=== PATIENT | male | born 1960 | race Caucasian/White ===

== ENCOUNTER 2016-12-19 14:51 | Emergency (ER) | payer MEDICARE, BC ==
[~2016-12-19] VITALS: Wt 55.0 kg
[~2016-12-19 14:51] MED LIST: CALC667C PO; FERR-55 PO; HYDR-906 PO; INSU100C5 SQ; INSU100V23 SC; MIDO10TA PO; NEPH PO; SITA50TA2 PO
--- NOTE | 2016-12-19 16:58 | ERD ---
ER Documentation Chief Complaint Date/Time DATE: 12/19/16 TIME: 16:56 Chief Complaint R. HIP PAIN RAD DOWN RLE HPI This a 56-year-old male who presents to the emergency department today complaining of right-sided hip pain for the past 2 weeks. Patient states he walks with a walker and has pain going all way down his legs. Patient states it is worse with walking. Patient is currently on dialysis and takes tramadol for pain. Daughter states that her father had an accident 10 years ago and fractured his hip. Denies any fevers or chills. ROS All systems reviewed and are negative except as per history of present illness. Medications Home Meds Active Scripts Hydrocodone/Acetaminophen ([place] 5-325 Tablet) 1 Each Tablet, 1 TAB PO Q6H Y for PAIN, #10 TAB Prov:FRANNY BLANCHARD PA-C 12/19/16 Hydrocodone Bit-Acetaminophen ([place]) 5-325 Mg Tablet, 1 TAB PO Q8 Y for SEVERE PAIN LEVEL 7-10, #30 TAB Prov:BAKARI GARCIA MD 12/04/15 Reported Medications Midodrine* (Midodrine*) 10 Mg Tablet, 10 MG PO TID, TAB 05/10/16 Insulin Regular, Human* (Novolin R*) 100 U/Ml Vial, 2 UNIT SC AC MEALS, VIAL 11/25/15 Sitagliptin* (Januvia*) 50 Mg Tablet, 50 MG PO DAILY, #30 TAB 11/25/15 Ferrous Sulfate* (Ferrous Sulfate*) 325 Mg Tablet, 325 MG PO BID, TAB 12/17/14 Calcium Acetate* (Calcium Acetate*) 667 Mg Capsule, 1334 MG PO TID, CAP 12/17/14 Insulin Glargine,Hum.rec.anlog (Lantus) 100 U/Ml Cartridge, 20 U SQ HS 03/07/14 Multivit/Ca Carb/B Cmplx/Fa* (Melissa-Mita*) 1 Tab Tab, 1 TAB PO DAILY 02/21/14 Allergies Allergies: Coded Allergies: No Known Allergy (Verified , 05/10/16) PMhx/Soc History of Surgery: Yes (right hip surgery, cholecystectomy, fistula and perma cath placement) Anesthesia Reaction: No Hx Neurological Disorder: No Hx Respiratory Disorders: Yes (tb) Hx Cardiac Disorders: No Hx Psychiatric Problems: No Hx Miscellaneous Medical Probl: No Hx Alcohol Use: No Hx Substance Use: No Hx Tobacco Use: No Smoking Status: Never smoker Physical Exam Vitals Vital Signs Date Time Temp Pulse Resp B/P Pulse Ox O2 Delivery O2 Flow Rate FiO2 12/19/16 14:54 98.3 99 20 122/73 98 Physical Exam Const: Sitting in wheelchair, no acute distress Head: Atraumatic Eyes: Normal Conjunctiva ENT: Normal External Ears, Nose and Mouth. Neck: Full range of motion..~ No meningismus. Resp: Clear to auscultation bilaterally Cardio: Regular rate and rhythm, no murmurs Abd: Soft, non tender, non distended. Normal bowel sounds Skin: No petechiae or rashes Back: No midline or flank tenderness Ext: No cyanosis, or edema MSK right hip with no obvious deformity. No effusion. No ecchymosis. Mild tenderness to palpation. Unable to assess range of motion secondary to pain. Pulses 2+. Distal neurovascularly intact. Neur: Awake and alert Psych: Normal Mood and Affect Results 24 hrs Patient: JOHANN PRAKASH : 1960 Age: 56 Sex: M MR #: [id number] DOS: 12/19/16 0000 Ordering MD: FRANNY BLANCHARD PA-C Location: [facility] Room/Bed: PROCEDURE: XR right hip. CLINICAL INDICATION: Hip pain TECHNIQUE: Two views are available for review. COMPARISON: None available FINDINGS: There is a right total hip replacement. There is no evidence of loosening of the prosthesis. There is diffuse osteopenia. No fractures are identified. No osseous lesions are present. The soft tissues are unremarkable. There is extensive arterial vascular calcification. IMPRESSION: Diffuse osteopenia Right total hip replacement Otherwise an unremarkable examination RPTAT: HGDB .Nasir Crandall MD, Date Time Electronically viewed and signed by .Nasir Crandall MD, MD on 12/19/2016 17:28 .B/ CC: FRANNY BLANCHARD PA-C DIAGNOSTIC IMAGING REPORT Patient: JOHANN PRAKASH : 1960 Age: 56 Sex: M MR #: [id number] DOS: 12/19/16 0000 Ordering MD: FRANNY BLANCHARD PA-C Location: [facility] Room/Bed: PROCEDURE: XR Lumbar Spine. CLINICAL INDICATION: Low back pain. TECHNIQUE: Two views of the lumbar spine available for review COMPARISON: 12/28/2014 FINDINGS: There is diffuse osteopenia. There are indeterminate age compression fractures of the L2, L3 and L5 vertebral bodies. No subluxation is identified. The disk spaces are unremarkable. The facet joints are unremarkable. The soft tissues are unremarkable. IMPRESSION: Diffuse osteopenia. Indeterminate age compression fractures of the L2, L3 and L5 vertebral bodies RPTAT: HGDB .Nasir Crandall MD, MD Date Time Electronically viewed and signed by .Nasir Crandall MD, MD on 12/19/2016 17:26 .B/ CC: FRANNY BLANCHARD PA-C Procedures/MDM This is a 56-year-old male who presents the emergency department today complaining of right-sided hip pain for the past 2 weeks. Patient is on dialysis and normally walks with a walker. I did obtain images of the patient' s lumbar spine as well as right hip given his complaints of pain that goes all the way down into his leg. Per the radiology report images of the lumbar spine show diffuse osteopenia. There is an indeterminate age compression fracture of L2, L3 and L5 vertebral bodies. Disc spaces are unremarkable Images of the right hip show a right total hip replacement and diffuse osteopenia. Patient's poor bone quality and compression fractures are likely the cause of his radicular symptoms and hip pain. Patient denies any recent trauma and of low suspicion for acute fracture dislocation. Patient takes tramadol at home and I do not feel that the patient required any pain medication here in the emergency department as he is already on dialysis. We will give the patient a prescription for [place] for home. He was instructed to follow-up with his primary care physician for referral to orthopedics. Patient understood. At this time the patient is stable for discharge and outpatient management. Patient should follow up with their PCP in the next 1-2 days. They may return to the emergency department sooner for any persistent or worsening of symptoms. Patient understood and agreed with the plan. Discussed the patient with Dr. Hanson and he is in agreement with the plan. Departure Diagnosis: Primary Impression: Hip pain Laterality: right Qualified Code: M25.551 - Pain of right hip joint Additional Impression: Lumbar compression fracture Encounter type: initial encounter Fracture type: closed Qualified Code: S32.000A - Lumbar compression fracture, closed, initial encounter Condition: Fair FRANNY BLANCHARD PA-C Dec 19, 2016 16:58
--- NOTE | 2016-12-19 17:27 | RADRPT ---
PROCEDURE: XR Lumbar Spine. CLINICAL INDICATION: Low back pain. TECHNIQUE: Two views of the lumbar spine available for review COMPARISON: 12/28/2014 FINDINGS: There is diffuse osteopenia. There are indeterminate age compression fractures of the L2, L3 and L5 vertebral bodies. No subluxation is identified. The disk spaces are unremarkable. The facet join ts are unremarkable. The soft tissues are unremarkable. IMPRESSION: Diffuse osteopenia. Indeterminate age compression fractures of the L2, L3 and L5 vertebral bodies RPTAT: HGDB .Nasir Crandall MD, MD Date Time Electronically viewed and signed by .Nasir Crandall MD, on 12/19/2016 17:26 .B/
--- NOTE | 2016-12-19 17:28 | RADRPT ---
PROCEDURE: XR right hip. CLINICAL INDICATION: Hip pain TECHNIQUE: Two views are available for review. COMPARISON: None available FINDINGS: There is a right total hip replacement. There is no evidence of loosening of the prosthesis. There i s diffuse osteopenia. No fractures are identified. No osseous lesions are present. The soft tissu es are unremarkable. There is extensive arterial vascular calcification. IMPRESSION: Diffuse osteopenia Right total hip replacement Otherwise an unremarkable examination RPTAT: HGDB .Nasir Crandall MD, MD Date Time Electronically viewed and signed by .Nasir Crandall MD, on 12/19/2016 17:28 .B/
[2016-12-19] MEDS ORDERED: HYDR-906 PO (18:01)
== END 2016-12-19 18:26 | disposition home or self-care (01) ==
LOC: FTE 14:51
DX: M25.551 Pain in right hip (principal); E11.9 Type 2 diabetes mellitus without complications; N18.6 End stage renal disease; M80.08XA Age-related osteoporosis with current pathological fracture, vertebra(e), initial encounter for fracture; Z99.2 Dependence on renal dialysis; Z79.4 Long term (current) use of insulin
CPT/HCPCS: 72100; 73510

== ENCOUNTER 2017-04-22 14:46 | Inpatient (IN) | payer MEDICARE, BC ==
[~2017-04-22] VITALS: Ht 152.4 cm; Wt 34.6 kg
[2017-04-22 14:51] VITALS: Ht 152.4 cm; Wt 34.6 kg
[2017-04-22 15:48] LABS: ADD SCAN DIFF NO
[2017-04-22 15:53] LABS: BASOPHILS % 0.4 % (0.0-2.0); EOSINOPHILS # 0.2 10^3/ul (0.0-0.5); EOSINOPHILS % 2.5 % (0.0-7.0); HEMATOCRIT 31.7 % (42.0-52.0); HEMOGLOBIN 9.7 g/dl (14.0-18.0); LYMPHOCYTES # 1.6 10^3/ul (0.8-2.9); LYMPHOCYTES % 18.9 % (15.0-51.0); MEAN CORPUSCULAR HEMOGLOBIN 30.4 pg (29.0-33.0); MEAN CORPUSCULAR HGB CONC 30.6 g/dl (32.0-37.0); MEAN CORPUSCULAR VOLUME 99.4 fl (82.0-101.0); MONOCYTE # 0.5 10^3/ul (0.3-0.9); MONOCYTES % 6.3 % (0.0-11.0); NEUTROPHIL # 6.1 10^3/ul (1.6-7.5); NEUTROPHILS % 71.7 % (39.0-77.0); PLATELET COUNT 256 10^3/UL (140-415); RED BLOOD COUNT 3.19 10^6/ul (4.70-6.10); RED CELL DISTRIBUTION WIDTH 13.2 % (11.5-14.5); WHITE BLOOD COUNT 8.5 10^3/ul (4.8-10.8)
--- NOTE | 2017-04-22 16:01 | RADRPT ---
PROCEDURE: Chest Radiograph. CLINICAL INDICATION: Sepsis TECHNIQUE: Single frontal chest radiograph. COMPARISON: Chest radiograph 05/10/2016 FINDINGS: Heart size is within normal limits. Atherosclerotic calcifications are present. There is mild left basilar atelectasis. No infiltrate or effusion is seen. The bones are intact. IMPRESSION: 1. No evidence of acute cardiopulmonary disease. 2. Atherosclerotic vascular disease. RPTAT: KK .Kashif Zimmerman MD, MD Date Time Electronically viewed and signed by .Kashif Zimmerman MD, on 04/22/2017 16:01 .B/
[2017-04-22 16:26] LABS: ALANINE AMINOTRANSFERASE 41 IU/L (13-69); ALBUMIN 4.5 g/dl (3.3-4.9); ALBUMIN/GLOBULIN RATIO 1.25; ALKALINE PHOSPHATASE 152 IU/L (42-121); ANION GAP 18 (8-16); ASPARTATE AMINO TRANSFERASE 23 IU/L (15-46); BILIRUBIN,INDIRECT 0.1 mg/dl (0-1.1); BILIRUBIN,TOTAL 0.1 mg/dl (0.2-1.3); BLOOD UREA NITROGEN 26 mg/dl (7-20); CALCIUM 9.3 mg/dl (8.4-10.2); CARBON DIOXIDE 21 mmol/L (21-31); CHLORIDE 102 mmol/L (97-110); CREATININE 4.46 mg/dl (0.61-1.24); GLUCOSE 144 mg/dl (70-220); POTASSIUM 5.7 mmol/L (3.5-5.1); SODIUM 135 mmol/L (135-144); TOTAL PROTEIN 8.1 g/dl (6.1-8.1)
[2017-04-22 16:28] LABS: INR 0.97; PROTIME 12.9 Sec (12.2-14.2)
[2017-04-22 16:44] LABS: TROPONIN-I < 0.012 ng/ml (0.00-0.12)
[2017-04-22] MEDS ORDERED: MIDO5TAB19 PO (16:45)
[2017-04-22] MEDS ORDERED: LIPA1CAP4 PO (16:46)
[2017-04-22] MEDS ORDERED: DIPH1TAB PO (16:46)
[2017-04-22] MEDS ORDERED: CHOL400T3 PO (16:48)
[2017-04-22] MEDS ORDERED: TRAM-40 PO (16:49)
[2017-04-22] MEDS ORDERED: MECL-77 PO (16:50)
[2017-04-22] MEDS ORDERED: ACID1TAB14 PO (16:51)
[2017-04-22] MEDS ORDERED: VIT1TABL28 PO (16:51)
[2017-04-22] MEDS ORDERED: INSULIN REGULAR, HUMAN 100 UNIT/1 ML 3ML VIAL IV ONE (17:00)
[2017-04-22] MEDS ORDERED: DEXTROSE 50% 50 ML SYRINGE IV ONE ×2 (17:00)
[2017-04-22] MEDS ORDERED: metroNIDAZOLE 500 MG/NS (PMX) 100 ML IVPB ONE (17:00)
[2017-04-22] MEDS ORDERED: CIPROFLOXACIN 200 MG/D5W IVPB 100 ML IVPB ONE (17:00)
[2017-04-22] MEDS ORDERED: ALBUTEROL 0.083% (NEB) 2.5 MG/3 ML AMP HHN STA (17:12)
[2017-04-22] MEDS: ALBUMIN HUMAN 25% 100 ML IV SCH ×2 (17:30→19:28)
[2017-04-22] MEDS ORDERED: ALBUTEROL/IPRATROPIUM (NEB) 3 ML AMP HHN PRN (19:00)
[2017-04-22] MEDS ORDERED: GLUCOSE GEL 15 GRAM TUBE BUCCAL PRN (19:00)
[2017-04-22] MEDS ORDERED: morphine 2 MG INJ IV PRN (19:00)
[2017-04-22] MEDS ORDERED: GLUCOSE GEL 15 GRAM TUBE PO PRN (19:00)
[2017-04-22] MEDS ORDERED: DEXTROSE 50% 50 ML SYRINGE IV PRN ×2 (19:00)
[2017-04-22] MEDS ORDERED: ACETAMINOPHEN 325 MG TAB PO PRN (19:00)
[2017-04-22] MEDS ORDERED: GLUCAGON 1 MG INJ IM PRN (19:00)
[2017-04-22] MEDS ORDERED: traMADol 50 MG TAB PO PRN (19:00)
[2017-04-22] MEDS ORDERED: NACL 0.9% 3 ML SYG IV SCH (19:00)
[2017-04-22] MEDS ORDERED: SOD CHLORIDE 0.9% 500 ML IV ONE (19:00)
[2017-04-22] MEDS: INSULIN ASPART [NOVOLOG] 3 ML PEN SC SCH ×2 (19:30→21:51)
--- NOTE | 2017-04-22 20:44 | ERA ---
ER Documentation Chief Complaint Date/Time DATE: 04/22/17 Chief Complaint Diarrhea HPI The patient is a 57-year-old male, presenting to the ER because of persistent diarrhea for more than 2 months, denies any hematochezia, hemoptysis. He had history of C. difficile colitis. He denies fever, chills, neck pain, chest pain , dysuria, complaints of weight loss and decreased appetite. He does not smoke or drink Past medical history: Chronic kidney disease, hemodialysis on Friday and Friday, diabetes mellitus, chronic right hip Past surgical history: Right upper extremity AV fistula ROS All systems reviewed and are negative except as per history of present illness. Medications Home Meds Reported Medications Vit B Cmplx 3/Fa/Vit C/Biotin (VOL-CARE RX TABLET) 1 Each Tablet, 1 EACH PO DAILY, TAB 04/22/17 Lactobacillus Acidoph/Bulgaricus* (Floranex*) 1 Each Tablet, 1 TAB.CHEW PO DAILY , TAB.CHEW 04/22/17 Meclizine Hcl* (Meclizine Hcl*) 25 Mg Tablet, 25 MG PO NEEDED Y for DIZZINESS , TAB 04/22/17 Tramadol Hcl* (Ultram*) 50 Mg Tablet, 50 MG PO Q6H Y for PAIN, TAB 04/22/17 Cholecalciferol (Vitamin D3) 400 Unit Tab.chew, 800 UNIT PO DAILY, TAB.CHEW 04/22/17 Cqqape-Cyvlshrz-Yycjsxu* (Derian DR* 12,000) 12,000 L-38,000-60,000 Unit Capsule.dr, 2 CAP PO WITH MEALS, CAP 04/22/17 Diphenoxylate HCl/Atropine (Lomotil 2.5-0.025 mg Tablet) 1 Each Tablet, 1 TAB PO TID Y for DIARRHEA, TAB 04/22/17 Midodrine* (Midodrine*) 5 Mg Tablet, 10 MG PO TID, TAB 04/22/17 Insulin Regular, Human* (Novolin R*) 100 U/Ml Vial, 2 UNIT SC AC MEALS, VIAL 11/25/15 Sitagliptin* (Januvia*) 50 Mg Tablet, 50 MG PO DAILY, #30 TAB 11/25/15 Calcium Acetate* (Calcium Acetate*) 667 Mg Capsule, 1334 MG PO TID, CAP 12/17/14 Insulin Glargine,Hum.rec.anlog (Lantus) 100 U/Ml Cartridge, 20 U SQ HS 03/07/14 Discontinued Reported Medications Midodrine* (Midodrine*) 10 Mg Tablet, 10 MG PO TID, TAB 05/10/16 Ferrous Sulfate* (Ferrous Sulfate*) 325 Mg Tablet, 325 MG PO BID, TAB 12/17/14 Multivit/Ca Carb/B Cmplx/Fa* (Melissa-Mita*) 1 Tab Tab, 1 TAB PO DAILY 02/21/14 Discontinued Scripts Hydrocodone/Acetaminophen ([place] 5-325 Tablet) 1 Each Tablet, 1 TAB PO Q6H Y for PAIN, #10 TAB Prov:FRANNY BLANCHARD PA-C 12/19/16 Hydrocodone Bit-Acetaminophen ([place]) 5-325 Mg Tablet, 1 TAB PO Q8 Y for SEVERE PAIN LEVEL 7-10, #30 TAB Prov:BAKARI GARCIA MD 12/04/15 Allergies Allergies: Coded Allergies: No Known Allergy (Verified , 04/22/17) PMhx/Soc History of Surgery: Yes (right hip surgery, cholecystectomy, fistula and perma cath placement) Anesthesia Reaction: No Hx Neurological Disorder: No Hx Respiratory Disorders: Yes (tb) Hx Cardiac Disorders: No Hx Psychiatric Problems: No Hx Miscellaneous Medical Probl: Yes (DIALYSIS) Hx Alcohol Use: No Hx Substance Use: No Hx Tobacco Use: No Smoking Status: Former smoker Physical Exam Vitals Vital Signs Date Time Temp Pulse Resp B/P Pulse Ox O2 Delivery O2 Flow Rate FiO2 04/22/17 18:56 114 20 95/81 100 Room Air 04/22/17 17:36 75 20 96 21 04/22/17 17:23 76 18 106/67 100 Room Air 04/22/17 15:52 Nasal Cannula 2 04/22/17 14:51 96.9 87 18 77/48 99 Physical Exam Const: No acute distress. Head: Atraumatic. Eyes: Normal Conjunctiva. ENT: Normal External Ears, Nose and Mouth. Neck: Full range of motion. No meningismus. Resp: Clear to auscultation bilaterally. Cardio: Regular rate and rhythm. Abd: Soft, non distended, normal bowel sounds, non tender. Skin: No petechiae or rashes. Back: No midline or flank tenderness. Ext: No cyanosis, or edema. Neur: Awake and alert. No focal deficit Psych: Normal Mood and Affect. Result Diagram: 04/22/17 1540 04/22/17 1540 Results 24 hrs Laboratory Tests Test 04/22/17 15:40 04/22/17 17:25 04/22/17 20:03 White Blood Count 8.510^3/ul Red Blood Count 3.1910^6/ul Hemoglobin 9.7g/dl Hematocrit 31.7% Mean Corpuscular Volume 99.4fl Mean Corpuscular Hemoglobin 30.4pg Mean Corpuscular Hemoglobin Concent 30.6g/dl Red Cell Distribution Width 13.2% Platelet Count 68084^3/UL Mean Platelet Volume 9.0fl Neutrophils % 71.7% Lymphocytes % 18.9% Monocytes % 6.3% Eosinophils % 2.5% Basophils % 0.4% Nucleated Red Blood Cells % 0.0/100WBC Neutrophils # 6.110^3/ul Lymphocytes # 1.610^3/ul Monocytes # 0.510^3/ul Eosinophils # 0.210^3/ul Basophils # 0.010^3/ul Nucleated Red Blood Cells # 0.010^3/ul Prothrombin Time 12.9Sec Prothrombin Time Ratio 1.0 INR International Normalized Ratio 0.97 Activated Partial Thromboplast Time 31.0Sec Sodium Level 135mmol/L Potassium Level 5.7mmol/L Chloride Level 102mmol/L Carbon Dioxide Level 21mmol/L Anion Gap 18 Blood Urea Nitrogen 26mg/dl Creatinine 4.46mg/dl Glucose Level 144mg/dl Lactic Acid Level 2.7mmol/L 1.8mmol/L Calcium Level 9.3mg/dl Total Bilirubin 0.1mg/dl Direct Bilirubin 0.00mg/dl Indirect Bilirubin 0.1mg/dl Aspartate Amino Transf (AST/SGOT) 23IU/L Alanine Aminotransferase (ALT/SGPT) 41IU/L Alkaline Phosphatase 152IU/L Troponin I < 0.012ng/ml Total Protein 8.1g/dl Albumin 4.5g/dl Globulin 3.60g/dl Albumin/Globulin Ratio 1.25 Bedside Glucose 274mg/dL Current Medications Medications (Trade) Dose Ordered Sig/Zachary Route PRN Reason Start Time Stop Time Status Last Admin Dose Admin Ciprofloxacin/ Dextrose 100 ml @ 100 mls/hr ONCE ONCE IVPB 6/20/17 17:00 04/22/17 17:59 DC 04/22/17 19:25 Metronidazole (Flagyl 500 Mg (Pmx)) 100 ml @ 100 mls/hr ONCE ONCE IVPB 04/22/17 17:00 04/22/17 17:59 DC 04/22/17 17:27 Albuterol (Proventil 0.083% (Neb)) 10 mg ONCE RESP THERAPY STAT HHN 04/22/17 17:12 04/22/17 17:13 DC 04/22/17 17:35 Dextrose (D50w Syringe) 50 ml ONCE ONCE IV 04/22/17 17:00 04/22/17 17:17 DC 04/22/17 17:26 Insulin Human Regular 10 unit 10 unit ONCE ONCE IV 04/22/17 17:00 04/22/17 17:11 DC 04/22/17 17:29 Albumin Human (Albumin Human 25%) 100 ml @ 100 mls/hr Q1H IV 04/22/17 17:00 04/22/17 18:59 DC 04/22/17 19:28 Dextrose (D50w Syringe) 50 ml ONCE ONCE IV 04/22/17 17:00 04/22/17 17:18 DC 04/22/17 17:26 IV Flush (NS 3 ml) 3 ml PER PROTOCOL IV 04/22/17 19:00 Ondansetron HCl (Zofran Inj) 4 mg Q6H PRN IV NAUSEA AND/OR VOMITING 04/22/17 19:00 Acetaminophen (Tylenol Tab) 650 mg Q6H PRN PO PAIN LEVEL 1-3 OR FEVER 04/22/17 19:00 Acetaminophen/ Hydrocodone Bitart ([place] (5/325)) 1 tab Q6H PRN PO MODERATE PAIN LEVEL 4-6 04/22/17 19:00 Morphine Sulfate (morphine) 2 mg Q4H PRN IV SEVERE PAIN LEVEL 7-10 04/22/17 19:00 Albuterol/ Ipratropium (Duoneb) 3 ml Q2H RESP THERAPY PRN HHN SHORTNESS OF BREATH 04/22/17 19:00 Insulin Aspart (Novolog Insulin Pen) NOVOLOG *MILD* ALGORITHM WITH MEALS BEDTIME SC 04/22/17 21:00 Miscellaneous Information HYPOGLYCEMIA PROTOCOL w... ONCE ONCE XX 04/22/17 19:00 04/22/17 19:00 DC Metronidazole 100 ml @ 100 mls/hr Q8 IVPB 04/23/17 00:00 Sodium Chloride (NS) 500 ml @ 100 mls/hr Q5H ONCE IV 04/22/17 19:00 04/22/17 23:59 04/22/17 19:25 Calcium Acetate (Phoslo) 1,334 mg WITH MEALS PO 04/22/17 21:00 Insulin Aspart (Novolog Insulin Pen) 2 unit AC MEALS SC 04/22/17 19:30 Amylase/Lipase/ Protease (CREON (76c-15i-73k)) 2 cap WITH MEALS PO 04/23/17 08:00 Midodrine (Proamatine) 10 mg TID PO 04/22/17 21:00 Tramadol HCl (Ultram) 50 mg Q6H PRN PO PAIN 04/22/17 19:00 Linagliptin (Tradjenta) 5 mg DAILY PO 04/23/17 09:00 Insulin Glargine (Lantus) 20 unit HS SC 04/22/17 21:00 Miscellaneous Information 1 ea NOTE XX 04/22/17 19:00 Glucose (Glutose) 15 gm Q15M PRN PO DECREASED GLUCOSE 04/22/17 19:00 Glucose (Glutose) 22.5 gm Q15M PRN PO DECREASED GLUCOSE 04/22/17 19:00 Dextrose (D50w Syringe) 25 ml Q15M PRN IV DECREASED GLUCOSE 04/22/17 19:00 Dextrose (D50w Syringe) 50 ml Q15M PRN IV DECREASED GLUCOSE 04/22/17 19:00 Glucagon (Glucagen) 1 mg Q15M PRN IM DECREASED GLUCOSE 04/22/17 19:00 Glucose (Glutose) 15 gm Q15M PRN BUCCAL DECREASED GLUCOSE 04/22/17 19:00 Procedures/[place] [id number] Radiology Main Line: [phone] DIAGNOSTIC IMAGING REPORT Patient: JOHANN PRAKASH : 1960 Age: 57 Sex: M MR #: [id number] DOS: 04/22/17 1526 Ordering MD: FELISHA DAUGHERTY MD Location: E/R Room/Bed: PROCEDURE: Chest Radiograph. CLINICAL INDICATION: Sepsis TECHNIQUE: Single frontal chest radiograph. COMPARISON: Chest radiograph 05/10/2016 FINDINGS: Heart size is within normal limits. Atherosclerotic calcifications are present. There is mild left basilar atelectasis. No infiltrate or effusion is seen. The bones are intact. IMPRESSION: 1. No evidence of acute cardiopulmonary disease. 2. Atherosclerotic vascular disease. RPTAT: KK .Kashif Zimmerman MD, Date Time Electronically viewed and signed by .Kashif Zimmerman MD, on 2016 16:01 .B/ CC: FELSIHA DAUGHERTY MD EKG: Read by emergency physician Rate/Rhythm: Normal Sinus Rhythm 81 beats/min QRS, ST, T-waves: No ST elevation, no T inversion Impression: Normal EKG MEDICAL MAKING DECISION: The patient is a 57-year-old male, presenting with acute severe sepsis, acute diarrhea that is concerning for C. difficile colitis , acute hyperkalemia. He was treated with Cipro IV, Flagyl IV for acute diarrhea, 200 mL albumin 25% IV for acute hypotension, 2 ampules of D50 IV and 10 units of regular insulin IV and albuterol 10 mg nebulizer over 15 minutes for acute hyperkalemia with good response The differential diagnoses considered include but are not limited to cholelithiasis, cholecystitis, cystitis, pancreatitis, hepatitis, gastritis, peptic ulcer disease, gastric ulcer, appendicitis, diverticulitis, cholangitis, choledocholithiasis, partial small bowel obstruction. Admit MDM: Patient's infectious symptoms have not stabilized and the patient is at risk of rapid decompensation. The patient will be admitted for careful hydration, antibiotic therapy, and infectious source control. Severe Sepsis criteria: Infectious source: Unknown End organ damage indicated by: Lactate > 2.0 mmol/L Sepsis Management: Time of recognition of severe sepsis/septic shock:16:00 hr Within 3 hours of recognition: Blood cultures x 2 before broad-spectrum antibiotics: Yes 30 ml/kg NS bolus not completed b/c CKD Initial lactate 2.2 Repeat lactate pending Critical Care: Critical care time 35 minutes Emergent fluid management while maintaining close respiratory support. Provision of immediate and broad-spectrum antibiotic therapy. Simultaneous assessment for possible sources in order to direct targeted therapy. Consideration for invasive and chemical support to prevent cardiopulmonary collapse. Septic Shock Assessment: Any lactic acid > 4.0 no Persistent hypotension (SBP < 90 or 40 mmHg drop, MAP < 65) despite 30 mL/kg IV fluid bolusno Departure Diagnosis: Primary Impression: Severe sepsis Additional Impressions: Diarrhea Hyperkalemia Anemia Condition: Stable Comments I discussed the findings with the patient. I discussed the patient with the on- call hospitalist Dr. Kohli at 5:30 PM who was made aware of the lab, the treatment, the patient condition. The patient is admitted to telemetry FELISHA DAUGHERTY MD Apr 22, 2017 20:44
[2017-04-22] MEDS: CALCIUM ACETATE 667 MG CAP PO SCH (21:47)
[2017-04-22] MEDS: MIDODRINE 5 MG TAB PO SCH (21:47)
[2017-04-22] MEDS: INSULIN GLARGINE [LANtus] 3 ML PEN SC SCH (21:50)
[2017-04-22 22:36] VITALS: TEMP 97.7
[2017-04-22] MEDS: metroNIDAZOLE 500 MG/NS (PMX) 100 ML IVPB SCH (23:17)
[2017-04-23] VITALS (13 sets, daily range): BP systolic 76–179; BP diastolic 46–88; PULSE 73–88; RESP 15–20
[2017-04-23] MEDS ORDERED: ZOLPIDEM 5 MG TAB PO PRN (01:00)
--- NOTE | 2017-04-23 01:44 | HP ---
DATE OF ADMISSION: 04/22/2017 CHIEF COMPLAINT: Diarrhea. HISTORY OF PRESENT ILLNESS: The patient is a 57-year-old male with history of sepsis from dialysis line infection, recurrent C. diff, end-stage renal disease, left lower extremity diabetic foot ulcer , type 2 diabetes as well as right hip surgery. The patient was recently hospitalized here in 2016 with a diagnosis of sepsis from dialysis line infection. The patient comes in with diarrhea now for several months. The patient has no other complaints. His main complaint is related to diarrhea. The patient denies any abdominal pain at this time. He denies any fevers or chills. PAST MEDICAL HISTORY: As per HPI. HOME MEDICATIONS: 1. Vitamin B complex. 2. Meclizine. 3. Tramadol. 4. Lipase. 5. Protease. 6. Amylase. 7. Lomotil. 8. ____. 9. Regular insulin. 10. Januvia. 11. Lantus. ALLERGIES: NO KNOWN DRUG ALLERGIES. FAMILY HISTORY: Noncontributory. SOCIAL HISTORY: Denies any alcohol, tobacco or drug use. REVIEW OF SYSTEMS: A 12-point review of systems negative except for that mentioned in HPI. PHYSICAL EXAMINATION: VITAL SIGNS: Temperature is 97.7, pulse 99, respiratory rate 16, BP is 172/69, saturation 99% on ro om air. GENERAL: No acute distress. Alert, oriented. HEENT: Normocephalic, atraumatic. CHEST: Clear to auscultation. CARDIOVASCULAR: Regular rate, rhythm. ABDOMEN: Nondistended, nontender, soft. EXTREMITIES: No clubbing, cyanosis, edema. LABORATORY: White count is 8.5, hemoglobin is 9.7, platelets are 256. Chemistry: Sodium is 135, p otassium is 5.7, chloride is 102, carbon dioxide 21, BUN is 26, creatinine is 4.46. DIAGNOSTICS: Chest x-ray shows no evidence of active disease. ASSESSMENT AND PLAN: 1. Diarrhea, possibly secondary to recurrent Clostridium difficile. The patient does have history of recurrent Clostridium difficile in the past. Will check a C diff. Will start the patient prophy lactically on Flagyl IV. The patient will need an ID consultation. 2. End-stage renal disease. Will consult Nephrology. 3. Diabetes. Continue home regimen. Check A1c. 4. Normocytic anemia, likely secondary to end-stage renal disease and chronic disease. 5. Prophylaxis: Heparin. Dictated By: PRANAV ABRAMS/CORINNE Conf#: [id number] DID#: [id number]
[2017-04-23 06:19] LABS: ADD SCAN DIFF NO
[2017-04-23 06:30] LABS: BASOPHILS % 0.4 % (0.0-2.0); EOSINOPHILS # 0.2 10^3/ul (0.0-0.5); EOSINOPHILS % 1.8 % (0.0-7.0); LYMPHOCYTES # 1.5 10^3/ul (0.8-2.9); LYMPHOCYTES % 16.1 % (15.0-51.0); MEAN CORPUSCULAR HEMOGLOBIN 30.2 pg (29.0-33.0); MEAN CORPUSCULAR HGB CONC 31.3 g/dl (32.0-37.0); MEAN CORPUSCULAR VOLUME 96.7 fl (82.0-101.0); MEAN PLATELET VOLUME 8.9 fl (7.4-10.4); MONOCYTE # 0.5 10^3/ul (0.3-0.9); MONOCYTES % 5.6 % (0.0-11.0); NEUTROPHILS % 75.8 % (39.0-77.0); PLATELET COUNT 267 10^3/UL (140-415); RED BLOOD COUNT 3.31 10^6/ul (4.70-6.10); RED CELL DISTRIBUTION WIDTH 13.1 % (11.5-14.5); WHITE BLOOD COUNT 9.3 10^3/ul (4.8-10.8)
[2017-04-23] MEDS: INSULIN ASPART [NOVOLOG] 3 ML PEN SC SCH ×7 (07:00→20:56)
[2017-04-23 07:01] LABS: ALBUMIN/GLOBULIN RATIO 1.51; BILIRUBIN,INDIRECT 0.1 mg/dl (0-1.1); BILIRUBIN,TOTAL 0.1 mg/dl (0.2-1.3); CALCIUM 9.5 mg/dl (8.4-10.2); CREATININE 5.68 mg/dl (0.61-1.24); MAGNESIUM 2.3 mg/dl (1.7-2.5); PHOSPHORUS 4.2 mg/dl (2.5-4.9); POTASSIUM 4.6 mmol/L (3.5-5.1); TOTAL PROTEIN 8.3 g/dl (6.1-8.1)
[2017-04-23] MEDS ORDERED: CREON (12k-38k-60k) 1 CAP PO SCH (08:00)
[2017-04-23] MEDS: CALCIUM ACETATE 667 MG CAP PO SCH ×3 (08:55→17:27)
[2017-04-23] MEDS: MIDODRINE 5 MG TAB PO SCH ×3 (08:57→20:57)
[2017-04-23] MEDS ORDERED: LINAGLIPTIN 5 MG TABLET PO SCH (09:00)
--- NOTE | 2017-04-23 10:12 | CONS ---
Date/Time of Note Date/Time of Note DATE: 04/23/17 TIME: 10:10 Assessment/Plan Assessment/Plan Chief Complaint/Hosp Course 160475 renal consult A/P DIARRHEA ESRD HTN DM ANEMIA PLAN HD Problems: Consultation Date/Type/Reason Admit Date/Time Apr 22, 2017 at 17:33 Initial Consult Date Type of Consultation: renal 24 HR Interval Summary Constitutional: other (diarrhea) Exam/Review of Systems Vital Signs Vitals Vital Signs Date Time Temp Pulse Resp B/P Pulse Ox O2 Delivery O2 Flow Rate FiO2 04/23/17 09:00 87 16 111/75 100 Room Air 04/22/17 22:36 97.7 04/22/17 17:36 21 04/22/17 15:52 2 Intake and Output 04/22/17 04/22/17 04/23/17 15:00 23:00 07:00 Intake Total 200 ml Balance 200 ml Exam Neck: supple Respiratory: clear to auscultation Cardiovascular: regular rate and rhythm Gastrointestinal: bowel sounds, soft Musculoskeletal: nl extremities to inspection Extremities: normal pulses Results Result Diagram: 04/23/17 0602 04/23/17 0602 Results 24 hrs Laboratory Tests Test 04/22/17 15:40 04/22/17 17:25 04/22/17 20:03 04/22/17 21:22 White Blood Count 8.5 # Red Blood Count 3.19 L Hemoglobin 9.7 L Hematocrit 31.7 #L Mean Corpuscular Volume 99.4 Mean Corpuscular Hemoglobin 30.4 Mean Corpuscular Hemoglobin Concent 30.6 L Red Cell Distribution Width 13.2 Platelet Count 256 Mean Platelet Volume 9.0 # Neutrophils % 71.7 Lymphocytes % 18.9 Monocytes % 6.3 Eosinophils % 2.5 Basophils % 0.4 Nucleated Red Blood Cells % 0.0 Neutrophils # 6.1 Lymphocytes # 1.6 Monocytes # 0.5 Eosinophils # 0.2 Basophils # 0.0 Nucleated Red Blood Cells # 0.0 Prothrombin Time 12.9 Prothrombin Time Ratio 1.0 INR International Normalized Ratio 0.97 Activated Partial Thromboplast Time 31.0 Sodium Level 135 Potassium Level 5.7 H Chloride Level 102 Carbon Dioxide Level 21 Anion Gap 18 H Blood Urea Nitrogen 26 H Creatinine 4.46 H Glucose Level 144 Lactic Acid Level 2.7 H 1.8 4.1 *H Calcium Level 9.3 Total Bilirubin 0.1 L Direct Bilirubin 0.00 Indirect Bilirubin 0.1 Aspartate Amino Transf (AST/SGOT) 23 Alanine Aminotransferase (ALT/SGPT) 41 Alkaline Phosphatase 152 H Troponin I < 0.012 Total Protein 8.1 Albumin 4.5 Globulin 3.60 H Albumin/Globulin Ratio 1.25 Bedside Glucose 274 H Test 04/22/17 21:36 04/23/17 06:02 04/23/17 08:55 Bedside Glucose 203 86 White Blood Count 9.3 Red Blood Count 3.31 L Hemoglobin 10.0 L Hematocrit 32.0 L Mean Corpuscular Volume 96.7 Mean Corpuscular Hemoglobin 30.2 Mean Corpuscular Hemoglobin Concent 31.3 L Red Cell Distribution Width 13.1 Platelet Count 267 Mean Platelet Volume 8.9 Neutrophils % 75.8 Lymphocytes % 16.1 Monocytes % 5.6 Eosinophils % 1.8 Basophils % 0.4 Nucleated Red Blood Cells % 0.0 Neutrophils # 7.0 Lymphocytes # 1.5 Monocytes # 0.5 Eosinophils # 0.2 Basophils # 0.0 Nucleated Red Blood Cells # 0.0 Sodium Level 139 Potassium Level 4.6 Chloride Level 105 Carbon Dioxide Level 20 L Anion Gap 19 H Blood Urea Nitrogen 30 H Creatinine 5.68 H Glucose Level 190 Calcium Level 9.5 Phosphorus Level 4.2 Magnesium Level 2.3 Total Bilirubin 0.1 L Direct Bilirubin 0.00 Indirect Bilirubin 0.1 Aspartate Amino Transf (AST/SGOT) 35 # Alanine Aminotransferase (ALT/SGPT) 34 Alkaline Phosphatase 148 H Total Protein 8.3 H Albumin 5.0 H Globulin 3.30 H Albumin/Globulin Ratio 1.51 Medications Medications Current Medications Ondansetron HCl (Zofran Inj) 4 mg Q6H PRN IV NAUSEA AND/OR VOMITING; Start at 19:00 Acetaminophen (Tylenol Tab) 650 mg Q6H PRN PO PAIN LEVEL 1-3 OR FEVER; Start at 19:00 Acetaminophen/ Hydrocodone Bitart ([place] (5/325)) 1 tab Q6H PRN PO MODERATE PAIN LEVEL 4-6; Start 04/22/17 at 19:00 Morphine Sulfate 2 mg 2 mg Q4H PRN IV SEVERE PAIN LEVEL 7-10; Start 04/22/17 at 19:00 Metronidazole (Flagyl 500 Mg (Pmx)) 100 ml @ 100 mls/hr Q8 IVPB Last administered on 04/22/17 23:17; Admin Dose 100 MLS/HR; Start 04/23/17 at 00:00 Midodrine (Proamatine) 10 mg TID PO Last administered on 04/23/17 08:57; Admin Dose 10 MG; Start 04/22/17 at 21:00 Tramadol HCl (Ultram) 50 mg Q6H PRN PO PAIN; Start 04/22/17 at 19:00 Insulin Glargine (Lantus) 20 unit HS SC Last administered on 04/22/17 21:50; Admin Dose 20 UNIT; Start 04/22/17 at 21:00 Miscellaneous Information 1 ea NOTE XX ; Start 04/22/17 at 19:00 Glucose (Glutose) 15 gm Q15M PRN PO DECREASED GLUCOSE; Start 04/22/17 at 19:00 Glucose (Glutose) 22.5 gm Q15M PRN PO DECREASED GLUCOSE; Start 04/22/17 at 19: 00 Dextrose (D50w Syringe) 25 ml Q15M PRN IV DECREASED GLUCOSE; Start 04/22/17 at 19:00 Dextrose (D50w Syringe) 50 ml Q15M PRN IV DECREASED GLUCOSE; Start 04/22/17 at 19:00 Glucagon (Glucagen) 1 mg Q15M PRN IM DECREASED GLUCOSE; Start 04/22/17 at 19:00 Glucose (Glutose) 15 gm Q15M PRN BUCCAL DECREASED GLUCOSE; Start 04/22/17 at 19 :00 Zolpidem Tartrate (Ambien) 5 mg QHS PRN PO SLEEP; Start 04/23/17 at 01:00 Linagliptin (Tradjenta) 5 mg DAILY PO ; Start 04/23/17 at 14:00 YASMIN QUIROS MD Apr 23, 2017 10:12
[2017-04-23] MEDS: metroNIDAZOLE 500 MG/NS (PMX) 100 ML IVPB SCH ×3 (10:22→22:31)
--- NOTE | 2017-04-23 10:52 | CONS ---
DATE OF ADMISSION: 04/22/2017 DATE OF CONSULTATION: TYPE OF CONSULTATION: Nephrology HISTORY OF PRESENT ILLNESS: Tate Reyes is a patient of mine and goes to [facility] for hemodialysis. He has been having poor appetite and also losing weight, being seen by a nurse pr actitioner there and was recommended to have possible G-tube due to weight loss. Presented to the E R because of persistent diarrhea for more than 2 weeks. He denies any hematochezia or hemoptysis. History of C. difficile colitis positive. The patient also has a history of pancreatitis positive i n the past. The patient was instructed to come to the hospital a few weeks ago, but he was busy. T he patient goes to the dialysis center Friday, Friday, Friday and is going to be monitored for fu rther management. In view of patient's dialysis needs, the patient was seen in the emergency room a nd discussed with Dr. Keon Johnson and patient's family. PAST MEDICAL HISTORY: Please review the old chart. Positive for sepsis, C. difficile colitis, ESRD , history of diabetes mellitus, history of chronic right hip pain. The patient's other history incl udes history of malnutrition. The patient has history of bacteremia, history of dialysis catheter p lacement, hypertension, dyslipidemia, osteoarthritis, DJD, history of hip surgery per patient, histo ry of septic shock in the past, history of autonomic insufficiency, history of orthostatic hypotensi on. ALLERGY HISTORY: NEGATIVE. FAMILY HISTORY: Noncontributory. SOCIAL HISTORY: Negative. MEDICATION HISTORY: The patient at home is on: 1. Creon. 2. Calcium acetate. 3. Vitamin D3. 4. Lomotil. 5. Insulin. 6. Lactobacillus. 7. Meclizine. 8. Midodrine 9. Januvia. 10. Tramadol. 11. Vitamin B complex. REVIEW OF SYSTEMS: HEENT: Unremarkable. RESPIRATORY: Unremarkable. CARDIOVASCULAR: Unremarkable. ABDOMEN: As mentioned above. EXTREMITIES: Unremarkable. GENITOURINARY: Unremarkable. MUSCULOSKELETAL: Unremarkable. PHYSICAL EXAMINATION: GENERAL: Thin-looking male, awake, alert. VITAL SIGNS: Pulse 80, blood pressure 122/69. HEAD: Atraumatic, normocephalic. Pupils equal, reactive. NECK: Supple, no JVD. LUNGS: Clear. CARDIOVASCULAR: S1, S2 are normal. ABDOMEN: Soft, nontender. Bowel sounds positive. EXTREMITIES: No cyanosis, clubbing, or edema. CENTRAL NERVOUS SYSTEM: The patient is awake, alert, no focal deficit. LABORATORY DATA: Shows hematocrit 32. Sodium 139, potassium 4.6, CO2 of 19, glucose 270, lactic ac id 4.1. IMPRESSION: 1. Malnutrition. 2. End-stage renal disease. 3. Hypertension. 4. History of diabetes mellitus. 5. Orthostatic hypotension. 6. History of autonomic insufficiency. 7. History of Clostridium difficile colitis. 8. History of sepsis. 9. History of catheter placement. 10. History of chronic diarrhea. 11. History of septic shock. PLAN: To continue hemodialysis, p.o. feedings and the patient will benefit from GI consultation. Thank you, Dr. Kohli, Dr. Shrestha and Dr. Keon Johnson, for kindly asking me to see this patient in n ephrology consultation. Dictated By: YASMIN QUIROS MD BS/CORINNE Conf#: [id number] DID#: [id number]
[2017-04-23] MEDS: CREON (12k-38k-60k) 1 CAP PO SCH ×2 (11:50→17:27)
--- NOTE | 2017-04-23 12:25 | CONS ---
DATE OF ADMISSION: 04/22/2017 DATE OF CONSULTATION: 04/23/2017 TYPE OF CONSULTATION: Infectious disease. REASON FOR CONSULTATION: Antibiotic management. HISTORY OF PRESENT ILLNESS: Tate Reyes is a 57-year-old male who presents with diarrhe a and is being seen for antibiotic management. Past problems include: 1. End-stage renal disease on hemodialysis. 2. History of sepsis from dialysis line infection. 3. Recurrent Clostridium difficile. 4. Left lower extremity diabetic foot ulcer. 5. Adult-onset diabetes mellitus. 6. Status post right hip surgery. The patient was hospitalized in 2016 with diagnosis of sepsis from the dialysis infection. He now c omes in with diarrhea of several months' duration. LABORATORIES: On admission, his white count is 8.5, hemoglobin 9.7, platelet count 256. BUN and cr eatinine 26/4.46. IMAGING: Chest x-ray shows no evidence of active disease. PAST MEDICAL HISTORY: Operations as outlined. FAMILY HISTORY: Noncontributory. SOCIAL HISTORY: Does not smoke, drink or abuse drugs. ALLERGIES: NONE TO PENICILLIN, SULFA OR FOODS. MEDICATIONS: Per chart. REVIEW OF SYSTEMS: As per HPI. PHYSICAL EXAMINATION: GENERAL: The patient is a well-developed, well-nourished male who is alert, responsive, in no acute distress. VITAL SIGNS: Stable. He is afebrile. SKIN: Without generalized rash. HEENT: Within normal limits. NECK: Supple. LYMPH NODES: None palpable. CHEST: Decreased breath sounds at the bases. HEART: Without murmur or gallop. ABDOMEN: Soft, nontender, without organosplenomegaly or masses. EXTREMITIES: Right upper arm AV fistula. RECTAL AND GENITAL: Exam is deferred. NEUROLOGIC: No focal neurological abnormalities. With regards to surgeries, he is status post right hip surgery, status post cholecystectomy. He has had a fistula and Perm-A-Cath placement. IMPRESSION AND PLAN: The patient currently presents with diarrhea. He may have C. difficile. He w as started on Flagyl, metronidazole and will wait for further results. His white count today is 9.3 . I will dictate my findings to the hospitalist. Dictated By: EROS GRIGGS MD, JD/CORINNE Conf#: [id number] DID#: [id number]
[2017-04-23] MEDS: LINAGLIPTIN 5 MG TABLET PO SCH (13:15)
[2017-04-23] MEDS ORDERED: PENDING SANTYL ORDER FOR WOUND CARE XX PRN (16:30)
--- NOTE | 2017-04-23 17:03 | PN ---
Date/Time of Note Date/Time of Note DATE: 04/23/17 TIME: 17:01 Assessment/Plan VTE Prophylaxis VTE Prophylaxis Intervention: SCD's Lines/Catheters IV [facility]ter [facility] (from [facility] Saline Lock Urinary Cath still in place: No Assessment/Plan Chief Complaint/Hosp Course Assessment and plan 1. 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 Follow-up on level. ID following. Continue antibiotics per ID recommendations 2. End-stage renal disease. On dialysis per grass farmer recommendations. Monitor renal panel and for electrolyte disturbances 3. History of diabetes. Continue insulin regimen. Will adjust as needed 5. Decubitus ulcers. Will get wound care consult to follow. 6. Deconditioning. Will get physical therapy to follow. Disposition plan: Physical therapy follow-up. Continue antibiotics. Follow-up on C. difficile culture. Continue on antibiotics. Discussed plan of care with Dr. Kohli Problems: Subjective 24 Hr Interval Summary Free Text/Dictation Reports having moderate diarrhea Exam/Review of Systems Vital Signs Vitals Vital Signs Date Time Temp Pulse Resp B/P Pulse Ox O2 Delivery O2 Flow Rate FiO2 04/23/17 16:25 73 04/23/17 16:00 97.7 20 179/88 100 04/23/17 09:00 Room Air 04/22/17 17:36 21 04/22/17 15:52 2 Intake and Output 04/22/17 04/22/17 04/23/17 15:00 23:00 07:00 Intake Total 200 ml Balance 200 ml Exam Constitutional: alert, frail, oriented, other Psych: nl mood/affect Head: normocephalic Neck: supple, No jvd Respiratory: clear to auscultation, normal air movement Cardiovascular: regular rate and rhythm Gastrointestinal: soft Musculoskeletal: No nl gait and stance Neurological: QUALITY PROCESS LEAD II-XII intact, nl mental status Skin: other (Sacral ulcer) Results Result Diagram: 04/23/17 0602 04/23/17 0602 Results 24 hrs Laboratory Tests Test 04/22/17 17:25 04/22/17 20:03 04/22/17 21:22 04/22/17 21:36 Lactic Acid Level 1.8 4.1 *H Bedside Glucose 274 H 203 Test 04/23/17 06:02 04/23/17 08:55 04/23/17 11:37 White Blood Count 9.3 Red Blood Count 3.31 L Hemoglobin 10.0 L Hematocrit 32.0 L Mean Corpuscular Volume 96.7 Mean Corpuscular Hemoglobin 30.2 Mean Corpuscular Hemoglobin Concent 31.3 L Red Cell Distribution Width 13.1 Platelet Count 267 Mean Platelet Volume 8.9 Neutrophils % 75.8 Lymphocytes % 16.1 Monocytes % 5.6 Eosinophils % 1.8 Basophils % 0.4 Nucleated Red Blood Cells % 0.0 Neutrophils # 7.0 Lymphocytes # 1.5 Monocytes # 0.5 Eosinophils # 0.2 Basophils # 0.0 Nucleated Red Blood Cells # 0.0 Sodium Level 139 Potassium Level 4.6 Chloride Level 105 Carbon Dioxide Level 20 L Anion Gap 19 H Blood Urea Nitrogen 30 H Creatinine 5.68 H Glucose Level 190 Calcium Level 9.5 Phosphorus Level 4.2 Magnesium Level 2.3 Total Bilirubin 0.1 L Direct Bilirubin 0.00 Indirect Bilirubin 0.1 Aspartate Amino Transf (AST/SGOT) 35 # Alanine Aminotransferase (ALT/SGPT) 34 Alkaline Phosphatase 148 H Total Protein 8.3 H Albumin 5.0 H Globulin 3.30 H Albumin/Globulin Ratio 1.51 Bedside Glucose 86 137 Medications Medications Current Medications Ondansetron HCl (Zofran Inj) 4 mg Q6H PRN IV NAUSEA AND/OR VOMITING; Start at 19:00 Acetaminophen (Tylenol Tab) 650 mg Q6H PRN PO PAIN LEVEL 1-3 OR FEVER; Start at 19:00 Acetaminophen/ Hydrocodone Bitart ([place] (5/325)) 1 tab Q6H PRN PO MODERATE PAIN LEVEL 4-6; Start 04/22/17 at 19:00 Morphine Sulfate 2 mg 2 mg Q4H PRN IV SEVERE PAIN LEVEL 7-10; Start 04/22/17 at 19:00 Metronidazole (Flagyl 500 Mg (Pmx)) 100 ml @ 100 mls/hr Q8 IVPB Last administered on 04/23/17 13:15; Admin Dose 100 MLS/HR; Start 04/23/17 at 00:00 Midodrine (Proamatine) 10 mg TID PO Last administered on 04/23/17 13:15; Admin Dose 10 MG; Start 04/22/17 at 21:00 Tramadol HCl (Ultram) 50 mg Q6H PRN PO PAIN; Start 04/22/17 at 19:00 Insulin Glargine (Lantus) 20 unit HS SC Last administered on 04/22/17t 21:50; Admin Dose 20 UNIT; Start 04/22/17 at 21:00 Miscellaneous Information 1 ea NOTE XX ; Start 04/22/17 at 19:00 Glucose (Glutose) 15 gm Q15M PRN PO DECREASED GLUCOSE; Start 04/22/17 at 19:00 Glucose (Glutose) 22.5 gm Q15M PRN PO DECREASED GLUCOSE; Start 04/22/17 at 19: 00 Dextrose (D50w Syringe) 25 ml Q15M PRN IV DECREASED GLUCOSE; Start 04/22/17 at 19:00 Dextrose (D50w Syringe) 50 ml Q15M PRN IV DECREASED GLUCOSE; Start 04/22/17 at 19:00 Glucagon (Glucagen) 1 mg Q15M PRN IM DECREASED GLUCOSE; Start 04/22/17 at 19:00 Glucose (Glutose) 15 gm Q15M PRN BUCCAL DECREASED GLUCOSE; Start 04/22/17 at 19 :00 Zolpidem Tartrate (Ambien) 5 mg QHS PRN PO SLEEP; Start 04/23/17 at 01:00 Linagliptin (Tradjenta) 5 mg DAILY PO Last administered on 04/23/17t 13:15; Admin Dose 5 MG; Start 04/23/17 at 14:00 [facility] This patient [place]... PRN PRN XX WOUND CARE; Start 04/23/17 at 16:30 MARGARET SLATER Apr 23, 2017 17:02
[2017-04-23] MEDS: ONDANSETRON 4 MG INJ IV PRN (17:34)
[2017-04-23] MEDS: INSULIN GLARGINE [LANtus] 3 ML PEN SC SCH (21:01)
[2017-04-24] VITALS (12 sets, daily range): BP systolic 84–140; BP diastolic 47–83; PULSE 74–83; RESP 18
[2017-04-24] MEDS: metroNIDAZOLE 500 MG/NS (PMX) 100 ML IVPB SCH ×3 (05:43→21:54)
[2017-04-24 07:54] LABS: ADD SCAN DIFF NO
[2017-04-24] MEDS: INSULIN ASPART [NOVOLOG] 3 ML PEN SC SCH ×7 (07:55→21:00)
[2017-04-24] MEDS: LINAGLIPTIN 5 MG TABLET PO SCH (08:10)
[2017-04-24] MEDS: CREON (12k-38k-60k) 1 CAP PO SCH ×3 (08:11→17:34)
[2017-04-24] MEDS: CALCIUM ACETATE 667 MG CAP PO SCH ×3 (08:11→17:34)
[2017-04-24] MEDS: MIDODRINE 5 MG TAB PO SCH ×3 (08:11→21:44)
[2017-04-24 08:23] LABS: BASOPHIL # 0.1 10^3/ul (0.0-0.1); BASOPHILS % 0.6 % (0.0-2.0); EOSINOPHILS # 0.3 10^3/ul (0.0-0.5); EOSINOPHILS % 3.9 % (0.0-7.0); HEMATOCRIT 31.3 % (42.0-52.0); HEMOGLOBIN 10.2 g/dl (14.0-18.0); LYMPHOCYTES # 1.3 10^3/ul (0.8-2.9); LYMPHOCYTES % 17.1 % (15.0-51.0); MEAN CORPUSCULAR HEMOGLOBIN 31.1 pg (29.0-33.0); MEAN CORPUSCULAR HGB CONC 32.6 g/dl (32.0-37.0); MEAN CORPUSCULAR VOLUME 95.4 fl (82.0-101.0); MEAN PLATELET VOLUME 9.2 fl (7.4-10.4); MONOCYTE # 0.6 10^3/ul (0.3-0.9); MONOCYTES % 8.2 % (0.0-11.0); NEUTROPHIL # 5.4 10^3/ul (1.6-7.5); NEUTROPHILS % 69.8 % (39.0-77.0); PLATELET COUNT 242 10^3/UL (140-415); RED BLOOD COUNT 3.28 10^6/ul (4.70-6.10); RED CELL DISTRIBUTION WIDTH 13.1 % (11.5-14.5); WHITE BLOOD COUNT 7.8 10^3/ul (4.8-10.8)
[2017-04-24 08:27] LABS: CALCIUM 8.7 mg/dl (8.4-10.2); CREATININE 4.18 mg/dl (0.61-1.24); POTASSIUM 4.6 mmol/L (3.5-5.1)
[2017-04-24] MEDS: COLLAGENASE 30 GM TUBE TOP SCH (15:05)
[2017-04-24] MEDS ORDERED: COLLAGENASE 30 GM TUBE TOP PRN (15:30)
--- NOTE | 2017-04-24 15:31 | PN ---
DATE: 04/24/2017 SUBJECTIVE: No acute changes. The patient is alert, looks comfortable. He has profuse diarrhea. No fevers. He is on IV Flagyl. INDWELLINGS: Left upper extremity AV fistula, WBC today 7.8. No shift, no bands. MICROBIOLOGY: Blood culture grew staph species. Stool for C. diff came back negative. PHYSICAL EXAMINATION: GENERAL: This is a cachectic well-developed, middle-aged man who is awake, in no distress. HEENT: Head atraumatic, normocephalic. Sclerae anicteric. Buccal mucosa dry. NECK: Supple. CHEST: Rise symmetrical. Breath sounds clear. HEART: S1, S2. ABDOMEN: Soft, bowel tones present. EXTREMITIES: Without cyanosis. The patient has a left lower extremity decubiti. ASSESSMENT: 1. Recurrent Clostridium difficile colitis. 2. Coagulase-negative Staphylococcus bacteremia, possibly contaminant. 3. Diabetes. 4. Diabetic foot ulceration. 5. Severe deconditioning. PLAN: We are going to start patient on IV vancomycin. Continue Flagyl and repeat blood cultures. We will also start him on probiotics. Dictated By: ENMANUEL NOVAK PANTOGRAPH MACHINE OPERATOR for GAYLA HUGHES/CORINNE Conf#: [id number] DID#: [id number]
--- NOTE | 2017-04-24 15:55 | PN ---
Date/Time of Note Date/Time of Note DATE: 04/24/17 TIME: 15:50 Assessment/Plan VTE Prophylaxis VTE Prophylaxis Intervention: SCD's Lines/Catheters IV Catheter Type (from [facility]): Saline Lock Urinary Cath still in place: No Assessment/Plan Chief Complaint/Hosp Course Assessment and plan 1. 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 Follow-up on level. ID following. Continue antibiotics per ID recommendations. Of note recent C. difficile culture negative 2. End-stage renal disease. On dialysis per regional sales coordinator recommendations. Monitor renal panel and for electrolyte disturbances 3. History of diabetes. Continue insulin regimen. Will adjust as needed 5. Decubitus ulcers. Wound care consult following. 6. Deconditioning. cont physical therapy. Will get x-ray of the right hip due to pain Disposition plan: Antibiotics per ID. Check x-ray of the right hip. Discussed plan of care with Dr. Kohli Problems: Subjective 24 Hr Interval Summary Free Text/Dictation no s/s of distress at this time. comfortable Exam/Review of Systems Vital Signs Vitals Vital Signs Date Time Temp Pulse Resp B/P Pulse Ox O2 Delivery O2 Flow Rate FiO2 04/24/17 12:42 83 04/24/17 11:51 98.0 18 140/83 99 04/23/17 09:00 Room Air 04/22/17 17:36 21 04/22/17 15:52 2 Intake and Output 04/23/17 04/23/17 04/24/17 15:00 23:00 07:00 Intake Total 500 ml 500 ml 400 ml Output Total 1000 ml Balance -500 ml 500 ml 400 ml Exam Constitutional: alert, frail, oriented, other Psych: nl mood/affect Head: normocephalic Neck: supple, No jvd Respiratory: clear to auscultation, normal air movement Cardiovascular: regular rate and rhythm Gastrointestinal: soft Musculoskeletal: No nl gait and stance Neurological: GARAGE WORKER II-XII intact, nl mental status Skin: other (Sacral ulcer) Results Result Diagram: 04/24/17 0630 04/24/17 0630 Results 24 hrs Laboratory Tests Test 04/23/17 16:30 04/23/17 17:26 04/23/17 20:53 04/24/17 06:30 Lactic Acid Level 1.2 Bedside Glucose 89 101 White Blood Count 7.8 Red Blood Count 3.28 L Hemoglobin 10.2 L Hematocrit 31.3 L Mean Corpuscular Volume 95.4 Mean Corpuscular Hemoglobin 31.1 Mean Corpuscular Hemoglobin Concent 32.6 Red Cell Distribution Width 13.1 Platelet Count 242 Mean Platelet Volume 9.2 Neutrophils % 69.8 Lymphocytes % 17.1 Monocytes % 8.2 Eosinophils % 3.9 Basophils % 0.6 Nucleated Red Blood Cells % 0.0 Neutrophils # 5.4 Lymphocytes # 1.3 Monocytes # 0.6 Eosinophils # 0.3 Basophils # 0.1 Nucleated Red Blood Cells # 0.0 Sodium Level 135 Potassium Level 4.6 Chloride Level 99 Carbon Dioxide Level 26 Anion Gap 15 Blood Urea Nitrogen 23 H Creatinine 4.18 #H Glucose Level 81 # Calcium Level 8.7 Test 04/24/17 07:56 04/24/17 11:34 Bedside Glucose 86 122 Medications Medications Current Medications Ondansetron HCl (Zofran Inj) 4 mg Q6H PRN IV NAUSEA AND/OR VOMITING Last administered on 04/23/17 17:34; Admin Dose 4 MG; Start 04/22/17 at 19:00 Acetaminophen (Tylenol Tab) 650 mg Q6H PRN PO PAIN LEVEL 1-3 OR FEVER; Start at 19:00 Acetaminophen/ Hydrocodone Bitart ([place] (5/325)) 1 tab Q6H PRN PO MODERATE PAIN LEVEL 4-6; Start 04/22/17 at 19:00 Morphine Sulfate 2 mg 2 mg Q4H PRN IV SEVERE PAIN LEVEL 7-10; Start 04/22/17 at 19:00 Metronidazole (Flagyl 500 Mg (Pmx)) 100 ml @ 100 mls/hr Q8 IVPB Last administered on 04/24/17 13:15; Admin Dose 100 MLS/HR; Start 04/23/17 at 00:00 Midodrine (Proamatine) 10 mg TID PO Last administered on 04/24/17 08:11; Admin Dose 10 MG; Start 04/22/17 at 21:00 Tramadol HCl (Ultram) 50 mg Q6H PRN PO PAIN; Start 04/22/17 at 19:00 Insulin Glargine (Lantus) 20 unit HS SC Last administered on 04/23/17 21:01; Admin Dose 20 UNIT; Start 6/20/17 at 21:00 Miscellaneous Information 1 ea NOTE XX ; Start 04/22/17 at 19:00 Glucose (Glutose) 15 gm Q15M PRN PO DECREASED GLUCOSE; Start 04/22/17 at 19:00 Glucose (Glutose) 22.5 gm Q15M PRN PO DECREASED GLUCOSE; Start 04/22/17 at 19: 00 Dextrose (D50w Syringe) 25 ml Q15M PRN IV DECREASED GLUCOSE; Start 04/22/17 at 19:00 Dextrose (D50w Syringe) 50 ml Q15M PRN IV DECREASED GLUCOSE; Start 04/22/17 at 19:00 Glucagon (Glucagen) 1 mg Q15M PRN IM DECREASED GLUCOSE; Start 04/22/17 at 19:00 Glucose (Glutose) 15 gm Q15M PRN BUCCAL DECREASED GLUCOSE; Start 04/22/17 at 19 :00 Zolpidem Tartrate (Ambien) 5 mg QHS PRN PO SLEEP; Start 04/23/17 at 01:00 Linagliptin (Tradjenta) 5 mg DAILY PO Last administered on 04/24/17t 08:10; Admin Dose 5 MG; Start 04/23/17 at 14:00 Collagenase (Santyl) 1 applic DAILY TOP ; Start 04/24/17 at 15:05 Collagenase (Santyl) 1 applic PRN PRN TOP WOUND CARE; Start 04/24/17 at 15:30 MARGARET SLATER Apr 24, 2017 15:55
--- NOTE | 2017-04-24 17:45 | RADRPT ---
PROCEDURE: XR Right Hip. CLINICAL INDICATION: Right hip pain. TECHNIQUE: Two views. Frontal and lateral. COMPARISON: 12/19/2016. FINDINGS: There is a right hip arthroplasty which appears satisfactory with no fracture, dislocation, or loose mark. There is diffuse osteopenia. Vascular calcifications are present consistent with atherosclerosis. There is no lytic lesion. IMPRESSION: 1. Satisfactory postoperative appearance of the right hip. 2. Diffuse osteopenia. 3. Atherosclerosis. RPTAT: QQ .Arnav Cid MD, Date Time Electronically viewed and signed by .Arnav Cid MD, on 04/24/2017 17:44 .R/
--- NOTE | 2017-04-24 20:01 | CONS ---
Date/Time of Note Date/Time of Note DATE: 04/24/17 TIME: 20:00 Assessment/Plan Assessment/Plan Chief Complaint/Hosp Course IMPRESSION: 1. Malnutrition. 2. End-stage renal disease. 3. Hypertension. 4. History of diabetes mellitus. 5. Orthostatic hypotension. 6. History of autonomic insufficiency. 7. History of Clostridium difficile colitis. 8. History of sepsis. 9. History of catheter placement. 10. History of chronic diarrhea. 11. History of septic shock. plan consider gi consult hd am Problems: Consultation Date/Type/Reason Admit Date/Time Apr 22, 2017 at 17:33 Type of Consultation: renal 24 HR Interval Summary Constitutional: other (has diarrhea will need gi consult) Exam/Review of Systems Vital Signs Vitals Vital Signs Date Time Temp Pulse Resp B/P Pulse Ox O2 Delivery O2 Flow Rate FiO2 04/24/17 16:50 74 04/24/17 16:22 98.0 18 124/77 98 04/23/17 09:00 Room Air 04/22/17 17:36 21 04/22/17 15:52 2 Intake and Output 04/23/17 04/23/17 04/24/17 15:00 23:00 07:00 Intake Total 500 ml 500 ml 400 ml Output Total 1000 ml Balance -500 ml 500 ml 400 ml Exam Respiratory: clear to auscultation Cardiovascular: regular rate and rhythm Musculoskeletal: nl extremities to inspection Results Result Diagram: 04/24/17 0630 04/24/17 0630 Results 24 hrs Laboratory Tests Test 04/23/17 20:53 04/24/17 06:30 04/24/17 07:56 04/24/17 11:34 Bedside Glucose 101 86 122 White Blood Count 7.8 Red Blood Count 3.28 L Hemoglobin 10.2 L Hematocrit 31.3 L Mean Corpuscular Volume 95.4 Mean Corpuscular Hemoglobin 31.1 Mean Corpuscular Hemoglobin Concent 32.6 Red Cell Distribution Width 13.1 Platelet Count 242 Mean Platelet Volume 9.2 Neutrophils % 69.8 Lymphocytes % 17.1 Monocytes % 8.2 Eosinophils % 3.9 Basophils % 0.6 Nucleated Red Blood Cells % 0.0 Neutrophils # 5.4 Lymphocytes # 1.3 Monocytes # 0.6 Eosinophils # 0.3 Basophils # 0.1 Nucleated Red Blood Cells # 0.0 Sodium Level 135 Potassium Level 4.6 Chloride Level 99 Carbon Dioxide Level 26 Anion Gap 15 Blood Urea Nitrogen 23 H Creatinine 4.18 #H Glucose Level 81 # Calcium Level 8.7 Test 04/24/17 17:33 Bedside Glucose 120 Medications Medications Current Medications Ondansetron HCl (Zofran Inj) 4 mg Q6H PRN IV NAUSEA AND/OR VOMITING Last administered on 04/23/17 17:34; Admin Dose 4 MG; Start 04/22/17 at 19:00 Acetaminophen (Tylenol Tab) 650 mg Q6H PRN PO PAIN LEVEL 1-3 OR FEVER; Start at 19:00 Acetaminophen/ Hydrocodone Bitart ([place] (5/325)) 1 tab Q6H PRN PO MODERATE PAIN LEVEL 4-6; Start 04/22/17 at 19:00 Morphine Sulfate 2 mg 2 mg Q4H PRN IV SEVERE PAIN LEVEL 7-10; Start 04/22/17 at 19:00 Metronidazole (Flagyl 500 Mg (Pmx)) 100 ml @ 100 mls/hr Q8 IVPB Last administered on 04/24/17 13:15; Admin Dose 100 MLS/HR; Start 04/23/17 at 00:00 Midodrine (Proamatine) 10 mg TID PO Last administered on 04/24/17 08:11; Admin Dose 10 MG; Start 04/22/17 at 21:00 Tramadol HCl (Ultram) 50 mg Q6H PRN PO PAIN; Start 04/22/17 at 19:00 Insulin Glargine (Lantus) 20 unit HS SC Last administered on 04/23/17 21:01; Admin Dose 20 UNIT; Start 04/22/17 at 21:00 Miscellaneous Information 1 ea NOTE XX ; Start 04/22/17 at 19:00 Glucose (Glutose) 15 gm Q15M PRN PO DECREASED GLUCOSE; Start 04/22/17 at 19:00 Glucose (Glutose) 22.5 gm Q15M PRN PO DECREASED GLUCOSE; Start 04/22/17 at 19: 00 Dextrose (D50w Syringe) 25 ml Q15M PRN IV DECREASED GLUCOSE; Start 04/22/17 at 19:00 Dextrose (D50w Syringe) 50 ml Q15M PRN IV DECREASED GLUCOSE; Start 04/22/17 at 19:00 Glucagon (Glucagen) 1 mg Q15M PRN IM DECREASED GLUCOSE; Start 04/22/17 at 19:00 Glucose (Glutose) 15 gm Q15M PRN BUCCAL DECREASED GLUCOSE; Start 04/22/17 at 19 :00 Zolpidem Tartrate (Ambien) 5 mg QHS PRN PO SLEEP; Start 04/23/17 at 01:00 Linagliptin (Tradjenta) 5 mg DAILY PO Last administered on 04/24/17t 08:10; Admin Dose 5 MG; Start 04/23/17 at 14:00 Collagenase (Santyl) 1 applic DAILY TOP ; Start 04/24/17 at 15:05 Collagenase (Santyl) 1 applic PRN PRN TOP WOUND CARE; Start 04/24/17 at 15:30 YASMIN QUIROS MD Apr 24, 2017 20:01
[2017-04-24] MEDS: INSULIN GLARGINE [LANtus] 3 ML PEN SC SCH (21:52)
[2017-04-25] VITALS (21 sets, daily range): BP systolic 81–123; BP diastolic 50–82; PULSE 72–93; RESP 18–20
[2017-04-25] MEDS: metroNIDAZOLE 500 MG/NS (PMX) 100 ML IVPB SCH ×2 (05:57→14:26)
[2017-04-25] MEDS: INSULIN ASPART [NOVOLOG] 3 ML PEN SC SCH ×8 (07:25→20:34)
[2017-04-25] MEDS: CREON (12k-38k-60k) 1 CAP PO SCH ×3 (08:44→17:54)
[2017-04-25] MEDS: COLLAGENASE 30 GM TUBE TOP SCH (08:45)
[2017-04-25] MEDS: MIDODRINE 5 MG TAB PO SCH ×3 (08:45→20:38)
[2017-04-25] MEDS: CALCIUM ACETATE 667 MG CAP PO SCH ×3 (08:45→17:53)
[2017-04-25] MEDS: LINAGLIPTIN 5 MG TABLET PO SCH (08:45)
--- NOTE | 2017-04-25 11:49 | CONS ---
Date/Time of Note Date/Time of Note DATE: 04/25/17 TIME: 11:47 Assessment/Plan Assessment/Plan Chief Complaint/Hosp Course 1. Malnutrition. 2. End-stage renal disease. 3. Hypertension. 4. History of diabetes mellitus. 5. Orthostatic hypotension. 6. History of autonomic insufficiency. 7. History of Clostridium difficile colitis. 8. History of sepsis. 9. History of catheter placement. 10. History of chronic diarrhea. 11. History of septic shock. 12. Osteopenia 12. S/p right hip surgery Problems: Additional Assessment/Plan 1. Continue HD 2. Fosamax to start tomorrow Consultation Date/Type/Reason Admit Date/Time Apr 22, 2017 at 17:33 Initial Consult Date Type of Consultation: renal Reason for Consultation Dr Crowley 24 HR Interval Summary Constitutional: improved, no complaints Exam/Review of Systems Vital Signs Vitals Vital Signs Date Time Temp Pulse Resp B/P Pulse Ox O2 Delivery O2 Flow Rate FiO2 04/25/17 11:37 97.5 87 18 108/67 100 04/23/17 09:00 Room Air 04/22/17 17:36 21 04/22/17 15:52 2 Intake and Output 04/24/17 04/24/17 04/25/17 15:00 23:00 07:00 Intake Total 1000 ml 300 ml Balance 1000 ml 300 ml Exam Constitutional: alert Respiratory: clear to auscultation Cardiovascular: regular rate and rhythm Results Result Diagram: 04/24/17 0630 04/24/17 0630 Results 24 hrs Laboratory Tests Test 04/24/17 17:33 04/24/17 21:43 04/25/17 08:34 Bedside Glucose 120 124 104 Medications Medications Current Medications Ondansetron HCl (Zofran Inj) 4 mg Q6H PRN IV NAUSEA AND/OR VOMITING Last administered on 04/23/17t 17:34; Admin Dose 4 MG; Start 04/22/17 at 19:00 Acetaminophen (Tylenol Tab) 650 mg Q6H PRN PO PAIN LEVEL 1-3 OR FEVER; Start at 19:00 Acetaminophen/ Hydrocodone Bitart ([place] (5/325)) 1 tab Q6H PRN PO MODERATE PAIN LEVEL 4-6; Start 04/22/17 at 19:00 Morphine Sulfate 2 mg 2 mg Q4H PRN IV SEVERE PAIN LEVEL 7-10; Start 04/22/17 at 19:00 Metronidazole (Flagyl 500 Mg (Pmx)) 100 ml @ 100 mls/hr Q8 IVPB Last administered on 04/25/17 05:57; Admin Dose 100 MLS/HR; Start 04/23/17 at 00:00 Midodrine (Proamatine) 10 mg TID PO Last administered on 04/25/17 08:45; Admin Dose 10 MG; Start 04/22/17 at 21:00 Tramadol HCl (Ultram) 50 mg Q6H PRN PO PAIN; Start 04/22/17 at 19:00 Insulin Glargine (Lantus) 20 unit HS SC Last administered on 04/24/17 21:52; Admin Dose 20 UNIT; Start 04/22/17 at 21:00 Miscellaneous Information 1 ea NOTE XX ; Start 04/22/17 at 19:00 Glucose (Glutose) 15 gm Q15M PRN PO DECREASED GLUCOSE; Start 04/22/17 at 19:00 Glucose (Glutose) 22.5 gm Q15M PRN PO DECREASED GLUCOSE; Start 04/22/17 at 19: 00 Dextrose (D50w Syringe) 25 ml Q15M PRN IV DECREASED GLUCOSE; Start 04/22/17 at 19:00 Dextrose (D50w Syringe) 50 ml Q15M PRN IV DECREASED GLUCOSE; Start 04/22/17 at 19:00 Glucagon (Glucagen) 1 mg Q15M PRN IM DECREASED GLUCOSE; Start 04/22/17 at 19:00 Glucose (Glutose) 15 gm Q15M PRN BUCCAL DECREASED GLUCOSE; Start 04/22/17 at 19 :00 Zolpidem Tartrate (Ambien) 5 mg QHS PRN PO SLEEP; Start 04/23/17 at 01:00 Linagliptin (Tradjenta) 5 mg DAILY PO Last administered on 04/25/17 08:45; Admin Dose 5 MG; Start 04/23/17 at 14:00 Collagenase (Santyl) 1 applic DAILY TOP Last administered on 04/25/17 08:45; Admin Dose 1 APPLIC; Start 04/24/17 at 15:05 Collagenase (Santyl) 1 applic PRN PRN TOP WOUND CARE; Start 04/24/17 at 15:30 XAVIER RAMOS 23, 2017 11:48
--- NOTE | 2017-04-25 15:26 | PN ---
Date/Time of Note Date/Time of Note DATE: 04/25/17 TIME: 15:24 Assessment/Plan VTE Prophylaxis VTE Prophylaxis Intervention: SCD's Lines/Catheters IV C[facility] Type ([facility] [place] [facility] Urinary Cath still in place: No Assessment/Plan Chief Complaint/Hosp Course Assessment and plan 1. 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 ID following. Continue antibiotics per ID recommendations. Of note recent C. difficile culture negative 2. End-stage renal disease. On dialysis per django developer recommendations. Monitor renal panel and for electrolyte disturbances 3. History of diabetes. Continue insulin regimen. Will adjust as needed 5. Decubitus ulcers. Wound care consult following. 6. Deconditioning. cont physical therapy. X-ray of the right hip showed no acute fracture. Await PT eval Disposition plan: Antibiotics per ID. Await for clinical improvement. Awaiting PT eval. Discussed plan of care with Dr. Kohli Problems: Subjective 24 Hr Interval Summary Free Text/Dictation Still reports having some difficulty with ambulation Exam/Review of Systems Vital Signs Vitals Vital Signs Date Time Temp Pulse Resp B/P Pulse Ox O2 Delivery O2 Flow Rate FiO2 04/25/17 12:22 75 04/25/17 12:00 18 04/25/17 11:37 97.5 108/67 100 04/23/17 09:00 Room Air 04/22/17 17:36 21 04/22/17 15:52 2 Intake and Output 04/24/17 04/24/17 04/25/17 14:59 22:59 06:59 Intake Total 1000 ml 300 ml Balance 1000 ml 300 ml Exam Constitutional: alert, frail, oriented, Psych: nl mood/affect Head: normocephalic Neck: supple, No jvd Respiratory: clear to auscultation, normal air movement. Anterior Cardiovascular: regular rate and rhythm Gastrointestinal: soft Musculoskeletal: No nl gait and stance Neurological: DIRECT SELLING COUNSELOR II-XII intact, nl mental status Skin: other (Sacral ulcer) Results Result Diagram: 04/24/17 0630 04/24/17 0630 Results 24 hrs Laboratory Tests Test 04/24/17 17:33 04/24/17 21:43 04/25/17 08:34 04/25/17 12:05 Bedside Glucose 120 124 104 147 Medications Medications Current Medications Ondansetron HCl (Zofran Inj) 4 mg Q6H PRN IV NAUSEA AND/OR VOMITING Last administered on 04/23/17 17:34; Admin Dose 4 MG; Start 04/22/17 at 19:00 Acetaminophen (Tylenol Tab) 650 mg Q6H PRN PO PAIN LEVEL 1-3 OR FEVER; Start at 19:00 Acetaminophen/ Hydrocodone Bitart ([place] (5/325)) 1 tab Q6H PRN PO MODERATE PAIN LEVEL 4-6; Start 04/22/17 at 19:00 Morphine Sulfate 2 mg 2 mg Q4H PRN IV SEVERE PAIN LEVEL 7-10; Start 04/22/17 at 19:00 Metronidazole (Flagyl 500 Mg (Pmx)) 100 ml @ 100 mls/hr Q8 IVPB Last administered on 04/25/17 14:26; Admin Dose 100 MLS/HR; Start 04/23/17 at 00:00 Midodrine (Proamatine) 10 mg TID PO Last administered on 04/25/17 13:15; Admin Dose 10 MG; Start 04/22/17 at 21:00 Tramadol HCl (Ultram) 50 mg Q6H PRN PO PAIN; Start 04/22/17 at 19:00 Insulin Glargine (Lantus) 20 unit HS SC Last administered on 04/24/17 21:52; Admin Dose 20 UNIT; Start 04/22/17 at 21:00 Miscellaneous Information 1 ea NOTE XX ; Start 04/22/17 at 19:00 Glucose (Glutose) 15 gm Q15M PRN PO DECREASED GLUCOSE; Start 04/22/17 at 19:00 Glucose (Glutose) 22.5 gm Q15M PRN PO DECREASED GLUCOSE; Start 04/22/17 at 19: 00 Dextrose (D50w Syringe) 25 ml Q15M PRN IV DECREASED GLUCOSE; Start 04/22/17 at 19:00 Dextrose (D50w Syringe) 50 ml Q15M PRN IV DECREASED GLUCOSE; Start 04/22/17 at 19:00 Glucagon (Glucagen) 1 mg Q15M PRN IM DECREASED GLUCOSE; Start 04/22/17 at 19:00 Glucose (Glutose) 15 gm Q15M PRN BUCCAL DECREASED GLUCOSE; Start 04/22/17 at 19 :00 Zolpidem Tartrate (Ambien) 5 mg QHS PRN PO SLEEP; Start 04/23/17 at 01:00 Linagliptin (Tradjenta) 5 mg DAILY PO Last administered on 04/25/17 08:45; Admin Dose 5 MG; Start 04/23/17 at 14:00 Collagenase (Santyl) 1 applic DAILY TOP Last administered on 04/25/17 08:45; Admin Dose 1 APPLIC; Start 04/24/17 at 15:05 Collagenase (Santyl) 1 applic PRN PRN TOP WOUND CARE; Start 04/24/17 at 15:30 Alendronate Sodium (Fosamax) 70 mg Sa@0630 PO ; Start 04/26/17 at 06:30; Status Future Hold MARGARET SLATER Apr 25, 2017 15:25
[2017-04-25] MEDS: INSULIN GLARGINE [LANtus] 3 ML PEN SC SCH (20:41)
--- NOTE | 2017-04-25 21:28 | CONS ---
Date/Time of Note Date/Time of Note DATE: 04/25/17 TIME: 21:25 Assessment/Plan Assessment/Plan Chief Complaint/Hosp Course SUBJECTIVE: No acute changes. The patient is alert, looks comfortable. He has profuse diarrhea. No fevers. INDWELLINGS: Left upper extremity AV fistula MICROBIOLOGY: Blood culture grew staph species. Stool for C. diff came back negative. Abx: Vanco IV, Flagyl PHYSICAL EXAMINATION: GENERAL: This is a cachectic well-developed, middle-aged man who is awake, in no distress. HEENT: Head atraumatic, normocephalic. Sclerae anicteric. Buccal mucosa dry. NECK: Supple. CHEST: Rise symmetrical. Breath sounds clear. HEART: S1, S2. ABDOMEN: Soft, bowel tones present. EXTREMITIES: Without cyanosis. The patient has a left lower extremity decubiti. ASSESSMENT: 1. Recurrent Clostridium difficile colitis. 2. Coagulase-negative Staphylococcus bacteremia, possibly contaminant. 3. Diabetes. 4. Diabetic foot ulceration. 5. Severe deconditioning. PLAN: Clinically stable, will change Flagyl to PO Vanco, add Rifaximin, continue IV Vanco, f/u repeat bld cx DW staff Problems: Consultation Date/Type/Reason Admit Date/Time Apr 22, 2017 at 17:33 Initial Consult Date Type of Consultation: ID Exam/Review of Systems Vital Signs Vitals Vital Signs Date Time Temp Pulse Resp B/P Pulse Ox O2 Delivery O2 Flow Rate FiO2 04/25/17 20:20 88 04/25/17 20:00 97.4 20 121/71 98 04/23/17 09:00 Room Air 04/22/17 17:36 21 04/22/17 15:52 2 Intake and Output 04/24/17 04/24/17 04/25/17 15:00 23:00 07:00 Intake Total 1000 ml 300 ml Balance 1000 ml 300 ml Results Result Diagram: 04/24/17 0630 04/24/17 0630 Results 24 hrs Laboratory Tests Test 04/24/17 21:43 04/25/17 08:34 04/25/17 12:05 04/25/17 17:09 Bedside Glucose 124 104 147 102 Test 04/25/17 20:34 Bedside Glucose 106 Medications Medications Current Medications Ondansetron HCl (Zofran Inj) 4 mg Q6H PRN IV NAUSEA AND/OR VOMITING Last administered on 04/23/17 17:34; Admin Dose 4 MG; Start 04/22/17 at 19:00 Acetaminophen (Tylenol Tab) 650 mg Q6H PRN PO PAIN LEVEL 1-3 OR FEVER; Start at 19:00 Acetaminophen/ Hydrocodone Bitart ([place] (5/325)) 1 tab Q6H PRN PO MODERATE PAIN LEVEL 4-6; Start 04/22/17 at 19:00 Morphine Sulfate 2 mg 2 mg Q4H PRN IV SEVERE PAIN LEVEL 7-10; Start 04/22/17 at 19:00 Metronidazole (Flagyl 500 Mg (Pmx)) 100 ml @ 100 mls/hr Q8 IVPB Last administered on 04/25/17 14:26; Admin Dose 100 MLS/HR; Start 04/23/17 at 00:00 Midodrine (Proamatine) 10 mg TID PO Last administered on 04/25/17 20:38; Admin Dose 10 MG; Start 04/22/17 at 21:00 Tramadol HCl (Ultram) 50 mg Q6H PRN PO PAIN; Start 04/22/17 at 19:00 Insulin Glargine (Lantus) 20 unit HS SC Last administered on 04/25/17 20:41; Admin Dose 20 UNIT; Start 04/22/17 at 21:00 Miscellaneous Information 1 ea NOTE XX ; Start 04/22/17 at 19:00 Glucose (Glutose) 15 gm Q15M PRN PO DECREASED GLUCOSE; Start 04/22/17 at 19:00 Glucose (Glutose) 22.5 gm Q15M PRN PO DECREASED GLUCOSE; Start 04/22/17 at 19: 00 Dextrose (D50w Syringe) 25 ml Q15M PRN IV DECREASED GLUCOSE; Start 04/22/17 at 19:00 Dextrose (D50w Syringe) 50 ml Q15M PRN IV DECREASED GLUCOSE; Start 04/22/17 at 19:00 Glucagon (Glucagen) 1 mg Q15M PRN IM DECREASED GLUCOSE; Start 04/22/17 at 19:00 Glucose (Glutose) 15 gm Q15M PRN BUCCAL DECREASED GLUCOSE; Start 04/22/17 at 19 :00 Zolpidem Tartrate (Ambien) 5 mg QHS PRN PO SLEEP; Start 04/23/17 at 01:00 Linagliptin (Tradjenta) 5 mg DAILY PO Last administered on 04/25/17 08:45; Admin Dose 5 MG; Start 04/23/17 at 14:00 Collagenase (Santyl) 1 applic DAILY TOP Last administered on 04/25/17 08:45; Admin Dose 1 APPLIC; Start 04/24/17 at 15:05 Collagenase (Santyl) 1 applic PRN PRN TOP WOUND CARE; Start 04/24/17 at 15:30 ENMANUEL NOVAK NP Apr 25, 2017 21:28
[2017-04-25] MEDS ORDERED: VANCOMYCIN IV PER PHARMACY XX SCH (21:30)
[2017-04-26] VITALS (12 sets, daily range): BP systolic 84–144; BP diastolic 48–84; PULSE 72–88; RESP 17–19
[2017-04-26] MEDS ORDERED: VANCOMYCIN 750 MG in SOD CHLORIDE 0.9% 150 ML IVPB SCH ×2
[2017-04-26] MEDS: VANCOMYCIN HCL 250 MG/5ML POSYG PO SCH ×4 (01:15→17:35)
[2017-04-26] MEDS: HYDROCODONE/APAP (5/325) TAB PO PRN ×2 (01:21→09:02)
[2017-04-26] MEDS ORDERED: ALENDRONATE 70 MG TAB PO SCH ×2 (06:30→07:00)
[2017-04-26 07:14] LABS: ADD SCAN DIFF NO
[2017-04-26 07:24] LABS: BASOPHIL # 0.1 10^3/ul (0.0-0.1); BASOPHILS % 0.6 % (0.0-2.0); EOSINOPHILS # 0.4 10^3/ul (0.0-0.5); EOSINOPHILS % 4.2 % (0.0-7.0); HEMATOCRIT 34.8 % (42.0-52.0); HEMOGLOBIN 10.5 g/dl (14.0-18.0); LYMPHOCYTES # 2.1 10^3/ul (0.8-2.9); LYMPHOCYTES % 22.7 % (15.0-51.0); MEAN CORPUSCULAR HEMOGLOBIN 29.7 pg (29.0-33.0); MEAN CORPUSCULAR HGB CONC 30.2 g/dl (32.0-37.0); MEAN CORPUSCULAR VOLUME 98.3 fl (82.0-101.0); MEAN PLATELET VOLUME 9.2 fl (7.4-10.4); MONOCYTE # 0.7 10^3/ul (0.3-0.9); MONOCYTES % 7.4 % (0.0-11.0); NEUTROPHILS % 64.8 % (39.0-77.0); PLATELET COUNT 211 10^3/UL (140-415); RED BLOOD COUNT 3.54 10^6/ul (4.70-6.10); RED CELL DISTRIBUTION WIDTH 13.2 % (11.5-14.5); WHITE BLOOD COUNT 9.3 10^3/ul (4.8-10.8)
[2017-04-26 07:50] LABS: CALCIUM 8.9 mg/dl (8.4-10.2); CREATININE 4.49 mg/dl (0.61-1.24); POTASSIUM 5.9 mmol/L (3.5-5.1)
[2017-04-26] MEDS: INSULIN ASPART [NOVOLOG] 3 ML PEN SC SCH ×7 (07:55→20:56)
[2017-04-26] MEDS: CALCIUM ACETATE 667 MG CAP PO SCH ×3 (08:10→17:35)
[2017-04-26] MEDS: MIDODRINE 5 MG TAB PO SCH ×3 (08:11→20:53)
[2017-04-26] MEDS: LINAGLIPTIN 5 MG TABLET PO SCH (08:11)
[2017-04-26] MEDS: COLLAGENASE 30 GM TUBE TOP SCH (08:11)
[2017-04-26] MEDS: CREON (12k-38k-60k) 1 CAP PO SCH ×3 (08:13→17:35)
[2017-04-26] MEDS: RIFAXIMIN 200 MG TAB PO SCH ×3 (09:02→20:53)
[2017-04-26] MEDS ORDERED: SOD CHLORIDE 0.9% 500 ML IV ONE (09:30)
[2017-04-26] MEDS ORDERED: NA POLYST SULFON 15 GM/60 ML BTL PR ONE (10:00)
--- NOTE | 2017-04-26 11:11 | CONS ---
Date/Time of Note Date/Time of Note DATE: 04/26/17 TIME: 10:50 Assessment/Plan Assessment/Plan Additional Assessment/Plan Assessment * Diarrhea chronic t/c IBD vs infectious vs others * Intractable vomiting * ESRD on hemodialysis,MWF * Diabetes mellitus * History of C difficile Plan * continue present management * Colonoscopy/EGD on Friday risks and benefit explained to patient and agreed with the planned procedure Consultation Date/Type/Reason Admit Date/Time Apr 22, 2017 at 17:33 Date of Consultation: Apr 26, 2017 Type of Consultation: gastroenterology Reason for Consultation chronic diarrhea Referring Provider: MARGARET SLATER Hx of Present Illness 57 year old male with past medical history of ESRD,on dialysis MWF,diabetes mellitus,recurrent C difficile,left foot diabetic ulcer presented in the emergency room complaining persistent diarrhea .He claimed that ,diarrhea has been occurring for the last 7 years during the start of dialysis which gradually become worse 3 months prior to consult He claims diarrhea occurs 3 to 4 times daily,loose moderate in amount approximately 2 glassful per bout,no blood nor mucus in stool.but complains of tenesmus ,nausea , vomiting,and abdominal pain.He had colonoscopy 2 years ago with results unknown. Hospital course revealed persistent diarrhea,WBC 9.3,Hemoglobin 10.5 .K5.9,Na 139,BUN 17.1 Creatinine 4.49 and c difficile negative. We have discussed with the patient to do colonoscopy and EGD to establish the possible causes of persistent diarrhea and intractable vomiting ,He agreed with the planned procedure Constitutional: improved, no complaints Eyes: no complaints ENT: no complaints Respiratory: no complaints Cardiovascular: no complaints Gastrointestinal: decreased appetite, diarrhea, nausea, pain, vomiting Genitourinary: no complaints Musculoskeletal: no complaints Skin: no complaints Neurologic: no complaints Endocrine: no complaints Lymphatic: no complaints Psychological: nl mood/affect Immunologic: no complaints Past Medical History Medical History: diabetes, renal disease, other (recurrent c difficile) Past Surgical History Past Surgical Hx: endoscopy, other (av fistula creation) Family History Significant Family History: no pertinent family hx Social History Alcohol Use: none Smoking Status: Never smoker Exam/Review of Systems Vital Signs Vitals Vital Signs Date Time Temp Pulse Resp B/P Pulse Ox O2 Delivery O2 Flow Rate FiO2 04/26/17 08:28 80 04/26/17 08:18 98.5 17 97/63 100 04/23/17 09:00 Room Air 04/22/17 17:36 21 04/22/17 15:52 2 Intake and Output 04/25/17 04/25/17 04/26/17 14:59 22:59 06:59 Intake Total 500 ml 1000 ml 390 ml Output Total 500 ml Balance 0 ml 1000 ml 390 ml Results Result Diagram: 04/26/17 0640 04/26/17 0640 Results 24 hrs Laboratory Tests Test 04/25/17 12:05 04/25/17 17:09 04/25/17 20:34 04/26/17 06:40 Bedside Glucose 147 102 106 White Blood Count 9.3 Red Blood Count 3.54 L Hemoglobin 10.5 L Hematocrit 34.8 L Mean Corpuscular Volume 98.3 Mean Corpuscular Hemoglobin 29.7 Mean Corpuscular Hemoglobin Concent 30.2 L Red Cell Distribution Width 13.2 Platelet Count 211 Mean Platelet Volume 9.2 Neutrophils % 64.8 Lymphocytes % 22.7 Monocytes % 7.4 Eosinophils % 4.2 Basophils % 0.6 Nucleated Red Blood Cells % 0.0 Neutrophils # 6.0 Lymphocytes # 2.1 Monocytes # 0.7 Eosinophils # 0.4 Basophils # 0.1 Nucleated Red Blood Cells # 0.0 Sodium Level 139 Potassium Level 5.9 H Chloride Level 104 Carbon Dioxide Level 24 Anion Gap 17 H Blood Urea Nitrogen 38 H Creatinine 4.49 H Glucose Level 100 Calcium Level 8.9 Test 04/26/17 08:08 Bedside Glucose 120 Medications Medications Current Medications Ondansetron HCl (Zofran Inj) 4 mg Q6H PRN IV NAUSEA AND/OR VOMITING Last administered on 04/23/17 17:34; Admin Dose 4 MG; Start 04/22/17 at 19:00 Acetaminophen (Tylenol Tab) 650 mg Q6H PRN PO PAIN LEVEL 1-3 OR FEVER; Start at 19:00 Acetaminophen/ Hydrocodone Bitart ([place] (5/325)) 1 tab Q6H PRN PO MODERATE PAIN LEVEL 4-6 Last administered on 04/26/17 09:02; Admin Dose 1 TAB; Start at 19:00 Morphine Sulfate (morphine) 2 mg Q4H PRN IV SEVERE PAIN LEVEL 7-10; Start 04/22 at 19:00 Midodrine (Proamatine) 10 mg TID PO Last administered on 04/26/17 08:11; Admin Dose 10 MG; Start 04/22/17 at 21:00 Tramadol HCl (Ultram) 50 mg Q6H PRN PO PAIN; Start 04/22/17 at 19:00 Insulin Glargine (Lantus) 20 unit HS SC Last administered on 04/25/17 20:41; Admin Dose 20 UNIT; Start 04/22/17 at 21:00 Miscellaneous Information 1 ea NOTE XX ; Start 04/22/17 at 19:00 Glucose (Glutose) 15 gm Q15M PRN PO DECREASED GLUCOSE; Start 04/22/17 at 19:00 Glucose (Glutose) 22.5 gm Q15M PRN PO DECREASED GLUCOSE; Start 04/22/17 at 19: 00 Dextrose (D50w Syringe) 25 ml Q15M PRN IV DECREASED GLUCOSE; Start 04/22/17 at 19:00 Dextrose (D50w Syringe) 50 ml Q15M PRN IV DECREASED GLUCOSE; Start 04/22/17 at 19:00 Glucagon (Glucagen) 1 mg Q15M PRN IM DECREASED GLUCOSE; Start 04/22/17 at 19:00 Glucose (Glutose) 15 gm Q15M PRN BUCCAL DECREASED GLUCOSE; Start 04/22/17 at 19 :00 Zolpidem Tartrate (Ambien) 5 mg QHS PRN PO SLEEP; Start 04/23/17 at 01:00 Linagliptin (Tradjenta) 5 mg DAILY PO Last administered on 04/26/17 08:11; Admin Dose 5 MG; Start 04/23/17 at 14:00 Collagenase (Santyl) 1 applic DAILY TOP Last administered on 04/26/17 08:11; Admin Dose 1 APPLIC; Start 04/24/17 at 15:05 Collagenase (Santyl) 1 applic PRN PRN TOP WOUND CARE; Start 04/24/17 at 15:30 Vancomycin HCl (Vancomycin Oral Syringe) 250 mg Q6 PO Last administered on 04/26 06:01; Admin Dose 250 MG; Start 04/26/17 at 00:00 Rifaximin (Xifaxan) 200 mg TID PO Last administered on 04/26/17 09:02; Admin Dose 200 MG; Start 04/26/17 at 09:00 KELLEN SELBY MD Apr 26, 2017 11:00
--- NOTE | 2017-04-26 14:57 | CONS ---
Date/Time of Note Date/Time of Note DATE: 04/26/17 TIME: 14:55 Assessment/Plan Assessment/Plan Chief Complaint/Hosp Course 1. Malnutrition. 2. End-stage renal disease. 3. Hypertension. 4. History of diabetes mellitus. 5. Orthostatic hypotension. 6. History of autonomic insufficiency. 7. History of Clostridium difficile colitis. 8. History of sepsis. 9. History of catheter placement. 10. History of chronic diarrhea. 11. History of septic shock. 12. Osteopenia 12. S/p right hip surgery Problems: Additional Assessment/Plan 1. Add protonix due to reported acidity in mouth Consultation Date/Type/Reason Admit Date/Time Apr 22, 2017 at 17:33 Initial Consult Date Type of Consultation: nephrology Reason for Consultation Dr Crowley Referring Provider: MARGARET SLATER Exam/Review of Systems Vital Signs Vitals Vital Signs Date Time Temp Pulse Resp B/P Pulse Ox O2 Delivery O2 Flow Rate FiO2 04/26/17 12:07 85 04/26/17 11:39 98.1 18 107/68 100 04/23/17 09:00 Room Air 04/22/17 17:36 21 04/22/17 15:52 2 Intake and Output 04/25/17 04/25/17 04/26/17 15:00 23:00 07:00 Intake Total 500 ml 1000 ml 390 ml Output Total 500 ml Balance 0 ml 1000 ml 390 ml Exam Constitutional: oriented Neck: supple Respiratory: clear to auscultation Genitourinary - Male: nl penis Musculoskeletal: muscle weakness, range of motion (decreased hips) Results Result Diagram: 04/26/17 0640 04/26/17 0640 Results 24 hrs Laboratory Tests Test 04/25/17 17:09 04/25/17 20:34 04/26/17 06:40 04/26/17 08:08 Bedside Glucose 102 106 120 White Blood Count 9.3 Red Blood Count 3.54 L Hemoglobin 10.5 L Hematocrit 34.8 L Mean Corpuscular Volume 98.3 Mean Corpuscular Hemoglobin 29.7 Mean Corpuscular Hemoglobin Concent 30.2 L Red Cell Distribution Width 13.2 Platelet Count 211 Mean Platelet Volume 9.2 Neutrophils % 64.8 Lymphocytes % 22.7 Monocytes % 7.4 Eosinophils % 4.2 Basophils % 0.6 Nucleated Red Blood Cells % 0.0 Neutrophils # 6.0 Lymphocytes # 2.1 Monocytes # 0.7 Eosinophils # 0.4 Basophils # 0.1 Nucleated Red Blood Cells # 0.0 Sodium Level 139 Potassium Level 5.9 H Chloride Level 104 Carbon Dioxide Level 24 Anion Gap 17 H Blood Urea Nitrogen 38 H Creatinine 4.49 H Glucose Level 100 Calcium Level 8.9 Test 04/26/17 12:13 Bedside Glucose 141 Medications Medications Current Medications Ondansetron HCl (Zofran Inj) 4 mg Q6H PRN IV NAUSEA AND/OR VOMITING Last administered on 04/23/17 17:34; Admin Dose 4 MG; Start 04/22/17 at 19:00 Acetaminophen (Tylenol Tab) 650 mg Q6H PRN PO PAIN LEVEL 1-3 OR FEVER; Start at 19:00 Acetaminophen/ Hydrocodone Bitart ([place] (5/325)) 1 tab Q6H PRN PO MODERATE PAIN LEVEL 4-6 Last administered on 04/26/17 09:02; Admin Dose 1 TAB; Start at 19:00 Morphine Sulfate (morphine) 2 mg Q4H PRN IV SEVERE PAIN LEVEL 7-10; Start 04/22 at 19:00 Midodrine (Proamatine) 10 mg TID PO Last administered on 04/26/17 12:16; Admin Dose 10 MG; Start 04/22/17 at 21:00 Tramadol HCl (Ultram) 50 mg Q6H PRN PO PAIN; Start 04/22/17 at 19:00 Insulin Glargine (Lantus) 20 unit HS SC Last administered on 04/25/17 20:41; Admin Dose 20 UNIT; Start 04/22/17 at 21:00 Miscellaneous Information 1 ea NOTE XX ; Start 04/22/17 at 19:00 Glucose (Glutose) 15 gm Q15M PRN PO DECREASED GLUCOSE; Start 04/22/17 at 19:00 Glucose (Glutose) 22.5 gm Q15M PRN PO DECREASED GLUCOSE; Start 04/22/17 at 19: 00 Dextrose (D50w Syringe) 25 ml Q15M PRN IV DECREASED GLUCOSE; Start 04/22/17 at 19:00 Dextrose (D50w Syringe) 50 ml Q15M PRN IV DECREASED GLUCOSE; Start 04/22/17 at 19:00 Glucagon (Glucagen) 1 mg Q15M PRN IM DECREASED GLUCOSE; Start 04/22/17 at 19:00 Glucose (Glutose) 15 gm Q15M PRN BUCCAL DECREASED GLUCOSE; Start 04/22/17 at 19 :00 Zolpidem Tartrate (Ambien) 5 mg QHS PRN PO SLEEP; Start 04/23/17 at 01:00 Linagliptin (Tradjenta) 5 mg DAILY PO Last administered on 04/26/17 08:11; Admin Dose 5 MG; Start 04/23/17 at 14:00 Collagenase (Santyl) 1 applic DAILY TOP Last administered on 04/26/17 08:11; Admin Dose 1 APPLIC; Start 04/24/17 at 15:05 Collagenase (Santyl) 1 applic PRN PRN TOP WOUND CARE; Start 04/24/17 at 15:30 Vancomycin HCl (Vancomycin Oral Syringe) 250 mg Q6 PO Last administered on 04/26 12:28; Admin Dose 250 MG; Start 04/26/17 at 00:00 Rifaximin (Xifaxan) 200 mg TID PO Last administered on 04/26/17 12:14; Admin Dose 200 MG; Start 04/26/17 at 09:00 Bisacodyl (Dulcolax) 10 mg ONCE ONCE PO ; Start 04/27/17 at 11:30; Stop at 11:31 Magnesium Citrate (Citroma) 300 ml ONCE ONCE PO ; Start 04/27/17 at 17:30; Stop 04/27/17 at 17:31 Polyethylene Glycol (Miralax) 119 gm ONCE ONCE PO ; Start 04/27/17 at 18:30; Stop 04/27/17 at 18:31 XAVIER RAMOS Apr 26, 2017 14:57
--- NOTE | 2017-04-26 15:28 | PN ---
Date/Time of Note Date/Time of Note DATE: 04/26/17 TIME: 15:27 Assessment/Plan VTE Prophylaxis VTE Prophylaxis Intervention: SCD's Lines/Catheters [facility] Saline Lock Urinary Cath still in place: No Assessment/Plan Chief Complaint/Hosp Course Assessment and plan 1. 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 ID following. Continue antibiotics per ID recommendations. Of note recent C. difficile culture negative. Will get electrical engineering director to follow 2. End-stage renal disease. On dialysis per furnace tapper recommendations. Monitor renal panel and for electrolyte disturbances 3. History of diabetes. Continue insulin regimen. Will adjust as needed 5. Decubitus ulcers. Wound care consult following. 6. Deconditioning. cont physical therapy. X-ray of the right hip showed no acute fracture. Continue with physical therapy. Will try for ARU Disposition plan: Antibiotics per ID. Biological Science Aide follow-up for persistent diarrhea. Will also try for ARU eval Discussed plan of care with Dr. Kohli Problems: Subjective 24 Hr Interval Summary Free Text/Dictation Still with reported diarrhea Exam/Review of Systems Vital Signs Vitals Vital Signs Date Time Temp Pulse Resp B/P Pulse Ox O2 Delivery O2 Flow Rate FiO2 04/26/17 12:07 85 04/26/17 11:39 98.1 18 107/68 100 04/23/17 09:00 Room Air 04/22/17 17:36 21 04/22/17 15:52 2 Intake and Output 04/25/17 04/25/17 04/26/17 14:59 22:59 06:59 Intake Total 500 ml 1000 ml 390 ml Output Total 500 ml Balance 0 ml 1000 ml 390 ml Exam Constitutional: alert, oriented Psych: anxiety Head: normocephalic Eyes: nl conjunctiva Neck: supple, No jvd Respiratory: clear to auscultation, normal air movement Cardiovascular: regular rate and rhythm Gastrointestinal: non-tender, soft Musculoskeletal: No nl gait and stance 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, nl mental status, nl speech Skin: other (Decubitus ulcer on right hip and under left heel) Results Result Diagram: 04/26/17 0640 04/26/17 0640 Results 24 hrs Laboratory Tests Test 04/25/17 17:09 04/25/17 20:34 04/26/17 06:40 04/26/17 08:08 Bedside Glucose 102 106 120 White Blood Count 9.3 Red Blood Count 3.54 L Hemoglobin 10.5 L Hematocrit 34.8 L Mean Corpuscular Volume 98.3 Mean Corpuscular Hemoglobin 29.7 Mean Corpuscular Hemoglobin Concent 30.2 L Red Cell Distribution Width 13.2 Platelet Count 211 Mean Platelet Volume 9.2 Neutrophils % 64.8 Lymphocytes % 22.7 Monocytes % 7.4 Eosinophils % 4.2 Basophils % 0.6 Nucleated Red Blood Cells % 0.0 Neutrophils # 6.0 Lymphocytes # 2.1 Monocytes # 0.7 Eosinophils # 0.4 Basophils # 0.1 Nucleated Red Blood Cells # 0.0 Sodium Level 139 Potassium Level 5.9 H Chloride Level 104 Carbon Dioxide Level 24 Anion Gap 17 H Blood Urea Nitrogen 38 H Creatinine 4.49 H Glucose Level 100 Calcium Level 8.9 Test 04/26/17 12:13 Bedside Glucose 141 Medications Medications Current Medications Ondansetron HCl (Zofran Inj) 4 mg Q6H PRN IV NAUSEA AND/OR VOMITING Last administered on 04/23/17 17:34; Admin Dose 4 MG; Start 04/22/17 at 19:00 Acetaminophen (Tylenol Tab) 650 mg Q6H PRN PO PAIN LEVEL 1-3 OR FEVER; Start at 19:00 Acetaminophen/ Hydrocodone Bitart ([place] (5/325)) 1 tab Q6H PRN PO MODERATE PAIN LEVEL 4-6 Last administered on 04/26/17 09:02; Admin Dose 1 TAB; Start at 19:00 Morphine Sulfate (morphine) 2 mg Q4H PRN IV SEVERE PAIN LEVEL 7-10; Start 04/22 at 19:00 Midodrine (Proamatine) 10 mg TID PO Last administered on 04/26/17 12:16; Admin Dose 10 MG; Start 04/22/17 at 21:00 Tramadol HCl (Ultram) 50 mg Q6H PRN PO PAIN; Start 04/22/17 at 19:00 Insulin Glargine (Lantus) 20 unit HS SC Last administered on 04/25/17 20:41; Admin Dose 20 UNIT; Start 04/22/17 at 21:00 Miscellaneous Information 1 ea NOTE XX ; Start 04/22/17 at 19:00 Glucose (Glutose) 15 gm Q15M PRN PO DECREASED GLUCOSE; Start 04/22/17 at 19:00 Glucose (Glutose) 22.5 gm Q15M PRN PO DECREASED GLUCOSE; Start 04/22/17 at 19: 00 Dextrose (D50w Syringe) 25 ml Q15M PRN IV DECREASED GLUCOSE; Start 04/22/17 at 19:00 Dextrose (D50w Syringe) 50 ml Q15M PRN IV DECREASED GLUCOSE; Start 04/22/17 at 19:00 Glucagon (Glucagen) 1 mg Q15M PRN IM DECREASED GLUCOSE; Start 04/22/17 at 19:00 Glucose (Glutose) 15 gm Q15M PRN BUCCAL DECREASED GLUCOSE; Start 04/22/17 at 19 :00 Zolpidem Tartrate (Ambien) 5 mg QHS PRN PO SLEEP; Start 04/23/17 at 01:00 Linagliptin (Tradjenta) 5 mg DAILY PO Last administered on 04/26/17 08:11; Admin Dose 5 MG; Start 04/23/17 at 14:00 Collagenase (Santyl) 1 applic DAILY TOP Last administered on 04/26/17 08:11; Admin Dose 1 APPLIC; Start 04/24/17 at 15:05 Collagenase (Santyl) 1 applic PRN PRN TOP WOUND CARE; Start 04/24/17 at 15:30 Vancomycin HCl (Vancomycin Oral Syringe) 250 mg Q6 PO Last administered on 04/26 12:28; Admin Dose 250 MG; Start 04/26/17 at 00:00 Rifaximin (Xifaxan) 200 mg TID PO Last administered on 04/26/17 12:14; Admin Dose 200 MG; Start 04/26/17 at 09:00 Bisacodyl (Dulcolax) 10 mg ONCE ONCE PO ; Start 04/27/17 at 11:30; Stop at 11:31 Magnesium Citrate (Citroma) 300 ml ONCE ONCE PO ; Start 04/27/17 at 17:30; Stop 04/27/17 at 17:31 Polyethylene Glycol (Miralax) 119 gm ONCE ONCE PO ; Start 04/27/17 at 18:30; Stop 04/27/17 at 18:31 Pantoprazole (Protonix Tab) 40 mg DAILY@06 PO ; Start 6/25/17 at 06:00 MARGARET SLATER Apr 26, 2017 15:28
--- NOTE | 2017-04-26 15:32 | CONS ---
Date/Time of Note Date/Time of Note DATE: 04/26/17 TIME: 15:32 Assessment/Plan Assessment/Plan Chief Complaint/Hosp Course ID PROGRESS NOTE SUBJECTIVE:Awake, cachectic, no fevers, no complaints, pending colonoscopy on Friday -- no questions INDWELLINGS: Left upper extremity AV fistula MICROBIOLOGY: Blood culture grew staph species. Stool for C. diff came back negative. Abx: Vanco IV, Vanco PO + Rifaximin s/p Flagyl PHYSICAL EXAMINATION: GENERAL: This is a cachectic well-developed, middle-aged man who is awake, in no distress. HEENT: Head atraumatic, normocephalic. Sclerae anicteric. Buccal mucosa dry. NECK: Supple. CHEST: Rise symmetrical. Breath sounds clear. HEART: S1, S2. ABDOMEN: Soft, bowel tones present. EXTREMITIES: Without cyanosis. The patient has a left lower extremity decubiti. ID ASSESSMENT: 1. Profuse diarrhea = GI on case. Etiology ?IBS * Hx of Clostridium difficile colitis, cx (-) this admission 2. Coagulase-negative Staphylococcus bacteremia, possibly contaminant. 3. Diabetes. 4. Diabetic foot ulceration. 5. Severe deconditioning. ID PLAN: Continue ABX: PO Vanco + Rifaximin, continue IV Vanco, f/u repeat bld cx Problems: Consultation Date/Type/Reason Admit Date/Time Apr 22, 2017 at 17:33 Initial Consult Date 04/26/17 Type of Consultation: ID Referring Provider: MARGARET SLATER Exam/Review of Systems Vital Signs Vitals Vital Signs Date Time Temp Pulse Resp B/P Pulse Ox O2 Delivery O2 Flow Rate FiO2 04/26/17 12:07 85 04/26/17 11:39 98.1 18 107/68 100 04/23/17 09:00 Room Air 04/22/17 17:36 21 04/22/17 15:52 2 Intake and Output 04/25/17 04/25/17 04/26/17 15:00 23:00 07:00 Intake Total 500 ml 1000 ml 390 ml Output Total 500 ml Balance 0 ml 1000 ml 390 ml Results Result Diagram: 04/26/17 0640 04/26/17 0640 Results 24 hrs Laboratory Tests Test 04/25/17 17:09 04/25/17 20:34 04/26/17 06:40 04/26/17 08:08 Bedside Glucose 102 106 120 White Blood Count 9.3 Red Blood Count 3.54 L Hemoglobin 10.5 L Hematocrit 34.8 L Mean Corpuscular Volume 98.3 Mean Corpuscular Hemoglobin 29.7 Mean Corpuscular Hemoglobin Concent 30.2 L Red Cell Distribution Width 13.2 Platelet Count 211 Mean Platelet Volume 9.2 Neutrophils % 64.8 Lymphocytes % 22.7 Monocytes % 7.4 Eosinophils % 4.2 Basophils % 0.6 Nucleated Red Blood Cells % 0.0 Neutrophils # 6.0 Lymphocytes # 2.1 Monocytes # 0.7 Eosinophils # 0.4 Basophils # 0.1 Nucleated Red Blood Cells # 0.0 Sodium Level 139 Potassium Level 5.9 H Chloride Level 104 Carbon Dioxide Level 24 Anion Gap 17 H Blood Urea Nitrogen 38 H Creatinine 4.49 H Glucose Level 100 Calcium Level 8.9 Test 04/26/17 12:13 Bedside Glucose 141 Medications Medications Current Medications Ondansetron HCl (Zofran Inj) 4 mg Q6H PRN IV NAUSEA AND/OR VOMITING Last administered on 04/23/17 17:34; Admin Dose 4 MG; Start 04/22/17 at 19:00 Acetaminophen (Tylenol Tab) 650 mg Q6H PRN PO PAIN LEVEL 1-3 OR FEVER; Start at 19:00 Acetaminophen/ Hydrocodone Bitart ([place] (5/325)) 1 tab Q6H PRN PO MODERATE PAIN LEVEL 4-6 Last administered on 04/26/17 09:02; Admin Dose 1 TAB; Start at 19:00 Morphine Sulfate (morphine) 2 mg Q4H PRN IV SEVERE PAIN LEVEL 7-10; Start 04/22 at 19:00 Midodrine (Proamatine) 10 mg TID PO Last administered on 04/26/17 12:16; Admin Dose 10 MG; Start 04/22/17 at 21:00 Tramadol HCl (Ultram) 50 mg Q6H PRN PO PAIN; Start 04/22/17 at 19:00 Insulin Glargine (Lantus) 20 unit HS SC Last administered on 04/25/17 20:41; Admin Dose 20 UNIT; Start 04/22/17 at 21:00 Miscellaneous Information 1 ea NOTE XX ; Start 04/22/17 at 19:00 Glucose (Glutose) 15 gm Q15M PRN PO DECREASED GLUCOSE; Start 04/22/17 at 19:00 Glucose (Glutose) 22.5 gm Q15M PRN PO DECREASED GLUCOSE; Start 04/22/17 at 19: 00 Dextrose (D50w Syringe) 25 ml Q15M PRN IV DECREASED GLUCOSE; Start 04/22/17 at 19:00 Dextrose (D50w Syringe) 50 ml Q15M PRN IV DECREASED GLUCOSE; Start 04/22/17 at 19:00 Glucagon (Glucagen) 1 mg Q15M PRN IM DECREASED GLUCOSE; Start 04/22/17 at 19:00 Glucose (Glutose) 15 gm Q15M PRN BUCCAL DECREASED GLUCOSE; Start 04/22/17 at 19 :00 Zolpidem Tartrate (Ambien) 5 mg QHS PRN PO SLEEP; Start 04/23/17 at 01:00 Linagliptin (Tradjenta) 5 mg DAILY PO Last administered on 04/26/17 08:11; Admin Dose 5 MG; Start 04/23/17 at 14:00 Collagenase (Santyl) 1 applic DAILY TOP Last administered on 04/26/17 08:11; Admin Dose 1 APPLIC; Start 04/24/17 at 15:05 Collagenase (Santyl) 1 applic PRN PRN TOP WOUND CARE; Start 04/24/17 at 15:30 Vancomycin HCl (Vancomycin Oral Syringe) 250 mg Q6 PO Last administered on 04/26 12:28; Admin Dose 250 MG; Start 04/26/17 at 00:00 Rifaximin (Xifaxan) 200 mg TID PO Last administered on 04/26/17 12:14; Admin Dose 200 MG; Start 04/26/17 at 09:00 Bisacodyl (Dulcolax) 10 mg ONCE ONCE PO ; Start 04/27/17 at 11:30; Stop at 11:31 Magnesium Citrate (Citroma) 300 ml ONCE ONCE PO ; Start 04/27/17 at 17:30; Stop 04/27/17 at 17:31 Polyethylene Glycol (Miralax) 119 gm ONCE ONCE PO ; Start 04/27/17 at 18:30; Stop 04/27/17 at 18:31 Pantoprazole (Protonix Tab) 40 mg DAILY@06 PO ; Start 04/27/17 at 06:00 CHAVA HENDRICKS NP Apr 26, 2017 15:32
[2017-04-26] MEDS: INSULIN GLARGINE [LANtus] 3 ML PEN SC SCH (21:03)
[2017-04-27] VITALS (22 sets, daily range): BP systolic 71–157; BP diastolic 36–86; PULSE 70–96; RESP 18–20
[2017-04-27] MEDS: VANCOMYCIN HCL 250 MG/5ML POSYG PO SCH ×4 (00:19→18:55)
[2017-04-27] MEDS: GLUCOSE GEL 15 GRAM TUBE PO PRN ×3 (00:34→08:48)
[2017-04-27 06:32] LABS: ADD SCAN DIFF NO
[2017-04-27] MEDS: PANTOPRAZOLE (EC) 40 MG TAB PO SCH (06:37)
[2017-04-27 06:44] LABS: BASOPHILS % 0.4 % (0.0-2.0); EOSINOPHILS # 0.3 10^3/ul (0.0-0.5); EOSINOPHILS % 3.8 % (0.0-7.0); HEMOGLOBIN 10.1 g/dl (14.0-18.0); LYMPHOCYTES # 1.5 10^3/ul (0.8-2.9); LYMPHOCYTES % 19.3 % (15.0-51.0); MEAN CORPUSCULAR HEMOGLOBIN 30.3 pg (29.0-33.0); MEAN CORPUSCULAR HGB CONC 31.6 g/dl (32.0-37.0); MEAN CORPUSCULAR VOLUME 96.1 fl (82.0-101.0); MEAN PLATELET VOLUME 9.2 fl (7.4-10.4); MONOCYTE # 0.5 10^3/ul (0.3-0.9); NEUTROPHIL # 5.4 10^3/ul (1.6-7.5); NEUTROPHILS % 70.2 % (39.0-77.0); PLATELET COUNT 199 10^3/UL (140-415); RED BLOOD COUNT 3.33 10^6/ul (4.70-6.10); RED CELL DISTRIBUTION WIDTH 13.1 % (11.5-14.5); WHITE BLOOD COUNT 7.7 10^3/ul (4.8-10.8)
[2017-04-27 07:17] LABS: CALCIUM 8.6 mg/dl (8.4-10.2); CREATININE 5.54 mg/dl (0.61-1.24); POTASSIUM 5.4 mmol/L (3.5-5.1)
[2017-04-27] MEDS: INSULIN ASPART [NOVOLOG] 3 ML PEN SC SCH ×9 (07:25→21:00)
[2017-04-27] MEDS: CALCIUM ACETATE 667 MG CAP PO SCH ×3 (08:16→17:29)
[2017-04-27] MEDS: COLLAGENASE 30 GM TUBE TOP SCH (08:16)
[2017-04-27] MEDS: CREON (12k-38k-60k) 1 CAP PO SCH ×3 (08:16→17:29)
[2017-04-27] MEDS: RIFAXIMIN 200 MG TAB PO SCH ×3 (08:16→21:26)
[2017-04-27] MEDS: MIDODRINE 5 MG TAB PO SCH ×3 (08:17→17:29)
[2017-04-27] MEDS: LINAGLIPTIN 5 MG TABLET PO SCH ×2 (08:22→09:52)
--- NOTE | 2017-04-27 09:57 | PN ---
Date/Time of Note Date/Time of Note DATE: 04/27/17 TIME: 09:55 Assessment/Plan VTE Prophylaxis VTE Prophylaxis Intervention: ambulation Lines/Catheters [facility] Saline Lock Urinary Cath still in place: No Assessment/Plan Assessment/Plan ssessment * Diarrhea chronic t/c IBD vs infectious vs others * Intractable vomiting * ESRD on hemodialysis,MWF * Diabetes mellitus * History of C difficile Plan * continue present management * Colonoscopy/EGD on Friday risks and benefit explained to patient and agreed with the planned procedure Subjective 24 Hr Interval Summary Free Text/Dictation * course reviewed with RN * Patient sees and examined * No complaints Exam/Review of Systems Vital Signs Vitals Vital Signs Date Time Temp Pulse Resp B/P Pulse Ox O2 Delivery O2 Flow Rate FiO2 04/27/17 08:10 70 04/27/17 07:22 98.4 20 100/64 99 04/23/17 09:00 Room Air Intake and Output 04/26/17 04/26/17 04/27/17 15:00 23:00 07:00 Intake Total 1450 ml 400 ml Balance 1450 ml 400 ml Exam Constitutional: alert Head: atraumatic, normocephalic Neck: non-tender, supple Respiratory: clear to auscultation, normal air movement Cardiovascular: nl pulses, regular rate and rhythm Gastrointestinal: nl liver, spleen, non-tender, soft Musculoskeletal: nl extremities to inspection, nl gait and stance Extremities: normal pulses Neurological: nl mental status, nl speech, nl strength Skin: nl turgor, rash or lesions Lymph: nl lymph nodes Results Result Diagram: 04/27/17 0545 04/27/17 0545 Results 24 hrs Laboratory Tests Test 04/26/17 12:13 04/26/17 17:31 04/26/17 20:56 04/27/17 00:29 Bedside Glucose 141 254 H 130 43 *L Test 04/27/17 00:48 04/27/17 01:07 04/27/17 01:24 04/27/17 05:45 Bedside Glucose 57 L 131 150 White Blood Count 7.7 Red Blood Count 3.33 L Hemoglobin 10.1 L Hematocrit 32.0 L Mean Corpuscular Volume 96.1 Mean Corpuscular Hemoglobin 30.3 Mean Corpuscular Hemoglobin Concent 31.6 L Red Cell Distribution Width 13.1 Platelet Count 199 Mean Platelet Volume 9.2 Neutrophils % 70.2 Lymphocytes % 19.3 Monocytes % 6.0 Eosinophils % 3.8 Basophils % 0.4 Nucleated Red Blood Cells % 0.0 Neutrophils # 5.4 Lymphocytes # 1.5 Monocytes # 0.5 Eosinophils # 0.3 Basophils # 0.0 Nucleated Red Blood Cells # 0.0 Sodium Level 136 Potassium Level 5.4 H Chloride Level 100 Carbon Dioxide Level 23 Anion Gap 18 H Blood Urea Nitrogen 51 H Creatinine 5.54 H Glucose Level 113 Calcium Level 8.6 Test 04/27/17 07:55 04/27/17 08:28 04/27/17 08:44 04/27/17 09:09 Bedside Glucose 46 *L 37 *L 47 *L 134 Test 04/27/17 09:28 04/27/17 09:31 Bedside Glucose 581 *H 334 H Medications Medications Current Medications Ondansetron HCl (Zofran Inj) 4 mg Q6H PRN IV NAUSEA AND/OR VOMITING Last administered on 04/23/17 17:34; Admin Dose 4 MG; Start 04/22/17 at 19:00 Acetaminophen (Tylenol Tab) 650 mg Q6H PRN PO PAIN LEVEL 1-3 OR FEVER; Start at 19:00 Acetaminophen/ Hydrocodone Bitart ([place] (5/325)) 1 tab Q6H PRN PO MODERATE PAIN LEVEL 4-6 Last administered on 04/26/17 09:02; Admin Dose 1 TAB; Start at 19:00 Morphine Sulfate (morphine) 2 mg Q4H PRN IV SEVERE PAIN LEVEL 7-10; Start 04/22 at 19:00 Midodrine (Proamatine) 10 mg TID PO Last administered on 04/27/17 08:17; Admin Dose 10 MG; Start 04/22/17 at 21:00 Tramadol HCl (Ultram) 50 mg Q6H PRN PO PAIN; Start 04/22/17 at 19:00 Miscellaneous Information 1 ea NOTE XX ; Start 04/22/17 at 19:00 Glucose (Glutose) 15 gm Q15M PRN PO DECREASED GLUCOSE; Start 04/22/17 at 19:00 Glucose (Glutose) 22.5 gm Q15M PRN PO DECREASED GLUCOSE Last administered on 08:48; Admin Dose 22.5 GM; Start 04/22/17 at 19:00 Dextrose (D50w Syringe) 25 ml Q15M PRN IV DECREASED GLUCOSE; Start 04/22/17 at 19:00 Dextrose (D50w Syringe) 50 ml Q15M PRN IV DECREASED GLUCOSE; Start 04/22/17 at 19:00 Glucagon (Glucagen) 1 mg Q15M PRN IM DECREASED GLUCOSE; Start 04/22/17 at 19:00 Glucose (Glutose) 15 gm Q15M PRN BUCCAL DECREASED GLUCOSE Last administered on 04/27/17 00:53; Admin Dose 15 GM; Start 04/22/17 at 19:00 Zolpidem Tartrate (Ambien) 5 mg QHS PRN PO SLEEP; Start 04/23/17 at 01:00 Linagliptin (Tradjenta) 5 mg DAILY PO Last administered on 04/27/17 09:52; Admin Dose 5 MG; Start 04/23/17 at 14:00 Collagenase (Santyl) 1 applic DAILY TOP Last administered on 04/27/17 08:16; Admin Dose 1 APPLIC; Start 04/24/17 at 15:05 Collagenase (Santyl) 1 applic PRN PRN TOP WOUND CARE; Start 04/24/17 at 15:30 Vancomycin HCl (Vancomycin Oral Syringe) 250 mg Q6 PO Last administered on 04/27 06:37; Admin Dose 250 MG; Start 04/26/17 at 00:00 Rifaximin (Xifaxan) 200 mg TID PO Last administered on 04/27/17 08:16; Admin Dose 200 MG; Start 04/26/17 at 09:00 Bisacodyl (Dulcolax) 10 mg ONCE ONCE PO ; Start 04/27/17 at 11:30; Stop at 11:31 Magnesium Citrate (Citroma) 300 ml ONCE ONCE PO ; Start 04/27/17 at 17:30; Stop 04/27/17 at 17:31 Polyethylene Glycol (Miralax) 119 gm ONCE ONCE PO ; Start 04/27/17 at 18:30; Stop 04/27/17 at 18:31 Pantoprazole (Protonix Tab) 40 mg DAILY@06 PO Last administered on 04/27/17 06 :37; Admin Dose 40 MG; Start 04/27/17 at 06:00 Insulin Glargine (Lantus) 10 unit HS SC ; Start 04/27/17 at 21:00 ANNE GUTIERREZ NP Apr 27, 2017 09:57
[2017-04-27] MEDS ORDERED: BISACODYL (EC) 5 MG TAB PO ONE (11:30)
--- NOTE | 2017-04-27 14:36 | PN ---
DATE: 04/27/2017 SUBJECTIVE DATA: The patient still complains of diarrhea. Remains afebrile. OBJECTIVE DATA: VITAL SIGNS: Temperature 97.4, pulse rate 77, respiratory rate 20, blood pressure 133/77, oxygen saturation 100% on room air. GENERAL: This is a thin, frail-looking male lying in bed in no apparent distress. HEENT: Head normocephalic and atraumatic. Eyes: Anicteric sclerae. Conjunctivae clear. ENT: Nasal septum is midline. Oral mucosa is dry. NECK: Supple. No JVD noticed. RESPIRATORY: Bilaterally clear to auscultation. No adventitious breath sounds heard. No use of accessory muscles of respiration. CARDIAC: Regular rate and rhythm. S1 and S2 heard. ABDOMEN: Soft, nontender, and nondistended. Bowel sounds positive in all 4 quadrants. GENITOURINARY: Deferred. EXTREMITIES: No cyanosis, no clubbing, no edema. Peripheral pulses are palpable. NEUROLOGIC: The patient is awake, alert, and oriented. Cranial nerves are grossly intact. LABORATORY AND DIAGNOSTIC DATA: WBC 7.7, hemoglobin 10.1, hematocrit 32.0, platelet count 199. Sodium 136, potassium 5.4, chloride 100, carbon dioxide 23 , anion gap 18, BUN 15, creatinine 5.54, glucose 113, calcium 8.6. ASSESSMENT AND PLAN 1. Intractable diarrhea. Stool for C. diff negative. The patient is scheduled for esophagogastroduodenoscopy and colonoscopy on 04/28/2017. Being followed by infectious diseases and gastroenterology. 2. Gram-positive bacteremia. On antibiotics as per Infectious Disease. Possibly contaminant as per Infectious Disease. Repeat blood cultures x2 were negative. 3. End-stage renal disease on hemodialysis. Continue hemodialysis as per Nephrology. 4. Decubitus ulcers. Continue local wound care. 5. Deconditioning. Status post physical therapy evaluation. Continue physical therapy. 6. Diabetes mellitus, unknown type. Blood sugars fluctuating. Continue sliding scale insulin along with Lantus insulin and premeal insulin. We will obtain a hemoglobin A1c to evaluate the blood glucose control over the past few weeks. 7. Normocytic normochromic anemia, most probably anemia of chronic kidney disease. We will monitor the H and H closely. 8. Fluid, electrolytes, and nutrition. Carbohydrate controlled diet. 9. DVT prophylaxis. Bilateral sequential compression devices. 10. Gastrointestinal prophylaxis. Proton pump inhibitors. PLAN: Continue inpatient monitoring. Continue antibiotics as per Infectious Disease. Await esophagogastroduodenoscopy and colonoscopy. Case discussed with Dr. Wharton. ABBEY WHARTON MD, AM/CORINNE Conf#: [id number] DID#: [id number] MTDD
[2017-04-27] MEDS ORDERED: ALBUMIN HUMAN 25% 100 ML IV ONE (17:30)
[2017-04-27] MEDS ORDERED: MAGNESIUM CITRATE 300 ML BTL PO ONE (17:30)
[2017-04-27] MEDS ORDERED: POLYETHYLENE GLYCOL 3350 119 GM POWDER PO ONE (18:30)
--- NOTE | 2017-04-27 18:37 | PN ---
DATE: 04/27/2017 SUBJECTIVE: No events overnight. No fevers. The patient is alert, looks comfortable. LABORATORY DATA: WBC 7.7, no shift, no bands. ANTIMICROBIALS: He is on: 1. IV vancomycin. 2. Oral rifaximin. 3. Oral vancomycin. INDWELLINGS: Left upper extremity AV fistula. PHYSICAL EXAMINATION: GENERAL: Chronically ill-appearing, middle-aged man who is in no distress. HEENT: Head atraumatic, normocephalic. Sclerae anicteric. Buccal mucosa dry. NECK: Supple. CHEST: Rise symmetrical. Breath sounds clear. HEART: S1, S2. ABDOMEN: Soft. Bowel tones present. ASSESSMENT: 1. Persistent diarrhea with history of Clostridium difficile colitis, remains on oral vancomycin. 2. Coagulase-negative staph bacteremia with repeat blood cultures being negative. 3. End-stage renal disease, hemodialysis dependent. 4. Left upper extremity arteriovenous fistula. 5. Diabetes with left diabetic foot ulceration. PLAN: The patient remains stable. Continue present care. Continue on current antibiotics. Felix jones colonoscopy and EGD tomorrow. Dictated By: ENMANUEL NOVAK DEMOLITION SPECIALIST for EROS GRIGGS MD NI/NTS Conf#: [id number] DID#: [id number] CC: SUNSHINE BEST MD;*EndCC*
--- NOTE | 2017-04-27 18:37 | CONS ---
Date/Time of Note Date/Time of Note DATE: 04/27/17 TIME: 18:36 Assessment/Plan Assessment/Plan Chief Complaint/Hosp Course IMPRESSION: 1. Malnutrition. 2. End-stage renal disease. 3. Hypertension. 4. History of diabetes mellitus. 5. Orthostatic hypotension. 6. History of autonomic insufficiency. 7. History of Clostridium difficile colitis. 8. History of sepsis. 9. History of catheter placement. 10. History of chronic diarrhea. 11. History of septic shock. 12 HYPERKALEMIA plan consider gi consult hd Problems: Consultation Date/Type/Reason Admit Date/Time Apr 22, 2017 at 17:33 Type of Consultation: RENAL Referring Provider: MARGARET SLATER 24 HR Interval Summary Constitutional: poor po Exam/Review of Systems Vital Signs Vitals Vital Signs Date Time Temp Pulse Resp B/P Pulse Ox O2 Delivery O2 Flow Rate FiO2 04/27/17 17:45 93 04/27/17 16:00 18 04/27/17 16:00 90/52 04/27/17 15:20 97.6 99 04/23/17 09:00 Room Air Intake and Output 04/26/17 04/26/17 04/27/17 15:00 23:00 07:00 Intake Total 1450 ml 400 ml Balance 1450 ml 400 ml Exam Neck: supple Respiratory: clear to auscultation Cardiovascular: regular rate and rhythm Gastrointestinal: soft Results Result Diagram: 04/27/17 0545 04/27/17 0545 Results 24 hrs Laboratory Tests Test 04/26/17 20:56 04/27/17 00:29 04/27/17 00:48 04/27/17 01:07 Bedside Glucose 130 43 *L 57 L 131 Test 04/27/17 01:24 04/27/17 05:45 04/27/17 07:55 04/27/17 08:28 Bedside Glucose 150 46 *L 37 *L White Blood Count 7.7 Red Blood Count 3.33 L Hemoglobin 10.1 L Hematocrit 32.0 L Mean Corpuscular Volume 96.1 Mean Corpuscular Hemoglobin 30.3 Mean Corpuscular Hemoglobin Concent 31.6 L Red Cell Distribution Width 13.1 Platelet Count 199 Mean Platelet Volume 9.2 Neutrophils % 70.2 Lymphocytes % 19.3 Monocytes % 6.0 Eosinophils % 3.8 Basophils % 0.4 Nucleated Red Blood Cells % 0.0 Neutrophils # 5.4 Lymphocytes # 1.5 Monocytes # 0.5 Eosinophils # 0.3 Basophils # 0.0 Nucleated Red Blood Cells # 0.0 Sodium Level 136 Potassium Level 5.4 H Chloride Level 100 Carbon Dioxide Level 23 Anion Gap 18 H Blood Urea Nitrogen 51 H Creatinine 5.54 H Glucose Level 113 Calcium Level 8.6 Test 04/27/17 08:44 04/27/17 09:09 04/27/17 09:28 04/27/17 09:31 Bedside Glucose 47 *L 134 581 *H 334 H Test 04/27/17 12:55 Bedside Glucose 124 Medications Medications Current Medications Ondansetron HCl (Zofran Inj) 4 mg Q6H PRN IV NAUSEA AND/OR VOMITING Last administered on 04/23/17 17:34; Admin Dose 4 MG; Start 04/22/17 at 19:00 Acetaminophen (Tylenol Tab) 650 mg Q6H PRN PO PAIN LEVEL 1-3 OR FEVER; Start at 19:00 Acetaminophen/ Hydrocodone Bitart ([place] (5/325)) 1 tab Q6H PRN PO MODERATE PAIN LEVEL 4-6 Last administered on 04/26/17 09:02; Admin Dose 1 TAB; Start at 19:00 Morphine Sulfate (morphine) 2 mg Q4H PRN IV SEVERE PAIN LEVEL 7-10; Start 04/22 at 19:00 Midodrine (Proamatine) 10 mg TID PO Last administered on 04/27/17 17:29; Admin Dose 10 MG; Start 04/22/17 at 21:00 Tramadol HCl (Ultram) 50 mg Q6H PRN PO PAIN; Start 04/22/17 at 19:00 Miscellaneous Information 1 ea NOTE XX ; Start 04/22/17 at 19:00 Glucose (Glutose) 15 gm Q15M PRN PO DECREASED GLUCOSE; Start 04/22/17 at 19:00 Glucose (Glutose) 22.5 gm Q15M PRN PO DECREASED GLUCOSE Last administered on 08:48; Admin Dose 22.5 GM; Start 04/22/17 at 19:00 Dextrose (D50w Syringe) 25 ml Q15M PRN IV DECREASED GLUCOSE; Start 04/22/17 at 19:00 Dextrose (D50w Syringe) 50 ml Q15M PRN IV DECREASED GLUCOSE; Start 04/22/17 at 19:00 Glucagon (Glucagen) 1 mg Q15M PRN IM DECREASED GLUCOSE; Start 04/22/17 at 19:00 Glucose (Glutose) 15 gm Q15M PRN BUCCAL DECREASED GLUCOSE Last administered on 04/27/17 00:53; Admin Dose 15 GM; Start 04/22/17 at 19:00 Zolpidem Tartrate (Ambien) 5 mg QHS PRN PO SLEEP; Start 04/23/17 at 01:00 Linagliptin (Tradjenta) 5 mg DAILY PO Last administered on 04/27/17 09:52; Admin Dose 5 MG; Start 04/23/17 at 14:00 Collagenase (Santyl) 1 applic DAILY TOP Last administered on 04/27/17 08:16; Admin Dose 1 APPLIC; Start 04/24/17 at 15:05 Collagenase (Santyl) 1 applic PRN PRN TOP WOUND CARE; Start 04/24/17 at 15:30 Vancomycin HCl (Vancomycin Oral Syringe) 250 mg Q6 PO Last administered on 04/27 12:56; Admin Dose 250 MG; Start 04/26/17 at 00:00 Rifaximin (Xifaxan) 200 mg TID PO Last administered on 04/27/17 12:57; Admin Dose 200 MG; Start 04/26/17 at 09:00 Pantoprazole (Protonix Tab) 40 mg DAILY@06 PO Last administered on 04/27/17 06 :37; Admin Dose 40 MG; Start 04/27/17 at 06:00 Insulin Glargine (Lantus) 10 unit HS SC ; Start 04/27/17 at 21:00 Miscellaneous Information (*Rx Drug Level Order Reminder*) RANDOM VANCOMYCIN LEVEL 6... ONCE ONCE XX ; Start 04/28/17 at 05:00; Stop 04/28/17 at 05:01 YASMIN QUIROS MD Apr 27, 2017 18:37
[2017-04-27] MEDS: INSULIN GLARGINE [LANtus] 3 ML PEN SC SCH (21:00)
[2017-04-28] VITALS (23 sets, daily range): BP systolic 82–141; BP diastolic 54–81; PULSE 77–110; RESP 13–20
[2017-04-28] MEDS: VANCOMYCIN HCL 250 MG/5ML POSYG PO SCH ×4 (00:22→18:00)
[2017-04-28] MEDS: MIDODRINE 5 MG TAB PO SCH ×3 (04:20→22:00)
[2017-04-28] MEDS: PANTOPRAZOLE (EC) 40 MG TAB PO SCH (05:44)
[2017-04-28] MEDS ORDERED: POLYETHYLENE GLYCOL 3350 119 GM POWDER PO ONE (06:00)
[2017-04-28] MEDS: INSULIN ASPART [NOVOLOG] 3 ML PEN SC SCH ×7 (07:25→22:11)
[2017-04-28 07:27] LABS: ADD SCAN DIFF NO
[2017-04-28 07:30] LABS: BASOPHIL # 0.1 10^3/ul (0.0-0.1); BASOPHILS % 0.6 % (0.0-2.0); EOSINOPHILS # 0.3 10^3/ul (0.0-0.5); EOSINOPHILS % 3.6 % (0.0-7.0); HEMATOCRIT 31.8 % (42.0-52.0); HEMOGLOBIN 10.2 g/dl (14.0-18.0); LYMPHOCYTES # 1.7 10^3/ul (0.8-2.9); LYMPHOCYTES % 20.6 % (15.0-51.0); MEAN CORPUSCULAR HEMOGLOBIN 30.7 pg (29.0-33.0); MEAN CORPUSCULAR HGB CONC 32.1 g/dl (32.0-37.0); MEAN CORPUSCULAR VOLUME 95.8 fl (82.0-101.0); MEAN PLATELET VOLUME 9.4 fl (7.4-10.4); MONOCYTE # 0.5 10^3/ul (0.3-0.9); NEUTROPHIL # 5.8 10^3/ul (1.6-7.5); PLATELET COUNT 213 10^3/UL (140-415); RED BLOOD COUNT 3.32 10^6/ul (4.70-6.10); RED CELL DISTRIBUTION WIDTH 13.3 % (11.5-14.5); WHITE BLOOD COUNT 8.5 10^3/ul (4.8-10.8)
[2017-04-28 07:55] LABS: MAGNESIUM 2.5 mg/dl (1.7-2.5); PHOSPHORUS 3.7 mg/dl (2.5-4.9)
[2017-04-28 08:00] LABS: CHOL/HDL RATIO 1.3 RATIO
[2017-04-28] MEDS ORDERED: BISACODYL (EC) 5 MG TAB PO ONE (08:00)
[2017-04-28] MEDS ORDERED: SOD CHLORIDE 0.9% 250 ML IV ONE (08:00)
[2017-04-28 08:07] LABS: CALCIUM 9.1 mg/dl (8.4-10.2); CREATININE 3.5 mg/dl (0.61-1.24); POTASSIUM 5.2 mmol/L (3.5-5.1)
[2017-04-28] MEDS: RIFAXIMIN 200 MG TAB PO SCH ×3 (08:15→22:00)
[2017-04-28 08:31] LABS: THYROID STIMULATING HORMONE 0.805 MIU/L (0.465-4.680)
--- NOTE | 2017-04-28 09:18 | PN ---
Date/Time of Note Date/Time of Note DATE: 04/28/17 TIME: 09:17 Assessment/Plan VTE Prophylaxis VTE Prophylaxis Intervention: SCD's Lines/Catheters IV C[facility]from [facility] [place] Urinary Cath still in place: No Assessment/Plan Chief Complaint/Hosp Course 1. Intractable diarrhea. Stool for C. diff negative. The patient is scheduled for esophagogastroduodenoscopy and colonoscopy on 04/28/2017. Being followed by infectious diseases and gastroenterology. 2. Gram-positive bacteremia. On antibiotics as per Infectious Disease. Possibly contaminant as per Infectious Disease. Repeat blood cultures x2 were negative. 3. End-stage renal disease on hemodialysis. Continue hemodialysis as per Nephrology. 4. Decubitus ulcers. Continue local wound care. 5. Deconditioning. Status post physical therapy evaluation. Continue physical therapy. 7. Diabetes mellitus, unknown type. Blood sugar fluctuating. Continue sliding scale insulin along with Lantus insulin and premeal insulin. Hemoglobin A1c 7.0. 8. Normocytic normochromic anemia, most probably anemia of chronic kidney disease. We will monitor the H and H closely. 9. Fluid, electrolytes, and nutrition. Carbohydrate controlled diet. 10. DVT prophylaxis. Bilateral sequential compression devices. 11. Gastrointestinal prophylaxis. Proton pump inhibitors. PLAN: Continue inpatient monitoring. Continue antibiotics as per Infectious Disease. Await esophagogastroduodenoscopy and colonoscopy. Case discussed with . Problems: Subjective 24 Hr Interval Summary Free Text/Dictation Denies any complaints. Exam/Review of Systems Vital Signs Vitals Vital Signs Date Time Temp Pulse Resp B/P Pulse Ox O2 Delivery O2 Flow Rate FiO2 04/28/17 08:19 97 04/28/17 07:50 98.6 18 84/55 100 Intake and Output 04/27/17 04/27/17 04/28/17 15:00 23:00 07:00 Intake Total 1420 ml 900 ml Output Total 700 ml Balance 720 ml 900 ml Exam GENERAL: This is a thin, frail-looking male lying in bed in no apparent distress. HEENT: Head normocephalic and atraumatic. Eyes: Anicteric sclerae. Conjunctivae clear. ENT: Nasal septum is midline. Oral mucosa is dry. NECK: Supple. No JVD noticed. RESPIRATORY: Bilaterally clear to auscultation. No adventitious breath sounds heard. No use of accessory muscles of respiration. CARDIAC: Regular rate and rhythm. S1 and S2 heard. ABDOMEN: Soft, nontender, and nondistended. Bowel sounds positive in all 4 quadrants. GENITOURINARY: Deferred. EXTREMITIES: No cyanosis, no clubbing, no edema. Peripheral pulses are palpable. Severe muscle wasting of B/L lower extremities. Left heel pressure ulcer. NEUROLOGIC: The patient is awake, alert, and oriented. Cranial nerves are grossly intact. Results Result Diagram: 04/28/1760404/28/17604 Results 24 hrs Laboratory Tests Test 04/27/17 09:28 04/27/17 09:31 04/27/17 12:55 04/27/17 18:54 Bedside Glucose 581 *H 334 H 124 127 Test 04/27/17 21:30 04/28/17 01:36 04/28/17 06:05 04/28/17 08:20 Bedside Glucose 70 119 131 White Blood Count 8.5 Red Blood Count 3.32 L Hemoglobin 10.2 L Hematocrit 31.8 L Mean Corpuscular Volume 95.8 Mean Corpuscular Hemoglobin 30.7 Mean Corpuscular Hemoglobin Concent 32.1 Red Cell Distribution Width 13.3 Platelet Count 213 Mean Platelet Volume 9.4 Neutrophils % 69.0 Lymphocytes % 20.6 Monocytes % 6.0 Eosinophils % 3.6 Basophils % 0.6 Nucleated Red Blood Cells % 0.0 Neutrophils # 5.8 Lymphocytes # 1.7 Monocytes # 0.5 Eosinophils # 0.3 Basophils # 0.1 Nucleated Red Blood Cells # 0.0 Sodium Level 134 L Potassium Level 5.2 H Chloride Level 96 L Carbon Dioxide Level 26 Anion Gap 17 H Blood Urea Nitrogen 22 #H Creatinine 3.50 #H Glucose Level 101 Hemoglobin A1c 7.0 H Calcium Level 9.1 Phosphorus Level 3.7 Magnesium Level 2.5 Triglycerides Level 84 Cholesterol Level 79 L LDL Cholesterol, Calculated 4 HDL Cholesterol 58 Cholesterol/HDL Ratio 1.3 Vitamin D 1,25-Dihydroxy 25.5 L Thyroid Stimulating Hormone (TSH) 0.805 Free Thyroxine 1.32 Random Vancomycin Level 11.1 HIV (1&2) Antibody NEGATIVE Medications Medications Current Medications Ondansetron HCl (Zofran Inj) 4 mg Q6H PRN IV NAUSEA AND/OR VOMITING Last administered on 04/23/17t 17:34; Admin Dose 4 MG; Start 04/22/17 at 19:00 Acetaminophen (Tylenol Tab) 650 mg Q6H PRN PO PAIN LEVEL 1-3 OR FEVER; Start at 19:00 Acetaminophen/ Hydrocodone Bitart ([place] (5/325)) 1 tab Q6H PRN PO MODERATE PAIN LEVEL 4-6 Last administered on 04/26/17 09:02; Admin Dose 1 TAB; Start at 19:00 Morphine Sulfate (morphine) 2 mg Q4H PRN IV SEVERE PAIN LEVEL 7-10; Start 04/22 at 19:00 Midodrine (Proamatine) 10 mg TID PO Last administered on 04/28/17 04:20; Admin Dose 10 MG; Start 04/22/17 at 21:00 Tramadol HCl (Ultram) 50 mg Q6H PRN PO PAIN; Start 04/22/17 at 19:00 Miscellaneous Information 1 ea NOTE XX ; Start 04/22/17 at 19:00 Glucose (Glutose) 15 gm Q15M PRN PO DECREASED GLUCOSE; Start 04/22/17 at 19:00 Glucose (Glutose) 22.5 gm Q15M PRN PO DECREASED GLUCOSE Last administered on 08:48; Admin Dose 22.5 GM; Start 04/22/17 at 19:00 Dextrose (D50w Syringe) 25 ml Q15M PRN IV DECREASED GLUCOSE; Start 04/22/17 at 19:00 Dextrose (D50w Syringe) 50 ml Q15M PRN IV DECREASED GLUCOSE; Start 04/22/17 at 19:00 Glucagon (Glucagen) 1 mg Q15M PRN IM DECREASED GLUCOSE; Start 04/22/17 at 19:00 Glucose (Glutose) 15 gm Q15M PRN BUCCAL DECREASED GLUCOSE Last administered on 04/27/17 00:53; Admin Dose 15 GM; Start 04/22/17 at 19:00 Zolpidem Tartrate (Ambien) 5 mg QHS PRN PO SLEEP; Start 04/23/17 at 01:00 Linagliptin (Tradjenta) 5 mg DAILY PO Last administered on 04/27/17 09:52; Admin Dose 5 MG; Start 04/23/17 at 14:00 Collagenase (Santyl) 1 applic DAILY TOP Last administered on 04/27/17 08:16; Admin Dose 1 APPLIC; Start 04/24/17 at 15:05 Collagenase (Santyl) 1 applic PRN PRN TOP WOUND CARE; Start 04/24/17 at 15:30 Vancomycin HCl (Vancomycin Oral Syringe) 250 mg Q6 PO Last administered on 04/28 05:44; Admin Dose 250 MG; Start 04/26/17 at 00:00 Rifaximin (Xifaxan) 200 mg TID PO Last administered on 04/28/17 08:15; Admin Dose 200 MG; Start 04/26/17 at 09:00 Pantoprazole (Protonix Tab) 40 mg DAILY@06 PO Last administered on 04/28/17 05 :44; Admin Dose 40 MG; Start 04/27/17 at 06:00 Insulin Glargine (Lantus) 10 unit HS SC ; Start 04/27/17 at 21:00 ABBEY ROBLES NP Apr 28, 2017 09:18
[2017-04-28] MEDS: CALCIUM ACETATE 667 MG CAP PO SCH ×3 (09:20→17:55)
[2017-04-28] MEDS: LINAGLIPTIN 5 MG TABLET PO SCH (09:20)
[2017-04-28] MEDS: CREON (12k-38k-60k) 1 CAP PO SCH ×3 (09:21→17:55)
[2017-04-28] MEDS: COLLAGENASE 30 GM TUBE TOP SCH (09:22)
--- NOTE | 2017-04-28 13:32 | CONS ---
Date/Time of Note Date/Time of Note DATE: 04/28/17 TIME: 13:31 Assessment/Plan Assessment/Plan Chief Complaint/Hosp Course SUBJECTIVE: No events overnight. No fevers. The patient is alert, looks comfortable. ANTIMICROBIALS: He is on: 1. IV vancomycin. 2. Oral rifaximin. 3. Oral vancomycin. INDWELLINGS: Left upper extremity AV fistula. PHYSICAL EXAMINATION: GENERAL: Chronically ill-appearing, middle-aged man who is in no distress. HEENT: Head atraumatic, normocephalic. Sclerae anicteric. Buccal mucosa dry. NECK: Supple. CHEST: Rise symmetrical. Breath sounds clear. HEART: S1, S2. ABDOMEN: Soft. Bowel tones present. ASSESSMENT: 1. Persistent diarrhea with history of Clostridium difficile colitis, remains on oral vancomycin. 2. Coagulase-negative staph bacteremia with repeat blood cultures being negative. 3. End-stage renal disease, hemodialysis dependent. 4. Left upper extremity arteriovenous fistula. 5. Diabetes with left diabetic foot ulceration. PLAN: The patient remains stable. Continue present care. Continue on current antibiotics. Pending colonoscopy and EGD. DW staff Problems: Consultation Date/Type/Reason Admit Date/Time Apr 22, 2017 at 17:33 Type of Consultation: ID Referring Provider: MARGARET SLATER Exam/Review of Systems Vital Signs Vitals Vital Signs Date Time Temp Pulse Resp B/P Pulse Ox O2 Delivery O2 Flow Rate FiO2 04/28/17 12:30 78 04/28/17 11:46 98.0 18 123/65 100 Intake and Output 04/27/17 04/27/17 04/28/17 15:00 23:00 07:00 Intake Total 1420 ml 900 ml Output Total 700 ml Balance 720 ml 900 ml Results Result Diagram: 04/28/17 0605 04/28/17 0605 Results 24 hrs Laboratory Tests Test 04/27/17 18:54 04/27/17 21:30 04/28/17 01:36 04/28/17 06:05 Bedside Glucose 127 70 119 White Blood Count 8.5 Red Blood Count 3.32 L Hemoglobin 10.2 L Hematocrit 31.8 L Mean Corpuscular Volume 95.8 Mean Corpuscular Hemoglobin 30.7 Mean Corpuscular Hemoglobin Concent 32.1 Red Cell Distribution Width 13.3 Platelet Count 213 Mean Platelet Volume 9.4 Neutrophils % 69.0 Lymphocytes % 20.6 Monocytes % 6.0 Eosinophils % 3.6 Basophils % 0.6 Nucleated Red Blood Cells % 0.0 Neutrophils # 5.8 Lymphocytes # 1.7 Monocytes # 0.5 Eosinophils # 0.3 Basophils # 0.1 Nucleated Red Blood Cells # 0.0 Sodium Level 134 L Potassium Level 5.2 H Chloride Level 96 L Carbon Dioxide Level 26 Anion Gap 17 H Blood Urea Nitrogen 22 #H Creatinine 3.50 #H Glucose Level 101 Hemoglobin A1c 7.0 H Calcium Level 9.1 Phosphorus Level 3.7 Magnesium Level 2.5 Triglycerides Level 84 Cholesterol Level 79 L LDL Cholesterol, Calculated 4 HDL Cholesterol 58 Cholesterol/HDL Ratio 1.3 Vitamin D 1,25-Dihydroxy 25.5 L Thyroid Stimulating Hormone (TSH) 0.805 Free Thyroxine 1.32 Random Vancomycin Level 11.1 HIV (1&2) Antibody NEGATIVE Test 04/28/17 08:20 Bedside Glucose 131 Medications Medications Current Medications Ondansetron HCl (Zofran Inj) 4 mg Q6H PRN IV NAUSEA AND/OR VOMITING Last administered on 04/23/17 17:34; Admin Dose 4 MG; Start 04/22/17 at 19:00 Acetaminophen (Tylenol Tab) 650 mg Q6H PRN PO PAIN LEVEL 1-3 OR FEVER; Start at 19:00 Acetaminophen/ Hydrocodone Bitart ([place] (5/325)) 1 tab Q6H PRN PO MODERATE PAIN LEVEL 4-6 Last administered on 04/26/17 09:02; Admin Dose 1 TAB; Start at 19:00 Morphine Sulfate (morphine) 2 mg Q4H PRN IV SEVERE PAIN LEVEL 7-10; Start 04/22 at 19:00 Midodrine (Proamatine) 10 mg TID PO Last administered on 04/28/17 04:20; Admin Dose 10 MG; Start 04/22/17 at 21:00 Tramadol HCl (Ultram) 50 mg Q6H PRN PO PAIN; Start 04/22/17 at 19:00 Miscellaneous Information 1 ea NOTE XX ; Start 04/22/17 at 19:00 Glucose (Glutose) 15 gm Q15M PRN PO DECREASED GLUCOSE; Start 04/22/17 at 19:00 Glucose (Glutose) 22.5 gm Q15M PRN PO DECREASED GLUCOSE Last administered on 08:48; Admin Dose 22.5 GM; Start 04/22/17 at 19:00 Dextrose (D50w Syringe) 25 ml Q15M PRN IV DECREASED GLUCOSE; Start 04/22/17 at 19:00 Dextrose (D50w Syringe) 50 ml Q15M PRN IV DECREASED GLUCOSE; Start 04/22/17 at 19:00 Glucagon (Glucagen) 1 mg Q15M PRN IM DECREASED GLUCOSE; Start 04/22/17 at 19:00 Glucose (Glutose) 15 gm Q15M PRN BUCCAL DECREASED GLUCOSE Last administered on 04/27/17 00:53; Admin Dose 15 GM; Start 04/22/17 at 19:00 Zolpidem Tartrate (Ambien) 5 mg QHS PRN PO SLEEP; Start 04/23/17 at 01:00 Linagliptin (Tradjenta) 5 mg DAILY PO Last administered on 04/28/17 09:20; Admin Dose 5 MG; Start 04/23/17 at 14:00 Collagenase (Santyl) 1 applic DAILY TOP Last administered on 04/28/17 09:22; Admin Dose 1 APPLIC; Start 04/24/17 at 15:05 Collagenase (Santyl) 1 applic PRN PRN TOP WOUND CARE; Start 04/24/17 at 15:30 Vancomycin HCl (Vancomycin Oral Syringe) 250 mg Q6 PO Last administered on 04/28 05:44; Admin Dose 250 MG; Start 04/26/17 at 00:00 Rifaximin (Xifaxan) 200 mg TID PO Last administered on 04/28/17 08:15; Admin Dose 200 MG; Start 04/26/17 at 09:00 Pantoprazole (Protonix Tab) 40 mg DAILY@06 PO Last administered on 04/28/17 05 :44; Admin Dose 40 MG; Start 04/27/17 at 06:00 Insulin Glargine 10 unit 10 unit HS SC ; Start 04/27/17 at 21:00 Vancomycin HCl/ Sodium Chloride (Vancocin/NS) 150 ml @ 75 mls/hr ONCE IVPB ; Start 04/28/17 at 14:30; Stop 04/28/17 at 18:00 ENMANUEL NOVAK NP Apr 28, 2017 13:31
[2017-04-28] MEDS ORDERED: VANCOMYCIN 750 MG in SOD CHLORIDE 0.9% 150 ML IVPB SCH (14:30)
[2017-04-28] MEDS ORDERED: PROPOFOL 40 ML ONE (18:08)
[2017-04-28] MEDS ORDERED: LIDOCAINE 2% (SDV) 5 ML INJ ONE (18:08)
[2017-04-28] MEDS ORDERED: METOCLOPRAMIDE 10 MG INJ ONE (18:20)
[2017-04-28] MEDS ORDERED: ONDANSETRON 4 MG INJ IV PRN (18:30)
[2017-04-28] MEDS ORDERED: HYDROmorphONE (0.2 MG/ML) 10ML SYG IV PRN (18:30)
--- NOTE | 2017-04-28 18:32 | CONS ---
Date/Time of Note Date/Time of Note DATE: 04/28/17 TIME: 18:31 Assessment/Plan Assessment/Plan Chief Complaint/Hosp Course IMPRESSION: 1. Malnutrition. 2. End-stage renal disease. 3. Hypertension. 4. History of diabetes mellitus. 5. Orthostatic hypotension. 6. History of autonomic insufficiency. 7. History of Clostridium difficile colitis. 8. History of sepsis. 9. History of catheter placement. 10. History of chronic diarrhea. 11. History of septic shock. 12 HYPERKALEMIA HX plan consider gi consult hd Problems: Consultation Date/Type/Reason Admit Date/Time Apr 22, 2017 at 17:33 Type of Consultation: RENAL Referring Provider: MARGARET SLATER Exam/Review of Systems Vital Signs Vitals Vital Signs Date Time Temp Pulse Resp B/P Pulse Ox O2 Delivery O2 Flow Rate FiO2 04/28/17 17:42 98.0 85 18 110/70 99 Room Air Intake and Output 04/27/17 04/27/17 04/28/17 14:59 22:59 06:59 Intake Total 1420 ml 900 ml Output Total 700 ml Balance 720 ml 900 ml Exam ENMT: nl external ears & nose Neck: supple Respiratory: clear to auscultation Cardiovascular: regular rate and rhythm Gastrointestinal: soft Results Result Diagram: 04/28/17 0605 04/28/17 0605 Results 24 hrs Laboratory Tests Test 04/27/17 18:54 04/27/17 21:30 04/28/17 01:36 04/28/17 06:05 Bedside Glucose 127 70 119 White Blood Count 8.5 Red Blood Count 3.32 L Hemoglobin 10.2 L Hematocrit 31.8 L Mean Corpuscular Volume 95.8 Mean Corpuscular Hemoglobin 30.7 Mean Corpuscular Hemoglobin Concent 32.1 Red Cell Distribution Width 13.3 Platelet Count 213 Mean Platelet Volume 9.4 Neutrophils % 69.0 Lymphocytes % 20.6 Monocytes % 6.0 Eosinophils % 3.6 Basophils % 0.6 Nucleated Red Blood Cells % 0.0 Neutrophils # 5.8 Lymphocytes # 1.7 Monocytes # 0.5 Eosinophils # 0.3 Basophils # 0.1 Nucleated Red Blood Cells # 0.0 Sodium Level 134 L Potassium Level 5.2 H Chloride Level 96 L Carbon Dioxide Level 26 Anion Gap 17 H Blood Urea Nitrogen 22 #H Creatinine 3.50 #H Glucose Level 101 Hemoglobin A1c 7.0 H Calcium Level 9.1 Phosphorus Level 3.7 Magnesium Level 2.5 Triglycerides Level 84 Cholesterol Level 79 L LDL Cholesterol, Calculated 4 HDL Cholesterol 58 Cholesterol/HDL Ratio 1.3 Vitamin D 1,25-Dihydroxy 25.5 L Thyroid Stimulating Hormone (TSH) 0.805 Free Thyroxine 1.32 Random Vancomycin Level 11.1 HIV (1&2) Antibody NEGATIVE Test 04/28/17 08:20 04/28/17 14:48 Bedside Glucose 131 118 Medications Medications Current Medications Ondansetron HCl (Zofran Inj) 4 mg Q6H PRN IV NAUSEA AND/OR VOMITING Last administered on 04/23/17 17:34; Admin Dose 4 MG; Start 04/22/17 at 19:00 Acetaminophen (Tylenol Tab) 650 mg Q6H PRN PO PAIN LEVEL 1-3 OR FEVER; Start at 19:00 Acetaminophen/ Hydrocodone Bitart ([place] (5/325)) 1 tab Q6H PRN PO MODERATE PAIN LEVEL 4-6 Last administered on 04/26/17 09:02; Admin Dose 1 TAB; Start at 19:00 Morphine Sulfate (morphine) 2 mg Q4H PRN IV SEVERE PAIN LEVEL 7-10; Start 04/22 at 19:00 Midodrine (Proamatine) 10 mg TID PO Last administered on 04/28/17 14:32; Admin Dose 10 MG; Start 04/22/17 at 21:00 Tramadol HCl (Ultram) 50 mg Q6H PRN PO PAIN; Start 04/22/17 at 19:00 Miscellaneous Information 1 ea NOTE XX ; Start 04/22/17 at 19:00 Glucose (Glutose) 15 gm Q15M PRN PO DECREASED GLUCOSE; Start 04/22/17 at 19:00 Glucose (Glutose) 22.5 gm Q15M PRN PO DECREASED GLUCOSE Last administered on 08:48; Admin Dose 22.5 GM; Start 04/22/17 at 19:00 Dextrose (D50w Syringe) 25 ml Q15M PRN IV DECREASED GLUCOSE; Start 04/22/17 at 19:00 Dextrose (D50w Syringe) 50 ml Q15M PRN IV DECREASED GLUCOSE; Start 04/22/17 at 19:00 Glucagon (Glucagen) 1 mg Q15M PRN IM DECREASED GLUCOSE; Start 04/22/17 at 19:00 Glucose (Glutose) 15 gm Q15M PRN BUCCAL DECREASED GLUCOSE Last administered on 04/27/17 00:53; Admin Dose 15 GM; Start 04/22/17 at 19:00 Zolpidem Tartrate (Ambien) 5 mg QHS PRN PO SLEEP; Start 04/23/17 at 01:00 Linagliptin (Tradjenta) 5 mg DAILY PO Last administered on 04/28/17 09:20; Admin Dose 5 MG; Start 04/23/17 at 14:00 Collagenase (Santyl) 1 applic DAILY TOP Last administered on 04/28/17 09:22; Admin Dose 1 APPLIC; Start 04/24/17 at 15:05 Collagenase (Santyl) 1 applic PRN PRN TOP WOUND CARE; Start 04/24/17 at 15:30 Vancomycin HCl (Vancomycin Oral Syringe) 250 mg Q6 PO Last administered on 04/28 14:33; Admin Dose 250 MG; Start 04/26/17 at 00:00 Rifaximin (Xifaxan) 200 mg TID PO Last administered on 04/28/17 14:30; Admin Dose 200 MG; Start 04/26/17 at 09:00 Pantoprazole (Protonix Tab) 40 mg DAILY@06 PO Last administered on 04/28/17 05 :44; Admin Dose 40 MG; Start 04/27/17 at 06:00 Insulin Glargine (Lantus) 10 unit HS SC ; Start 04/27/17 at 21:00 YASMIN QUIROS MD Apr 28, 2017 18:31
[2017-04-28] MEDS ORDERED: EPHEDrine SULFATE 50 MG/5 ML SYG ONE (18:33)
[2017-04-28] MEDS ORDERED: PHENYLephrine (100 MCG/ML) 5ML SYG ONE (18:48)
[2017-04-28] MEDS: INSULIN GLARGINE [LANtus] 3 ML PEN SC SCH (22:11)
[2017-04-29] VITALS (19 sets, daily range): BP systolic 80–127; BP diastolic 36–75; PULSE 95–110; RESP 16–19
[2017-04-29] MEDS: VANCOMYCIN HCL 250 MG/5ML POSYG PO SCH ×4 (01:52→17:55)
[2017-04-29] MEDS: HYDROCODONE/APAP (5/325) TAB PO PRN ×3 (01:54→20:53)
[2017-04-29] MEDS: PANTOPRAZOLE (EC) 40 MG TAB PO SCH (05:42)
[2017-04-29 06:51] LABS: ADD SCAN DIFF NO
[2017-04-29 06:56] LABS: BASOPHILS % 0.4 % (0.0-2.0); EOSINOPHILS # 0.3 10^3/ul (0.0-0.5); HEMATOCRIT 29.4 % (42.0-52.0); HEMOGLOBIN 9.7 g/dl (14.0-18.0); LYMPHOCYTES % 10.3 % (15.0-51.0); MEAN CORPUSCULAR HEMOGLOBIN 31.2 pg (29.0-33.0); MEAN CORPUSCULAR VOLUME 94.5 fl (82.0-101.0); MONOCYTE # 0.5 10^3/ul (0.3-0.9); MONOCYTES % 4.8 % (0.0-11.0); NEUTROPHIL # 7.8 10^3/ul (1.6-7.5); NEUTROPHILS % 81.2 % (39.0-77.0); PLATELET COUNT 213 10^3/UL (140-415); RED BLOOD COUNT 3.11 10^6/ul (4.70-6.10); RED CELL DISTRIBUTION WIDTH 12.9 % (11.5-14.5); WHITE BLOOD COUNT 9.6 10^3/ul (4.8-10.8)
[2017-04-29 07:25] LABS: CALCIUM 9.2 mg/dl (8.4-10.2); CREATININE 4.77 mg/dl (0.61-1.24)
[2017-04-29 07:32] LABS: MAGNESIUM 2.4 mg/dl (1.7-2.5); PHOSPHORUS 4.2 mg/dl (2.5-4.9)
[2017-04-29] MEDS: INSULIN ASPART [NOVOLOG] 3 ML PEN SC SCH ×7 (07:55→21:00)
[2017-04-29] MEDS: COLLAGENASE 30 GM TUBE TOP SCH (09:00)
[2017-04-29] MEDS: CREON (12k-38k-60k) 1 CAP PO SCH ×3 (10:19→17:55)
[2017-04-29] MEDS: LINAGLIPTIN 5 MG TABLET PO SCH (10:19)
[2017-04-29] MEDS: RIFAXIMIN 200 MG TAB PO SCH ×3 (10:20→20:54)
[2017-04-29] MEDS: CALCIUM ACETATE 667 MG CAP PO SCH ×3 (10:20→17:55)
[2017-04-29] MEDS: MIDODRINE 5 MG TAB PO SCH ×3 (10:21→20:55)
--- NOTE | 2017-04-29 11:38 | PN ---
Date/Time of Note Date/Time of Note DATE: 04/29/17 TIME: 11:38 Assessment/Plan VTE Prophylaxis VTE Prophylaxis Intervention: SCD's Lines/Catheters [facility] (from [facility] Urinary Cath still in place: No Assessment/Plan Chief Complaint/Hosp Course 1. Intractable diarrhea. Stool for C. diff negative. Status post esophagogastroduodenoscopy and colonoscopy on 04/28/2017. Results are pending [ note not dictated] being followed by infectious diseases and gastroenterology. 2. Gram-positive bacteremia. On antibiotics as per Infectious Disease. Possibly contaminant as per Infectious Disease. Repeat blood cultures x2 were negative. 3. End-stage renal disease on hemodialysis. Continue hemodialysis as per Nephrology. 4. Decubitus ulcers. Continue local wound care. 5. Deconditioning. Status post physical therapy evaluation. Continue physical therapy. 7. Diabetes mellitus, unknown type. Blood sugar fluctuating. Continue sliding scale insulin along with Lantus insulin and premeal insulin. Hemoglobin A1c 7.0. 8. Normocytic normochromic anemia, most probably anemia of chronic kidney disease. We will monitor the H and H closely. 9. Fluid, electrolytes, and nutrition. Carbohydrate controlled diet. 10. DVT prophylaxis. Bilateral sequential compression devices. 11. Gastrointestinal prophylaxis. Proton pump inhibitors. PLAN: Continue inpatient monitoring. Continue antibiotics as per Infectious Disease. Await clearance from consultants before discharge to home with home health. Case discussed with . Problems: Subjective 24 Hr Interval Summary Free Text/Dictation Status post EGD scope and colonoscopy on 04/28/2017. Exam/Review of Systems Vital Signs Vitals Vital Signs Date Time Temp Pulse Resp B/P Pulse Ox O2 Delivery O2 Flow Rate FiO2 04/29/17 11:23 97.4 109 19 103/59 98 04/28/17 19:17 Room Air Intake and Output 04/28/17 04/28/17 04/29/17 15:00 23:00 07:00 Intake Total 360 ml Balance 360 ml Exam GENERAL: This is a thin, frail-looking male lying in bed in no apparent distress. HEENT: Head normocephalic and atraumatic. Eyes: Anicteric sclerae. Conjunctivae clear. ENT: Nasal septum is midline. Oral mucosa is dry. NECK: Supple. No JVD noticed. RESPIRATORY: Bilaterally clear to auscultation. No adventitious breath sounds heard. No use of accessory muscles of respiration. CARDIAC: Regular rate and rhythm. S1 and S2 heard. ABDOMEN: Soft, nontender, and nondistended. Bowel sounds positive in all 4 quadrants. GENITOURINARY: Deferred. EXTREMITIES: No cyanosis, no clubbing, no edema. Peripheral pulses are palpable. Severe muscle wasting of B/L lower extremities. Left heel pressure ulcer. NEUROLOGIC: The patient is awake, alert, and oriented. Cranial nerves are grossly intact. Results Result Diagram: 04/29/17 0620 04/29/17 0620 Results 24 hrs Laboratory Tests Test 04/28/17 14:48 04/28/17 18:57 04/28/17 21:54 04/29/17 05:45 Bedside Glucose 118 115 270 H 176 Test 04/29/17 06:20 04/29/17 08:33 04/29/17 10:16 White Blood Count 9.6 Red Blood Count 3.11 L Hemoglobin 9.7 L Hematocrit 29.4 L Mean Corpuscular Volume 94.5 Mean Corpuscular Hemoglobin 31.2 Mean Corpuscular Hemoglobin Concent 33.0 Red Cell Distribution Width 12.9 Platelet Count 213 Mean Platelet Volume 9.0 Neutrophils % 81.2 H Lymphocytes % 10.3 L Monocytes % 4.8 Eosinophils % 3.0 Basophils % 0.4 Nucleated Red Blood Cells % 0.0 Neutrophils # 7.8 H Lymphocytes # 1.0 Monocytes # 0.5 Eosinophils # 0.3 Basophils # 0.0 Nucleated Red Blood Cells # 0.0 Sodium Level 128 L Potassium Level 5.0 Chloride Level 93 L Carbon Dioxide Level 23 Anion Gap 17 H Blood Urea Nitrogen 34 #H Creatinine 4.77 #H Glucose Level 165 Calcium Level 9.2 Phosphorus Level 4.2 Magnesium Level 2.4 Bedside Glucose 90 265 H Medications Medications Current Medications Ondansetron HCl (Zofran Inj) 4 mg Q6H PRN IV NAUSEA AND/OR VOMITING Last administered on 04/23/17t 17:34; Admin Dose 4 MG; Start 04/22/17 at 19:00 Acetaminophen (Tylenol Tab) 650 mg Q6H PRN PO PAIN LEVEL 1-3 OR FEVER; Start at 19:00 Acetaminophen/ Hydrocodone Bitart ([place] (5/325)) 1 tab Q6H PRN PO MODERATE PAIN LEVEL 4-6 Last administered on 04/29/17 10:34; Admin Dose 1 TAB; Start at 19:00 Morphine Sulfate (morphine) 2 mg Q4H PRN IV SEVERE PAIN LEVEL 7-10; Start 04/22 at 19:00 Midodrine (Proamatine) 10 mg TID PO Last administered on 04/29/17 10:21; Admin Dose 10 MG; Start 04/22/17 at 21:00 Tramadol HCl (Ultram) 50 mg Q6H PRN PO PAIN; Start 04/22/17 at 19:00 Miscellaneous Information 1 ea NOTE XX ; Start 04/22/17 at 19:00 Glucose (Glutose) 15 gm Q15M PRN PO DECREASED GLUCOSE; Start 04/22/17 at 19:00 Glucose (Glutose) 22.5 gm Q15M PRN PO DECREASED GLUCOSE Last administered on 08:48; Admin Dose 22.5 GM; Start 04/22/17 at 19:00 Dextrose (D50w Syringe) 25 ml Q15M PRN IV DECREASED GLUCOSE; Start 04/22/17 at 19:00 Dextrose (D50w Syringe) 50 ml Q15M PRN IV DECREASED GLUCOSE; Start 04/22/17 at 19:00 Glucagon (Glucagen) 1 mg Q15M PRN IM DECREASED GLUCOSE; Start 04/22/17 at 19:00 Glucose (Glutose) 15 gm Q15M PRN BUCCAL DECREASED GLUCOSE Last administered on 04/27/17 00:53; Admin Dose 15 GM; Start 04/22/17 at 19:00 Zolpidem Tartrate (Ambien) 5 mg QHS PRN PO SLEEP; Start 04/23/17 at 01:00 Linagliptin (Tradjenta) 5 mg DAILY PO Last administered on 04/29/17 10:19; Admin Dose 5 MG; Start 04/23/17 at 14:00 Collagenase (Santyl) 1 applic DAILY TOP Last administered on 04/29/17 09:00; Admin Dose 1 APPLIC; Start 04/24/17 at 15:05 Collagenase (Santyl) 1 applic PRN PRN TOP WOUND CARE; Start 04/24/17 at 15:30 Vancomycin HCl (Vancomycin Oral Syringe) 250 mg Q6 PO Last administered on 04/29 05:42; Admin Dose 250 MG; Start 04/26/17 at 00:00 Rifaximin (Xifaxan) 200 mg TID PO Last administered on 04/29/17 10:20; Admin Dose 200 MG; Start 04/26/17 at 09:00 Pantoprazole (Protonix Tab) 40 mg DAILY@06 PO Last administered on 04/29/17 05 :42; Admin Dose 40 MG; Start 04/27/17 at 06:00 Insulin Glargine (Lantus) 10 unit HS SC Last administered on 04/28/17 22:11; Admin Dose 10 UNIT; Start 04/27/17 at 21:00 ABBEY ROBLES NP Apr 29, 2017 11:38
--- NOTE | 2017-04-29 13:34 | CONS ---
Date/Time of Note Date/Time of Note DATE: 04/29/17 TIME: 13:33 Assessment/Plan Assessment/Plan Chief Complaint/Hosp Course SUBJECTIVE: No events overnight. No fevers. The patient is alert, feels better, looks comfortable. ANTIMICROBIALS: He is on: 1. IV vancomycin. 2. Oral rifaximin. 3. Oral vancomycin. INDWELLINGS: Left upper extremity AV fistula. PHYSICAL EXAMINATION: GENERAL: Chronically ill-appearing, middle-aged man who is in no distress. HEENT: Head atraumatic, normocephalic. Sclerae anicteric. Buccal mucosa dry. NECK: Supple. CHEST: Rise symmetrical. Breath sounds clear. HEART: S1, S2. ABDOMEN: Soft. Bowel tones present. ASSESSMENT: 1. Persistent diarrhea with history of Clostridium difficile colitis, remains on oral vancomycin==> s/p EGD/colonoscopy. 2. Coagulase-negative staph bacteremia with repeat blood cultures being negative. 3. End-stage renal disease, hemodialysis dependent. 4. Left upper extremity arteriovenous fistula. 5. Diabetes with left diabetic foot ulceration. PLAN: The patient remains stable. Continue present care. Continue on current antibiotics. F/u colonoscopy and EGD results and GI rec-s. DW staff Problems: Consultation Date/Type/Reason Admit Date/Time Apr 22, 2017 at 17:33 Type of Consultation: ID Referring Provider: MARGARET SLATER Exam/Review of Systems Vital Signs Vitals Vital Signs Date Time Temp Pulse Resp B/P Pulse Ox O2 Delivery O2 Flow Rate FiO2 04/29/17 12:24 109 04/29/17 11:23 97.4 19 103/59 98 04/28/17 19:17 Room Air Intake and Output 04/28/17 04/28/17 04/29/17 15:00 23:00 07:00 Intake Total 360 ml Balance 360 ml Results Result Diagram: 04/29/17 0620 04/29/17 0620 Results 24 hrs Laboratory Tests Test 04/28/17 14:48 04/28/17 18:57 04/28/17 21:54 04/29/17 05:45 Bedside Glucose 118 115 270 H 176 Test 04/29/17 06:20 04/29/17 08:33 04/29/17 10:16 04/29/17 12:19 White Blood Count 9.6 Red Blood Count 3.11 L Hemoglobin 9.7 L Hematocrit 29.4 L Mean Corpuscular Volume 94.5 Mean Corpuscular Hemoglobin 31.2 Mean Corpuscular Hemoglobin Concent 33.0 Red Cell Distribution Width 12.9 Platelet Count 213 Mean Platelet Volume 9.0 Neutrophils % 81.2 H Lymphocytes % 10.3 L Monocytes % 4.8 Eosinophils % 3.0 Basophils % 0.4 Nucleated Red Blood Cells % 0.0 Neutrophils # 7.8 H Lymphocytes # 1.0 Monocytes # 0.5 Eosinophils # 0.3 Basophils # 0.0 Nucleated Red Blood Cells # 0.0 Sodium Level 128 L Potassium Level 5.0 Chloride Level 93 L Carbon Dioxide Level 23 Anion Gap 17 H Blood Urea Nitrogen 34 #H Creatinine 4.77 #H Glucose Level 165 Calcium Level 9.2 Phosphorus Level 4.2 Magnesium Level 2.4 Bedside Glucose 90 265 H 121 Medications Medications Current Medications Ondansetron HCl (Zofran Inj) 4 mg Q6H PRN IV NAUSEA AND/OR VOMITING Last administered on 04/23/17 17:34; Admin Dose 4 MG; Start 04/22/17 at 19:00 Acetaminophen (Tylenol Tab) 650 mg Q6H PRN PO PAIN LEVEL 1-3 OR FEVER; Start at 19:00 Acetaminophen/ Hydrocodone Bitart ([place] (5/325)) 1 tab Q6H PRN PO MODERATE PAIN LEVEL 4-6 Last administered on 04/29/17 10:34; Admin Dose 1 TAB; Start at 19:00 Morphine Sulfate (morphine) 2 mg Q4H PRN IV SEVERE PAIN LEVEL 7-10; Start 04/22 at 19:00 Midodrine (Proamatine) 10 mg TID PO Last administered on 04/29/17 13:11; Admin Dose 10 MG; Start 04/22/17 at 21:00 Tramadol HCl (Ultram) 50 mg Q6H PRN PO PAIN; Start 04/22/17 at 19:00 Miscellaneous Information 1 ea NOTE XX ; Start 04/22/17 at 19:00 Glucose (Glutose) 15 gm Q15M PRN PO DECREASED GLUCOSE; Start 04/22/17 at 19:00 Glucose (Glutose) 22.5 gm Q15M PRN PO DECREASED GLUCOSE Last administered on 08:48; Admin Dose 22.5 GM; Start 04/22/17 at 19:00 Dextrose (D50w Syringe) 25 ml Q15M PRN IV DECREASED GLUCOSE; Start 04/22/17 at 19:00 Dextrose (D50w Syringe) 50 ml Q15M PRN IV DECREASED GLUCOSE; Start 04/22/17 at 19:00 Glucagon (Glucagen) 1 mg Q15M PRN IM DECREASED GLUCOSE; Start 04/22/17 at 19:00 Glucose (Glutose) 15 gm Q15M PRN BUCCAL DECREASED GLUCOSE Last administered on 04/27/17 00:53; Admin Dose 15 GM; Start 04/22/17 at 19:00 Zolpidem Tartrate (Ambien) 5 mg QHS PRN PO SLEEP; Start 04/23/17 at 01:00 Linagliptin (Tradjenta) 5 mg DAILY PO Last administered on 04/29/17 10:19; Admin Dose 5 MG; Start 04/23/17 at 14:00 Collagenase (Santyl) 1 applic DAILY TOP Last administered on 04/29/17 09:00; Admin Dose 1 APPLIC; Start 04/24/17 at 15:05 Collagenase (Santyl) 1 applic PRN PRN TOP WOUND CARE; Start 04/24/17 at 15:30 Vancomycin HCl (Vancomycin Oral Syringe) 250 mg Q6 PO Last administered on 04/29 13:12; Admin Dose 250 MG; Start 04/26/17 at 00:00 Rifaximin (Xifaxan) 200 mg TID PO Last administered on 04/29/17 13:11; Admin Dose 200 MG; Start 04/26/17 at 09:00 Pantoprazole (Protonix Tab) 40 mg DAILY@06 PO Last administered on 04/29/17 05 :42; Admin Dose 40 MG; Start 04/27/17 at 06:00 Insulin Glargine (Lantus) 10 unit HS SC Last administered on 04/28/17 22:11; Admin Dose 10 UNIT; Start 04/27/17 at 21:00 ENMANUEL NOVAK NP Apr 29, 2017 13:34
--- NOTE | 2017-04-29 14:52 | PN ---
Date/Time of Note Date/Time of Note DATE: 04/29/17 TIME: 14:45 Assessment/Plan VTE Prophylaxis VTE Prophylaxis Intervention: ambulation Lines/Catheters [facility] Saline Lock Urinary Cath still in place: No Assessment/Plan Assessment/Plan Diarrhea chronic t/c IBD vs infectious vs others * Intractable vomiting * ESRD on hemodialysis,MWF * Diabetes mellitus * History of C difficile Plan * continue present management * will await biopsy result * case discussed with Dr Moise * Further oreders will depend on clinical course Subjective 24 Hr Interval Summary Free Text/Dictation * Course reviewed with RN * Patient seen and examined * EGD esophagitis gastroparesis gastritis r/o h pylori * Colonoscopy diverticulosis left side normal mucosa biopsied moderate size internal hemorrhoids * diarrhea x2 minimal in amount Exam/Review of Systems Vital Signs Vitals Vital Signs Date Time Temp Pulse Resp B/P Pulse Ox O2 Delivery O2 Flow Rate FiO2 04/29/17 12:24 109 04/29/17 11:23 97.4 19 103/59 98 04/28/17 19:17 Room Air Intake and Output 04/28/17 04/28/17 04/29/17 15:00 23:00 07:00 Intake Total 360 ml Balance 360 ml Exam Constitutional: alert, oriented Neck: non-tender, supple Respiratory: clear to auscultation, normal air movement Cardiovascular: nl pulses, regular rate and rhythm Gastrointestinal: nl liver, spleen, non-tender, soft Musculoskeletal: muscle weakness, nl gait and stance Extremities: normal pulses Neurological: nl mental status, nl speech Skin: nl turgor, No rash or lesions Results Result Diagram: 04/29/17 0620 04/29/17 0620 Results 24 hrs Laboratory Tests Test 04/28/17 14:48 04/28/17 18:57 04/28/17 21:54 04/29/17 05:45 Bedside Glucose 118 115 270 H 176 Test 04/29/17 06:20 04/29/17 08:33 04/29/17 10:16 04/29/17 12:19 White Blood Count 9.6 Red Blood Count 3.11 L Hemoglobin 9.7 L Hematocrit 29.4 L Mean Corpuscular Volume 94.5 Mean Corpuscular Hemoglobin 31.2 Mean Corpuscular Hemoglobin Concent 33.0 Red Cell Distribution Width 12.9 Platelet Count 213 Mean Platelet Volume 9.0 Neutrophils % 81.2 H Lymphocytes % 10.3 L Monocytes % 4.8 Eosinophils % 3.0 Basophils % 0.4 Nucleated Red Blood Cells % 0.0 Neutrophils # 7.8 H Lymphocytes # 1.0 Monocytes # 0.5 Eosinophils # 0.3 Basophils # 0.0 Nucleated Red Blood Cells # 0.0 Sodium Level 128 L Potassium Level 5.0 Chloride Level 93 L Carbon Dioxide Level 23 Anion Gap 17 H Blood Urea Nitrogen 34 #H Creatinine 4.77 #H Glucose Level 165 Calcium Level 9.2 Phosphorus Level 4.2 Magnesium Level 2.4 Bedside Glucose 90 265 H 121 Medications Medications Current Medications Ondansetron HCl (Zofran Inj) 4 mg Q6H PRN IV NAUSEA AND/OR VOMITING Last administered on 04/23/17 17:34; Admin Dose 4 MG; Start 04/22/17 at 19:00 Acetaminophen (Tylenol Tab) 650 mg Q6H PRN PO PAIN LEVEL 1-3 OR FEVER; Start at 19:00 Acetaminophen/ Hydrocodone Bitart ([place] (5/325)) 1 tab Q6H PRN PO MODERATE PAIN LEVEL 4-6 Last administered on 04/29/17 10:34; Admin Dose 1 TAB; Start at 19:00 Morphine Sulfate (morphine) 2 mg Q4H PRN IV SEVERE PAIN LEVEL 7-10; Start 04/22 at 19:00 Midodrine (Proamatine) 10 mg TID PO Last administered on 04/29/17 13:11; Admin Dose 10 MG; Start 04/22/17 at 21:00 Tramadol HCl (Ultram) 50 mg Q6H PRN PO PAIN; Start 04/22/17 at 19:00 Miscellaneous Information 1 ea NOTE XX ; Start 04/22/17 at 19:00 Glucose (Glutose) 15 gm Q15M PRN PO DECREASED GLUCOSE; Start 04/22/17 at 19:00 Glucose (Glutose) 22.5 gm Q15M PRN PO DECREASED GLUCOSE Last administered on 08:48; Admin Dose 22.5 GM; Start 04/22/17 at 19:00 Dextrose (D50w Syringe) 25 ml Q15M PRN IV DECREASED GLUCOSE; Start 04/22/17 at 19:00 Dextrose (D50w Syringe) 50 ml Q15M PRN IV DECREASED GLUCOSE; Start 04/22/17 at 19:00 Glucagon (Glucagen) 1 mg Q15M PRN IM DECREASED GLUCOSE; Start 04/22/17 at 19:00 Glucose (Glutose) 15 gm Q15M PRN BUCCAL DECREASED GLUCOSE Last administered on 04/27/17 00:53; Admin Dose 15 GM; Start 04/22/17 at 19:00 Zolpidem Tartrate (Ambien) 5 mg QHS PRN PO SLEEP; Start 04/23/17 at 01:00 Linagliptin (Tradjenta) 5 mg DAILY PO Last administered on 04/29/17 10:19; Admin Dose 5 MG; Start 04/23/17 at 14:00 Collagenase (Santyl) 1 applic DAILY TOP Last administered on 04/29/17 09:00; Admin Dose 1 APPLIC; Start 04/24/17 at 15:05 Collagenase (Santyl) 1 applic PRN PRN TOP WOUND CARE; Start 04/24/17 at 15:30 Vancomycin HCl (Vancomycin Oral Syringe) 250 mg Q6 PO Last administered on 04/29 13:12; Admin Dose 250 MG; Start 04/26/17 at 00:00 Rifaximin (Xifaxan) 200 mg TID PO Last administered on 04/29/17 13:11; Admin Dose 200 MG; Start 04/26/17 at 09:00 Pantoprazole (Protonix Tab) 40 mg DAILY@06 PO Last administered on 04/29/17 05 :42; Admin Dose 40 MG; Start 04/27/17 at 06:00 Insulin Glargine 10 unit 10 unit HS SC Last administered on 04/28/17 22:11; Admin Dose 10 UNIT; Start 04/27/17 at 21:00 Albumin Human (Albumin Human 25%) 100 ml @ 100 mls/hr ONCE ONCE IV ; Start at 15:00; Stop 04/29/17 at 15:59 ANNE GUTIERREZ NP Apr 29, 2017 14:52
[2017-04-29] MEDS ORDERED: ALBUMIN HUMAN 25% 100 ML IV ONE (15:00)
--- NOTE | 2017-04-29 18:39 | CONS ---
Date/Time of Note Date/Time of Note DATE: 04/29/17 TIME: 18:38 Assessment/Plan Assessment/Plan Chief Complaint/Hosp Course IMPRESSION: 1. Malnutrition. 2. End-stage renal disease. 3. Hypertension. 4. History of diabetes mellitus. 5. Orthostatic hypotension. 6. History of autonomic insufficiency. 7. History of Clostridium difficile colitis. 8. History of sepsis. 9. History of catheter placement. 10. History of chronic diarrhea. 11. History of septic shock. 12 HYPERKALEMIA HX 13 ANEMIA 14 SEPSIS plan PER GI AND PCP hd Problems: Consultation Date/Type/Reason Admit Date/Time Apr 22, 2017 at 17:33 Type of Consultation: RENAL Referring Provider: MARGARET SLATER 24 HR Interval Summary Constitutional: no complaints (ON HD) Exam/Review of Systems Vital Signs Vitals Vital Signs Date Time Temp Pulse Resp B/P Pulse Ox O2 Delivery O2 Flow Rate FiO2 04/29/17 18:00 98 04/29/17 18:00 18 04/29/17 11:23 97.4 103/59 98 04/28/17 19:17 Room Air Intake and Output 04/28/17 04/28/17 04/29/17 14:59 22:59 06:59 Intake Total 360 ml Balance 360 ml Exam Neck: supple Respiratory: clear to auscultation Cardiovascular: regular rate and rhythm Gastrointestinal: soft Musculoskeletal: nl extremities to inspection Extremities: normal pulses Results Result Diagram: 04/29/17 0620 04/29/17 0620 Results 24 hrs Laboratory Tests Test 04/28/17 18:57 04/28/17 21:54 04/29/17 05:45 04/29/17 06:20 Bedside Glucose 115 270 H 176 White Blood Count 9.6 Red Blood Count 3.11 L Hemoglobin 9.7 L Hematocrit 29.4 L Mean Corpuscular Volume 94.5 Mean Corpuscular Hemoglobin 31.2 Mean Corpuscular Hemoglobin Concent 33.0 Red Cell Distribution Width 12.9 Platelet Count 213 Mean Platelet Volume 9.0 Neutrophils % 81.2 H Lymphocytes % 10.3 L Monocytes % 4.8 Eosinophils % 3.0 Basophils % 0.4 Nucleated Red Blood Cells % 0.0 Neutrophils # 7.8 H Lymphocytes # 1.0 Monocytes # 0.5 Eosinophils # 0.3 Basophils # 0.0 Nucleated Red Blood Cells # 0.0 Sodium Level 128 L Potassium Level 5.0 Chloride Level 93 L Carbon Dioxide Level 23 Anion Gap 17 H Blood Urea Nitrogen 34 #H Creatinine 4.77 #H Glucose Level 165 Calcium Level 9.2 Phosphorus Level 4.2 Magnesium Level 2.4 Test 04/29/17 08:33 04/29/17 10:16 04/29/17 12:19 04/29/17 17:50 Bedside Glucose 90 265 H 121 164 Medications Medications Current Medications Ondansetron HCl (Zofran Inj) 4 mg Q6H PRN IV NAUSEA AND/OR VOMITING Last administered on 04/23/17 17:34; Admin Dose 4 MG; Start 04/22/17 at 19:00 Acetaminophen (Tylenol Tab) 650 mg Q6H PRN PO PAIN LEVEL 1-3 OR FEVER; Start at 19:00 Acetaminophen/ Hydrocodone Bitart ([place] (5/325)) 1 tab Q6H PRN PO MODERATE PAIN LEVEL 4-6 Last administered on 04/29/17 10:34; Admin Dose 1 TAB; Start at 19:00 Morphine Sulfate (morphine) 2 mg Q4H PRN IV SEVERE PAIN LEVEL 7-10; Start 04/22 at 19:00 Midodrine (Proamatine) 10 mg TID PO Last administered on 04/29/17 13:11; Admin Dose 10 MG; Start 04/22/17 at 21:00 Tramadol HCl (Ultram) 50 mg Q6H PRN PO PAIN; Start 04/22/17 at 19:00 Miscellaneous Information 1 ea NOTE XX ; Start 04/22/17 at 19:00 Glucose (Glutose) 15 gm Q15M PRN PO DECREASED GLUCOSE; Start 04/22/17 at 19:00 Glucose (Glutose) 22.5 gm Q15M PRN PO DECREASED GLUCOSE Last administered on 08:48; Admin Dose 22.5 GM; Start 04/22/17 at 19:00 Dextrose (D50w Syringe) 25 ml Q15M PRN IV DECREASED GLUCOSE; Start 04/22/17 at 19:00 Dextrose (D50w Syringe) 50 ml Q15M PRN IV DECREASED GLUCOSE; Start 04/22/17 at 19:00 Glucagon (Glucagen) 1 mg Q15M PRN IM DECREASED GLUCOSE; Start 04/22/17 at 19:00 Glucose (Glutose) 15 gm Q15M PRN BUCCAL DECREASED GLUCOSE Last administered on 04/27/17 00:53; Admin Dose 15 GM; Start 04/22/17 at 19:00 Zolpidem Tartrate (Ambien) 5 mg QHS PRN PO SLEEP; Start 04/23/17 at 01:00 Linagliptin (Tradjenta) 5 mg DAILY PO Last administered on 04/29/17 10:19; Admin Dose 5 MG; Start 04/23/17 at 14:00 Collagenase (Santyl) 1 applic DAILY TOP Last administered on 04/29/17 09:00; Admin Dose 1 APPLIC; Start 04/24/17 at 15:05 Collagenase (Santyl) 1 applic PRN PRN TOP WOUND CARE; Start 04/24/17 at 15:30 Vancomycin HCl (Vancomycin Oral Syringe) 250 mg Q6 PO Last administered on 04/29 17:55; Admin Dose 250 MG; Start 04/26/17 at 00:00 Rifaximin (Xifaxan) 200 mg TID PO Last administered on 04/29/17 13:11; Admin Dose 200 MG; Start 04/26/17 at 09:00 Pantoprazole (Protonix Tab) 40 mg DAILY@06 PO Last administered on 04/29/17 05 :42; Admin Dose 40 MG; Start 04/27/17 at 06:00 Insulin Glargine (Lantus) 10 unit HS SC Last administered on 04/28/17 22:11; Admin Dose 10 UNIT; Start 04/27/17 at 21:00 YASMIN QUIROS MD Apr 29, 2017 18:39
[2017-04-29] MEDS: ONDANSETRON 4 MG INJ IV PRN (20:54)
[2017-04-29] MEDS: INSULIN GLARGINE [LANtus] 3 ML PEN SC SCH (21:00)
[2017-04-30] VITALS (11 sets, daily range): BP systolic 90–149; BP diastolic 54–87; PULSE 89–116; RESP 17–19
[2017-04-30] MEDS: VANCOMYCIN HCL 250 MG/5ML POSYG PO SCH ×4 (00:24→18:13)
[2017-04-30] MEDS: PANTOPRAZOLE (EC) 40 MG TAB PO SCH (06:02)
[2017-04-30] MEDS: INSULIN ASPART [NOVOLOG] 3 ML PEN SC SCH ×7 (07:55→20:50)
[2017-04-30 08:02] LABS: ADD SCAN DIFF NO
[2017-04-30 08:15] LABS: BASOPHILS % 0.4 % (0.0-2.0); EOSINOPHILS # 0.4 10^3/ul (0.0-0.5); EOSINOPHILS % 5.1 % (0.0-7.0); HEMATOCRIT 28.7 % (42.0-52.0); HEMOGLOBIN 9.2 g/dl (14.0-18.0); LYMPHOCYTES # 1.3 10^3/ul (0.8-2.9); LYMPHOCYTES % 17.4 % (15.0-51.0); MEAN CORPUSCULAR HEMOGLOBIN 30.7 pg (29.0-33.0); MEAN CORPUSCULAR HGB CONC 32.1 g/dl (32.0-37.0); MEAN CORPUSCULAR VOLUME 95.7 fl (82.0-101.0); MEAN PLATELET VOLUME 9.5 fl (7.4-10.4); MONOCYTE # 0.6 10^3/ul (0.3-0.9); MONOCYTES % 8.4 % (0.0-11.0); NEUTROPHIL # 5.3 10^3/ul (1.6-7.5); NEUTROPHILS % 68.4 % (39.0-77.0); PLATELET COUNT 212 10^3/UL (140-415); RED CELL DISTRIBUTION WIDTH 13.2 % (11.5-14.5); WHITE BLOOD COUNT 7.7 10^3/ul (4.8-10.8)
[2017-04-30] MEDS: COLLAGENASE 30 GM TUBE TOP SCH (08:17)
[2017-04-30] MEDS: RIFAXIMIN 200 MG TAB PO SCH ×2 (08:20→12:10)
[2017-04-30] MEDS: CALCIUM ACETATE 667 MG CAP PO SCH ×3 (08:20→18:14)
[2017-04-30] MEDS: CREON (12k-38k-60k) 1 CAP PO SCH ×3 (08:21→17:55)
[2017-04-30] MEDS: LINAGLIPTIN 5 MG TABLET PO SCH (08:21)
[2017-04-30] MEDS: MIDODRINE 5 MG TAB PO SCH ×3 (08:21→20:30)
[2017-04-30] MEDS: HYDROCODONE/APAP (5/325) TAB PO PRN ×2 (08:21→18:22)
[2017-04-30 08:55] LABS: CALCIUM 9.3 mg/dl (8.4-10.2); CREATININE 3.48 mg/dl (0.61-1.24); POTASSIUM 4.7 mmol/L (3.5-5.1)
[2017-04-30 09:09] LABS: MAGNESIUM 2.3 mg/dl (1.7-2.5); PHOSPHORUS 3.4 mg/dl (2.5-4.9)
--- NOTE | 2017-04-30 12:26 | PN ---
Date/Time of Note Date/Time of Note DATE: 04/30/17 TIME: 12:24 Assessment/Plan VTE Prophylaxis VTE Prophylaxis Intervention: SCD's Lines/Catheters [facility] Saline Lock Urinary Cath still in place: No Assessment/Plan Chief Complaint/Hosp Course 1. Intractable diarrhea. Stool for C. diff negative. Status post esophagogastroduodenoscopy and colonoscopy on 04/28/2017. Results are pending [ note not dictated]. Being followed by infectious diseases and gastroenterology. 2. Gram-positive bacteremia. On antibiotics as per Infectious Disease. Possibly contaminant as per Infectious Disease. Repeat blood cultures x2 were negative. 3. End-stage renal disease on hemodialysis. Continue hemodialysis as per Nephrology. 4. Decubitus ulcers. Continue local wound care. 5. Deconditioning. Status post physical therapy evaluation. Continue physical therapy. 7. Diabetes mellitus, unknown type. Continue sliding scale insulin along with Lantus insulin and premeal insulin. Hemoglobin A1c 7.0. 8. Normocytic normochromic anemia, most probably anemia of chronic kidney disease. We will monitor the H and H closely. 9. Fluid, electrolytes, and nutrition. Carbohydrate controlled diet. 10. DVT prophylaxis. Bilateral sequential compression devices. 11. Gastrointestinal prophylaxis. Proton pump inhibitors. PLAN: Continue inpatient monitoring. Continue antibiotics as per Infectious Disease. Await clearance from consultants before discharge to home with home health. Case discussed with Dr. White. Problems: Subjective 24 Hr Interval Summary Free Text/Dictation Had a low-grade fever in the morning. Exam/Review of Systems Vital Signs Vitals Vital Signs Date Time Temp Pulse Resp B/P Pulse Ox O2 Delivery O2 Flow Rate FiO2 04/30/17 11:36 98.5 96 17 106/63 100 04/28/17 19:17 Room Air Intake and Output 04/29/17 04/29/17 04/30/17 15:00 23:00 07:00 Intake Total 800 ml 1300 ml Output Total 1500 ml Balance 800 ml -200 ml Exam GENERAL: This is a thin, frail-looking male lying in bed in no apparent distress. HEENT: Head normocephalic and atraumatic. Eyes: Anicteric sclerae. Conjunctivae clear. ENT: Nasal septum is midline. Oral mucosa is dry. NECK: Supple. No JVD noticed. RESPIRATORY: Bilaterally clear to auscultation. No adventitious breath sounds heard. No use of accessory muscles of respiration. CARDIAC: Regular rate and rhythm. S1 and S2 heard. ABDOMEN: Soft, nontender, and nondistended. Bowel sounds positive in all 4 quadrants. GENITOURINARY: Deferred. EXTREMITIES: No cyanosis, no clubbing, no edema. Peripheral pulses are palpable. Severe muscle wasting of B/L lower extremities. Left heel pressure ulcer. NEUROLOGIC: The patient is awake, alert, and oriented. Cranial nerves are grossly intact. Results Result Diagram: 04/30/1760404/30/17604 Results 24 hrs Laboratory Tests Test 04/29/17 17:50 04/29/17 20:58 04/30/17 06:05 04/30/17 08:00 Bedside Glucose 164 170 76 White Blood Count 7.7 Red Blood Count 3.00 L Hemoglobin 9.2 L Hematocrit 28.7 L Mean Corpuscular Volume 95.7 Mean Corpuscular Hemoglobin 30.7 Mean Corpuscular Hemoglobin Concent 32.1 Red Cell Distribution Width 13.2 Platelet Count 212 Mean Platelet Volume 9.5 Neutrophils % 68.4 Lymphocytes % 17.4 Monocytes % 8.4 Eosinophils % 5.1 Basophils % 0.4 Nucleated Red Blood Cells % 0.0 Neutrophils # 5.3 Lymphocytes # 1.3 Monocytes # 0.6 Eosinophils # 0.4 Basophils # 0.0 Nucleated Red Blood Cells # 0.0 Sodium Level 140 Potassium Level 4.7 Chloride Level 100 Carbon Dioxide Level 29 Anion Gap 16 Blood Urea Nitrogen 21 #H Creatinine 3.48 #H Glucose Level 52 #L Calcium Level 9.3 Phosphorus Level 3.4 Magnesium Level 2.3 Test 04/30/17 12:07 Bedside Glucose 67 L Medications Medications Current Medications Ondansetron HCl (Zofran Inj) 4 mg Q6H PRN IV NAUSEA AND/OR VOMITING Last administered on 04/29/17 20:54; Admin Dose 4 MG; Start 04/22/17 at 19:00 Acetaminophen (Tylenol Tab) 650 mg Q6H PRN PO PAIN LEVEL 1-3 OR FEVER; Start at 19:00 Acetaminophen/ Hydrocodone Bitart ([place] (5/325)) 1 tab Q6H PRN PO MODERATE PAIN LEVEL 4-6 Last administered on 04/30/17 08:21; Admin Dose 1 TAB; Start at 19:00 Morphine Sulfate (morphine) 2 mg Q4H PRN IV SEVERE PAIN LEVEL 7-10; Start 04/22 at 19:00 Midodrine (Proamatine) 10 mg TID PO Last administered on 04/30/17 12:11; Admin Dose 10 MG; Start 04/22/17 at 21:00 Tramadol HCl (Ultram) 50 mg Q6H PRN PO PAIN; Start 04/22/17 at 19:00 Miscellaneous Information 1 ea NOTE XX ; Start 04/22/17 at 19:00 Glucose (Glutose) 15 gm Q15M PRN PO DECREASED GLUCOSE; Start 04/22/17 at 19:00 Glucose (Glutose) 22.5 gm Q15M PRN PO DECREASED GLUCOSE Last administered on 08:48; Admin Dose 22.5 GM; Start 04/22/17 at 19:00 Dextrose (D50w Syringe) 25 ml Q15M PRN IV DECREASED GLUCOSE; Start 04/22/17 at 19:00 Dextrose (D50w Syringe) 50 ml Q15M PRN IV DECREASED GLUCOSE; Start 04/22/17 at 19:00 Glucagon (Glucagen) 1 mg Q15M PRN IM DECREASED GLUCOSE; Start 04/22/17 at 19:00 Glucose (Glutose) 15 gm Q15M PRN BUCCAL DECREASED GLUCOSE Last administered on 04/27/17 00:53; Admin Dose 15 GM; Start 04/22/17 at 19:00 Zolpidem Tartrate (Ambien) 5 mg QHS PRN PO SLEEP; Start 04/23/17 at 01:00 Linagliptin (Tradjenta) 5 mg DAILY PO Last administered on 04/30/17 08:21; Admin Dose 5 MG; Start 04/23/17 at 14:00 Collagenase (Santyl) 1 applic DAILY TOP Last administered on 04/30/17 08:17; Admin Dose 1 APPLIC; Start 04/24/17 at 15:05 Collagenase (Santyl) 1 applic PRN PRN TOP WOUND CARE; Start 04/24/17 at 15:30 Vancomycin HCl (Vancomycin Oral Syringe) 250 mg Q6 PO Last administered on 04/30 12:11; Admin Dose 250 MG; Start 04/26/17 at 00:00 Rifaximin (Xifaxan) 200 mg TID PO Last administered on 04/30/17 12:10; Admin Dose 200 MG; Start 04/26/17 at 09:00 Pantoprazole (Protonix Tab) 40 mg DAILY@06 PO Last administered on 04/30/17 06 :02; Admin Dose 40 MG; Start 04/27/17 at 06:00 Insulin Glargine (Lantus) 10 unit HS SC Last administered on 04/29/17 21:00; Admin Dose 10 UNIT; Start 04/27/17 at 21:00 ABBEY ROBLES NP Apr 30, 2017 12:25
--- NOTE | 2017-04-30 13:10 | CONS ---
Date/Time of Note Date/Time of Note DATE: 04/30/17 TIME: 13:08 Assessment/Plan Assessment/Plan Chief Complaint/Hosp Course SUBJECTIVE: No events overnight. The patient is alert, looks comfortable, still with diarrhea. ANTIMICROBIALS: He is on: 1. IV vancomycin. 2. Oral rifaximin. 3. Oral vancomycin. INDWELLINGS: Left upper extremity AV fistula. PHYSICAL EXAMINATION: GENERAL: Chronically ill-appearing, middle-aged man who is in no distress. HEENT: Head atraumatic, normocephalic. Sclerae anicteric. Buccal mucosa dry. NECK: Supple. CHEST: Rise symmetrical. Breath sounds clear. HEART: S1, S2. ABDOMEN: Soft. Bowel tones present. ASSESSMENT: 1. Persistent diarrhea with history of Clostridium difficile colitis, remains on oral vancomycin==> s/p EGD/colonoscopy. 2. Coagulase-negative staph bacteremia with repeat blood cultures being negative. 3. End-stage renal disease, hemodialysis dependent. 4. Left upper extremity arteriovenous fistula. 5. Diabetes with left diabetic foot ulceration. PLAN: The patient remains stable. Pending EGD and colonoscopy results. Continue oral vancomycin. DC other antibiotics. Follow gastroenterology recommendations [facility] staff Problems: Consultation Date/Type/Reason Admit Date/Time Apr 22, 2017 at 17:33 Type of Consultation: Infectious disease Referring Provider: MARGARET SLATER Exam/Review of Systems Vital Signs Vitals Vital Signs Date Time Temp Pulse Resp B/P Pulse Ox O2 Delivery O2 Flow Rate FiO2 04/30/17 12:23 116 04/30/17 11:36 98.5 17 106/63 100 04/28/17 19:17 Room Air Intake and Output 04/29/17 04/29/17 04/30/17 15:00 23:00 07:00 Intake Total 800 ml 1300 ml Output Total 1500 ml Balance 800 ml -200 ml Results Result Diagram: 04/30/17 0605 04/30/17 0605 Results 24 hrs Laboratory Tests Test 04/29/17 17:50 04/29/17 20:58 04/30/17 06:05 04/30/17 08:00 Bedside Glucose 164 170 76 White Blood Count 7.7 Red Blood Count 3.00 L Hemoglobin 9.2 L Hematocrit 28.7 L Mean Corpuscular Volume 95.7 Mean Corpuscular Hemoglobin 30.7 Mean Corpuscular Hemoglobin Concent 32.1 Red Cell Distribution Width 13.2 Platelet Count 212 Mean Platelet Volume 9.5 Neutrophils % 68.4 Lymphocytes % 17.4 Monocytes % 8.4 Eosinophils % 5.1 Basophils % 0.4 Nucleated Red Blood Cells % 0.0 Neutrophils # 5.3 Lymphocytes # 1.3 Monocytes # 0.6 Eosinophils # 0.4 Basophils # 0.0 Nucleated Red Blood Cells # 0.0 Sodium Level 140 Potassium Level 4.7 Chloride Level 100 Carbon Dioxide Level 29 Anion Gap 16 Blood Urea Nitrogen 21 #H Creatinine 3.48 #H Glucose Level 52 #L Calcium Level 9.3 Phosphorus Level 3.4 Magnesium Level 2.3 Test 04/30/17 12:07 04/30/17 12:44 Bedside Glucose 67 L 120 Medications Medications Current Medications Ondansetron HCl (Zofran Inj) 4 mg Q6H PRN IV NAUSEA AND/OR VOMITING Last administered on 04/29/17 20:54; Admin Dose 4 MG; Start 04/22/17 at 19:00 Acetaminophen (Tylenol Tab) 650 mg Q6H PRN PO PAIN LEVEL 1-3 OR FEVER; Start at 19:00 Acetaminophen/ Hydrocodone Bitart ([place] (5/325)) 1 tab Q6H PRN PO MODERATE PAIN LEVEL 4-6 Last administered on 04/30/17 08:21; Admin Dose 1 TAB; Start at 19:00 Morphine Sulfate (morphine) 2 mg Q4H PRN IV SEVERE PAIN LEVEL 7-10; Start 04/22 at 19:00 Midodrine (Proamatine) 10 mg TID PO Last administered on 04/30/17 12:11; Admin Dose 10 MG; Start 04/22/17 at 21:00 Tramadol HCl (Ultram) 50 mg Q6H PRN PO PAIN; Start 04/22/17 at 19:00 Miscellaneous Information 1 ea NOTE XX ; Start 04/22/17 at 19:00 Glucose (Glutose) 15 gm Q15M PRN PO DECREASED GLUCOSE; Start 04/22/17 at 19:00 Glucose (Glutose) 22.5 gm Q15M PRN PO DECREASED GLUCOSE Last administered on 08:48; Admin Dose 22.5 GM; Start 04/22/17 at 19:00 Dextrose (D50w Syringe) 25 ml Q15M PRN IV DECREASED GLUCOSE; Start 04/22/17 at 19:00 Dextrose (D50w Syringe) 50 ml Q15M PRN IV DECREASED GLUCOSE; Start 04/22/17 at 19:00 Glucagon (Glucagen) 1 mg Q15M PRN IM DECREASED GLUCOSE; Start 04/22/17 at 19:00 Glucose (Glutose) 15 gm Q15M PRN BUCCAL DECREASED GLUCOSE Last administered on 04/27/17 00:53; Admin Dose 15 GM; Start 04/22/17 at 19:00 Zolpidem Tartrate (Ambien) 5 mg QHS PRN PO SLEEP; Start 04/23/17 at 01:00 Linagliptin (Tradjenta) 5 mg DAILY PO Last administered on 04/30/17 08:21; Admin Dose 5 MG; Start 04/23/17 at 14:00 Collagenase (Santyl) 1 applic DAILY TOP Last administered on 04/30/17 08:17; Admin Dose 1 APPLIC; Start 04/24/17 at 15:05 Collagenase (Santyl) 1 applic PRN PRN TOP WOUND CARE; Start 04/24/17 at 15:30 Vancomycin HCl (Vancomycin Oral Syringe) 250 mg Q6 PO Last administered on 04/30 12:11; Admin Dose 250 MG; Start 04/26/17 at 00:00 Rifaximin (Xifaxan) 200 mg TID PO Last administered on 04/30/17 12:10; Admin Dose 200 MG; Start 04/26/17 at 09:00 Pantoprazole (Protonix Tab) 40 mg DAILY@06 PO Last administered on 04/30/17 06 :02; Admin Dose 40 MG; Start 04/27/17 at 06:00 Insulin Glargine (Lantus) 10 unit HS SC Last administered on 04/29/17 21:00; Admin Dose 10 UNIT; Start 04/27/17 at 21:00 ENMANUEL NOVAK NP Apr 30, 2017 13:10
--- NOTE | 2017-04-30 16:18 | PN ---
Date/Time of Note Date/Time of Note DATE: 04/30/17 TIME: 16:14 Assessment/Plan VTE Prophylaxis VTE Prophylaxis Intervention: ambulation Lines/Catheters [facility] Saline Lock Urinary Cath still in place: No Assessment/Plan Assessment/Plan Diarrhea chronic t/c IBD vs infectious vs others * Intractable vomiting resolved * ESRD on hemodialysis,MWF * Diabetes mellitus * History of C difficile Plan * continue present management * will await biopsy result * case discussed with Dr Moise * Further orders will depend on clinical course Subjective 24 Hr Interval Summary Free Text/Dictation * Course reviewed with RN * Patient seen and examined * still with diarrhea but much improved Exam/Review of Systems Vital Signs Vitals Vital Signs Date Time Temp Pulse Resp B/P Pulse Ox O2 Delivery O2 Flow Rate FiO2 04/30/17 15:53 97.8 92 18 149/87 100 04/28/17 19:17 Room Air Intake and Output 04/29/17 04/29/17 04/30/17 15:00 23:00 07:00 Intake Total 800 ml 1300 ml Output Total 1500 ml Balance 800 ml -200 ml Exam Constitutional: alert, oriented Head: atraumatic, normocephalic Neck: non-tender, supple Respiratory: clear to auscultation, normal air movement Cardiovascular: nl pulses, regular rate and rhythm Gastrointestinal: non-tender, soft Musculoskeletal: nl gait and stance Extremities: normal pulses Neurological: nl speech, nl strength Skin: nl turgor, rash or lesions Results Result Diagram: 04/30/17 0605 04/30/17 0605 Results 24 hrs Laboratory Tests Test 04/29/17 17:50 04/29/17 20:58 04/30/17 06:05 04/30/17 08:00 Bedside Glucose 164 170 76 White Blood Count 7.7 Red Blood Count 3.00 L Hemoglobin 9.2 L Hematocrit 28.7 L Mean Corpuscular Volume 95.7 Mean Corpuscular Hemoglobin 30.7 Mean Corpuscular Hemoglobin Concent 32.1 Red Cell Distribution Width 13.2 Platelet Count 212 Mean Platelet Volume 9.5 Neutrophils % 68.4 Lymphocytes % 17.4 Monocytes % 8.4 Eosinophils % 5.1 Basophils % 0.4 Nucleated Red Blood Cells % 0.0 Neutrophils # 5.3 Lymphocytes # 1.3 Monocytes # 0.6 Eosinophils # 0.4 Basophils # 0.0 Nucleated Red Blood Cells # 0.0 Sodium Level 140 Potassium Level 4.7 Chloride Level 100 Carbon Dioxide Level 29 Anion Gap 16 Blood Urea Nitrogen 21 #H Creatinine 3.48 #H Glucose Level 52 #L Calcium Level 9.3 Phosphorus Level 3.4 Magnesium Level 2.3 Test 04/30/17 12:07 04/30/17 12:44 Bedside Glucose 67 L 120 Medications Medications Current Medications Ondansetron HCl (Zofran Inj) 4 mg Q6H PRN IV NAUSEA AND/OR VOMITING Last administered on 04/29/17 20:54; Admin Dose 4 MG; Start 04/22/17 at 19:00 Acetaminophen (Tylenol Tab) 650 mg Q6H PRN PO PAIN LEVEL 1-3 OR FEVER; Start at 19:00 Acetaminophen/ Hydrocodone Bitart ([place] (5/325)) 1 tab Q6H PRN PO MODERATE PAIN LEVEL 4-6 Last administered on 04/30/17 08:21; Admin Dose 1 TAB; Start at 19:00 Morphine Sulfate (morphine) 2 mg Q4H PRN IV SEVERE PAIN LEVEL 7-10; Start 04/22 at 19:00 Midodrine (Proamatine) 10 mg TID PO Last administered on 04/30/17 12:11; Admin Dose 10 MG; Start 04/22/17 at 21:00 Tramadol HCl (Ultram) 50 mg Q6H PRN PO PAIN; Start 04/22/17 at 19:00 Miscellaneous Information 1 ea NOTE XX ; Start 04/22/17 at 19:00 Glucose (Glutose) 15 gm Q15M PRN PO DECREASED GLUCOSE; Start 04/22/17 at 19:00 Glucose (Glutose) 22.5 gm Q15M PRN PO DECREASED GLUCOSE Last administered on 08:48; Admin Dose 22.5 GM; Start 04/22/17 at 19:00 Dextrose (D50w Syringe) 25 ml Q15M PRN IV DECREASED GLUCOSE; Start 04/22/17 at 19:00 Dextrose (D50w Syringe) 50 ml Q15M PRN IV DECREASED GLUCOSE; Start 04/22/17 at 19:00 Glucagon (Glucagen) 1 mg Q15M PRN IM DECREASED GLUCOSE; Start 04/22/17 at 19:00 Glucose (Glutose) 15 gm Q15M PRN BUCCAL DECREASED GLUCOSE Last administered on 04/27/17 00:53; Admin Dose 15 GM; Start 04/22/17 at 19:00 Zolpidem Tartrate (Ambien) 5 mg QHS PRN PO SLEEP; Start 04/23/17 at 01:00 Linagliptin (Tradjenta) 5 mg DAILY PO Last administered on 04/30/17 08:21; Admin Dose 5 MG; Start 04/23/17 at 14:00 Collagenase (Santyl) 1 applic DAILY TOP Last administered on 04/30/17 08:17; Admin Dose 1 APPLIC; Start 04/24/17 at 15:05 Collagenase (Santyl) 1 applic PRN PRN TOP WOUND CARE; Start 04/24/17 at 15:30 Vancomycin HCl (Vancomycin Oral Syringe) 250 mg Q6 PO Last administered on 04/30 12:11; Admin Dose 250 MG; Start 04/26/17 at 00:00 Pantoprazole (Protonix Tab) 40 mg DAILY@06 PO Last administered on 04/30/17 06 :02; Admin Dose 40 MG; Start 04/27/17 at 06:00 Insulin Glargine (Lantus) 10 unit HS SC Last administered on 04/29/17 21:00; Admin Dose 10 UNIT; Start 04/27/17 at 21:00 ANNE GUTIERREZ NP Apr 30, 2017 16:18
[2017-04-30] MEDS: INSULIN GLARGINE [LANtus] 3 ML PEN SC SCH (20:56)
--- NOTE | 2017-04-30 22:49 | CONS ---
Date/Time of Note Date/Time of Note DATE: 04/30/17 TIME: 22:49 Assessment/Plan Assessment/Plan Chief Complaint/Hosp Course IMPRESSION: 1. Malnutrition. 2. End-stage renal disease. 3. Hypertension. 4. History of diabetes mellitus. 5. Orthostatic hypotension. 6. History of autonomic insufficiency. 7. History of Clostridium difficile colitis. 8. History of sepsis. 9. History of catheter placement. 10. History of chronic diarrhea. 11. History of septic shock. 12 HYPERKALEMIA HX 13 ANEMIA 14 SEPSIS plan PER GI AND PCP hd Problems: Consultation Date/Type/Reason Admit Date/Time Apr 22, 2017 at 17:33 Type of Consultation: renal Referring Provider: MARGARET SLATER 24 HR Interval Summary Constitutional: No chills Exam/Review of Systems Vital Signs Vitals Vital Signs Date Time Temp Pulse Resp B/P Pulse Ox O2 Delivery O2 Flow Rate FiO2 04/30/17 20:00 98.0 88 19 113/64 95 04/28/17 19:17 Room Air Intake and Output 04/29/17 04/29/17 04/30/17 15:00 23:00 07:00 Intake Total 800 ml 1300 ml Output Total 1500 ml Balance 800 ml -200 ml Exam Neck: supple Respiratory: clear to auscultation Cardiovascular: regular rate and rhythm Gastrointestinal: soft Musculoskeletal: nl extremities to inspection Extremities: normal pulses Results Result Diagram: 04/30/17 0605 04/30/17 0605 Results 24 hrs Laboratory Tests Test 04/30/17 06:05 04/30/17 08:00 04/30/17 12:07 04/30/17 12:44 White Blood Count 7.7 Red Blood Count 3.00 L Hemoglobin 9.2 L Hematocrit 28.7 L Mean Corpuscular Volume 95.7 Mean Corpuscular Hemoglobin 30.7 Mean Corpuscular Hemoglobin Concent 32.1 Red Cell Distribution Width 13.2 Platelet Count 212 Mean Platelet Volume 9.5 Neutrophils % 68.4 Lymphocytes % 17.4 Monocytes % 8.4 Eosinophils % 5.1 Basophils % 0.4 Nucleated Red Blood Cells % 0.0 Neutrophils # 5.3 Lymphocytes # 1.3 Monocytes # 0.6 Eosinophils # 0.4 Basophils # 0.0 Nucleated Red Blood Cells # 0.0 Sodium Level 140 Potassium Level 4.7 Chloride Level 100 Carbon Dioxide Level 29 Anion Gap 16 Blood Urea Nitrogen 21 #H Creatinine 3.48 #H Glucose Level 52 #L Calcium Level 9.3 Phosphorus Level 3.4 Magnesium Level 2.3 Bedside Glucose 76 67 L 120 Test 04/30/17 17:47 04/30/17 20:37 Bedside Glucose 98 207 Medications Medications Current Medications Ondansetron HCl (Zofran Inj) 4 mg Q6H PRN IV NAUSEA AND/OR VOMITING Last administered on 04/29/17 20:54; Admin Dose 4 MG; Start 04/22/17 at 19:00 Acetaminophen (Tylenol Tab) 650 mg Q6H PRN PO PAIN LEVEL 1-3 OR FEVER; Start at 19:00 Acetaminophen/ Hydrocodone Bitart ([place] (5/325)) 1 tab Q6H PRN PO MODERATE PAIN LEVEL 4-6 Last administered on 04/30/17 18:22; Admin Dose 1 TAB; Start at 19:00 Morphine Sulfate (morphine) 2 mg Q4H PRN IV SEVERE PAIN LEVEL 7-10; Start 04/22 at 19:00 Midodrine (Proamatine) 10 mg TID PO Last administered on 04/30/17 20:30; Admin Dose 10 MG; Start 04/22/17 at 21:00 Tramadol HCl (Ultram) 50 mg Q6H PRN PO PAIN; Start 04/22/17 at 19:00 Miscellaneous Information 1 ea NOTE XX ; Start 04/22/17 at 19:00 Glucose (Glutose) 15 gm Q15M PRN PO DECREASED GLUCOSE; Start 04/22/17 at 19:00 Glucose (Glutose) 22.5 gm Q15M PRN PO DECREASED GLUCOSE Last administered on 08:48; Admin Dose 22.5 GM; Start 04/22/17 at 19:00 Dextrose (D50w Syringe) 25 ml Q15M PRN IV DECREASED GLUCOSE; Start 04/22/17 at 19:00 Dextrose (D50w Syringe) 50 ml Q15M PRN IV DECREASED GLUCOSE; Start 04/22/17 at 19:00 Glucagon (Glucagen) 1 mg Q15M PRN IM DECREASED GLUCOSE; Start 04/22/17 at 19:00 Glucose (Glutose) 15 gm Q15M PRN BUCCAL DECREASED GLUCOSE Last administered on 04/27/17 00:53; Admin Dose 15 GM; Start 04/22/17 at 19:00 Zolpidem Tartrate (Ambien) 5 mg QHS PRN PO SLEEP; Start 04/23/17 at 01:00 Linagliptin (Tradjenta) 5 mg DAILY PO Last administered on 04/30/17 08:21; Admin Dose 5 MG; Start 04/23/17 at 14:00 Collagenase (Santyl) 1 applic DAILY TOP Last administered on 04/30/17 08:17; Admin Dose 1 APPLIC; Start 04/24/17 at 15:05 Collagenase (Santyl) 1 applic PRN PRN TOP WOUND CARE; Start 04/24/17 at 15:30 Vancomycin HCl (Vancomycin Oral Syringe) 250 mg Q6 PO Last administered on 04/30 18:13; Admin Dose 250 MG; Start 04/26/17 at 00:00 Pantoprazole (Protonix Tab) 40 mg DAILY@06 PO Last administered on 04/30/17 06 :02; Admin Dose 40 MG; Start 04/27/17 at 06:00 Insulin Glargine (Lantus) 10 unit HS SC Last administered on 04/30/17 20:56; Admin Dose 10 UNIT; Start 04/27/17 at 21:00 YASMIN QUIROS MD Apr 30, 2017 22:49
[2017-05-01] VITALS (12 sets, daily range): BP systolic 88–149; BP diastolic 43–83; PULSE 90–99; RESP 18–19
[2017-05-01] MEDS: VANCOMYCIN HCL 250 MG/5ML POSYG PO SCH ×4 (00:07→18:12)
[2017-05-01] MEDS: PANTOPRAZOLE (EC) 40 MG TAB PO SCH (06:40)
[2017-05-01 07:35] LABS: ADD SCAN DIFF NO
[2017-05-01 07:38] LABS: BASOPHILS % 0.5 % (0.0-2.0); EOSINOPHILS # 0.4 10^3/ul (0.0-0.5); EOSINOPHILS % 6.4 % (0.0-7.0); HEMOGLOBIN 8.6 g/dl (14.0-18.0); LYMPHOCYTES # 1.7 10^3/ul (0.8-2.9); LYMPHOCYTES % 28.4 % (15.0-51.0); MEAN CORPUSCULAR HEMOGLOBIN 31.6 pg (29.0-33.0); MEAN CORPUSCULAR HGB CONC 33.1 g/dl (32.0-37.0); MEAN CORPUSCULAR VOLUME 95.6 fl (82.0-101.0); MEAN PLATELET VOLUME 9.4 fl (7.4-10.4); MONOCYTE # 0.4 10^3/ul (0.3-0.9); MONOCYTES % 6.9 % (0.0-11.0); NEUTROPHIL # 3.3 10^3/ul (1.6-7.5); NEUTROPHILS % 57.6 % (39.0-77.0); PLATELET COUNT 203 10^3/UL (140-415); RED BLOOD COUNT 2.72 10^6/ul (4.70-6.10); WHITE BLOOD COUNT 5.8 10^3/ul (4.8-10.8)
[2017-05-01 08:07] LABS: MAGNESIUM 2.3 mg/dl (1.7-2.5); PHOSPHORUS 2.7 mg/dl (2.5-4.9)
[2017-05-01] MEDS: CREON (12k-38k-60k) 1 CAP PO SCH ×3 (08:15→18:05)
[2017-05-01] MEDS: MIDODRINE 5 MG TAB PO SCH ×3 (08:15→20:26)
[2017-05-01] MEDS: LINAGLIPTIN 5 MG TABLET PO SCH (08:15)
[2017-05-01] MEDS: CALCIUM ACETATE 667 MG CAP PO SCH ×3 (08:15→18:06)
[2017-05-01] MEDS: COLLAGENASE 30 GM TUBE TOP SCH (08:16)
[2017-05-01] MEDS: INSULIN ASPART [NOVOLOG] 3 ML PEN SC SCH ×7 (08:21→20:33)
[2017-05-01 09:00] LABS: CALCIUM 9.3 mg/dl (8.4-10.2); CREATININE 3.29 mg/dl (0.61-1.24); POTASSIUM 4.9 mmol/L (3.5-5.1)
--- NOTE | 2017-05-01 09:47 | PN ---
Date/Time of Note Date/Time of Note DATE: 05/01/17 TIME: 09:46 Assessment/Plan VTE Prophylaxis VTE Prophylaxis Intervention: SCD's Lines/Catheters IV [facility] [place] Urinary Cath still in place: No Assessment/Plan Chief Complaint/Hosp Course 1. Intractable diarrhea. Stool for C. diff negative. Status post esophagogastroduodenoscopy and colonoscopy on 04/28/2017. Results are pending [ note not dictated]. Being followed by infectious diseases and gastroenterology. Pathology from gastric and colonic biopsy negative for any malignancy. 2. Gram-positive bacteremia. On antibiotics as per Infectious Disease. Possibly contaminant as per Infectious Disease. Repeat blood cultures x2 were negative. 3. End-stage renal disease on hemodialysis. Continue hemodialysis as per Nephrology. 4. Decubitus ulcers. Continue local wound care. 5. Deconditioning. Status post physical therapy evaluation. Continue physical therapy. 7. Diabetes mellitus, unknown type. Continue sliding scale insulin along with Lantus insulin and premeal insulin. Hemoglobin A1c 7.0. 8. Normocytic normochromic anemia, most probably anemia of chronic kidney disease. We will monitor the H and H closely. 9. Fluid, electrolytes, and nutrition. Carbohydrate controlled diet. 10. DVT prophylaxis. Bilateral sequential compression devices. 11. Gastrointestinal prophylaxis. Proton pump inhibitors. PLAN: Add probiotics. Continue inpatient monitoring. Continue antibiotics as per Infectious Disease. Await clearance from consultants before discharge to home with home health. Case discussed with Dr. White. Problems: Subjective 24 Hr Interval Summary Free Text/Dictation The patient continues to have diarrhea. Exam/Review of Systems Vital Signs Vitals Vital Signs Date Time Temp Pulse Resp B/P Pulse Ox O2 Delivery O2 Flow Rate FiO2 05/01/17 07:41 98.6 88 18 96/49 98 04/28/17 19:17 Room Air Intake and Output 04/30/17 04/30/17 05/01/17 15:00 23:00 07:00 Intake Total 1100 ml 250 ml Balance 1100 ml 250 ml Exam GENERAL: This is a thin, frail-looking male lying in bed in no apparent distress. HEENT: Head normocephalic and atraumatic. Eyes: Anicteric sclerae. Conjunctivae clear. ENT: Nasal septum is midline. Oral mucosa is dry. NECK: Supple. No JVD noticed. RESPIRATORY: Bilaterally clear to auscultation. No adventitious breath sounds heard. No use of accessory muscles of respiration. CARDIAC: Regular rate and rhythm. S1 and S2 heard. ABDOMEN: Soft, nontender, and nondistended. Bowel sounds positive in all 4 quadrants. GENITOURINARY: Deferred. EXTREMITIES: No cyanosis, no clubbing, no edema. Peripheral pulses are palpable. Severe muscle wasting of B/L lower extremities. Left heel pressure ulcer. NEUROLOGIC: The patient is awake, alert, and oriented. Cranial nerves are grossly intact. Results Result Diagram: 05/01/17 0645 05/01/17 0645 Results 24 hrs Laboratory Tests Test 04/30/17 12:07 04/30/17 12:44 04/30/17 17:47 04/30/17 20:37 Bedside Glucose 67 L 120 98 207 Test 05/01/17 01:19 05/01/17 06:45 05/01/17 08:09 Bedside Glucose 133 149 White Blood Count 5.8 # Red Blood Count 2.72 L Hemoglobin 8.6 L Hematocrit 26.0 L Mean Corpuscular Volume 95.6 Mean Corpuscular Hemoglobin 31.6 Mean Corpuscular Hemoglobin Concent 33.1 Red Cell Distribution Width 13.0 Platelet Count 203 Mean Platelet Volume 9.4 Neutrophils % 57.6 Lymphocytes % 28.4 Monocytes % 6.9 Eosinophils % 6.4 Basophils % 0.5 Nucleated Red Blood Cells % 0.0 Neutrophils # 3.3 Lymphocytes # 1.7 Monocytes # 0.4 Eosinophils # 0.4 Basophils # 0.0 Nucleated Red Blood Cells # 0.0 Sodium Level 137 Potassium Level 4.9 Chloride Level 101 Carbon Dioxide Level 25 Anion Gap 16 Blood Urea Nitrogen 29 H Creatinine 3.29 H Glucose Level 77 Calcium Level 9.3 Phosphorus Level 2.7 Magnesium Level 2.3 Medications Medications Current Medications Ondansetron HCl (Zofran Inj) 4 mg Q6H PRN IV NAUSEA AND/OR VOMITING Last administered on 04/29/17 20:54; Admin Dose 4 MG; Start 04/22/17 at 19:00 Acetaminophen (Tylenol Tab) 650 mg Q6H PRN PO PAIN LEVEL 1-3 OR FEVER; Start at 19:00 Acetaminophen/ Hydrocodone Bitart ([place] (5/325)) 1 tab Q6H PRN PO MODERATE PAIN LEVEL 4-6 Last administered on 04/30/17 18:22; Admin Dose 1 TAB; Start at 19:00 Morphine Sulfate (morphine) 2 mg Q4H PRN IV SEVERE PAIN LEVEL 7-10; Start 04/22 at 19:00 Midodrine (Proamatine) 10 mg TID PO Last administered on 05/01/17 08:15; Admin Dose 10 MG; Start 04/22/17 at 21:00 Tramadol HCl (Ultram) 50 mg Q6H PRN PO PAIN; Start 04/22/17 at 19:00 Miscellaneous Information 1 ea NOTE XX ; Start 04/22/17 at 19:00 Glucose (Glutose) 15 gm Q15M PRN PO DECREASED GLUCOSE; Start 04/22/17 at 19:00 Glucose (Glutose) 22.5 gm Q15M PRN PO DECREASED GLUCOSE Last administered on 08:48; Admin Dose 22.5 GM; Start 04/22/17 at 19:00 Dextrose (D50w Syringe) 25 ml Q15M PRN IV DECREASED GLUCOSE; Start 04/22/17 at 19:00 Dextrose (D50w Syringe) 50 ml Q15M PRN IV DECREASED GLUCOSE; Start 04/22/17 at 19:00 Glucagon (Glucagen) 1 mg Q15M PRN IM DECREASED GLUCOSE; Start 04/22/17 at 19:00 Glucose (Glutose) 15 gm Q15M PRN BUCCAL DECREASED GLUCOSE Last administered on 04/27/17 00:53; Admin Dose 15 GM; Start 04/22/17 at 19:00 Zolpidem Tartrate (Ambien) 5 mg QHS PRN PO SLEEP; Start 04/23/17 at 01:00 Linagliptin (Tradjenta) 5 mg DAILY PO Last administered on 05/01/17 08:15; Admin Dose 5 MG; Start 04/23/17 at 14:00 Collagenase (Santyl) 1 applic DAILY TOP Last administered on 05/01/17 08:16; Admin Dose 1 APPLIC; Start 04/24/17 at 15:05 Collagenase (Santyl) 1 applic PRN PRN TOP WOUND CARE; Start 04/24/17 at 15:30 Vancomycin HCl (Vancomycin Oral Syringe) 250 mg Q6 PO Last administered on 05/01 06:40; Admin Dose 250 MG; Start 04/26/17 at 00:00 Pantoprazole (Protonix Tab) 40 mg DAILY@06 PO Last administered on 05/01/17 06 :40; Admin Dose 40 MG; Start 04/27/17 at 06:00 Insulin Glargine (Lantus) 10 unit HS SC Last administered on 04/30/17 20:56; Admin Dose 10 UNIT; Start 04/27/17 at 21:00 ABBEY ROBLES NP May 01, 2017 09:47
[2017-05-01] MEDS: HYDROCODONE/APAP (5/325) TAB PO PRN (12:04)
--- NOTE | 2017-05-01 12:09 | PQ ---
Date/Time of Note Date/Time of Note DATE: 05/01/17 TIME: 12:05 Physician Query Documentation Clarification A review of the medical record found a need for documentation clarification. progress note - "malnutrition" unspecified Nutrition consult : BMI 15 with pressure injuries, significant weight loss and frequent diarrhea and nausea indicating severe protein calorie malnutrition. Gastritis, esophogitis and gastroparesis per EGD. Patient is being followed by dietary and is on appropriate supplementation Please clarify if you concur with Nutrition Assessment. To facilitate accurate and complete coding, please anat ( x ) the suspected diagnosis that apply: ( ) Yes, severe protein cyndie. maln. ( ) No , Specify ( ) Others Please provide your response by clicking edit document, making your choice ( x ), click ok/save and finally click sign. You may also document your response on your progress notes. Thank you for your time. With appreciation, Solitario Cruz RN, BSN, CCS, CCDS Clinical Pet Caregiver Health Information Management, CDI and Coding Services [phone] Room # 1525 - [address]~ [id number] SOLITARIO CRUZ May 01, 2017 12:08
[2017-05-01] MEDS: SACCHAROMYCES BOULARDII 250 MG CAP PO SCH ×2 (12:11→20:26)
--- NOTE | 2017-05-01 13:10 | CONS ---
Date/Time of Note Date/Time of Note DATE: 05/01/17 TIME: 13:04 Assessment/Plan Assessment/Plan Chief Complaint/Hosp Course Impression: 1. Intractable diarrhea. Stool for C. diff negative. Status post esophagogastroduodenoscopy and colonoscopy on 04/28/2017. Pathology from gastric and colonic biopsy negative for any malignancy. 2. Gram-positive bacteremia. 3. End-stage renal disease on hemodialysis. Continue hemodialysis as per Nephrology. 4. Diabetes mellitus, unknown type. Continue sliding scale insulin along with Lantus insulin and premeal insulin. Hemoglobin A1c 7.0. 5. Normocytic normochromic anemia, most probably anemia of chronic kidney disease. We will monitor the H and H closely. PLAN: - Agree with adding probiotics. - I added lomotil today PRN diarrhea as all w/u so far negative. - ok from GI perspective if BM less than 4 daily and if ok with primary and other consultants. Problems: Consultation Date/Type/Reason Admit Date/Time Apr 22, 2017 at 17:33 Initial Consult Date 04/26/17 Type of Consultation: GI Referring Provider: MARGARET SLATER 24 HR Interval Summary Free Text/Dictation improved diarrhea Constitutional: improved Exam/Review of Systems Vital Signs Vitals Vital Signs Date Time Temp Pulse Resp B/P Pulse Ox O2 Delivery O2 Flow Rate FiO2 05/01/17 11:31 98.5 85 19 99/56 98 04/28/17 19:17 Room Air Intake and Output 04/30/17 04/30/17 05/01/17 15:00 23:00 07:00 Intake Total 1100 ml 250 ml Balance 1100 ml 250 ml Exam Constitutional: alert, oriented, well developed Psych: nl mood/affect, no complaints Head: atraumatic, normocephalic Eyes: EOMI, nl conjunctiva, nl lids, nl sclera ENMT: mucosa pink and moist, nl external ears & nose, nl lips & teeth, nl nasal mucosa & septum Neck: non-tender, supple Respiratory: clear to auscultation, normal air movement Cardiovascular: nl pulses, regular rate and rhythm Gastrointestinal: bowel sounds, non-tender, soft Results Result Diagram: 05/01/17 0645 05/01/17 0645 Results 24 hrs Laboratory Tests Test 04/30/17 17:47 04/30/17 20:37 05/01/17 01:19 05/01/17 06:45 Bedside Glucose 98 207 133 White Blood Count 5.8 # Red Blood Count 2.72 L Hemoglobin 8.6 L Hematocrit 26.0 L Mean Corpuscular Volume 95.6 Mean Corpuscular Hemoglobin 31.6 Mean Corpuscular Hemoglobin Concent 33.1 Red Cell Distribution Width 13.0 Platelet Count 203 Mean Platelet Volume 9.4 Neutrophils % 57.6 Lymphocytes % 28.4 Monocytes % 6.9 Eosinophils % 6.4 Basophils % 0.5 Nucleated Red Blood Cells % 0.0 Neutrophils # 3.3 Lymphocytes # 1.7 Monocytes # 0.4 Eosinophils # 0.4 Basophils # 0.0 Nucleated Red Blood Cells # 0.0 Sodium Level 137 Potassium Level 4.9 Chloride Level 101 Carbon Dioxide Level 25 Anion Gap 16 Blood Urea Nitrogen 29 H Creatinine 3.29 H Glucose Level 77 Calcium Level 9.3 Phosphorus Level 2.7 Magnesium Level 2.3 Test 05/01/17 08:09 05/01/17 12:00 Bedside Glucose 149 96 Medications Medications Current Medications Ondansetron HCl (Zofran Inj) 4 mg Q6H PRN IV NAUSEA AND/OR VOMITING Last administered on 04/29/17 20:54; Admin Dose 4 MG; Start 04/22/17 at 19:00 Acetaminophen (Tylenol Tab) 650 mg Q6H PRN PO PAIN LEVEL 1-3 OR FEVER; Start at 19:00 Acetaminophen/ Hydrocodone Bitart ([place] (5/325)) 1 tab Q6H PRN PO MODERATE PAIN LEVEL 4-6 Last administered on 05/01/17 12:04; Admin Dose 1 TAB; Start at 19:00 Morphine Sulfate (morphine) 2 mg Q4H PRN IV SEVERE PAIN LEVEL 7-10; Start 04/22 at 19:00 Midodrine (Proamatine) 10 mg TID PO Last administered on 05/01/17 08:15; Admin Dose 10 MG; Start 04/22/17 at 21:00 Tramadol HCl (Ultram) 50 mg Q6H PRN PO PAIN; Start 04/22/17 at 19:00 Miscellaneous Information 1 ea NOTE XX ; Start 04/22/17 at 19:00 Glucose (Glutose) 15 gm Q15M PRN PO DECREASED GLUCOSE; Start 04/22/17 at 19:00 Glucose (Glutose) 22.5 gm Q15M PRN PO DECREASED GLUCOSE Last administered on 08:48; Admin Dose 22.5 GM; Start 04/22/17 at 19:00 Dextrose (D50w Syringe) 25 ml Q15M PRN IV DECREASED GLUCOSE; Start 04/22/17 at 19:00 Dextrose (D50w Syringe) 50 ml Q15M PRN IV DECREASED GLUCOSE; Start 04/22/17 at 19:00 Glucagon (Glucagen) 1 mg Q15M PRN IM DECREASED GLUCOSE; Start 04/22/17 at 19:00 Glucose (Glutose) 15 gm Q15M PRN BUCCAL DECREASED GLUCOSE Last administered on 04/27/17 00:53; Admin Dose 15 GM; Start 04/22/17 at 19:00 Zolpidem Tartrate (Ambien) 5 mg QHS PRN PO SLEEP; Start 04/23/17 at 01:00 Linagliptin (Tradjenta) 5 mg DAILY PO Last administered on 05/01/17 08:15; Admin Dose 5 MG; Start 04/23/17 at 14:00 Collagenase (Santyl) 1 applic DAILY TOP Last administered on 05/01/17 08:16; Admin Dose 1 APPLIC; Start 04/24/17 at 15:05 Collagenase (Santyl) 1 applic PRN PRN TOP WOUND CARE; Start 04/24/17 at 15:30 Vancomycin HCl (Vancomycin Oral Syringe) 250 mg Q6 PO Last administered on 05/01 06:40; Admin Dose 250 MG; Start 04/26/17 at 00:00 Pantoprazole (Protonix Tab) 40 mg DAILY@06 PO Last administered on 05/01/17 06 :40; Admin Dose 40 MG; Start 04/27/17 at 06:00 Insulin Glargine (Lantus) 10 unit HS SC Last administered on 04/30/17 20:56; Admin Dose 10 UNIT; Start 04/27/17 at 21:00 Saccharomyces Boulardii (Florastor) 500 mg BID PO Last administered on 12:11; Admin Dose 500 MG; Start 05/01/17 at 11:30 AFSHAN HAMILTON MD May 01, 2017 13:09
[2017-05-01] MEDS ORDERED: DIPHENOXYLATE/ATROPINE TAB PO PRN (13:30)
--- NOTE | 2017-05-01 14:17 | CONS ---
Date/Time of Note Date/Time of Note DATE: 05/01/17 TIME: 14:16 Assessment/Plan Assessment/Plan Chief Complaint/Hosp Course SUBJECTIVE: No events overnight. The patient is alert, looks comfortable, still with diarrhea. ANTIMICROBIALS: Oral vancomycin. INDWELLINGS: Left upper extremity AV fistula. PHYSICAL EXAMINATION: GENERAL: Chronically ill-appearing, middle-aged man who is in no distress. HEENT: Head atraumatic, normocephalic. Sclerae anicteric. Buccal mucosa dry. NECK: Supple. CHEST: Rise symmetrical. Breath sounds clear. HEART: S1, S2. ABDOMEN: Soft. Bowel tones present. ASSESSMENT: 1. Persistent diarrhea with history of Clostridium difficile colitis, remains on oral vancomycin==> s/p EGD/colonoscopy. 2. Coagulase-negative staph bacteremia with repeat blood cultures being negative. 3. End-stage renal disease, hemodialysis dependent. 4. Left upper extremity arteriovenous fistula. 5. Diabetes with left diabetic foot ulceration. PLAN: The patient remains stable. Pending EGD and colonoscopy results. Continue oral vancomycin. Follow gastroenterology recommendations [facility] staff Problems: Consultation Date/Type/Reason Admit Date/Time Apr 22, 2017 at 17:33 Type of Consultation: Infectious disease Referring Provider: MARGARET SLATER Exam/Review of Systems Vital Signs Vitals Vital Signs Date Time Temp Pulse Resp B/P Pulse Ox O2 Delivery O2 Flow Rate FiO2 05/01/17 11:31 98.5 85 19 99/56 98 04/28/17 19:17 Room Air Intake and Output 04/30/17 04/30/17 05/01/17 15:00 23:00 07:00 Intake Total 1100 ml 250 ml Balance 1100 ml 250 ml Results Result Diagram: 05/01/17 0645 05/01/17 0645 Results 24 hrs Laboratory Tests Test 04/30/17 17:47 04/30/17 20:37 05/01/17 01:19 05/01/17 06:45 Bedside Glucose 98 207 133 White Blood Count 5.8 # Red Blood Count 2.72 L Hemoglobin 8.6 L Hematocrit 26.0 L Mean Corpuscular Volume 95.6 Mean Corpuscular Hemoglobin 31.6 Mean Corpuscular Hemoglobin Concent 33.1 Red Cell Distribution Width 13.0 Platelet Count 203 Mean Platelet Volume 9.4 Neutrophils % 57.6 Lymphocytes % 28.4 Monocytes % 6.9 Eosinophils % 6.4 Basophils % 0.5 Nucleated Red Blood Cells % 0.0 Neutrophils # 3.3 Lymphocytes # 1.7 Monocytes # 0.4 Eosinophils # 0.4 Basophils # 0.0 Nucleated Red Blood Cells # 0.0 Sodium Level 137 Potassium Level 4.9 Chloride Level 101 Carbon Dioxide Level 25 Anion Gap 16 Blood Urea Nitrogen 29 H Creatinine 3.29 H Glucose Level 77 Calcium Level 9.3 Phosphorus Level 2.7 Magnesium Level 2.3 Test 05/01/17 08:09 05/01/17 12:00 Bedside Glucose 149 96 Medications Medications Current Medications Ondansetron HCl (Zofran Inj) 4 mg Q6H PRN IV NAUSEA AND/OR VOMITING Last administered on 04/29/17 20:54; Admin Dose 4 MG; Start 04/22/17 at 19:00 Acetaminophen (Tylenol Tab) 650 mg Q6H PRN PO PAIN LEVEL 1-3 OR FEVER; Start at 19:00 Acetaminophen/ Hydrocodone Bitart ([place] (5/325)) 1 tab Q6H PRN PO MODERATE PAIN LEVEL 4-6 Last administered on 05/01/17 12:04; Admin Dose 1 TAB; Start at 19:00 Morphine Sulfate (morphine) 2 mg Q4H PRN IV SEVERE PAIN LEVEL 7-10; Start 04/22 at 19:00 Midodrine (Proamatine) 10 mg TID PO Last administered on 05/01/17 13:30; Admin Dose 10 MG; Start 04/22/17 at 21:00 Tramadol HCl (Ultram) 50 mg Q6H PRN PO PAIN; Start 04/22/17 at 19:00 Miscellaneous Information 1 ea NOTE XX ; Start 04/22/17 at 19:00 Glucose (Glutose) 15 gm Q15M PRN PO DECREASED GLUCOSE; Start 04/22/17 at 19:00 Glucose (Glutose) 22.5 gm Q15M PRN PO DECREASED GLUCOSE Last administered on 08:48; Admin Dose 22.5 GM; Start 04/22/17 at 19:00 Dextrose (D50w Syringe) 25 ml Q15M PRN IV DECREASED GLUCOSE; Start 04/22/17 at 19:00 Dextrose (D50w Syringe) 50 ml Q15M PRN IV DECREASED GLUCOSE; Start 04/22/17 at 19:00 Glucagon (Glucagen) 1 mg Q15M PRN IM DECREASED GLUCOSE; Start 04/22/17 at 19:00 Glucose (Glutose) 15 gm Q15M PRN BUCCAL DECREASED GLUCOSE Last administered on 04/27/17 00:53; Admin Dose 15 GM; Start 04/22/17 at 19:00 Zolpidem Tartrate (Ambien) 5 mg QHS PRN PO SLEEP; Start 04/23/17 at 01:00 Linagliptin (Tradjenta) 5 mg DAILY PO Last administered on 05/01/17 08:15; Admin Dose 5 MG; Start 04/23/17 at 14:00 Collagenase (Santyl) 1 applic DAILY TOP Last administered on 05/01/17 08:16; Admin Dose 1 APPLIC; Start 04/24/17 at 15:05 Collagenase (Santyl) 1 applic PRN PRN TOP WOUND CARE; Start 04/24/17 at 15:30 Vancomycin HCl (Vancomycin Oral Syringe) 250 mg Q6 PO Last administered on 05/01 13:34; Admin Dose 250 MG; Start 04/26/17 at 00:00 Pantoprazole (Protonix Tab) 40 mg DAILY@06 PO Last administered on 05/01/17 06 :40; Admin Dose 40 MG; Start 04/27/17 at 06:00 Insulin Glargine (Lantus) 10 unit HS SC Last administered on 04/30/17 20:56; Admin Dose 10 UNIT; Start 04/27/17 at 21:00 Saccharomyces Boulardii (Florastor) 500 mg BID PO Last administered on 12:11; Admin Dose 500 MG; Start 05/01/17 at 11:30 Diphenoxylate HCl/ Atropine (Lomotil) 2 tab Q6H PRN PO DIARRHEA; Start at 13:30 ENMANUEL NOVAK NP May 01, 2017 14:17
--- NOTE | 2017-05-01 21:00 | CONS ---
Date/Time of Note Date/Time of Note DATE: 05/01/17 TIME: 20:59 Assessment/Plan Assessment/Plan Chief Complaint/Hosp Course IMPRESSION: 1. Malnutrition. 2. End-stage renal disease. 3. Hypertension. 4. History of diabetes mellitus. 5. Orthostatic hypotension. 6. History of autonomic insufficiency. 7. History of Clostridium difficile colitis. 8. History of sepsis. 9. History of catheter placement. 10. History of chronic diarrhea. 11. History of septic shock. 12 HYPERKALEMIA HX 13 ANEMIA 14 SEPSIS plan PER GI AND PCP hd PT OT Problems: Consultation Date/Type/Reason Admit Date/Time Apr 22, 2017 at 17:33 Type of Consultation: RENAL Referring Provider: MARGARET SLATER 24 HR Interval Summary Constitutional: other (DIARRHEA+) Exam/Review of Systems Vital Signs Vitals Vital Signs Date Time Temp Pulse Resp B/P Pulse Ox O2 Delivery O2 Flow Rate FiO2 05/01/17 19:53 97.8 92 18 96/58 99 04/28/17 19:17 Room Air Intake and Output 04/30/17 04/30/17 05/01/17 15:00 23:00 07:00 Intake Total 1100 ml 250 ml Balance 1100 ml 250 ml Exam Neck: supple Respiratory: clear to auscultation Cardiovascular: regular rate and rhythm Gastrointestinal: soft Musculoskeletal: nl extremities to inspection Extremities: normal pulses Neurological: SHANK RANDER II-XII intact Results Result Diagram: 05/01/17 0645 05/01/17 0645 Results 24 hrs Laboratory Tests Test 05/01/17 01:19 05/01/17 06:45 05/01/17 08:09 05/01/17 12:00 Bedside Glucose 133 149 96 White Blood Count 5.8 # Red Blood Count 2.72 L Hemoglobin 8.6 L Hematocrit 26.0 L Mean Corpuscular Volume 95.6 Mean Corpuscular Hemoglobin 31.6 Mean Corpuscular Hemoglobin Concent 33.1 Red Cell Distribution Width 13.0 Platelet Count 203 Mean Platelet Volume 9.4 Neutrophils % 57.6 Lymphocytes % 28.4 Monocytes % 6.9 Eosinophils % 6.4 Basophils % 0.5 Nucleated Red Blood Cells % 0.0 Neutrophils # 3.3 Lymphocytes # 1.7 Monocytes # 0.4 Eosinophils # 0.4 Basophils # 0.0 Nucleated Red Blood Cells # 0.0 Sodium Level 137 Potassium Level 4.9 Chloride Level 101 Carbon Dioxide Level 25 Anion Gap 16 Blood Urea Nitrogen 29 H Creatinine 3.29 H Glucose Level 77 Calcium Level 9.3 Phosphorus Level 2.7 Magnesium Level 2.3 Test 05/01/17 18:04 Bedside Glucose 89 Medications Medications Current Medications Ondansetron HCl (Zofran Inj) 4 mg Q6H PRN IV NAUSEA AND/OR VOMITING Last administered on 04/29/17 20:54; Admin Dose 4 MG; Start 04/22/17 at 19:00 Acetaminophen (Tylenol Tab) 650 mg Q6H PRN PO PAIN LEVEL 1-3 OR FEVER; Start at 19:00 Acetaminophen/ Hydrocodone Bitart ([place] (5/325)) 1 tab Q6H PRN PO MODERATE PAIN LEVEL 4-6 Last administered on 05/01/17 12:04; Admin Dose 1 TAB; Start at 19:00 Morphine Sulfate (morphine) 2 mg Q4H PRN IV SEVERE PAIN LEVEL 7-10; Start 04/22 at 19:00 Midodrine (Proamatine) 10 mg TID PO Last administered on 05/01/17 20:26; Admin Dose 10 MG; Start 04/22/17 at 21:00 Tramadol HCl (Ultram) 50 mg Q6H PRN PO PAIN; Start 04/22/17 at 19:00 Miscellaneous Information 1 ea NOTE XX ; Start 04/22/17 at 19:00 Glucose (Glutose) 15 gm Q15M PRN PO DECREASED GLUCOSE; Start 04/22/17 at 19:00 Glucose (Glutose) 22.5 gm Q15M PRN PO DECREASED GLUCOSE Last administered on 08:48; Admin Dose 22.5 GM; Start 04/22/17 at 19:00 Dextrose (D50w Syringe) 25 ml Q15M PRN IV DECREASED GLUCOSE; Start 04/22/17 at 19:00 Dextrose (D50w Syringe) 50 ml Q15M PRN IV DECREASED GLUCOSE; Start 04/22/17 at 19:00 Glucagon (Glucagen) 1 mg Q15M PRN IM DECREASED GLUCOSE; Start 04/22/17 at 19:00 Glucose (Glutose) 15 gm Q15M PRN BUCCAL DECREASED GLUCOSE Last administered on 04/27/17 00:53; Admin Dose 15 GM; Start 04/22/17 at 19:00 Zolpidem Tartrate (Ambien) 5 mg QHS PRN PO SLEEP; Start 04/23/17 at 01:00 Linagliptin (Tradjenta) 5 mg DAILY PO Last administered on 05/01/17 08:15; Admin Dose 5 MG; Start 04/23/17 at 14:00 Collagenase (Santyl) 1 applic DAILY TOP Last administered on 05/01/17 08:16; Admin Dose 1 APPLIC; Start 04/24/17 at 15:05 Collagenase (Santyl) 1 applic PRN PRN TOP WOUND CARE; Start 04/24/17 at 15:30 Vancomycin HCl (Vancomycin Oral Syringe) 250 mg Q6 PO Last administered on 05/01 18:12; Admin Dose 250 MG; Start 04/26/17 at 00:00 Pantoprazole (Protonix Tab) 40 mg DAILY@06 PO Last administered on 05/01/17 06 :40; Admin Dose 40 MG; Start 04/27/17 at 06:00 Insulin Glargine (Lantus) 10 unit HS SC Last administered on 04/30/17 20:56; Admin Dose 10 UNIT; Start 04/27/17 at 21:00 Saccharomyces Boulardii (Florastor) 500 mg BID PO Last administered on 20:26; Admin Dose 500 MG; Start 05/01/17 at 11:30 Diphenoxylate HCl/ Atropine (Lomotil) 2 tab Q6H PRN PO DIARRHEA Last administered on 05/01/17 18:05; Admin Dose 2 TAB; Start 05/01/17 at 13:30 YASMIN QUIROS MD May 01, 2017 21:00
[2017-05-01] MEDS: INSULIN GLARGINE [LANtus] 3 ML PEN SC SCH (22:27)
[2017-05-02] VITALS (7 sets, daily range): BP systolic 87–149; BP diastolic 50–86; RESP 18–20
[2017-05-02] MEDS: VANCOMYCIN HCL 250 MG/5ML POSYG PO SCH ×4 (04:43→20:02)
[2017-05-02 06:25] LABS: BASOPHILS % 0.4 % (0.0-2.0); EOSINOPHILS # 0.4 10^3/ul (0.0-0.5); EOSINOPHILS % 6.1 % (0.0-7.0); HEMOGLOBIN 8.6 g/dl (14.0-18.0); MEAN CORPUSCULAR HEMOGLOBIN 30.8 pg (29.0-33.0); MEAN CORPUSCULAR HGB CONC 31.9 g/dl (32.0-37.0); MEAN CORPUSCULAR VOLUME 96.8 fl (82.0-101.0); MEAN PLATELET VOLUME 9.5 fl (7.4-10.4); MONOCYTE # 0.6 10^3/ul (0.3-0.9); MONOCYTES % 7.7 % (0.0-11.0); NEUTROPHIL # 4.3 10^3/ul (1.6-7.5); NEUTROPHILS % 58.7 % (39.0-77.0); PLATELET COUNT 205 10^3/UL (140-415); RED BLOOD COUNT 2.79 10^6/ul (4.70-6.10); RED CELL DISTRIBUTION WIDTH 13.1 % (11.5-14.5); WHITE BLOOD COUNT 7.3 10^3/ul (4.8-10.8)
[2017-05-02] MEDS: PANTOPRAZOLE (EC) 40 MG TAB PO SCH (06:28)
[2017-05-02 06:40] LABS: MAGNESIUM 2.4 mg/dl (1.7-2.5); PHOSPHORUS 3.8 mg/dl (2.5-4.9)
[2017-05-02 06:46] LABS: CALCIUM 9.2 mg/dl (8.4-10.2); CREATININE 3.55 mg/dl (0.61-1.24); POTASSIUM 5.6 mmol/L (3.5-5.1)
[2017-05-02] MEDS: INSULIN ASPART [NOVOLOG] 3 ML PEN SC SCH ×8 (07:25→20:11)
[2017-05-02 07:26] LABS: ADD SCAN DIFF NO
[2017-05-02] MEDS: CREON (12k-38k-60k) 1 CAP PO SCH ×3 (08:54→18:55)
[2017-05-02] MEDS: CALCIUM ACETATE 667 MG CAP PO SCH ×3 (08:54→18:54)
[2017-05-02] MEDS: SACCHAROMYCES BOULARDII 250 MG CAP PO SCH ×2 (08:54→20:02)
[2017-05-02] MEDS: MIDODRINE 5 MG TAB PO SCH ×3 (08:55→20:03)
[2017-05-02] MEDS: LINAGLIPTIN 5 MG TABLET PO SCH (08:58)
--- NOTE | 2017-05-02 10:49 | PN ---
Date/Time of Note Date/Time of Note DATE: 05/02/17 TIME: 10:47 Assessment/Plan VTE Prophylaxis VTE Prophylaxis Intervention: SCD's Lines/Catheters IV C[facility]ter Type (from [facility] [place] Urinary Cath still in place: No Assessment/Plan Chief Complaint/Hosp Course 1. Intractable diarrhea. Stool for C. diff negative. Status post esophagogastroduodenoscopy and colonoscopy on 04/28/2017. Results are pending [ note not dictated]. Being followed by infectious diseases and gastroenterology. Pathology from gastric and colonic biopsy negative for any malignancy. 2. Gram-positive bacteremia. On antibiotics as per Infectious Disease. Possibly contaminant as per Infectious Disease. Repeat blood cultures x2 were negative. 3. End-stage renal disease on hemodialysis. Continue hemodialysis as per Nephrology. 4. Decubitus ulcers. Continue local wound care. 5. Deconditioning. Status post physical therapy evaluation. Continue physical therapy. 7. Diabetes mellitus, unknown type. Continue sliding scale insulin along with Lantus insulin and premeal insulin. Hemoglobin A1c 7.0. 8. Normocytic normochromic anemia, most probably anemia of chronic kidney disease. We will monitor the H and H closely. 9. Fluid, electrolytes, and nutrition. Carbohydrate controlled diet. 10. DVT prophylaxis. Bilateral sequential compression devices. 11. Gastrointestinal prophylaxis. Proton pump inhibitors. PLAN: Continue probiotics. Continue inpatient monitoring. Continue antibiotics as per Infectious Disease. Await clearance from consultants before discharge to home with home health. Case discussed with Dr. White. Problems: Subjective 24 Hr Interval Summary Free Text/Dictation The patient continues to have diarrhea. Exam/Review of Systems Vital Signs Vitals Vital Signs Date Time Temp Pulse Resp B/P Pulse Ox O2 Delivery O2 Flow Rate FiO2 05/02/17 06:57 98.0 83 19 87/50 96 04/28/17 19:17 Room Air Intake and Output 05/01/17 05/01/17 05/02/17 15:00 23:00 07:00 Intake Total 300 ml 400 ml 240 ml Output Total 1300 ml 500 ml Balance -1000 ml -100 ml 240 ml Exam GENERAL: This is a thin, frail-looking male lying in bed in no apparent distress. HEENT: Head normocephalic and atraumatic. Eyes: Anicteric sclerae. Conjunctivae clear. ENT: Nasal septum is midline. Oral mucosa is dry. NECK: Supple. No JVD noticed. RESPIRATORY: Bilaterally clear to auscultation. No adventitious breath sounds heard. No use of accessory muscles of respiration. CARDIAC: Regular rate and rhythm. S1 and S2 heard. ABDOMEN: Soft, nontender, and nondistended. Bowel sounds positive in all 4 quadrants. GENITOURINARY: Deferred. EXTREMITIES: No cyanosis, no clubbing, no edema. Peripheral pulses are palpable. Severe muscle wasting of B/L lower extremities. Left heel pressure ulcer. NEUROLOGIC: The patient is awake, alert, and oriented. Cranial nerves are grossly intact. Results Result Diagram: 05/02/17 0520 05/02/17 0524 Results 24 hrs Laboratory Tests Test 05/01/17 12:00 05/01/17 18:04 05/01/17 20:28 05/02/17 05:20 Bedside Glucose 96 89 87 White Blood Count 7.3 # Red Blood Count 2.79 L Hemoglobin 8.6 L Hematocrit 27.0 L Mean Corpuscular Volume 96.8 Mean Corpuscular Hemoglobin 30.8 Mean Corpuscular Hemoglobin Concent 31.9 L Red Cell Distribution Width 13.1 Platelet Count 205 Mean Platelet Volume 9.5 Neutrophils % 58.7 Lymphocytes % 27.0 Monocytes % 7.7 Eosinophils % 6.1 Basophils % 0.4 Nucleated Red Blood Cells % 0.0 Neutrophils # 4.3 Lymphocytes # 2.0 Monocytes # 0.6 Eosinophils # 0.4 Basophils # 0.0 Nucleated Red Blood Cells # 0.0 Phosphorus Level 3.8 Magnesium Level 2.4 Test 05/02/17 05:24 05/02/17 09:36 Sodium Level 138 Potassium Level 5.6 H Chloride Level 99 Carbon Dioxide Level 28 Anion Gap 17 H Blood Urea Nitrogen 35 H Creatinine 3.55 H Glucose Level 65 #L Calcium Level 9.2 Bedside Glucose 185 Medications Medications Current Medications Ondansetron HCl (Zofran Inj) 4 mg Q6H PRN IV NAUSEA AND/OR VOMITING Last administered on 04/29/17t 20:54; Admin Dose 4 MG; Start 04/22/17 at 19:00 Acetaminophen (Tylenol Tab) 650 mg Q6H PRN PO PAIN LEVEL 1-3 OR FEVER; Start at 19:00 Acetaminophen/ Hydrocodone Bitart ([place] (5/325)) 1 tab Q6H PRN PO MODERATE PAIN LEVEL 4-6 Last administered on 05/01/17 12:04; Admin Dose 1 TAB; Start at 19:00 Morphine Sulfate (morphine) 2 mg Q4H PRN IV SEVERE PAIN LEVEL 7-10; Start 04/22 at 19:00 Midodrine (Proamatine) 10 mg TID PO Last administered on 05/02/17 08:55; Admin Dose 10 MG; Start 04/22/17 at 21:00 Tramadol HCl (Ultram) 50 mg Q6H PRN PO PAIN; Start 04/22/17 at 19:00 Miscellaneous Information 1 ea NOTE XX ; Start 04/22/17 at 19:00 Glucose (Glutose) 15 gm Q15M PRN PO DECREASED GLUCOSE; Start 04/22/17 at 19:00 Glucose (Glutose) 22.5 gm Q15M PRN PO DECREASED GLUCOSE Last administered on 08:48; Admin Dose 22.5 GM; Start 04/22/17 at 19:00 Dextrose (D50w Syringe) 25 ml Q15M PRN IV DECREASED GLUCOSE; Start 04/22/17 at 19:00 Dextrose (D50w Syringe) 50 ml Q15M PRN IV DECREASED GLUCOSE; Start 04/22/17 at 19:00 Glucagon (Glucagen) 1 mg Q15M PRN IM DECREASED GLUCOSE; Start 04/22/17 at 19:00 Glucose (Glutose) 15 gm Q15M PRN BUCCAL DECREASED GLUCOSE Last administered on 04/27/17 00:53; Admin Dose 15 GM; Start 04/22/17 at 19:00 Zolpidem Tartrate (Ambien) 5 mg QHS PRN PO SLEEP; Start 04/23/17 at 01:00 Linagliptin (Tradjenta) 5 mg DAILY PO Last administered on 05/02/17 08:58; Admin Dose 5 MG; Start 04/23/17 at 14:00 Collagenase (Santyl) 1 applic DAILY TOP Last administered on 05/01/17 08:16; Admin Dose 1 APPLIC; Start 04/24/17 at 15:05 Collagenase (Santyl) 1 applic PRN PRN TOP WOUND CARE; Start 04/24/17 at 15:30 Vancomycin HCl (Vancomycin Oral Syringe) 250 mg Q6 PO Last administered on 05/02 06:28; Admin Dose 250 MG; Start 04/26/17 at 00:00 Pantoprazole (Protonix Tab) 40 mg DAILY@06 PO Last administered on 05/02/17 06 :28; Admin Dose 40 MG; Start 04/27/17 at 06:00 Insulin Glargine (Lantus) 10 unit HS SC Last administered on 05/01/17 22:27; Admin Dose 10 UNIT; Start 04/27/17 at 21:00 Saccharomyces Boulardii (Florastor) 500 mg BID PO Last administered on 08:54; Admin Dose 500 MG; Start 05/01/17 at 11:30 Diphenoxylate HCl/ Atropine (Lomotil) 2 tab Q6H PRN PO DIARRHEA Last administered on 05/01/17 18:05; Admin Dose 2 TAB; Start 05/01/17 at 13:30 ABBEY ROBLES NP May 02, 2017 10:49
[2017-05-02] MEDS ORDERED: LOPERAMIDE 2 MG CAP PO ONE (11:00)
--- NOTE | 2017-05-02 13:08 | CONS ---
Date/Time of Note Date/Time of Note DATE: 05/02/17 TIME: 13:08 Assessment/Plan Assessment/Plan Chief Complaint/Hosp Course Impression: 1. Intractable diarrhea. Stool for C. diff negative. Status post esophagogastroduodenoscopy and colonoscopy on 04/28/2017. Pathology from gastric and colonic biopsy negative for any malignancy. 2. Gram-positive bacteremia. 3. End-stage renal disease on hemodialysis. Continue hemodialysis as per Nephrology. 4. Diabetes mellitus, unknown type. Continue sliding scale insulin along with Lantus insulin and premeal insulin. Hemoglobin A1c 7.0. 5. Normocytic normochromic anemia, most probably anemia of chronic kidney disease. We will monitor the H and H closely. PLAN: - Agree with adding probiotics. - I added lomotil today PRN diarrhea as all w/u so far negative. - ok from GI perspective if BM less than 4 daily and if ok with primary and other consultants. Problems: Consultation Date/Type/Reason Admit Date/Time Apr 22, 2017 at 17:33 Initial Consult Date 04/26/17 Type of Consultation: GI Referring Provider: MARGARET SLATER 24 HR Interval Summary Free Text/Dictation diarrhea improved. Exam/Review of Systems Vital Signs Vitals Vital Signs Date Time Temp Pulse Resp B/P Pulse Ox O2 Delivery O2 Flow Rate FiO2 05/02/17 11:36 98.2 53 19 89/53 96 04/28/17 19:17 Room Air Intake and Output 05/01/17 05/01/17 05/02/17 15:00 23:00 07:00 Intake Total 300 ml 400 ml 240 ml Output Total 1300 ml 500 ml Balance -1000 ml -100 ml 240 ml Exam Constitutional: alert, oriented, well developed Psych: nl mood/affect, no complaints Head: atraumatic, normocephalic Eyes: EOMI, nl conjunctiva, nl lids, nl sclera ENMT: mucosa pink and moist, nl external ears & nose, nl lips & teeth, nl nasal mucosa & septum Neck: non-tender, supple Respiratory: clear to auscultation, normal air movement Cardiovascular: nl pulses, regular rate and rhythm Gastrointestinal: non-tender, soft Results Result Diagram: 05/02/17 0520 05/02/17 0524 Results 24 hrs Laboratory Tests Test 05/01/17 18:04 05/01/17 20:28 05/02/17 05:20 05/02/17 05:24 Bedside Glucose 89 87 White Blood Count 7.3 # Red Blood Count 2.79 L Hemoglobin 8.6 L Hematocrit 27.0 L Mean Corpuscular Volume 96.8 Mean Corpuscular Hemoglobin 30.8 Mean Corpuscular Hemoglobin Concent 31.9 L Red Cell Distribution Width 13.1 Platelet Count 205 Mean Platelet Volume 9.5 Neutrophils % 58.7 Lymphocytes % 27.0 Monocytes % 7.7 Eosinophils % 6.1 Basophils % 0.4 Nucleated Red Blood Cells % 0.0 Neutrophils # 4.3 Lymphocytes # 2.0 Monocytes # 0.6 Eosinophils # 0.4 Basophils # 0.0 Nucleated Red Blood Cells # 0.0 Phosphorus Level 3.8 Magnesium Level 2.4 Sodium Level 138 Potassium Level 5.6 H Chloride Level 99 Carbon Dioxide Level 28 Anion Gap 17 H Blood Urea Nitrogen 35 H Creatinine 3.55 H Glucose Level 65 #L Calcium Level 9.2 Test 05/02/17 09:36 05/02/17 12:23 Bedside Glucose 185 137 Medications Medications Current Medications Ondansetron HCl (Zofran Inj) 4 mg Q6H PRN IV NAUSEA AND/OR VOMITING Last administered on 04/29/17 20:54; Admin Dose 4 MG; Start 04/22/17 at 19:00 Acetaminophen (Tylenol Tab) 650 mg Q6H PRN PO PAIN LEVEL 1-3 OR FEVER; Start at 19:00 Acetaminophen/ Hydrocodone Bitart ([place] (5/325)) 1 tab Q6H PRN PO MODERATE PAIN LEVEL 4-6 Last administered on 05/01/17 12:04; Admin Dose 1 TAB; Start at 19:00 Morphine Sulfate (morphine) 2 mg Q4H PRN IV SEVERE PAIN LEVEL 7-10; Start 04/22 at 19:00 Midodrine (Proamatine) 10 mg TID PO Last administered on 05/02/17 12:26; Admin Dose 10 MG; Start 04/22/17 at 21:00 Tramadol HCl (Ultram) 50 mg Q6H PRN PO PAIN; Start 04/22/17 at 19:00 Miscellaneous Information 1 ea NOTE XX ; Start 04/22/17 at 19:00 Glucose (Glutose) 15 gm Q15M PRN PO DECREASED GLUCOSE; Start 04/22/17 at 19:00 Glucose (Glutose) 22.5 gm Q15M PRN PO DECREASED GLUCOSE Last administered on 08:48; Admin Dose 22.5 GM; Start 04/22/17 at 19:00 Dextrose (D50w Syringe) 25 ml Q15M PRN IV DECREASED GLUCOSE; Start 04/22/17 at 19:00 Dextrose (D50w Syringe) 50 ml Q15M PRN IV DECREASED GLUCOSE; Start 04/22/17 at 19:00 Glucagon (Glucagen) 1 mg Q15M PRN IM DECREASED GLUCOSE; Start 04/22/17 at 19:00 Glucose (Glutose) 15 gm Q15M PRN BUCCAL DECREASED GLUCOSE Last administered on 04/27/17 00:53; Admin Dose 15 GM; Start 04/22/17 at 19:00 Zolpidem Tartrate (Ambien) 5 mg QHS PRN PO SLEEP; Start 04/23/17 at 01:00 Linagliptin (Tradjenta) 5 mg DAILY PO Last administered on 05/02/17 08:58; Admin Dose 5 MG; Start 04/23/17 at 14:00 Collagenase (Santyl) 1 applic DAILY TOP Last administered on 05/01/17 08:16; Admin Dose 1 APPLIC; Start 04/24/17 at 15:05 Collagenase (Santyl) 1 applic PRN PRN TOP WOUND CARE; Start 04/24/17 at 15:30 Vancomycin HCl (Vancomycin Oral Syringe) 250 mg Q6 PO Last administered on 05/02 12:31; Admin Dose 250 MG; Start 04/26/17 at 00:00 Pantoprazole (Protonix Tab) 40 mg DAILY@06 PO Last administered on 05/02/17 06 :28; Admin Dose 40 MG; Start 04/27/17 at 06:00 Insulin Glargine (Lantus) 10 unit HS SC Last administered on 05/01/17 22:27; Admin Dose 10 UNIT; Start 04/27/17 at 21:00 Saccharomyces Boulardii (Florastor) 500 mg BID PO Last administered on 08:54; Admin Dose 500 MG; Start 05/01/17 at 11:30 Diphenoxylate HCl/ Atropine (Lomotil) 2 tab Q6H PRN PO DIARRHEA Last administered on 05/01/17t 18:05; Admin Dose 2 TAB; Start 05/01/17 at 13:30 AFSHAN HAMILTON MD May 02, 2017 13:08
--- NOTE | 2017-05-02 14:17 | CONS ---
Date/Time of Note Date/Time of Note DATE: 05/02/17 TIME: 14:16 Assessment/Plan Assessment/Plan Chief Complaint/Hosp Course 1. Malnutrition. 2. End-stage renal disease. 3. Hypertension, controlled 4. Diabetes mellitus, controlled. 5. Orthostatic hypotension. 6. History of autonomic insufficiency. 7. History of Clostridium difficile colitis. 8. History of sepsis. 9. History of catheter placement. 10. History of chronic diarrhea. 11. History of septic shock. 12. Osteopenia 12. S/p right hip surgery Problems: Additional Assessment/Plan 1. Continue HD Consultation Date/Type/Reason Admit Date/Time Apr 22, 2017 at 17:33 Initial Consult Date Type of Consultation: nephrology Reason for Consultation Dr Crowley Referring Provider: MARGARET SLATER Exam/Review of Systems Vital Signs Vitals Vital Signs Date Time Temp Pulse Resp B/P Pulse Ox O2 Delivery O2 Flow Rate FiO2 05/02/17 11:36 98.2 53 19 89/53 96 04/28/17 19:17 Room Air Intake and Output 05/01/17 05/01/17 05/02/17 15:00 23:00 07:00 Intake Total 300 ml 400 ml 240 ml Output Total 1300 ml 500 ml Balance -1000 ml -100 ml 240 ml Exam Constitutional: alert, oriented Respiratory: clear to auscultation Cardiovascular: regular rate and rhythm Gastrointestinal: soft Results Result Diagram: 05/02/17 0520 05/02/17 0524 Results 24 hrs Laboratory Tests Test 05/01/17 18:04 05/01/17 20:28 05/02/17 05:20 05/02/17 05:24 Bedside Glucose 89 87 White Blood Count 7.3 # Red Blood Count 2.79 L Hemoglobin 8.6 L Hematocrit 27.0 L Mean Corpuscular Volume 96.8 Mean Corpuscular Hemoglobin 30.8 Mean Corpuscular Hemoglobin Concent 31.9 L Red Cell Distribution Width 13.1 Platelet Count 205 Mean Platelet Volume 9.5 Neutrophils % 58.7 Lymphocytes % 27.0 Monocytes % 7.7 Eosinophils % 6.1 Basophils % 0.4 Nucleated Red Blood Cells % 0.0 Neutrophils # 4.3 Lymphocytes # 2.0 Monocytes # 0.6 Eosinophils # 0.4 Basophils # 0.0 Nucleated Red Blood Cells # 0.0 Phosphorus Level 3.8 Magnesium Level 2.4 Sodium Level 138 Potassium Level 5.6 H Chloride Level 99 Carbon Dioxide Level 28 Anion Gap 17 H Blood Urea Nitrogen 35 H Creatinine 3.55 H Glucose Level 65 #L Calcium Level 9.2 Test 05/02/17 09:36 05/02/17 12:23 Bedside Glucose 185 137 Medications Medications Current Medications Ondansetron HCl (Zofran Inj) 4 mg Q6H PRN IV NAUSEA AND/OR VOMITING Last administered on 04/29/17 20:54; Admin Dose 4 MG; Start 04/22/17 at 19:00 Acetaminophen (Tylenol Tab) 650 mg Q6H PRN PO PAIN LEVEL 1-3 OR FEVER; Start at 19:00 Acetaminophen/ Hydrocodone Bitart ([place] (5/325)) 1 tab Q6H PRN PO MODERATE PAIN LEVEL 4-6 Last administered on 05/01/17 12:04; Admin Dose 1 TAB; Start at 19:00 Morphine Sulfate (morphine) 2 mg Q4H PRN IV SEVERE PAIN LEVEL 7-10; Start 04/22 at 19:00 Midodrine (Proamatine) 10 mg TID PO Last administered on 05/02/17 12:26; Admin Dose 10 MG; Start 04/22/17 at 21:00 Tramadol HCl (Ultram) 50 mg Q6H PRN PO PAIN; Start 04/22/17 at 19:00 Miscellaneous Information 1 ea NOTE XX ; Start 04/22/17 at 19:00 Glucose (Glutose) 15 gm Q15M PRN PO DECREASED GLUCOSE; Start 04/22/17 at 19:00 Glucose (Glutose) 22.5 gm Q15M PRN PO DECREASED GLUCOSE Last administered on 08:48; Admin Dose 22.5 GM; Start 04/22/17 at 19:00 Dextrose (D50w Syringe) 25 ml Q15M PRN IV DECREASED GLUCOSE; Start 04/22/17 at 19:00 Dextrose (D50w Syringe) 50 ml Q15M PRN IV DECREASED GLUCOSE; Start 04/22/17 at 19:00 Glucagon (Glucagen) 1 mg Q15M PRN IM DECREASED GLUCOSE; Start 04/22/17 at 19:00 Glucose (Glutose) 15 gm Q15M PRN BUCCAL DECREASED GLUCOSE Last administered on 04/27/17 00:53; Admin Dose 15 GM; Start 04/22/17 at 19:00 Zolpidem Tartrate (Ambien) 5 mg QHS PRN PO SLEEP; Start 04/23/17 at 01:00 Linagliptin (Tradjenta) 5 mg DAILY PO Last administered on 05/02/17 08:58; Admin Dose 5 MG; Start 04/23/17 at 14:00 Collagenase (Santyl) 1 applic DAILY TOP Last administered on 05/01/17 08:16; Admin Dose 1 APPLIC; Start 04/24/17 at 15:05 Collagenase (Santyl) 1 applic PRN PRN TOP WOUND CARE; Start 04/24/17 at 15:30 Vancomycin HCl (Vancomycin Oral Syringe) 250 mg Q6 PO Last administered on 05/02 12:31; Admin Dose 250 MG; Start 04/26/17 at 00:00 Pantoprazole (Protonix Tab) 40 mg DAILY@06 PO Last administered on 05/02/17 06 :28; Admin Dose 40 MG; Start 04/27/17 at 06:00 Insulin Glargine (Lantus) 10 unit HS SC Last administered on 05/01/17 22:27; Admin Dose 10 UNIT; Start 04/27/17 at 21:00 Saccharomyces Boulardii (Florastor) 500 mg BID PO Last administered on 08:54; Admin Dose 500 MG; Start 05/01/17 at 11:30 Diphenoxylate HCl/ Atropine (Lomotil) 2 tab Q6H PRN PO DIARRHEA Last administered on 05/01/17 18:05; Admin Dose 2 TAB; Start 05/01/17 at 13:30 XAVIER ARMOS May 02, 2017 14:17
[2017-05-02] MEDS: COLLAGENASE 30 GM TUBE TOP SCH (15:05)
--- NOTE | 2017-05-02 16:03 | CONS ---
Date/Time of Note Date/Time of Note DATE: 05/02/17 TIME: 16:02 Assessment/Plan Assessment/Plan Chief Complaint/Hosp Course SUBJECTIVE: No events overnight. The patient is alert, looks comfortable, diarrhea improved. ANTIMICROBIALS: Oral vancomycin. INDWELLINGS: Left upper extremity AV fistula. PHYSICAL EXAMINATION: GENERAL: Chronically ill-appearing, middle-aged man who is in no distress. HEENT: Head atraumatic, normocephalic. Sclerae anicteric. Buccal mucosa dry. NECK: Supple. CHEST: Rise symmetrical. Breath sounds clear. HEART: S1, S2. ABDOMEN: Soft. Bowel tones present. ASSESSMENT: 1. Persistent diarrhea with history of Clostridium difficile colitis, remains on oral vancomycin==> s/p EGD/colonoscopy. 2. Coagulase-negative staph bacteremia with repeat blood cultures being negative. 3. End-stage renal disease, hemodialysis dependent. 4. Left upper extremity arteriovenous fistula. 5. Diabetes with left diabetic foot ulceration. PLAN: The patient remains stable. Continue oral vancomycin. Follow gastroenterology recommendations staff Problems: Consultation Date/Type/Reason Admit Date/Time Apr 22, 2017 at 17:33 Type of Consultation: Infectious disease Referring Provider: MARGARET SLATER Exam/Review of Systems Vital Signs Vitals Vital Signs Date Time Temp Pulse Resp B/P Pulse Ox O2 Delivery O2 Flow Rate FiO2 05/02/17 15:27 98.3 89 19 108/70 98 04/28/17 19:17 Room Air Intake and Output 05/01/17 05/01/17 05/02/17 15:00 23:00 07:00 Intake Total 300 ml 400 ml 240 ml Output Total 1300 ml 500 ml Balance -1000 ml -100 ml 240 ml Results Result Diagram: 05/02/17 0520 05/02/17 1435 Results 24 hrs Laboratory Tests Test 05/01/17 18:04 05/01/17 20:28 05/02/17 05:20 05/02/17 05:24 Bedside Glucose 89 87 White Blood Count 7.3 # Red Blood Count 2.79 L Hemoglobin 8.6 L Hematocrit 27.0 L Mean Corpuscular Volume 96.8 Mean Corpuscular Hemoglobin 30.8 Mean Corpuscular Hemoglobin Concent 31.9 L Red Cell Distribution Width 13.1 Platelet Count 205 Mean Platelet Volume 9.5 Neutrophils % 58.7 Lymphocytes % 27.0 Monocytes % 7.7 Eosinophils % 6.1 Basophils % 0.4 Nucleated Red Blood Cells % 0.0 Neutrophils # 4.3 Lymphocytes # 2.0 Monocytes # 0.6 Eosinophils # 0.4 Basophils # 0.0 Nucleated Red Blood Cells # 0.0 Phosphorus Level 3.8 Magnesium Level 2.4 Sodium Level 138 Potassium Level 5.6 H Chloride Level 99 Carbon Dioxide Level 28 Anion Gap 17 H Blood Urea Nitrogen 35 H Creatinine 3.55 H Glucose Level 65 #L Calcium Level 9.2 Test 05/02/17 09:36 05/02/17 12:23 05/02/17 14:35 Bedside Glucose 185 137 Potassium Level 6.0 H Medications Medications Current Medications Ondansetron HCl (Zofran Inj) 4 mg Q6H PRN IV NAUSEA AND/OR VOMITING Last administered on 04/29/17 20:54; Admin Dose 4 MG; Start 04/22/17 at 19:00 Acetaminophen (Tylenol Tab) 650 mg Q6H PRN PO PAIN LEVEL 1-3 OR FEVER; Start at 19:00 Acetaminophen/ Hydrocodone Bitart ([place] (5/325)) 1 tab Q6H PRN PO MODERATE PAIN LEVEL 4-6 Last administered on 05/01/17 12:04; Admin Dose 1 TAB; Start at 19:00 Morphine Sulfate (morphine) 2 mg Q4H PRN IV SEVERE PAIN LEVEL 7-10; Start 04/22 at 19:00 Midodrine (Proamatine) 10 mg TID PO Last administered on 05/02/17 12:26; Admin Dose 10 MG; Start 04/22/17 at 21:00 Tramadol HCl (Ultram) 50 mg Q6H PRN PO PAIN; Start 04/22/17 at 19:00 Miscellaneous Information 1 ea NOTE XX ; Start 04/22/17 at 19:00 Glucose (Glutose) 15 gm Q15M PRN PO DECREASED GLUCOSE; Start 04/22/17 at 19:00 Glucose (Glutose) 22.5 gm Q15M PRN PO DECREASED GLUCOSE Last administered on 08:48; Admin Dose 22.5 GM; Start 04/22/17 at 19:00 Dextrose (D50w Syringe) 25 ml Q15M PRN IV DECREASED GLUCOSE; Start 04/22/17 at 19:00 Dextrose (D50w Syringe) 50 ml Q15M PRN IV DECREASED GLUCOSE; Start 04/22/17 at 19:00 Glucagon (Glucagen) 1 mg Q15M PRN IM DECREASED GLUCOSE; Start 04/22/17 at 19:00 Glucose (Glutose) 15 gm Q15M PRN BUCCAL DECREASED GLUCOSE Last administered on 04/27/17 00:53; Admin Dose 15 GM; Start 04/22/17 at 19:00 Zolpidem Tartrate (Ambien) 5 mg QHS PRN PO SLEEP; Start 04/23/17 at 01:00 Linagliptin (Tradjenta) 5 mg DAILY PO Last administered on 05/02/17 08:58; Admin Dose 5 MG; Start 04/23/17 at 14:00 Collagenase (Santyl) 1 applic DAILY TOP Last administered on 05/02/17 15:05; Admin Dose 1 APPLIC; Start 04/24/17 at 15:05 Collagenase (Santyl) 1 applic PRN PRN TOP WOUND CARE; Start 04/24/17 at 15:30 Vancomycin HCl (Vancomycin Oral Syringe) 250 mg Q6 PO Last administered on 05/02 12:31; Admin Dose 250 MG; Start 04/26/17 at 00:00 Pantoprazole (Protonix Tab) 40 mg DAILY@06 PO Last administered on 05/02/17 06 :28; Admin Dose 40 MG; Start 04/27/17 at 06:00 Insulin Glargine (Lantus) 10 unit HS SC Last administered on 05/01/17 22:27; Admin Dose 10 UNIT; Start 04/27/17 at 21:00 Saccharomyces Boulardii (Florastor) 500 mg BID PO Last administered on 08:54; Admin Dose 500 MG; Start 05/01/17 at 11:30 Diphenoxylate HCl/ Atropine (Lomotil) 2 tab Q6H PRN PO DIARRHEA Last administered on 05/01/17 18:05; Admin Dose 2 TAB; Start 05/01/17 at 13:30 ENMANUEL NOVAK NP May 02, 2017 16:03
[2017-05-02] MEDS ORDERED: NA POLYST SULFON 15 GM/60 ML BTL PO ONE (16:30)
[2017-05-02] MEDS: HYDROCODONE/APAP (5/325) TAB PO PRN (20:12)
[2017-05-02] MEDS: INSULIN GLARGINE [LANtus] 3 ML PEN SC SCH (20:37)
[2017-05-03] VITALS (9 sets, daily range): BP systolic 85–108; BP diastolic 45–68; PULSE 85–90; RESP 18
[2017-05-03] MEDS: VANCOMYCIN HCL 250 MG/5ML POSYG PO SCH ×4 (00:15→17:48)
[2017-05-03] MEDS: PANTOPRAZOLE (EC) 40 MG TAB PO SCH (05:50)
[2017-05-03 07:05] LABS: BASOPHILS % 0.4 % (0.0-2.0); EOSINOPHILS # 0.4 10^3/ul (0.0-0.5); EOSINOPHILS % 5.3 % (0.0-7.0); HEMATOCRIT 26.7 % (42.0-52.0); HEMOGLOBIN 8.3 g/dl (14.0-18.0); LYMPHOCYTES # 1.6 10^3/ul (0.8-2.9); LYMPHOCYTES % 22.2 % (15.0-51.0); MEAN CORPUSCULAR HEMOGLOBIN 30.3 pg (29.0-33.0); MEAN CORPUSCULAR HGB CONC 31.1 g/dl (32.0-37.0); MEAN CORPUSCULAR VOLUME 97.4 fl (82.0-101.0); MEAN PLATELET VOLUME 9.6 fl (7.4-10.4); MONOCYTE # 0.5 10^3/ul (0.3-0.9); MONOCYTES % 7.1 % (0.0-11.0); NEUTROPHIL # 4.7 10^3/ul (1.6-7.5); NEUTROPHILS % 64.7 % (39.0-77.0); PLATELET COUNT 231 10^3/UL (140-415); RED BLOOD COUNT 2.74 10^6/ul (4.70-6.10); RED CELL DISTRIBUTION WIDTH 12.9 % (11.5-14.5); WHITE BLOOD COUNT 7.2 10^3/ul (4.8-10.8)
[2017-05-03 07:25] LABS: MAGNESIUM 2.4 mg/dl (1.7-2.5); PHOSPHORUS 4.6 mg/dl (2.5-4.9)
[2017-05-03] MEDS: INSULIN ASPART [NOVOLOG] 3 ML PEN SC SCH ×7 (08:08→20:54)
[2017-05-03] MEDS: CREON (12k-38k-60k) 1 CAP PO SCH ×3 (08:15→17:46)
[2017-05-03] MEDS: CALCIUM ACETATE 667 MG CAP PO SCH ×3 (08:15→17:46)
[2017-05-03] MEDS: SACCHAROMYCES BOULARDII 250 MG CAP PO SCH ×3 (09:00→20:51)
[2017-05-03] MEDS: LINAGLIPTIN 5 MG TABLET PO SCH ×2 (09:00→12:11)
[2017-05-03] MEDS: MIDODRINE 5 MG TAB PO SCH ×3 (09:00→20:51)
[2017-05-03 09:20] LABS: CALCIUM 9.3 mg/dl (8.4-10.2); CREATININE 5.57 mg/dl (0.61-1.24)
[2017-05-03] MEDS: COLLAGENASE 30 GM TUBE TOP SCH (09:28)
[2017-05-03 09:59] LABS: POTASSIUM 6.7 mmol/L (3.5-5.1)
[2017-05-03] MEDS: HYDROCODONE/APAP (5/325) TAB PO PRN (12:10)
--- NOTE | 2017-05-03 14:02 | CONS ---
Date/Time of Note Date/Time of Note DATE: 05/03/17 TIME: 14:01 Assessment/Plan Assessment/Plan Chief Complaint/Hosp Course 1. Malnutrition. 2. End-stage renal disease. 3. Hypertension, controlled 4. Diabetes mellitus, controlled. 5. Orthostatic hypotension. 6. History of autonomic insufficiency. 7. History of Clostridium difficile colitis. 8. History of sepsis. 9. History of catheter placement. 10. History of chronic diarrhea. 11. History of septic shock. 12. Osteopenia 12. S/p right hip surgery Problems: Additional Assessment/Plan 1. Continue HD 2. Hyperkalemia treatment Consultation Date/Type/Reason Admit Date/Time Apr 22, 2017 at 17:33 Initial Consult Date Type of Consultation: Nephrology Reason for Consultation Dr Crowley Referring Provider: MARGARET SLATER Exam/Review of Systems Vital Signs Vitals Vital Signs Date Time Temp Pulse Resp B/P Pulse Ox O2 Delivery O2 Flow Rate FiO2 05/03/17 11:00 89 20 05/03/17 07:28 98.6 96/56 98 Intake and Output 05/02/17 05/02/17 05/03/17 15:00 23:00 07:00 Intake Total 840 ml 200 ml Balance 840 ml 200 ml Exam Constitutional: alert, oriented Neck: supple Respiratory: clear to auscultation Cardiovascular: regular rate and rhythm Gastrointestinal: soft Results Result Diagram: 05/03/17 0540 05/03/17 0540 Results 24 hrs Laboratory Tests Test 05/02/17 14:35 05/02/17 17:29 05/02/17 20:04 05/03/17 02:06 Potassium Level 6.0 H Bedside Glucose 95 198 117 Test 05/03/17 05:40 05/03/17 07:53 05/03/17 11:48 White Blood Count 7.2 Red Blood Count 2.74 L Hemoglobin 8.3 L Hematocrit 26.7 L Mean Corpuscular Volume 97.4 Mean Corpuscular Hemoglobin 30.3 Mean Corpuscular Hemoglobin Concent 31.1 L Red Cell Distribution Width 12.9 Platelet Count 231 Mean Platelet Volume 9.6 Neutrophils % 64.7 Lymphocytes % 22.2 Monocytes % 7.1 Eosinophils % 5.3 Basophils % 0.4 Nucleated Red Blood Cells % 0.0 Neutrophils # 4.7 Lymphocytes # 1.6 Monocytes # 0.5 Eosinophils # 0.4 Basophils # 0.0 Nucleated Red Blood Cells # 0.0 Sodium Level 134 L Potassium Level 6.7 *H Chloride Level 98 Carbon Dioxide Level 26 Anion Gap 17 H Blood Urea Nitrogen 65 #H Creatinine 5.57 #H Glucose Level 65 L Calcium Level 9.3 Phosphorus Level 4.6 Magnesium Level 2.4 Bedside Glucose 77 94 Medications Medications Current Medications Ondansetron HCl (Zofran Inj) 4 mg Q6H PRN IV NAUSEA AND/OR VOMITING Last administered on 04/29/17 20:54; Admin Dose 4 MG; Start 04/22/17 at 19:00 Acetaminophen (Tylenol Tab) 650 mg Q6H PRN PO PAIN LEVEL 1-3 OR FEVER; Start at 19:00 Acetaminophen/ Hydrocodone Bitart ([place] (5/325)) 1 tab Q6H PRN PO MODERATE PAIN LEVEL 4-6 Last administered on 05/03/17 12:10; Admin Dose 1 TAB; Start at 19:00 Morphine Sulfate (morphine) 2 mg Q4H PRN IV SEVERE PAIN LEVEL 7-10; Start 04/22 at 19:00 Midodrine (Proamatine) 10 mg TID PO Last administered on 05/03/17 12:06; Admin Dose 10 MG; Start 04/22/17 at 21:00 Tramadol HCl (Ultram) 50 mg Q6H PRN PO PAIN; Start 04/22/17 at 19:00 Miscellaneous Information 1 ea NOTE XX ; Start 04/22/17 at 19:00 Glucose (Glutose) 15 gm Q15M PRN PO DECREASED GLUCOSE; Start 04/22/17 at 19:00 Glucose (Glutose) 22.5 gm Q15M PRN PO DECREASED GLUCOSE Last administered on 08:48; Admin Dose 22.5 GM; Start 04/22/17 at 19:00 Dextrose (D50w Syringe) 25 ml Q15M PRN IV DECREASED GLUCOSE; Start 04/22/17 at 19:00 Dextrose (D50w Syringe) 50 ml Q15M PRN IV DECREASED GLUCOSE; Start 04/22/17 at 19:00 Glucagon (Glucagen) 1 mg Q15M PRN IM DECREASED GLUCOSE; Start 04/22/17 at 19:00 Glucose (Glutose) 15 gm Q15M PRN BUCCAL DECREASED GLUCOSE Last administered on 04/27/17 00:53; Admin Dose 15 GM; Start 04/22/17 at 19:00 Zolpidem Tartrate (Ambien) 5 mg QHS PRN PO SLEEP; Start 04/23/17 at 01:00 Linagliptin (Tradjenta) 5 mg DAILY PO Last administered on 05/03/17 12:11; Admin Dose 5 MG; Start 04/23/17 at 14:00 Collagenase (Santyl) 1 applic DAILY TOP Last administered on 05/03/17 09:28; Admin Dose 1 APPLIC; Start 04/24/17 at 15:05 Collagenase (Santyl) 1 applic PRN PRN TOP WOUND CARE; Start 04/24/17 at 15:30 Vancomycin HCl (Vancomycin Oral Syringe) 250 mg Q6 PO Last administered on 13:42; Admin Dose 250 MG; Start 04/26/17 at 00:00 Pantoprazole (Protonix Tab) 40 mg DAILY@06 PO Last administered on 05/03/17 05: 50; Admin Dose 40 MG; Start 04/27/17 at 06:00 Insulin Glargine (Lantus) 10 unit HS SC Last administered on 05/02/17 20:37; Admin Dose 10 UNIT; Start 04/27/17 at 21:00 Saccharomyces Boulardii (Florastor) 500 mg BID PO Last administered on 12:10; Admin Dose 500 MG; Start 05/01/17 at 11:30 Diphenoxylate HCl/ Atropine (Lomotil) 2 tab Q6H PRN PO DIARRHEA Last administered on 05/01/17 18:05; Admin Dose 2 TAB; Start 05/01/17 at 13:30 XAVIER RAMOS May 03, 2017 14:02
--- NOTE | 2017-05-03 14:07 | PN ---
Date/Time of Note Date/Time of Note DATE: 05/03/17 TIME: 14:06 Assessment/Plan VTE Prophylaxis VTE Prophylaxis Intervention: SCD's Lines/Catheters IV C[facility] Type (from [facility] Peripheral IV Urinary Cath still in place: No Assessment/Plan Chief Complaint/Hosp Course 1. Intractable diarrhea. Stool for C. diff negative. Status post esophagogastroduodenoscopy and colonoscopy on 04/28/2017. Results are pending [ note not dictated]. Being followed by infectious diseases and gastroenterology. Pathology from gastric and colonic biopsy negative for any malignancy. 2. Gram-positive bacteremia. On antibiotics as per Infectious Disease. Possibly contaminant as per Infectious Disease. Repeat blood cultures x2 were negative. 3. End-stage renal disease on hemodialysis. Continue hemodialysis as per Nephrology. 4. Decubitus ulcers. Continue local wound care. 5. Deconditioning. Status post physical therapy evaluation. Continue physical therapy. 7. Diabetes mellitus, unknown type. Continue sliding scale insulin along with Lantus insulin and premeal insulin. Hemoglobin A1c 7.0. 8. Normocytic normochromic anemia, most probably anemia of chronic kidney disease. We will monitor the H and H closely. 9. Hyperkalemia. Management as per nephrology. 10. Severe protein calorie malnutrition. Continue dietary supplements. 11. Fluid, electrolytes, and nutrition. Carbohydrate controlled diet. 12. DVT prophylaxis. Bilateral sequential compression devices. 13. Gastrointestinal prophylaxis. Proton pump inhibitors. PLAN: Continue probiotics. Continue inpatient monitoring. Continue antibiotics as per Infectious Disease. Await clearance from consultants before discharge to home with home health. Case discussed with Dr. White. Problems: Subjective 24 Hr Interval Summary Free Text/Dictation The patient continues to have diarrhea. Exam/Review of Systems Vital Signs Vitals Vital Signs Date Time Temp Pulse Resp B/P Pulse Ox O2 Delivery O2 Flow Rate FiO2 05/03/17 11:00 89 20 05/03/17 07:28 98.6 96/56 98 Intake and Output 05/02/17 05/02/17 05/03/17 15:00 23:00 07:00 Intake Total 840 ml 200 ml Balance 840 ml 200 ml Exam GENERAL: This is a thin, frail-looking male lying in bed in no apparent distress. HEENT: Head normocephalic and atraumatic. Eyes: Anicteric sclerae. Conjunctivae clear. ENT: Nasal septum is midline. Oral mucosa is dry. NECK: Supple. No JVD noticed. RESPIRATORY: Bilaterally clear to auscultation. No adventitious breath sounds heard. No use of accessory muscles of respiration. CARDIAC: Regular rate and rhythm. S1 and S2 heard. ABDOMEN: Soft, nontender, and nondistended. Bowel sounds positive in all 4 quadrants. GENITOURINARY: Deferred. EXTREMITIES: No cyanosis, no clubbing, no edema. Peripheral pulses are palpable. Severe muscle wasting of B/L lower extremities. Left heel pressure ulcer. NEUROLOGIC: The patient is awake, alert, and oriented. Cranial nerves are grossly intact. Results Result Diagram: 05/03/17 0540 05/03/17 0540 Results 24 hrs Laboratory Tests Test 05/02/17 14:35 05/02/17 17:29 05/02/17 20:04 05/03/17 02:06 Potassium Level 6.0 H Bedside Glucose 95 198 117 Test 05/03/17 05:40 05/03/17 07:53 05/03/17 11:48 White Blood Count 7.2 Red Blood Count 2.74 L Hemoglobin 8.3 L Hematocrit 26.7 L Mean Corpuscular Volume 97.4 Mean Corpuscular Hemoglobin 30.3 Mean Corpuscular Hemoglobin Concent 31.1 L Red Cell Distribution Width 12.9 Platelet Count 231 Mean Platelet Volume 9.6 Neutrophils % 64.7 Lymphocytes % 22.2 Monocytes % 7.1 Eosinophils % 5.3 Basophils % 0.4 Nucleated Red Blood Cells % 0.0 Neutrophils # 4.7 Lymphocytes # 1.6 Monocytes # 0.5 Eosinophils # 0.4 Basophils # 0.0 Nucleated Red Blood Cells # 0.0 Sodium Level 134 L Potassium Level 6.7 *H Chloride Level 98 Carbon Dioxide Level 26 Anion Gap 17 H Blood Urea Nitrogen 65 #H Creatinine 5.57 #H Glucose Level 65 L Calcium Level 9.3 Phosphorus Level 4.6 Magnesium Level 2.4 Bedside Glucose 77 94 Medications Medications Current Medications Ondansetron HCl (Zofran Inj) 4 mg Q6H PRN IV NAUSEA AND/OR VOMITING Last administered on 04/29/17t 20:54; Admin Dose 4 MG; Start 04/22/17 at 19:00 Acetaminophen (Tylenol Tab) 650 mg Q6H PRN PO PAIN LEVEL 1-3 OR FEVER; Start at 19:00 Acetaminophen/ Hydrocodone Bitart ([place] (5/325)) 1 tab Q6H PRN PO MODERATE PAIN LEVEL 4-6 Last administered on 05/03/17 12:10; Admin Dose 1 TAB; Start at 19:00 Morphine Sulfate (morphine) 2 mg Q4H PRN IV SEVERE PAIN LEVEL 7-10; Start 04/22 at 19:00 Midodrine (Proamatine) 10 mg TID PO Last administered on 05/03/17 12:06; Admin Dose 10 MG; Start 04/22/17 at 21:00 Tramadol HCl (Ultram) 50 mg Q6H PRN PO PAIN; Start 04/22/17 at 19:00 Miscellaneous Information 1 ea NOTE XX ; Start 04/22/17 at 19:00 Glucose (Glutose) 15 gm Q15M PRN PO DECREASED GLUCOSE; Start 04/22/17 at 19:00 Glucose (Glutose) 22.5 gm Q15M PRN PO DECREASED GLUCOSE Last administered on 08:48; Admin Dose 22.5 GM; Start 04/22/17 at 19:00 Dextrose (D50w Syringe) 25 ml Q15M PRN IV DECREASED GLUCOSE; Start 04/22/17 at 19:00 Dextrose (D50w Syringe) 50 ml Q15M PRN IV DECREASED GLUCOSE; Start 04/22/17 at 19:00 Glucagon (Glucagen) 1 mg Q15M PRN IM DECREASED GLUCOSE; Start 04/22/17 at 19:00 Glucose (Glutose) 15 gm Q15M PRN BUCCAL DECREASED GLUCOSE Last administered on 04/27/17 00:53; Admin Dose 15 GM; Start 04/22/17 at 19:00 Zolpidem Tartrate (Ambien) 5 mg QHS PRN PO SLEEP; Start 04/23/17 at 01:00 Linagliptin (Tradjenta) 5 mg DAILY PO Last administered on 05/03/17 12:11; Admin Dose 5 MG; Start 04/23/17 at 14:00 Collagenase (Santyl) 1 applic DAILY TOP Last administered on 05/03/17 09:28; Admin Dose 1 APPLIC; Start 04/24/17 at 15:05 Collagenase (Santyl) 1 applic PRN PRN TOP WOUND CARE; Start 04/24/17 at 15:30 Vancomycin HCl (Vancomycin Oral Syringe) 250 mg Q6 PO Last administered on 13:42; Admin Dose 250 MG; Start 04/26/17 at 00:00 Pantoprazole (Protonix Tab) 40 mg DAILY@06 PO Last administered on 05/03/17 05: 50; Admin Dose 40 MG; Start 04/27/17 at 06:00 Insulin Glargine (Lantus) 10 unit HS SC Last administered on 05/02/17 20:37; Admin Dose 10 UNIT; Start 04/27/17 at 21:00 Saccharomyces Boulardii (Florastor) 500 mg BID PO Last administered on 12:10; Admin Dose 500 MG; Start 05/01/17 at 11:30 Diphenoxylate HCl/ Atropine (Lomotil) 2 tab Q6H PRN PO DIARRHEA Last administered on 05/01/17 18:05; Admin Dose 2 TAB; Start 05/01/17 at 13:30 ABBEY ROBLES NP May 03, 2017 14:07
[2017-05-03] MEDS ORDERED: NA POLYST SULFON 15 GM/60 ML BTL PO ONE ×2 (14:30→15:30)
--- NOTE | 2017-05-03 14:31 | CONS ---
Date/Time of Note Date/Time of Note DATE: 05/03/17 TIME: 14:28 Assessment/Plan Assessment/Plan Chief Complaint/Hosp Course ID PROGRESS NOTE CURRENT ABX: Vanco LIQ PO s/p Vanco IV * SUBJECTIVE:Awake, cachectic, no fevers, no complaints, - no questions PHYSICAL EXAMINATION: GENERAL: This is a cachectic well-developed, middle-aged man who is awake, in no distress. HEENT: Head atraumatic, normocephalic. Sclerae anicteric. Buccal mucosa dry. NECK: Supple. CHEST: Rise symmetrical. Breath sounds clear. HEART: S1, S2. ABDOMEN: Soft, bowel tones present. EXTREMITIES: Without cyanosis. The patient has a left lower extremity decubiti. ID ASSESSMENT: 1. Profuse diarrhea = GI on case. Etiology ?IBS * Hx of Clostridium difficile colitis, cx (-) this admission 2. Coagulase-negative Staphylococcus bacteremia => consistent w/contaminant 3. Diabetes. 4. Diabetic foot ulceration - s/p Vanco IV 5. Severe deconditioning. ID PLAN: Continue ABX: PO Vanco -- Further recs GI / Problems: Consultation Date/Type/Reason Admit Date/Time Apr 22, 2017 at 17:33 Initial Consult Date 04/26/17 Type of Consultation: ID Referring Provider: MARGARET SLATER Exam/Review of Systems Vital Signs Vitals Vital Signs Date Time Temp Pulse Resp B/P Pulse Ox O2 Delivery O2 Flow Rate FiO2 05/03/17 11:00 89 20 05/03/17 07:28 98.6 96/56 98 Intake and Output 05/02/17 05/02/17 05/03/17 15:00 23:00 07:00 Intake Total 840 ml 200 ml Balance 840 ml 200 ml Results Result Diagram: 05/03/17 0540 05/03/17 1332 Results 24 hrs Laboratory Tests Test 05/02/17 14:35 05/02/17 17:29 05/02/17 20:04 05/03/17 02:06 Potassium Level 6.0 H Bedside Glucose 95 198 117 Test 05/03/17 05:40 05/03/17 07:53 05/03/17 11:48 05/03/17 13:32 White Blood Count 7.2 Red Blood Count 2.74 L Hemoglobin 8.3 L Hematocrit 26.7 L Mean Corpuscular Volume 97.4 Mean Corpuscular Hemoglobin 30.3 Mean Corpuscular Hemoglobin Concent 31.1 L Red Cell Distribution Width 12.9 Platelet Count 231 Mean Platelet Volume 9.6 Neutrophils % 64.7 Lymphocytes % 22.2 Monocytes % 7.1 Eosinophils % 5.3 Basophils % 0.4 Nucleated Red Blood Cells % 0.0 Neutrophils # 4.7 Lymphocytes # 1.6 Monocytes # 0.5 Eosinophils # 0.4 Basophils # 0.0 Nucleated Red Blood Cells # 0.0 Sodium Level 134 L Potassium Level 6.7 *H 5.5 H Chloride Level 98 Carbon Dioxide Level 26 Anion Gap 17 H Blood Urea Nitrogen 65 #H Creatinine 5.57 #H Glucose Level 65 L Calcium Level 9.3 Phosphorus Level 4.6 Magnesium Level 2.4 Bedside Glucose 77 94 Medications Medications Current Medications Ondansetron HCl (Zofran Inj) 4 mg Q6H PRN IV NAUSEA AND/OR VOMITING Last administered on 04/29/17 20:54; Admin Dose 4 MG; Start 04/22/17 at 19:00 Acetaminophen (Tylenol Tab) 650 mg Q6H PRN PO PAIN LEVEL 1-3 OR FEVER; Start at 19:00 Acetaminophen/ Hydrocodone Bitart ([place] (5/325)) 1 tab Q6H PRN PO MODERATE PAIN LEVEL 4-6 Last administered on 05/03/17 12:10; Admin Dose 1 TAB; Start at 19:00 Morphine Sulfate (morphine) 2 mg Q4H PRN IV SEVERE PAIN LEVEL 7-10; Start 04/22 at 19:00 Midodrine (Proamatine) 10 mg TID PO Last administered on 05/03/17 12:06; Admin Dose 10 MG; Start 04/22/17 at 21:00 Tramadol HCl (Ultram) 50 mg Q6H PRN PO PAIN; Start 04/22/17 at 19:00 Miscellaneous Information 1 ea NOTE XX ; Start 04/22/17 at 19:00 Glucose (Glutose) 15 gm Q15M PRN PO DECREASED GLUCOSE; Start 04/22/17 at 19:00 Glucose (Glutose) 22.5 gm Q15M PRN PO DECREASED GLUCOSE Last administered on 08:48; Admin Dose 22.5 GM; Start 04/22/17 at 19:00 Dextrose (D50w Syringe) 25 ml Q15M PRN IV DECREASED GLUCOSE; Start 04/22/17 at 19:00 Dextrose (D50w Syringe) 50 ml Q15M PRN IV DECREASED GLUCOSE; Start 04/22/17 at 19:00 Glucagon (Glucagen) 1 mg Q15M PRN IM DECREASED GLUCOSE; Start 04/22/17 at 19:00 Glucose (Glutose) 15 gm Q15M PRN BUCCAL DECREASED GLUCOSE Last administered on 04/27/17 00:53; Admin Dose 15 GM; Start 04/22/17 at 19:00 Zolpidem Tartrate (Ambien) 5 mg QHS PRN PO SLEEP; Start 04/23/17 at 01:00 Linagliptin (Tradjenta) 5 mg DAILY PO Last administered on 05/03/17 12:11; Admin Dose 5 MG; Start 04/23/17 at 14:00 Collagenase (Santyl) 1 applic DAILY TOP Last administered on 05/03/17 09:28; Admin Dose 1 APPLIC; Start 04/24/17 at 15:05 Collagenase (Santyl) 1 applic PRN PRN TOP WOUND CARE; Start 04/24/17 at 15:30 Vancomycin HCl (Vancomycin Oral Syringe) 250 mg Q6 PO Last administered on 13:42; Admin Dose 250 MG; Start 04/26/17 at 00:00 Pantoprazole (Protonix Tab) 40 mg DAILY@06 PO Last administered on 05/03/17 05: 50; Admin Dose 40 MG; Start 04/27/17 at 06:00 Insulin Glargine (Lantus) 10 unit HS SC Last administered on 05/02/17 20:37; Admin Dose 10 UNIT; Start 04/27/17 at 21:00 Saccharomyces Boulardii (Florastor) 500 mg BID PO Last administered on 12:10; Admin Dose 500 MG; Start 05/01/17 at 11:30 Diphenoxylate HCl/ Atropine (Lomotil) 2 tab Q6H PRN PO DIARRHEA Last administered on 05/01/17 18:05; Admin Dose 2 TAB; Start 05/01/17 at 13:30 Sodium Polystyrene Sulfonate (Kayexalate) 30 gm ONCE ONCE PO ; Start 05/03/17 at 14:30; Stop 05/03/17 at 14:31 CHAVA HENDRICKS NP May 03, 2017 14:31
--- NOTE | 2017-05-03 18:25 | CONS ---
Date/Time of Note Date/Time of Note DATE: 05/03/17 TIME: 18:20 Assessment/Plan Assessment/Plan Chief Complaint/Hosp Course Impression: 1. Intractable diarrhea. Stool for C. diff negative. Status post esophagogastroduodenoscopy and colonoscopy on 04/28/2017. Pathology from gastric and colonic biopsy negative for any malignancy. Diarrhea improved with anti-diarrheals. 2. Gram-positive bacteremia. 3. End-stage renal disease on hemodialysis. Continue hemodialysis as per Nephrology. 4. Diabetes mellitus, unknown type. Continue sliding scale insulin along with Lantus insulin and premeal insulin. Hemoglobin A1c 7.0. 5. Normocytic normochromic anemia, most probably anemia of chronic kidney disease. We will monitor the H and H closely. PLAN: - continue probiotics. - Icontinue lomotil for diarrhea as all w/u so far negative. - ok from GI perspective if BM less than 4 daily and if ok with primary and other consultants. Problems: Consultation Date/Type/Reason Admit Date/Time Apr 22, 2017 at 17:33 Initial Consult Date 04/26/17 Type of Consultation: GI Referring Provider: MARGARET SLATER 24 HR Interval Summary Free Text/Dictation diarrhea improved, more formed, ok to go home. Constitutional: improved Exam/Review of Systems Vital Signs Vitals Vital Signs Date Time Temp Pulse Resp B/P Pulse Ox O2 Delivery O2 Flow Rate FiO2 05/03/17 11:00 89 20 05/03/17 07:28 98.6 96/56 98 Intake and Output 05/02/17 05/02/17 05/03/17 15:00 23:00 07:00 Intake Total 840 ml 200 ml Balance 840 ml 200 ml Exam Constitutional: alert, oriented, well developed Psych: nl mood/affect, no complaints Head: atraumatic, normocephalic Eyes: EOMI, nl conjunctiva, nl lids, nl sclera ENMT: mucosa pink and moist, nl external ears & nose, nl lips & teeth, nl nasal mucosa & septum Neck: non-tender, supple Respiratory: clear to auscultation, normal air movement Cardiovascular: nl pulses, regular rate and rhythm Gastrointestinal: nl liver, spleen, non-tender, soft Results Result Diagram: 05/03/17 0540 05/03/17 1332 Results 24 hrs Laboratory Tests Test 05/02/17 20:04 05/03/17 02:06 05/03/17 05:40 05/03/17 07:53 Bedside Glucose 198 117 77 White Blood Count 7.2 Red Blood Count 2.74 L Hemoglobin 8.3 L Hematocrit 26.7 L Mean Corpuscular Volume 97.4 Mean Corpuscular Hemoglobin 30.3 Mean Corpuscular Hemoglobin Concent 31.1 L Red Cell Distribution Width 12.9 Platelet Count 231 Mean Platelet Volume 9.6 Neutrophils % 64.7 Lymphocytes % 22.2 Monocytes % 7.1 Eosinophils % 5.3 Basophils % 0.4 Nucleated Red Blood Cells % 0.0 Neutrophils # 4.7 Lymphocytes # 1.6 Monocytes # 0.5 Eosinophils # 0.4 Basophils # 0.0 Nucleated Red Blood Cells # 0.0 Sodium Level 134 L Potassium Level 6.7 *H Chloride Level 98 Carbon Dioxide Level 26 Anion Gap 17 H Blood Urea Nitrogen 65 #H Creatinine 5.57 #H Glucose Level 65 L Calcium Level 9.3 Phosphorus Level 4.6 Magnesium Level 2.4 Test 05/03/17 11:48 05/03/17 13:32 05/03/17 17:34 Bedside Glucose 94 106 Potassium Level 5.5 H Medications Medications Current Medications Ondansetron HCl (Zofran Inj) 4 mg Q6H PRN IV NAUSEA AND/OR VOMITING Last administered on 04/29/17 20:54; Admin Dose 4 MG; Start 04/22/17 at 19:00 Acetaminophen (Tylenol Tab) 650 mg Q6H PRN PO PAIN LEVEL 1-3 OR FEVER; Start at 19:00 Acetaminophen/ Hydrocodone Bitart ([place] (5/325)) 1 tab Q6H PRN PO MODERATE PAIN LEVEL 4-6 Last administered on 05/03/17 12:10; Admin Dose 1 TAB; Start at 19:00 Morphine Sulfate (morphine) 2 mg Q4H PRN IV SEVERE PAIN LEVEL 7-10; Start 04/22 at 19:00 Midodrine (Proamatine) 10 mg TID PO Last administered on 05/03/17 12:06; Admin Dose 10 MG; Start 04/22/17 at 21:00 Tramadol HCl (Ultram) 50 mg Q6H PRN PO PAIN; Start 04/22/17 at 19:00 Miscellaneous Information 1 ea NOTE XX ; Start 04/22/17 at 19:00 Glucose (Glutose) 15 gm Q15M PRN PO DECREASED GLUCOSE; Start 04/22/17 at 19:00 Glucose (Glutose) 22.5 gm Q15M PRN PO DECREASED GLUCOSE Last administered on 08:48; Admin Dose 22.5 GM; Start 04/22/17 at 19:00 Dextrose (D50w Syringe) 25 ml Q15M PRN IV DECREASED GLUCOSE; Start 04/22/17 at 19:00 Dextrose (D50w Syringe) 50 ml Q15M PRN IV DECREASED GLUCOSE; Start 04/22/17 at 19:00 Glucagon (Glucagen) 1 mg Q15M PRN IM DECREASED GLUCOSE; Start 04/22/17 at 19:00 Glucose (Glutose) 15 gm Q15M PRN BUCCAL DECREASED GLUCOSE Last administered on 04/27/17 00:53; Admin Dose 15 GM; Start 04/22/17 at 19:00 Zolpidem Tartrate (Ambien) 5 mg QHS PRN PO SLEEP; Start 04/23/17 at 01:00 Linagliptin (Tradjenta) 5 mg DAILY PO Last administered on 05/03/17 12:11; Admin Dose 5 MG; Start 04/23/17 at 14:00 Collagenase (Santyl) 1 applic DAILY TOP Last administered on 05/03/17 09:28; Admin Dose 1 APPLIC; Start 04/24/17 at 15:05 Collagenase (Santyl) 1 applic PRN PRN TOP WOUND CARE; Start 04/24/17 at 15:30 Vancomycin HCl (Vancomycin Oral Syringe) 250 mg Q6 PO Last administered on 17:48; Admin Dose 250 MG; Start 04/26/17 at 00:00 Pantoprazole (Protonix Tab) 40 mg DAILY@06 PO Last administered on 05/03/17 05: 50; Admin Dose 40 MG; Start 04/27/17 at 06:00 Insulin Glargine (Lantus) 10 unit HS SC Last administered on 05/02/17 20:37; Admin Dose 10 UNIT; Start 04/27/17 at 21:00 Saccharomyces Boulardii (Florastor) 500 mg BID PO Last administered on 12:10; Admin Dose 500 MG; Start 05/01/17 at 11:30 Diphenoxylate HCl/ Atropine (Lomotil) 2 tab Q6H PRN PO DIARRHEA Last administered on 05/01/17t 18:05; Admin Dose 2 TAB; Start 05/01/17 at 13:30 AFSHAN HAMILTON MD May 03, 2017 18:24
[2017-05-03] MEDS: INSULIN GLARGINE [LANtus] 3 ML PEN SC SCH (20:59)
[2017-05-04] VITALS (10 sets, daily range): BP systolic 84–116; BP diastolic 50–71; PULSE 80–99; RESP 20
[2017-05-04] MEDS: VANCOMYCIN HCL 250 MG/5ML POSYG PO SCH ×5 (01:35→23:45)
[2017-05-04] MEDS: PANTOPRAZOLE (EC) 40 MG TAB PO SCH (05:59)
[2017-05-04 06:02] LABS: BASOPHILS % 0.5 % (0.0-2.0); EOSINOPHILS # 0.3 10^3/ul (0.0-0.5); EOSINOPHILS % 3.8 % (0.0-7.0); HEMATOCRIT 28.1 % (42.0-52.0); HEMOGLOBIN 8.8 g/dl (14.0-18.0); LYMPHOCYTES # 1.5 10^3/ul (0.8-2.9); LYMPHOCYTES % 19.9 % (15.0-51.0); MEAN CORPUSCULAR HEMOGLOBIN 30.3 pg (29.0-33.0); MEAN CORPUSCULAR HGB CONC 31.3 g/dl (32.0-37.0); MEAN CORPUSCULAR VOLUME 96.9 fl (82.0-101.0); MEAN PLATELET VOLUME 9.4 fl (7.4-10.4); MONOCYTE # 0.5 10^3/ul (0.3-0.9); MONOCYTES % 7.3 % (0.0-11.0); NEUTROPHILS % 68.2 % (39.0-77.0); PLATELET COUNT 227 10^3/UL (140-415); WHITE BLOOD COUNT 7.3 10^3/ul (4.8-10.8)
[2017-05-04] MEDS: HYDROCODONE/APAP (5/325) TAB PO PRN ×2 (06:04→20:28)
[2017-05-04 06:22] LABS: CALCIUM 9.5 mg/dl (8.4-10.2); CREATININE 3.92 mg/dl (0.61-1.24)
[2017-05-04 06:31] LABS: MAGNESIUM 2.3 mg/dl (1.7-2.5); PHOSPHORUS 4.4 mg/dl (2.5-4.9)
[2017-05-04 06:38] LABS: POTASSIUM 6.3 mmol/L (3.5-5.1)
[2017-05-04 06:56] LABS: ADD SCAN DIFF NO
[2017-05-04] MEDS ORDERED: NA POLYST SULFON 15 GM/60 ML BTL PO ONE (07:00)
[2017-05-04] MEDS: INSULIN ASPART [NOVOLOG] 3 ML PEN SC SCH ×7 (08:15→20:27)
[2017-05-04] MEDS: CALCIUM ACETATE 667 MG CAP PO SCH ×3 (08:31→17:21)
[2017-05-04] MEDS: CREON (12k-38k-60k) 1 CAP PO SCH ×3 (08:31→17:20)
[2017-05-04] MEDS: SACCHAROMYCES BOULARDII 250 MG CAP PO SCH ×2 (08:35→20:29)
[2017-05-04] MEDS: MIDODRINE 5 MG TAB PO SCH ×3 (08:37→20:28)
[2017-05-04] MEDS: LINAGLIPTIN 5 MG TABLET PO SCH (08:40)
[2017-05-04] MEDS ORDERED: ALBUMIN HUMAN 25% 100 ML IV PRN (09:00)
[2017-05-04] MEDS: COLLAGENASE 30 GM TUBE TOP SCH ×2 (09:09→23:37)
--- NOTE | 2017-05-04 11:32 | PN ---
Date/Time of Note Date/Time of Note DATE: 05/04/17 TIME: 11:31 Assessment/Plan VTE Prophylaxis VTE Prophylaxis Intervention: SCD's Lines/Catheters IV C[facility]ter Type (from [facility]): [facility] Urinary Cath still in place: No Assessment/Plan Chief Complaint/Hosp Course 1. Intractable diarrhea. Stool for C. diff negative. Status post esophagogastroduodenoscopy and colonoscopy on 04/28/2017. Results are pending [ note not dictated]. Being followed by infectious diseases and gastroenterology. Pathology from gastric and colonic biopsy negative for any malignancy. 2. Gram-positive bacteremia. On antibiotics as per Infectious Disease. Possibly contaminant as per Infectious Disease. Repeat blood cultures x2 were negative. 3. End-stage renal disease on hemodialysis. Continue hemodialysis as per Nephrology. 4. Decubitus ulcers. Continue local wound care. 5. Deconditioning. Status post physical therapy evaluation. Continue physical therapy. 7. Diabetes mellitus, unknown type. Continue sliding scale insulin along with Lantus insulin and premeal insulin. Hemoglobin A1c 7.0. 8. Normocytic normochromic anemia, most probably anemia of chronic kidney disease. We will monitor the H and H closely. 9. Hyperkalemia. Management as per nephrology. 10. Severe protein calorie malnutrition. Continue dietary supplements. 11. Fluid, electrolytes, and nutrition. Carbohydrate controlled diet. 12. DVT prophylaxis. Bilateral sequential compression devices. 13. Gastrointestinal prophylaxis. Proton pump inhibitors. PLAN: Continue probiotics. Continue inpatient monitoring. Continue antibiotics as per Infectious Disease. Await clearance from consultants before discharge to home with home health. Case discussed with Dr. White. Problems: Subjective 24 Hr Interval Summary Free Text/Dictation Diarrhea improved. Exam/Review of Systems Vital Signs Vitals Vital Signs Date Time Temp Pulse Resp B/P Pulse Ox O2 Delivery O2 Flow Rate FiO2 05/04/17 10:55 96 05/04/17 08:50 16 05/04/17 07:16 97.8 102/63 98 Intake and Output 05/03/17 05/03/17 05/04/17 15:00 23:00 07:00 Intake Total 900 ml 200 ml Output Total 1400 ml Balance -500 ml 200 ml Exam GENERAL: This is a thin, frail-looking male lying in bed in no apparent distress. HEENT: Head normocephalic and atraumatic. Eyes: Anicteric sclerae. Conjunctivae clear. ENT: Nasal septum is midline. Oral mucosa is dry. NECK: Supple. No JVD noticed. RESPIRATORY: Bilaterally clear to auscultation. No adventitious breath sounds heard. No use of accessory muscles of respiration. CARDIAC: Regular rate and rhythm. S1 and S2 heard. ABDOMEN: Soft, nontender, and nondistended. Bowel sounds positive in all 4 quadrants. GENITOURINARY: Deferred. EXTREMITIES: No cyanosis, no clubbing, no edema. Peripheral pulses are palpable. Severe muscle wasting of B/L lower extremities. Left heel pressure ulcer. NEUROLOGIC: The patient is awake, alert, and oriented. Cranial nerves are grossly intact. Results Result Diagram: 05/04/17 0500 05/04/17 0500 Results 24 hrs Laboratory Tests Test 05/03/17 11:48 05/03/17 13:32 05/03/17 17:34 05/03/17 20:53 Bedside Glucose 94 106 127 Potassium Level 5.5 H Test 05/04/17 02:09 05/04/17 05:00 05/04/17 07:41 05/04/17 08:18 Bedside Glucose 97 63 L 75 White Blood Count 7.3 Red Blood Count 2.90 L Hemoglobin 8.8 L Hematocrit 28.1 L Mean Corpuscular Volume 96.9 Mean Corpuscular Hemoglobin 30.3 Mean Corpuscular Hemoglobin Concent 31.3 L Red Cell Distribution Width 13.0 Platelet Count 227 Mean Platelet Volume 9.4 Neutrophils % 68.2 Lymphocytes % 19.9 Monocytes % 7.3 Eosinophils % 3.8 Basophils % 0.5 Nucleated Red Blood Cells % 0.0 Neutrophils # 5.0 Lymphocytes # 1.5 Monocytes # 0.5 Eosinophils # 0.3 Basophils # 0.0 Nucleated Red Blood Cells # 0.0 Sodium Level 139 Potassium Level 6.3 *H Chloride Level 94 L Carbon Dioxide Level 28 Anion Gap 23 H Blood Urea Nitrogen 48 #H Creatinine 3.92 #H Glucose Level 53 #L Calcium Level 9.5 Phosphorus Level 4.4 Magnesium Level 2.3 Test 05/04/17 08:39 05/04/17 09:03 05/04/17 09:20 Bedside Glucose 109 149 241 H Medications Medications Current Medications Ondansetron HCl (Zofran Inj) 4 mg Q6H PRN IV NAUSEA AND/OR VOMITING Last administered on 04/29/17 20:54; Admin Dose 4 MG; Start 04/22/17 at 19:00 Acetaminophen (Tylenol Tab) 650 mg Q6H PRN PO PAIN LEVEL 1-3 OR FEVER; Start at 19:00 Acetaminophen/ Hydrocodone Bitart ([place] (5/325)) 1 tab Q6H PRN PO MODERATE PAIN LEVEL 4-6 Last administered on 05/04/17 06:04; Admin Dose 1 TAB; Start at 19:00 Morphine Sulfate (morphine) 2 mg Q4H PRN IV SEVERE PAIN LEVEL 7-10; Start 04/22 at 19:00 Midodrine (Proamatine) 10 mg TID PO Last administered on 05/04/17 08:37; Admin Dose 10 MG; Start 04/22/17 at 21:00 Tramadol HCl (Ultram) 50 mg Q6H PRN PO PAIN; Start 04/22/17 at 19:00 Miscellaneous Information 1 ea NOTE XX ; Start 04/22/17 at 19:00 Glucose (Glutose) 15 gm Q15M PRN PO DECREASED GLUCOSE; Start 04/22/17 at 19:00 Glucose (Glutose) 22.5 gm Q15M PRN PO DECREASED GLUCOSE Last administered on 08:48; Admin Dose 22.5 GM; Start 04/22/17 at 19:00 Dextrose (D50w Syringe) 25 ml Q15M PRN IV DECREASED GLUCOSE; Start 04/22/17 at 19:00 Dextrose (D50w Syringe) 50 ml Q15M PRN IV DECREASED GLUCOSE; Start 04/22/17 at 19:00 Glucagon (Glucagen) 1 mg Q15M PRN IM DECREASED GLUCOSE; Start 04/22/17 at 19:00 Glucose (Glutose) 15 gm Q15M PRN BUCCAL DECREASED GLUCOSE Last administered on 04/27/17 00:53; Admin Dose 15 GM; Start 04/22/17 at 19:00 Zolpidem Tartrate (Ambien) 5 mg QHS PRN PO SLEEP; Start 04/23/17 at 01:00 Linagliptin (Tradjenta) 5 mg DAILY PO Last administered on 05/04/17 08:40; Admin Dose 5 MG; Start 04/23/17 at 14:00 Collagenase (Santyl) 1 applic DAILY TOP Last administered on 05/04/17 09:09; Admin Dose 1 APPLIC; Start 04/24/17 at 15:05 Collagenase (Santyl) 1 applic PRN PRN TOP WOUND CARE; Start 04/24/17 at 15:30 Vancomycin HCl (Vancomycin Oral Syringe) 250 mg Q6 PO Last administered on 05:59; Admin Dose 250 MG; Start 04/26/17 at 00:00 Pantoprazole (Protonix Tab) 40 mg DAILY@06 PO Last administered on 05/04/17 05: 59; Admin Dose 40 MG; Start 04/27/17 at 06:00 Insulin Glargine (Lantus) 10 unit HS SC Last administered on 05/03/17 20:59; Admin Dose 10 UNIT; Start 04/27/17 at 21:00 Saccharomyces Boulardii (Florastor) 500 mg BID PO Last administered on 08:35; Admin Dose 500 MG; Start 05/01/17 at 11:30 Diphenoxylate HCl/ Atropine (Lomotil) 2 tab Q6H PRN PO DIARRHEA Last administered on 05/01/17 18:05; Admin Dose 2 TAB; Start 05/01/17 at 13:30 ABBEY ROBLES NP May 04, 2017 11:32
--- NOTE | 2017-05-04 13:51 | CONS ---
Date/Time of Note Date/Time of Note DATE: 05/04/17 TIME: 13:46 Assessment/Plan Assessment/Plan Chief Complaint/Hosp Course Assessment/Plan Assessment/Plan Chief Complaint/Hosp Course ID PROGRESS NOTE CURRENT ABX: Vanco LIQ PO s/p Vanco IV * SUBJECTIVE:Awake, cachectic, Complains of Diarrhea. PHYSICAL EXAMINATION: GENERAL: This is a cachectic well-developed, middle-aged man who is awake, in no distress. HEENT: Head atraumatic, normocephalic. Sclerae anicteric. Buccal mucosa dry. NECK: Supple. CHEST: Rise symmetrical. Breath sounds clear. HEART: S1, S2. ABDOMEN: Soft, bowel tones present. EXTREMITIES: Without cyanosis. The patient has a left lower extremity decubiti. ID ASSESSMENT: 1. Profuse diarrhea = GI on case. Etiology ?IBS * Hx of Clostridium difficile colitis, cx (-) this admission 2. Coagulase-negative Staphylococcus bacteremia => consistent w/contaminant 3. Diabetes. 4. Diabetic foot ulceration - s/p Vanco IV 5. Severe deconditioning. 6. Diarrhea ID PLAN: Continue ABX: PO Vanco. Monitor Laboratory Studies. -- Further recs GI Problems: Consultation Date/Type/Reason Admit Date/Time Apr 22, 2017 at 17:33 Initial Consult Date 04/26/17 Type of Consultation: id Referring Provider: MARGARET SLATER Exam/Review of Systems Vital Signs Vitals Vital Signs Date Time Temp Pulse Resp B/P Pulse Ox O2 Delivery O2 Flow Rate FiO2 05/04/17 10:55 96 05/04/17 10:50 14 05/04/17 07:16 97.8 102/63 98 Intake and Output 05/03/17 05/03/17 05/04/17 15:00 23:00 07:00 Intake Total 900 ml 200 ml Output Total 1400 ml Balance -500 ml 200 ml Results Result Diagram: 05/04/17 0500 05/04/17 0500 Results 24 hrs Laboratory Tests Test 05/03/17 17:34 05/03/17 20:53 05/04/17 02:09 05/04/17 05:00 Bedside Glucose 106 127 97 White Blood Count 7.3 Red Blood Count 2.90 L Hemoglobin 8.8 L Hematocrit 28.1 L Mean Corpuscular Volume 96.9 Mean Corpuscular Hemoglobin 30.3 Mean Corpuscular Hemoglobin Concent 31.3 L Red Cell Distribution Width 13.0 Platelet Count 227 Mean Platelet Volume 9.4 Neutrophils % 68.2 Lymphocytes % 19.9 Monocytes % 7.3 Eosinophils % 3.8 Basophils % 0.5 Nucleated Red Blood Cells % 0.0 Neutrophils # 5.0 Lymphocytes # 1.5 Monocytes # 0.5 Eosinophils # 0.3 Basophils # 0.0 Nucleated Red Blood Cells # 0.0 Sodium Level 139 Potassium Level 6.3 *H Chloride Level 94 L Carbon Dioxide Level 28 Anion Gap 23 H Blood Urea Nitrogen 48 #H Creatinine 3.92 #H Glucose Level 53 #L Calcium Level 9.5 Phosphorus Level 4.4 Magnesium Level 2.3 Test 05/04/17 07:41 05/04/17 08:18 05/04/17 08:39 05/04/17 09:03 Bedside Glucose 63 L 75 109 149 Test 05/04/17 09:20 05/04/17 12:00 Bedside Glucose 241 H 130 Medications Medications Current Medications Ondansetron HCl (Zofran Inj) 4 mg Q6H PRN IV NAUSEA AND/OR VOMITING Last administered on 04/29/17 20:54; Admin Dose 4 MG; Start 04/22/17 at 19:00 Acetaminophen (Tylenol Tab) 650 mg Q6H PRN PO PAIN LEVEL 1-3 OR FEVER; Start at 19:00 Acetaminophen/ Hydrocodone Bitart ([place] (5/325)) 1 tab Q6H PRN PO MODERATE PAIN LEVEL 4-6 Last administered on 05/04/17 06:04; Admin Dose 1 TAB; Start at 19:00 Morphine Sulfate (morphine) 2 mg Q4H PRN IV SEVERE PAIN LEVEL 7-10; Start 04/22 at 19:00 Midodrine (Proamatine) 10 mg TID PO Last administered on 05/04/17 12:24; Admin Dose 10 MG; Start 04/22/17 at 21:00 Tramadol HCl (Ultram) 50 mg Q6H PRN PO PAIN; Start 04/22/17 at 19:00 Miscellaneous Information 1 ea NOTE XX ; Start 04/22/17 at 19:00 Glucose (Glutose) 15 gm Q15M PRN PO DECREASED GLUCOSE; Start 04/22/17 at 19:00 Glucose (Glutose) 22.5 gm Q15M PRN PO DECREASED GLUCOSE Last administered on 08:48; Admin Dose 22.5 GM; Start 04/22/17 at 19:00 Dextrose (D50w Syringe) 25 ml Q15M PRN IV DECREASED GLUCOSE; Start 04/22/17 at 19:00 Dextrose (D50w Syringe) 50 ml Q15M PRN IV DECREASED GLUCOSE; Start 04/22/17 at 19:00 Glucagon (Glucagen) 1 mg Q15M PRN IM DECREASED GLUCOSE; Start 04/22/17 at 19:00 Glucose (Glutose) 15 gm Q15M PRN BUCCAL DECREASED GLUCOSE Last administered on 04/27/17 00:53; Admin Dose 15 GM; Start 04/22/17 at 19:00 Zolpidem Tartrate (Ambien) 5 mg QHS PRN PO SLEEP; Start 04/23/17 at 01:00 Linagliptin (Tradjenta) 5 mg DAILY PO Last administered on 05/04/17 08:40; Admin Dose 5 MG; Start 04/23/17 at 14:00 Collagenase (Santyl) 1 applic DAILY TOP Last administered on 05/04/17 09:09; Admin Dose 1 APPLIC; Start 04/24/17 at 15:05 Collagenase (Santyl) 1 applic PRN PRN TOP WOUND CARE; Start 04/24/17 at 15:30 Vancomycin HCl (Vancomycin Oral Syringe) 250 mg Q6 PO Last administered on 12:24; Admin Dose 250 MG; Start 04/26/17 at 00:00 Pantoprazole (Protonix Tab) 40 mg DAILY@06 PO Last administered on 05/04/17 05: 59; Admin Dose 40 MG; Start 04/27/17 at 06:00 Insulin Glargine (Lantus) 10 unit HS SC Last administered on 05/03/17 20:59; Admin Dose 10 UNIT; Start 04/27/17 at 21:00 Saccharomyces Boulardii (Florastor) 500 mg BID PO Last administered on 08:35; Admin Dose 500 MG; Start 05/01/17 at 11:30 Diphenoxylate HCl/ Atropine (Lomotil) 2 tab Q6H PRN PO DIARRHEA Last administered on 6/29/17at 18:05; Admin Dose 2 TAB; Start 05/01/17 at 13:30 GEOVANY SUMMERS NP May 04, 2017 13:50
[2017-05-04] MEDS: FLUDROCORTISONE 0.1 MG TAB PO SCH (16:41)
--- NOTE | 2017-05-04 17:30 | CONS ---
Date/Time of Note Date/Time of Note DATE: 05/04/17 TIME: 17:28 Assessment/Plan Assessment/Plan Chief Complaint/Hosp Course IMPRESSION: 1. Malnutrition. 2. End-stage renal disease. 3. Hypertension. 4. History of diabetes mellitus. 5. Orthostatic hypotension. 6. History of autonomic insufficiency. 7. History of Clostridium difficile colitis. 8. History of sepsis. 9. History of catheter placement. 10. History of chronic diarrhea. 11. History of septic shock. 12 HYPERKALEMIA HX 13 ANEMIA 14 SEPSIS 15 HYPORENIN HYPOALDO 16 BRITTLE DM W HYPOADRENAL STATE plan PER GI AND PCP hd PT OT KARTHIKEYAN CONSIDER VIBERZI Problems: Consultation Date/Type/Reason Admit Date/Time Apr 22, 2017 at 17:33 Type of Consultation: RENAL Referring Provider: MARGARET SLATER Exam/Review of Systems Vital Signs Vitals Vital Signs Date Time Temp Pulse Resp B/P Pulse Ox O2 Delivery O2 Flow Rate FiO2 05/04/17 10:55 96 05/04/17 10:50 14 05/04/17 07:16 97.8 102/63 98 Intake and Output 05/03/17 05/03/17 05/04/17 15:00 23:00 07:00 Intake Total 900 ml 200 ml Output Total 1400 ml Balance -500 ml 200 ml Exam Constitutional: other (DIARRHEA BETTER) Neck: supple Respiratory: clear to auscultation Cardiovascular: regular rate and rhythm Gastrointestinal: soft Musculoskeletal: nl extremities to inspection Results Result Diagram: 05/04/17 0500 05/04/17 0500 Results 24 hrs Laboratory Tests Test 05/03/17 17:34 05/03/17 20:53 05/04/17 02:09 05/04/17 05:00 Bedside Glucose 106 127 97 White Blood Count 7.3 Red Blood Count 2.90 L Hemoglobin 8.8 L Hematocrit 28.1 L Mean Corpuscular Volume 96.9 Mean Corpuscular Hemoglobin 30.3 Mean Corpuscular Hemoglobin Concent 31.3 L Red Cell Distribution Width 13.0 Platelet Count 227 Mean Platelet Volume 9.4 Neutrophils % 68.2 Lymphocytes % 19.9 Monocytes % 7.3 Eosinophils % 3.8 Basophils % 0.5 Nucleated Red Blood Cells % 0.0 Neutrophils # 5.0 Lymphocytes # 1.5 Monocytes # 0.5 Eosinophils # 0.3 Basophils # 0.0 Nucleated Red Blood Cells # 0.0 Sodium Level 139 Potassium Level 6.3 *H Chloride Level 94 L Carbon Dioxide Level 28 Anion Gap 23 H Blood Urea Nitrogen 48 #H Creatinine 3.92 #H Glucose Level 53 #L Calcium Level 9.5 Phosphorus Level 4.4 Magnesium Level 2.3 Test 05/04/17 07:41 05/04/17 08:18 05/04/17 08:39 05/04/17 09:03 Bedside Glucose 63 L 75 109 149 Test 05/04/17 09:20 05/04/17 12:00 05/04/17 17:19 Bedside Glucose 241 H 130 93 Medications Medications Current Medications Ondansetron HCl (Zofran Inj) 4 mg Q6H PRN IV NAUSEA AND/OR VOMITING Last administered on 04/29/17 20:54; Admin Dose 4 MG; Start 04/22/17 at 19:00 Acetaminophen (Tylenol Tab) 650 mg Q6H PRN PO PAIN LEVEL 1-3 OR FEVER; Start at 19:00 Acetaminophen/ Hydrocodone Bitart ([place] (5/325)) 1 tab Q6H PRN PO MODERATE PAIN LEVEL 4-6 Last administered on 05/04/17 06:04; Admin Dose 1 TAB; Start at 19:00 Morphine Sulfate (morphine) 2 mg Q4H PRN IV SEVERE PAIN LEVEL 7-10; Start 04/22 at 19:00 Midodrine (Proamatine) 10 mg TID PO Last administered on 05/04/17 12:24; Admin Dose 10 MG; Start 04/22/17 at 21:00 Tramadol HCl (Ultram) 50 mg Q6H PRN PO PAIN; Start 04/22/17 at 19:00 Miscellaneous Information 1 ea NOTE XX ; Start 04/22/17 at 19:00 Glucose (Glutose) 15 gm Q15M PRN PO DECREASED GLUCOSE; Start 04/22/17 at 19:00 Glucose (Glutose) 22.5 gm Q15M PRN PO DECREASED GLUCOSE Last administered on 08:48; Admin Dose 22.5 GM; Start 04/22/17 at 19:00 Dextrose (D50w Syringe) 25 ml Q15M PRN IV DECREASED GLUCOSE; Start 04/22/17 at 19:00 Dextrose (D50w Syringe) 50 ml Q15M PRN IV DECREASED GLUCOSE; Start 04/22/17 at 19:00 Glucagon (Glucagen) 1 mg Q15M PRN IM DECREASED GLUCOSE; Start 04/22/17 at 19:00 Glucose (Glutose) 15 gm Q15M PRN BUCCAL DECREASED GLUCOSE Last administered on 04/27/17 00:53; Admin Dose 15 GM; Start 04/22/17 at 19:00 Zolpidem Tartrate (Ambien) 5 mg QHS PRN PO SLEEP; Start 04/23/17 at 01:00 Linagliptin (Tradjenta) 5 mg DAILY PO Last administered on 05/04/17 08:40; Admin Dose 5 MG; Start 04/23/17 at 14:00 Collagenase (Santyl) 1 applic DAILY TOP Last administered on 05/04/17 09:09; Admin Dose 1 APPLIC; Start 04/24/17 at 15:05 Collagenase (Santyl) 1 applic PRN PRN TOP WOUND CARE; Start 04/24/17 at 15:30 Vancomycin HCl (Vancomycin Oral Syringe) 250 mg Q6 PO Last administered on 12:24; Admin Dose 250 MG; Start 04/26/17 at 00:00 Pantoprazole (Protonix Tab) 40 mg DAILY@06 PO Last administered on 05/04/17 05: 59; Admin Dose 40 MG; Start 04/27/17 at 06:00 Insulin Glargine (Lantus) 10 unit HS SC Last administered on 05/03/17 20:59; Admin Dose 10 UNIT; Start 04/27/17 at 21:00 Saccharomyces Boulardii (Florastor) 500 mg BID PO Last administered on 08:35; Admin Dose 500 MG; Start 05/01/17 at 11:30 Diphenoxylate HCl/ Atropine (Lomotil) 2 tab Q6H PRN PO DIARRHEA Last administered on 05/01/17 18:05; Admin Dose 2 TAB; Start 05/01/17 at 13:30 Fludrocortisone Acetate (Florinef) 0.1 mg DAILY PO Last administered on 16:41; Admin Dose 0.1 MG; Start 05/04/17 at 16:00 YASMIN QUIROS MD May 04, 2017 17:30
[2017-05-04] MEDS: INSULIN GLARGINE [LANtus] 3 ML PEN SC SCH (20:34)
[2017-05-04] MEDS ORDERED: INSULIN GLARGINE [LANtus] 3 ML PEN SC SCH (21:00)
[2017-05-05 05:52] LABS: BASOPHILS % 0.7 % (0.0-2.0); EOSINOPHILS # 0.4 10^3/ul (0.0-0.5); EOSINOPHILS % 6.7 % (0.0-7.0); HEMATOCRIT 26.1 % (42.0-52.0); HEMOGLOBIN 8.2 g/dl (14.0-18.0); LYMPHOCYTES # 1.7 10^3/ul (0.8-2.9); LYMPHOCYTES % 28.5 % (15.0-51.0); MEAN CORPUSCULAR HEMOGLOBIN 30.8 pg (29.0-33.0); MEAN CORPUSCULAR HGB CONC 31.4 g/dl (32.0-37.0); MEAN CORPUSCULAR VOLUME 98.1 fl (82.0-101.0); MEAN PLATELET VOLUME 9.5 fl (7.4-10.4); MONOCYTE # 0.5 10^3/ul (0.3-0.9); MONOCYTES % 8.5 % (0.0-11.0); NEUTROPHIL # 3.2 10^3/ul (1.6-7.5); NEUTROPHILS % 55.4 % (39.0-77.0); PLATELET COUNT 227 10^3/UL (140-415); RED BLOOD COUNT 2.66 10^6/ul (4.70-6.10); RED CELL DISTRIBUTION WIDTH 12.9 % (11.5-14.5); WHITE BLOOD COUNT 5.8 10^3/ul (4.8-10.8)
[2017-05-05] MEDS: PANTOPRAZOLE (EC) 40 MG TAB PO SCH (06:01)
[2017-05-05] MEDS: VANCOMYCIN HCL 250 MG/5ML POSYG PO SCH ×2 (06:01→12:31)
[2017-05-05 06:03] LABS: ADD SCAN DIFF NO
[2017-05-05 06:24] LABS: CALCIUM 9.1 mg/dl (8.4-10.2); CREATININE 3.27 mg/dl (0.61-1.24); POTASSIUM 4.9 mmol/L (3.5-5.1)
[2017-05-05 06:42] LABS: MAGNESIUM 2.1 mg/dl (1.7-2.5); PHOSPHORUS 4.4 mg/dl (2.5-4.9)
[2017-05-05 07:21] VITALS: BP 106/63; RESP 20
[2017-05-05] MEDS: INSULIN ASPART [NOVOLOG] 3 ML PEN SC SCH ×4 (08:15→12:21)
[2017-05-05] MEDS: CREON (12k-38k-60k) 1 CAP PO SCH ×2 (08:35→12:31)
[2017-05-05] MEDS: COLLAGENASE 30 GM TUBE TOP SCH (08:35)
[2017-05-05] MEDS: FLUDROCORTISONE 0.1 MG TAB PO SCH (08:37)
[2017-05-05] MEDS: MIDODRINE 5 MG TAB PO SCH ×2 (08:37→12:31)
[2017-05-05] MEDS: CALCIUM ACETATE 667 MG CAP PO SCH ×2 (08:37→12:31)
[2017-05-05] MEDS: LINAGLIPTIN 5 MG TABLET PO SCH (08:38)
[2017-05-05] MEDS: SACCHAROMYCES BOULARDII 250 MG CAP PO SCH (08:48)
[2017-05-05] MEDS: HYDROCODONE/APAP (5/325) TAB PO PRN (08:48)
--- NOTE | 2017-05-05 11:27 | PDOCDIS ---
Discharge Instructions CONDITION Patient Condition: Stable HOME CARE INSTRUCTIONS: Special Diet: Renal Carb Controlled ACTIVITY: Activity Restrictions: Slowly Increase Activity FOLLOW UP/APPOINTMENTS Follow-up Plan Please take your medications as prescribed, and see your doctor in the clinic in 1 week. CHARY WHARTON May 05, 2017 11:27
[2017-05-05] MEDS ORDERED: DIPH1TAB PO (11:29)
[2017-05-05] MEDS ORDERED: SACC250C PO (11:29)
--- NOTE | 2017-05-05 11:43 | DS ---
Date/Time of Note Date/Time of Note DATE: 05/05/17 TIME: 11:36 Discharge Summary Admission/Discharge Info Admit Date/Time Apr 22, 2017 at 17:33 Discharge Date/Time Discharge Diagnosis 1. Intractable diarrhea. Stool for C.diff negative. Status post esophagogastroduodenoscopy and colonoscopy on 04/28/2017. 2. Gram-positive bacteremia. S/P antibiotics as per Infectious Disease. Possibly contaminant as per Infectious Disease. 3. End-stage renal disease on hemodialysis. 4. Decubitus ulcers. Continue local wound care. 5. Deconditioning. Status post physical therapy evaluation. 6. Diabetes mellitus, unknown type. Hemoglobin A1c 7.0. 7. Normocytic normochromic anemia, most probably anemia of chronic kidney disease. 8. Hyperkalemia - resolved. Management as per nephrology. Hospital Course Patient was admitted for continuous diarrhea, intractable. He was seen by multiple specialists during this hospital stay including physical therapy team, GI team, renal team. He continued hemodialysis as previously scheduled per renal recommendations. Regarding his diarrhea, his C. difficile test was negative. He underwent EGD and colonoscopy on April 28, 2017. Pathology from gastric and colon mucosa were negative for any malignancy. He was placed on loperamide for control of his diarrhea symptoms. Over the course of his hospital stay his diarrhea symptoms subsided to less than 4 times a day, he was able to ambulate with assistance of a front wheel walker, tolerate p.o. diet, his vital signs are stable as well. He was treated for positive blood cultures gram-positive cocci with antibiotics, no fevers and no leukocytosis on the day of discharge. He was also found with hemoglobin A1c of 7.0, placed on insulin to help control his diabetes. He will be discharged home today in improved condition and be given prescription for the following medications, see medical reconciliation for this list. He will need to follow-up with primary care doctor in the next 1-2 weeks. Home Meds Active Scripts Saccharomyces Boulardii* (Florastor*) 250 Mg Cap, 500 MG PO BID, #60 CAP Prov:CHARY WHARTON 05/05/17 Diphenoxylate HCl/Atropine (Lomotil 2.5-0.025 mg Tablet) 1 Each Tablet, 1 TAB PO TID Y for DIARRHEA, #90 TAB Prov:CHARY WHARTON 05/05/17 Reported Medications Vit B Cmplx 3/Fa/Vit C/Biotin (VOL-CARE RX TABLET) 1 Each Tablet, 1 EACH PO DAILY, TAB 04/22/17 Meclizine Hcl* (Meclizine Hcl*) 25 Mg Tablet, 25 MG PO NEEDED Y for DIZZINESS , TAB 04/22/17 Tramadol Hcl* (Ultram*) 50 Mg Tablet, 50 MG PO Q6H Y for PAIN, TAB 04/22/17 Cholecalciferol (Vitamin D3) 400 Unit Tab.chew, 800 UNIT PO DAILY, TAB.CHEW 04/22/17 Tjpsih-Wevzvspj-Kbpdqdk* (Derian AVINA* 12,000) 12,000 L-38,000-60,000 Unit Capsule.dr, 2 CAP PO WITH MEALS, CAP 04/22/17 Midodrine* (Midodrine*) 5 Mg Tablet, 10 MG PO TID, TAB 04/22/17 Insulin Regular, Human* (Novolin R*) 100 U/Ml Vial, 2 UNIT SC AC MEALS, VIAL 11/25/15 Sitagliptin* (Januvia*) 50 Mg Tablet, 50 MG PO DAILY, #30 TAB 11/25/15 Calcium Acetate* (Calcium Acetate*) 667 Mg Capsule, 1334 MG PO TID, CAP 12/17/14 Insulin Glargine,Hum.rec.anlog (Lantus) 100 U/Ml Cartridge, 20 U SQ HS 03/07/14 Discontinued Reported Medications Lactobacillus Acidoph/Bulgaricus* (Floranex*) 1 Each Tablet, 1 TAB.CHEW PO DAILY , TAB.CHEW 04/22/17 Primary Care Provider Zechariah Wong Pending Labs Laboratory Tests Test 05/04/17 12:00 05/04/17 17:19 05/04/17 20:26 05/05/17 04:56 Bedside Glucose 130mg/dL (70-220) 93mg/dL (70-220) 100mg/dL (70-220) White Blood Count 5.810^3/ul (4.8-10.8) Red Blood Count 2.6610^6/ul (4.70-6.10) Hemoglobin 8.2g/dl (14.0-18.0) Hematocrit 26.1% (42.0-52.0) Mean Corpuscular Volume 98.1fl (82.0-101.0) Mean Corpuscular Hemoglobin 30.8pg (29.0-33.0) Mean Corpuscular Hemoglobin Concent 31.4g/dl (32.0-37.0) Red Cell Distribution Width 12.9% (11.5-14.5) Platelet Count 31686^3/UL (140-415) Mean Platelet Volume 9.5fl (7.4-10.4) Neutrophils % 55.4% (39.0-77.0) Lymphocytes % 28.5% (15.0-51.0) Monocytes % 8.5% (0.0-11.0) Eosinophils % 6.7% (0.0-7.0) Basophils % 0.7% (0.0-2.0) Nucleated Red Blood Cells % 0.0/100WBC (0.0-0.0) Neutrophils # 3.210^3/ul (1.6-7.5) Lymphocytes # 1.710^3/ul (0.8-2.9) Monocytes # 0.510^3/ul (0.3-0.9) Eosinophils # 0.410^3/ul (0.0-0.5) Basophils # 0.010^3/ul (0.0-0.1) Nucleated Red Blood Cells # 0.010^3/ul (0.0-0.0) Sodium Level 139mmol/L (135-144) Potassium Level 4.9mmol/L (3.5-5.1) Chloride Level 95mmol/L (97-110) Carbon Dioxide Level 31mmol/L (21-31) Anion Gap 18 (8-16) Blood Urea Nitrogen 36mg/dl (7-20) Creatinine 3.27mg/dl (0.61-1.24) Glucose Level 85mg/dl (70-220) Calcium Level 9.1mg/dl (8.4-10.2) Phosphorus Level 4.4mg/dl (2.5-4.9) Magnesium Level 2.1mg/dl (1.7-2.5) Test 05/05/17 08:33 Bedside Glucose 71mg/dL (70-220) CHARY WHARTON May 05, 2017 11:43
--- NOTE | 2017-05-05 12:19 | CONS ---
Date/Time of Note Date/Time of Note DATE: 05/05/17 TIME: 12:18 Assessment/Plan Assessment/Plan Chief Complaint/Hosp Course 1. Malnutrition. 2. End-stage renal disease. 3. Hypertension, controlled 4. Diabetes mellitus, controlled. 5. Orthostatic hypotension. 6. History of autonomic insufficiency. 7. History of Clostridium difficile colitis. 8. History of sepsis. 9. History of catheter placement. 10. History of chronic diarrhea. 11. History of septic shock. 12. Osteopenia 12. S/p right hip surgery Problems: Additional Assessment/Plan 1.Continue HD Consultation Date/Type/Reason Admit Date/Time Apr 22, 2017 at 17:33 Initial Consult Date Type of Consultation: RENAL Reason for Consultation Dr Crowley Referring Provider: MARGARET SLATER Exam/Review of Systems Vital Signs Vitals Vital Signs Date Time Temp Pulse Resp B/P Pulse Ox O2 Delivery O2 Flow Rate FiO2 05/05/17 07:21 97.7 98 20 106/63 99 05/04/17 20:00 Room Air Intake and Output 05/04/17 05/04/17 05/05/17 15:00 23:00 07:00 Intake Total 500 ml 1000 ml 240 ml Output Total 900 ml Balance -400 ml 1000 ml 240 ml Exam Constitutional: alert, oriented Respiratory: clear to auscultation Cardiovascular: regular rate and rhythm Results Result Diagram: 05/05/17 0456 05/05/17 0456 Results 24 hrs Laboratory Tests Test 05/04/17 17:19 05/04/17 20:26 05/05/17 04:56 05/05/17 08:33 Bedside Glucose 93 100 71 White Blood Count 5.8 # Red Blood Count 2.66 L Hemoglobin 8.2 L Hematocrit 26.1 L Mean Corpuscular Volume 98.1 Mean Corpuscular Hemoglobin 30.8 Mean Corpuscular Hemoglobin Concent 31.4 L Red Cell Distribution Width 12.9 Platelet Count 227 Mean Platelet Volume 9.5 Neutrophils % 55.4 Lymphocytes % 28.5 Monocytes % 8.5 Eosinophils % 6.7 Basophils % 0.7 Nucleated Red Blood Cells % 0.0 Neutrophils # 3.2 Lymphocytes # 1.7 Monocytes # 0.5 Eosinophils # 0.4 Basophils # 0.0 Nucleated Red Blood Cells # 0.0 Sodium Level 139 Potassium Level 4.9 Chloride Level 95 L Carbon Dioxide Level 31 Anion Gap 18 H Blood Urea Nitrogen 36 #H Creatinine 3.27 H Glucose Level 85 Calcium Level 9.1 Phosphorus Level 4.4 Magnesium Level 2.1 Medications Medications Current Medications Ondansetron HCl (Zofran Inj) 4 mg Q6H PRN IV NAUSEA AND/OR VOMITING Last administered on 04/29/17 20:54; Admin Dose 4 MG; Start 04/22/17 at 19:00 Acetaminophen (Tylenol Tab) 650 mg Q6H PRN PO PAIN LEVEL 1-3 OR FEVER; Start at 19:00 Acetaminophen/ Hydrocodone Bitart ([place] (5/325)) 1 tab Q6H PRN PO MODERATE PAIN LEVEL 4-6 Last administered on 05/05/17 08:48; Admin Dose 1 TAB; Start at 19:00 Morphine Sulfate (morphine) 2 mg Q4H PRN IV SEVERE PAIN LEVEL 7-10; Start 04/22 at 19:00 Midodrine (Proamatine) 10 mg TID PO Last administered on 05/05/17 08:37; Admin Dose 10 MG; Start 04/22/17 at 21:00 Tramadol HCl (Ultram) 50 mg Q6H PRN PO PAIN; Start 04/22/17 at 19:00 Miscellaneous Information 1 ea NOTE XX ; Start 04/22/17 at 19:00 Glucose (Glutose) 15 gm Q15M PRN PO DECREASED GLUCOSE; Start 04/22/17 at 19:00 Glucose (Glutose) 22.5 gm Q15M PRN PO DECREASED GLUCOSE Last administered on 08:48; Admin Dose 22.5 GM; Start 04/22/17 at 19:00 Dextrose (D50w Syringe) 25 ml Q15M PRN IV DECREASED GLUCOSE; Start 04/22/17 at 19:00 Dextrose (D50w Syringe) 50 ml Q15M PRN IV DECREASED GLUCOSE; Start 04/22/17 at 19:00 Glucagon (Glucagen) 1 mg Q15M PRN IM DECREASED GLUCOSE; Start 04/22/17 at 19:00 Glucose (Glutose) 15 gm Q15M PRN BUCCAL DECREASED GLUCOSE Last administered on 04/27/17 00:53; Admin Dose 15 GM; Start 04/22/17 at 19:00 Zolpidem Tartrate (Ambien) 5 mg QHS PRN PO SLEEP; Start 04/23/17 at 01:00 Linagliptin (Tradjenta) 5 mg DAILY PO Last administered on 05/05/17 08:38; Admin Dose 5 MG; Start 04/23/17 at 14:00 Collagenase (Santyl) 1 applic DAILY TOP Last administered on 05/05/17 08:35; Admin Dose 1 APPLIC; Start 04/24/17 at 15:05 Collagenase (Santyl) 1 applic PRN PRN TOP WOUND CARE; Start 04/24/17 at 15:30 Vancomycin HCl (Vancomycin Oral Syringe) 250 mg Q6 PO Last administered on 06:01; Admin Dose 250 MG; Start 04/26/17 at 00:00 Pantoprazole (Protonix Tab) 40 mg DAILY@06 PO Last administered on 05/05/17 06: 01; Admin Dose 40 MG; Start 04/27/17 at 06:00 Saccharomyces Boulardii (Florastor) 500 mg BID PO Last administered on 08:48; Admin Dose 500 MG; Start 05/01/17 at 11:30 Diphenoxylate HCl/ Atropine (Lomotil) 2 tab Q6H PRN PO DIARRHEA Last administered on 05/01/17 18:05; Admin Dose 2 TAB; Start 05/01/17 at 13:30 Fludrocortisone Acetate (Florinef) 0.1 mg DAILY PO Last administered on 08:37; Admin Dose 0.1 MG; Start 05/04/17 at 16:00 Insulin Glargine (Lantus) 5 unit HS SC Last administered on 05/04/17 20:46; Admin Dose 5 UNIT; Start 05/04/17 at 21:00 XAVIER RAMOS May 05, 2017 12:19
--- NOTE | 2017-05-05 23:46 | CONS ---
Date/Time of Note Date/Time of Note DATE: 05/05/17 TIME: 23:45 Assessment/Plan Assessment/Plan Chief Complaint/Hosp Course Impression: 1. Intractable diarrhea. Stool for C. diff negative. Status post esophagogastroduodenoscopy and colonoscopy on 04/28/2017. Pathology from gastric and colonic biopsy negative for any malignancy. Diarrhea improved with anti-diarrheals. 2. Gram-positive bacteremia. 3. End-stage renal disease on hemodialysis. Continue hemodialysis as per Nephrology. 4. Diabetes mellitus, unknown type. Continue sliding scale insulin along with Lantus insulin and premeal insulin. Hemoglobin A1c 7.0. 5. Normocytic normochromic anemia, most probably anemia of chronic kidney disease. We will monitor the H and H closely. PLAN: - continue probiotics. - Icontinue lomotil for diarrhea as all w/u so far negative. - ok from GI perspective if BM less than 4 daily and if ok with primary and other consultants. Problems: Consultation Date/Type/Reason Admit Date/Time Apr 22, 2017 at 17:33 Initial Consult Date 04/26/17 Type of Consultation: GI Referring Provider: MARGARET SLATER 24 HR Interval Summary Constitutional: improved Exam/Review of Systems Vital Signs Vitals Vital Signs Date Time Temp Pulse Resp B/P Pulse Ox O2 Delivery O2 Flow Rate FiO2 05/05/17 07:21 97.7 98 20 106/63 99 05/04/17 20:00 Room Air Intake and Output 05/04/17 05/04/17 05/05/17 15:00 23:00 07:00 Intake Total 500 ml 1000 ml 240 ml Output Total 900 ml Balance -400 ml 1000 ml 240 ml Exam Head: atraumatic, normocephalic ENMT: nl lips & teeth, nl nasal mucosa & septum Neck: non-tender, supple Respiratory: clear to auscultation, normal air movement Cardiovascular: nl pulses, regular rate and rhythm Gastrointestinal: bowel sounds, non-tender, soft Results Result Diagram: 05/05/17 0456 05/05/17 0456 Results 24 hrs Laboratory Tests Test 05/05/17 04:56 05/05/17 08:33 05/05/17 12:18 White Blood Count 5.8 # Red Blood Count 2.66 L Hemoglobin 8.2 L Hematocrit 26.1 L Mean Corpuscular Volume 98.1 Mean Corpuscular Hemoglobin 30.8 Mean Corpuscular Hemoglobin Concent 31.4 L Red Cell Distribution Width 12.9 Platelet Count 227 Mean Platelet Volume 9.5 Neutrophils % 55.4 Lymphocytes % 28.5 Monocytes % 8.5 Eosinophils % 6.7 Basophils % 0.7 Nucleated Red Blood Cells % 0.0 Neutrophils # 3.2 Lymphocytes # 1.7 Monocytes # 0.5 Eosinophils # 0.4 Basophils # 0.0 Nucleated Red Blood Cells # 0.0 Sodium Level 139 Potassium Level 4.9 Chloride Level 95 L Carbon Dioxide Level 31 Anion Gap 18 H Blood Urea Nitrogen 36 #H Creatinine 3.27 H Glucose Level 85 Calcium Level 9.1 Phosphorus Level 4.4 Magnesium Level 2.1 Bedside Glucose 71 97 AFSHAN HAMILTON MD May 05, 2017 23:46
== END 2017-05-05 16:50 | disposition home or self-care (01) | DRG 391 ==
LOC: E/R 14:46 → TEL 17:33 → MS2 05-02 16:33
PROVIDERS: ADMIT Internal Medicine; ATTEND Internal Medicine
PROC: 0DB68ZX Excision of Stomach, Via Natural or Artificial Opening Endoscopic, Diagnostic (ICD-10-PCS; principal; 2017-04-28 19:00)
PROC: 0DBG8ZX Excision of Left Large Intestine, Via Natural or Artificial Opening Endoscopic, Diagnostic (ICD-10-PCS; 2017-04-28 19:00)
DX: K58.0 Irritable bowel syndrome with diarrhea (principal); N18.6 End stage renal disease; E43 Unspecified severe protein-calorie malnutrition; I13.2 Hypertensive heart and chronic kidney disease with heart failure and with stage 5 chronic kidney disease, or end stage renal disease; L89.153 Pressure ulcer of sacral region, stage 3; K31.84 Gastroparesis; R78.81 Bacteremia; L89.623 Pressure ulcer of left heel, stage 3; E87.5 Hyperkalemia; E11.43 Type 2 diabetes mellitus with diabetic autonomic (poly)neuropathy; E86.0 Dehydration; E46 Unspecified protein-calorie malnutrition; Z68.1 Body mass index [BMI] 19.9 or less, adult; E11.621 Type 2 diabetes mellitus with foot ulcer; A08.8 Other specified intestinal infections; D63.1 Anemia in chronic kidney disease; D64.9 Anemia, unspecified; M25.551 Pain in right hip; I95.1 Orthostatic hypotension; B95.7 Other staphylococcus as the cause of diseases classified elsewhere; B96.89 Other specified bacterial agents as the cause of diseases classified elsewhere; K20.9 Esophagitis, unspecified; K29.70 Gastritis, unspecified, without bleeding; K57.30 Diverticulosis of large intestine without perforation or abscess without bleeding; K64.8 Other hemorrhoids; L97.529 Non-pressure chronic ulcer of other part of left foot with unspecified severity
CPT/HCPCS: 36415; 71010; 73510; 80048; 80053; 80061; 80202; 82306; 82652; 82962; 83036; 83605; 83735; 84100; 84132; 84439; 84443; 84484; 85025; 85610; 85730; 86703; 87040; 87045; 87075; 88305; 88312; 90935; 93005; 94664; 96365; 96366; 96368; 96372; 96375; 96376; 97116; 97162; 97530; J0744; J1815; J2370; J2405; J2765; J3370; J7040; P9047

== ENCOUNTER 2017-07-11 16:10 | Inpatient (IN) | payer MEDICARE, BC ==
[~2017-07-11] VITALS: Ht 144.8 cm; Wt 38.0 kg
[~2017-07-11 16:10] MED LIST changes: +CHOL400T3 PO; +DIPH1TAB PO; -FERR-55 PO; -HYDR-906 PO; +LIPA1CAP4 PO; +MECL-77 PO; -MIDO10TA PO; +MIDO5TAB19 PO; -NEPH PO; +SACC250C PO; +TRAM-40 PO; +VIT1TABL28 PO
[2017-07-11 19:59] LABS: BASOPHILS % 0.4 % (0.0-2.0); EOSINOPHILS # 0.2 10^3/ul (0.0-0.5); EOSINOPHILS % 2.3 % (0.0-7.0); HEMATOCRIT 37.6 % (42.0-52.0); HEMOGLOBIN 12.9 g/dl (14.0-18.0); LYMPHOCYTES # 1.3 10^3/ul (0.8-2.9); LYMPHOCYTES % 13.4 % (15.0-51.0); MEAN CORPUSCULAR HEMOGLOBIN 30.6 pg (29.0-33.0); MEAN CORPUSCULAR HGB CONC 34.3 g/dl (32.0-37.0); MEAN CORPUSCULAR VOLUME 89.1 fl (82.0-101.0); MEAN PLATELET VOLUME 8.9 fl (7.4-10.4); MONOCYTE # 0.7 10^3/ul (0.3-0.9); MONOCYTES % 6.8 % (0.0-11.0); NEUTROPHILS % 76.8 % (39.0-77.0); PLATELET COUNT 288 10^3/UL (140-415); RED BLOOD COUNT 4.22 10^6/ul (4.70-6.10); RED CELL DISTRIBUTION WIDTH 12.1 % (11.5-14.5); WHITE BLOOD COUNT 9.9 10^3/ul (4.8-10.8)
--- NOTE | 2017-07-11 20:06 | RADRPT ---
PROCEDURE: XR Chest. CLINICAL INDICATION: Chest Pain. TECHNIQUE: Single frontal view of the chest was obtained COMPARISON: None FINDINGS: The heart and mediastinum are within normal limits. There is minimal discoid atelectasis in the left lower lobe. The lungs are otherwise clear. There is no pleural effusion or pneumothorax. The bones and soft tissue show no acute change. IMPRESSION: Minimal discoid atelectasis in the left lower lobe. Otherwise, no significant abnormalities are iden tified. RPTAT:AAJJ Physician Nicol Date Time Electronically viewed and signed by Hugo Foy Physician on 07/11/2017 20:06 PEÑA/
[2017-07-11 20:12] LABS: INR 1.01; PROTIME 13.3 Sec (12.2-14.2)
[2017-07-11 20:16] LABS: ALANINE AMINOTRANSFERASE 27 IU/L (13-69); ALBUMIN 3.8 g/dl (3.3-4.9); ALBUMIN/GLOBULIN RATIO 0.76; ALKALINE PHOSPHATASE 167 IU/L (42-121); ANION GAP 18 (8-16); ASPARTATE AMINO TRANSFERASE 20 IU/L (15-46); BLOOD UREA NITROGEN 48 mg/dl (7-20); CALCIUM 9.1 mg/dl (8.4-10.2); CARBON DIOXIDE 21 mmol/L (21-31); CHLORIDE 91 mmol/L (97-110); CREATININE 5.95 mg/dl (0.61-1.24); GLUCOSE 173 mg/dl (70-220); MAGNESIUM 2.4 mg/dl (1.7-2.5); POTASSIUM 5.2 mmol/L (3.5-5.1); SODIUM 125 mmol/L (135-144); TOTAL PROTEIN 8.8 g/dl (6.1-8.1)
[2017-07-11 20:37] LABS: TROPONIN-I < 0.012 ng/ml (0.00-0.12)
[2017-07-11] MEDS ORDERED: METO5TAB11 PO (21:05)
[2017-07-11] MEDS ORDERED: ELUX100T PO (21:05)
[2017-07-11] MEDS ORDERED: ONDANSETRON 4 MG INJ IV STA (23:12)
--- NOTE | 2017-07-11 23:20 | ERA ---
ER Documentation Chief Complaint Date/Time DATE: 07/11/17 TIME: 23:16 Chief Complaint Sent from Dialysis clinic abnormal labs HPI This 57-year-old male sent from dialysis for abnormal labs which he says are sodium and potassium abnormalities as well as very high blood sugar. He has mild nausea without vomiting. Had mild lightheadedness earlier as is otherwise feeling well. ROS All systems reviewed and are negative except as per history of present illness. Medications Home Meds Active Scripts Diphenoxylate HCl/Atropine (Lomotil 2.5-0.025 mg Tablet) 1 Each Tablet, 1 TAB PO TID Y for DIARRHEA, #90 TAB Prov:CHARY WHARTON S. 05/05/17 Reported Medications Eluxadoline (Viberzi) 100 Mg Tablet, 100 MG PO DAILY, TAB 07/11/17 Metoclopramide Hcl* (Metoclopramide Hcl*) 5 Mg Tablet, 5 MG PO TID Y for NAUSEA AND/OR VOMITING, TAB 07/11/17 Tramadol Hcl* (Ultram*) 50 Mg Tablet, 50 MG PO Q6H Y for PAIN, TAB 04/22/17 Cholecalciferol (Vitamin D3) 400 Unit Tab.chew, 800 UNIT PO DAILY, TAB.CHEW 04/22/17 Xgoocs-Urxshbje-Ytprizi* (Derian AVINA* 12,000) 12,000 L-38,000-60,000 Unit Capsule.dr, 2 CAP PO WITH MEALS, CAP 04/22/17 Midodrine* (Midodrine*) 5 Mg Tablet, 10 MG PO TID, TAB 04/22/17 Insulin Regular, Human* (Novolin R*) 100 U/Ml Vial, 2 UNIT SC AC MEALS, VIAL 11/25/15 Sitagliptin* (Januvia*) 50 Mg Tablet, 50 MG PO DAILY, #30 TAB 11/25/15 Calcium Acetate* (Calcium Acetate*) 667 Mg Capsule, 1334 MG PO TID, CAP 12/17/14 Insulin Glargine,Hum.rec.anlog (Lantus) 100 U/Ml Cartridge, 20 U SQ HS 03/07/14 Discontinued Reported Medications Vit B Cmplx 3/Fa/Vit C/Biotin (VOL-CARE RX TABLET) 1 Each Tablet, 1 EACH PO DAILY, TAB 04/22/17 Meclizine Hcl* (Meclizine Hcl*) 25 Mg Tablet, 25 MG PO NEEDED Y for DIZZINESS , TAB 04/22/17 Discontinued Scripts Saccharomyces Boulardii* (Florastor*) 250 Mg Cap, 500 MG PO BID, #60 CAP Prov:CHARY WHARTON S. 05/05/17 Allergies Allergies: Coded Allergies: No Known Allergy (Verified , 07/11/17) PMhx/Soc History of Surgery: Yes (R hip Sx, Cholecystectomy, Fistula/Perma cath placement ) Anesthesia Reaction: No Hx Neurological Disorder: No Hx Respiratory Disorders: No Hx Cardiac Disorders: No Hx Psychiatric Problems: No Hx Miscellaneous Medical Probl: Yes (ESRD on HD, sepsis, c-diff, LLE diabetic ulcer, DM2, R hip sx. ) Hx Alcohol Use: No Hx Substance Use: No Hx Tobacco Use: No Smoking Status: Never smoker Physical Exam Vitals Vital Signs Date Time Temp Pulse Resp B/P Pulse Ox O2 Delivery O2 Flow Rate FiO2 07/11/17 19:17 0 07/11/17 16:18 98.7 84 20 108/70 99 Physical Exam Const: [] Head: Atraumatic Eyes: Normal Conjunctiva ENT: Normal External Ears, Nose and Mouth. Neck: Full range of motion..~ No meningismus. Resp: Clear to auscultation bilaterally Cardio: Regular rate and rhythm, no murmurs Abd: Soft, non tender, non distended. Normal bowel sounds Skin: No petechiae or rashes Back: No midline or flank tenderness Ext: No cyanosis, or edema Neur: Awake and alert Psych: Normal Mood and Affect Result Diagram: 07/11/17193707/11/171937 Results 24 hrs Laboratory Tests Test 07/11/17 19:38 White Blood Count 9.910^3/ul Red Blood Count 4.2210^6/ul Hemoglobin 12.9g/dl Hematocrit 37.6% Mean Corpuscular Volume 89.1fl Mean Corpuscular Hemoglobin 30.6pg Mean Corpuscular Hemoglobin Concent 34.3g/dl Red Cell Distribution Width 12.1% Platelet Count 13132^3/UL Mean Platelet Volume 8.9fl Neutrophils % 76.8% Lymphocytes % 13.4% Monocytes % 6.8% Eosinophils % 2.3% Basophils % 0.4% Nucleated Red Blood Cells % 0.0/100WBC Neutrophils # (Manual) 7.610^3/ul Lymphocytes # 1.310^3/ul Monocytes # 0.710^3/ul Eosinophils # 0.210^3/ul Basophils # 0.010^3/ul Nucleated Red Blood Cells # 0.010^3/ul Prothrombin Time 13.3Sec Prothrombin Time Ratio 1.0 INR International Normalized Ratio 1.01 Activated Partial Thromboplast Time 32.0Sec Sodium Level 125mmol/L Potassium Level 5.2mmol/L Chloride Level 91mmol/L Carbon Dioxide Level 21mmol/L Anion Gap 18 Blood Urea Nitrogen 48mg/dl Creatinine 5.95mg/dl Glucose Level 173mg/dl Calcium Level 9.1mg/dl Magnesium Level 2.4mg/dl Total Bilirubin 0.0mg/dl Direct Bilirubin 0.00mg/dl Indirect Bilirubin 0.0mg/dl Aspartate Amino Transf (AST/SGOT) 20IU/L Alanine Aminotransferase (ALT/SGPT) 27IU/L Alkaline Phosphatase 167IU/L Troponin I < 0.012ng/ml Total Protein 8.8g/dl Albumin 3.8g/dl Globulin 5.00g/dl Albumin/Globulin Ratio 0.76 Current Medications Medications (Trade) Dose Ordered Sig/Zachary Route PRN Reason Start Time Stop Time Status Last Admin Dose Admin Ondansetron HCl 4 mg 4 mg ONCE STAT IV 07/11/17 23:12 07/11/17 23:13 DC Sodium Chloride (NS) 1,000 ml @ 1,000 mls/hr Q1H ONCE IV 07/11/17 23:30 07/12/17 00:29 Procedures/MDM Severe hyponatremia with symptoms of nausea and vomiting. Patient also has mildly elevated potassium with no changes in EKG. He was given a liter of normal saline as well as Zofran. Placed paged to Dr. Crowley's group and have not received a call back yet. I did speak with Dr. Medina will be admitting the patient to telemetry as he prefers to put the patient on telemetry for a sodium value that low. Lightheadedness is improved with fluids and has no signs of acute cardiac ischemia. EKG interpretation: Normal sinus rhythm rate of 81, normal axis, no ST or T- wave changes concerning for acute ischemia, normal intervals. Normal EKG monitoring engineer interpretation: Normal sinus rhythm without arrhythmia Chest x-ray interpretation: I see no acute process, no vitamin [place] or edema, no pneumothorax, no fractures Departure Diagnosis: Primary Impression: Hyponatremia Additional Impressions: Nausea Lightheadedness Hyperkalemia Condition: Serious LUX HOLLOWAY DO Jul 11, 2017 23:20
[2017-07-11] MEDS ORDERED: SOD CHLORIDE 0.9% 1,000 ML IV ONE (23:30)
[2017-07-11] MEDS ORDERED: ACETAMINOPHEN 325 MG TAB PO PRN (23:30)
[2017-07-12] VITALS (21 sets, daily range): BP systolic 84–180; BP diastolic 48–87; PULSE 68–91; RESP 18–20; Ht 144.8 cm; Wt 38.0 kg
[2017-07-12] MEDS ORDERED: DIPHENOXYLATE/ATROPINE TAB PO PRN (02:00)
[2017-07-12] MEDS ORDERED: METOCLOPRAMIDE 5 MG TAB PO PRN (02:00)
[2017-07-12] MEDS ORDERED: DOCUSATE SODIUM 100 MG CAP PO PRN (02:00)
[2017-07-12] MEDS ORDERED: BISACODYL (EC) 5 MG TAB PO PRN (02:00)
[2017-07-12] MEDS ORDERED: ACCU-CHEK XX SCH (02:00)
[2017-07-12] MEDS ORDERED: NACL 0.9% 3 ML SYG IV SCH (02:00)
[2017-07-12] MEDS: ACCU-CHEK XX SCH (02:00)
[2017-07-12] MEDS ORDERED: ACETAMINOPHEN 325 MG TAB PO PRN (02:00)
[2017-07-12] MEDS ORDERED: FAMOTIDINE 20 MG TAB PO SCH (02:01)
[2017-07-12] MEDS ORDERED: PENDING SANTYL ORDER FOR WOUND CARE XX PRN (03:30)
[2017-07-12] MEDS: traMADol 50 MG TAB PO PRN ×2 (03:57→12:07)
--- NOTE | 2017-07-12 06:52 | HP ---
Date/Time of Note Date/Time of Note DATE: 07/12/17 TIME: 06:47 Assessment/Plan VTE Prophylaxis VTE Prophylaxis Intervention: SCD's Lines/Catheters IV C[facility]ter Type [facility]from [facility] [facility] Assessment/Plan Chief Complaint/Hosp Course This is a 57-year-old male being admitted to the telemetry floor for: #1 hyponatremia: Patient has sodium of 125 he did state that earlier he was having some nausea and had an episode of vomiting. Upon my examination patient is conversing appropriately and he is alert and oriented 3. He does not appear to be in any acute distress. At the current time will fluid restrict the patient at 800 cc an hour. Will monitor BMPs every 4 hours. He remains afebrile and normal white blood cell count which make infection less likely. #2 end stage renal disease: Patient had his most recent dialysis on Friday. Will consult nephrology Dr. Crowley. Will resume home medications. Avoid nephrotoxic agents since creatinine is 5.95 which is elevated from his previous kidney function in May which at that time was 3.2. Potassium was 5.2 and EKG show any acute abnormalities. #3 diabetes mellitus: We will check a hemoglobin A1c. At the current time patient's blood sugars are in acceptable values. Will put the patient a low- carb renal diet and insulin sliding scale. #4 previous right hip surgery: Patient currently uses a walker to ambulate. #5 DVT GI prophylaxis: SCDs, acid lópez Further treatment strategy will be implemented as per the clinical course Problems: HPI/ROS Admit Date/Time Admit Date/Time Jul 12, 2017 at 00:07 Hx of Present Illness Chief complaint: Abnormal labs This 57-year-old male sent from dialysis for abnormal labs which he says are sodium and potassium abnormalities as well as very high blood sugar. He has mild nausea without vomiting. Had mild lightheadedness earlier as is otherwise feeling well. States that for the past 4 days he has felt weak and has had some nausea but denies any fevers cough. He last had his dialysis on Friday his dialysis doctor is Dr. Crowley. Allergies: NKDA Occasions: See JAN ROS Const: As per HPI Eyes : No pain discharge or redness or change in visual acuity ENT: No pain, sore throat, congestion, congestion, dysphagia or discharge Respiratory: No shortness of breath, cough, sputum, wheezing, or pleuritic pain Cardiovascular: No chest pain, palpitation, PND, or edema GI : no change in appetite, abdominal pain, nausea, vomiting, diarrhea, constipation, or change in the color his stool Genitourinary: No dysuria, hematuria, flank pain , discharge or CVA tenderness Musculoskeletal: No joint pain, back pain, neck pain, restricted range of motion in neck or joints Skin: No rash, bruising or hives Neuro: No headache, dizziness, syncope, seizure, focal weakness Endocrine: No polyuria, polydipsia, temperature intolerance Psych: No hallucination, depression, anxiety or suicidal ideation PMH/Family/Social Past Medical History End-stage renal disease on hemodialysis, diabetes mellitus Past Surgical History Right hip surgery, cholecystectomy, left AV fistula Past Surgical Hx: endoscopy, other Family History Significant Family History: diabetes Social History Alcohol Use: none Smoking Status: Never smoker Drug Use: none Exam/Review of Systems Vital Signs Vitals Vital Signs Date Time Temp Pulse Resp B/P Pulse Ox O2 Delivery O2 Flow Rate FiO2 07/12/17 04:46 97.9 90 20 120/77 98 07/11/17 23:37 Room Air 07/11/17 19:17 0 Intake and Output 07/11/17 07/11/17 07/12/17 15:00 23:00 07:00 Intake Total 240 ml Balance 240 ml Exam Exam General: A pleasant 57-year-old male sitting in bed in no acute distress, underweight HEENT: Atraumatic, normocephalic. The pupils are equal, round and reactive. Extraocular motor are intact Neck: Supple with full range of motion. No rigidity or meningismus Chest: Nontender Lungs: Clear to auscultation bilaterally no crackles rales or wheezing Heart: Normal S1-S2, Regular rhythm and rate. Abdomen: Soft , nontender, nondistended , bowel sounds are present. No guarding no rebound tenderness , No masses or organomegaly. No costovertebral temporal angle mass Extremities: Normal to inspection, no edema no cyanosis Neurologic: Normal mental status, speech normal, cranial nerves II through XII are intact, motor and sensory are intact, no focal weakness Additional Comments PROCEDURE: XR Chest. CLINICAL INDICATION: Chest Pain. TECHNIQUE: Single frontal view of the chest was obtained COMPARISON: None FINDINGS: The heart and mediastinum are within normal limits. There is minimal discoid atelectasis in the left lower lobe. The lungs are otherwise clear. There is no pleural effusion or pneumothorax. The bones and soft tissue show no acute change. IMPRESSION: Minimal discoid atelectasis in the left lower lobe. Otherwise, no significant abnormalities are identified. RPTAT:AAJJ Hugo Foy, Physician Date Time Electronically viewed and signed by Hugo Foy Physician on 07/11/2017 20: 06 MC/ CC: LUX HOLLOWAY DO EKG interpretation: Normal sinus rhythm rate of 81, normal axis, no ST or T- wave changes concerning for acute ischemia, normal intervals. As per ED physician documentation Labs Result Diagram: 07/11/17193707/11/171937 Medications Medications Current Medications Ondansetron HCl (Zofran Inj) 4 mg Q6H PRN IV NAUSEA AND/OR VOMITING; Start 07/12 at 02:00 Acetaminophen (Tylenol Tab) 650 mg Q6H PRN PO PAIN LEVEL 1-3 OR FEVER; Start at 02:00 Docusate Sodium (Colace) 100 mg Q12H PRN PO CONSTIPATION; Start 07/12/17 at 02: 00 Bisacodyl (Dulcolax) 5 mg DAILY PRN PO CONSTIPATION; Start 07/12/17 at 02:00 Famotidine (Pepcid) 20 mg DAILY PO Last administered on 07/12/17t 02:17; Admin Dose 20 MG; Start 07/12/17 at 02:01 Calcium Acetate (Phoslo) 1,334 mg TID PO ; Start 07/12/17 at 09:00 Diphenoxylate HCl/ Atropine (Lomotil) 1 tab TID PRN PO DIARRHEA; Start 07/12/17 at 02:00 Insulin Glargine (Lantus) 20 unit HS SC ; Start 07/12/17 at 21:00 Metoclopramide HCl (Reglan) 5 mg TID PRN PO NAUSEA AND/OR VOMITING; Start at 02:00 Midodrine (Proamatine) 10 mg TID PO ; Start 07/12/17 at 09:00 Tramadol HCl (Ultram) 50 mg Q6H PRN PO PAIN Last administered on 07/12/17t 03:57 ; Admin Dose 50 MG; Start 07/12/17 at 02:00 Cholecalciferol (Vitamin D) 800 units DAILY PO ; Start 07/12/17 at 09:00 Miscellaneous Information 100 mg DAILY PO ; Start 07/12/17 at 09:00; Status UNV Diagnostic Test (Pha) (Accu-Chek) 1 02 XX ; Start 07/12/17 at 02:00 Miscellaneous Information (Pending Santyl Order For Wound Care) This patient [place]... PRN PRN XX WOUND CARE; Start 07/12/17 at 03:30 HANNAH MILLER Jul 12, 2017 06:52
[2017-07-12] MEDS: INSULIN ASPART [NOVOLOG] 3 ML PEN SC SCH ×7 (08:18→20:21)
[2017-07-12] MEDS: ONDANSETRON 4 MG INJ IV PRN ×3 (08:46→22:43)
[2017-07-12] MEDS: CALCIUM ACETATE 667 MG CAP PO SCH ×3 (08:49→20:20)
[2017-07-12] MEDS: MIDODRINE 5 MG TAB PO SCH ×3 (08:49→20:21)
[2017-07-12] MEDS: CREON (12k-38k-60k) 1 CAP PO SCH ×3 (08:50→17:24)
[2017-07-12] MEDS: CHOLECALCIFEROL 400 UNITS TAB PO SCH (08:50)
[2017-07-12 08:59] LABS: BASOPHIL # 0.1 10^3/ul (0.0-0.1); BASOPHILS % 0.8 % (0.0-2.0); EOSINOPHILS # 0.3 10^3/ul (0.0-0.5); EOSINOPHILS % 2.5 % (0.0-7.0); HEMATOCRIT 34.9 % (42.0-52.0); HEMOGLOBIN 11.9 g/dl (14.0-18.0); LYMPHOCYTES # 1.4 10^3/ul (0.8-2.9); LYMPHOCYTES % 13.9 % (15.0-51.0); MEAN CORPUSCULAR HEMOGLOBIN 30.8 pg (29.0-33.0); MEAN CORPUSCULAR HGB CONC 34.1 g/dl (32.0-37.0); MEAN CORPUSCULAR VOLUME 90.4 fl (82.0-101.0); MEAN PLATELET VOLUME 9.2 fl (7.4-10.4); MONOCYTE # 0.8 10^3/ul (0.3-0.9); MONOCYTES % 7.2 % (0.0-11.0); NEUTROPHILS % 75.3 % (39.0-77.0); PLATELET COUNT 311 10^3/UL (140-415); RED BLOOD COUNT 3.86 10^6/ul (4.70-6.10); RED CELL DISTRIBUTION WIDTH 12.1 % (11.5-14.5); WHITE BLOOD COUNT 10.4 10^3/ul (4.8-10.8)
[2017-07-12] MEDS ORDERED: ELUXADOLINE 100 MG PO SCH (09:00)
[2017-07-12 09:19] LABS: ALBUMIN 3.4 g/dl (3.3-4.9); ALBUMIN/GLOBULIN RATIO 0.8; CALCIUM 8.4 mg/dl (8.4-10.2); CHOL/HDL RATIO 2.4 RATIO; CREATININE 6.86 mg/dl (0.61-1.24); MAGNESIUM 2.4 mg/dl (1.7-2.5); POTASSIUM 5.3 mmol/L (3.5-5.1); TOTAL PROTEIN 7.6 g/dl (6.1-8.1)
[2017-07-12 10:50] LABS: CALCIUM 8.9 mg/dl (8.4-10.2); CREATININE 7.11 mg/dl (0.61-1.24)
[2017-07-12 10:53] LABS: THYROID STIMULATING HORMONE 0.457 MIU/L (0.465-4.680)
[2017-07-12 12:54] LABS: CALCIUM 8.9 mg/dl (8.4-10.2); CREATININE 7.09 mg/dl (0.61-1.24)
[2017-07-12 12:57] LABS: POTASSIUM 5.4 mmol/L (3.5-5.1)
--- NOTE | 2017-07-12 14:34 | CONS ---
XAVIER RAMOS 07/12/17 1434: Date/Time of Note Date/Time of Note DATE: 07/12/17 TIME: 14:30 Assessment/Plan Assessment/Plan Chief Complaint/Hosp Course 1. Hyponatremia. 2. ESRD, on HD 3. Diabetes mellitus type II, uncontrolled. 4. S/p right hip surgery. 5. Anemia of chronic disease 6. Cachexia. Problems: Additional Assessment/Plan 1. Optimization of kidney function 2. Pain control 3. Continue HD Consultation Date/Type/Reason Admit Date/Time Jul 12, 2017 at 00:07 Initial Consult Date 07/11/2017 Type of Consultation: Nephrology Reason for Consultation Dr Crowley Exam/Review of Systems Vital Signs Vitals Vital Signs Date Time Temp Pulse Resp B/P Pulse Ox O2 Delivery O2 Flow Rate FiO2 07/12/17 12:12 76 07/12/17 12:07 97.0 20 136/84 97 07/11/17 23:37 Room Air 07/11/17 19:17 0 Intake and Output 07/11/17 07/11/17 07/12/17 15:00 23:00 07:00 Intake Total 240 ml Balance 240 ml Exam Constitutional: alert, oriented Head: atraumatic Eyes: nl conjunctiva Neck: supple Respiratory: clear to auscultation Cardiovascular: regular rate and rhythm Gastrointestinal: soft Genitourinary - Male: nl scrotum Musculoskeletal: muscle weakness (right hip) Skin: other (surgical wounds) Results Result Diagram: 07/12/17 0813 07/12/17 1222 Results 24 hrs Laboratory Tests Test 07/11/17 19:38 07/12/17 07:58 07/12/17 08:13 07/12/17 10:03 White Blood Count 9.9 # 10.4 Red Blood Count 4.22 #L 3.86 L Hemoglobin 12.9 #L 11.9 L Hematocrit 37.6 #L 34.9 L Mean Corpuscular Volume 89.1 90.4 Mean Corpuscular Hemoglobin 30.6 30.8 Mean Corpuscular Hemoglobin Concent 34.3 34.1 Red Cell Distribution Width 12.1 12.1 Platelet Count 288 # 311 Mean Platelet Volume 8.9 9.2 Neutrophils % 76.8 75.3 Lymphocytes % 13.4 L 13.9 L Monocytes % 6.8 7.2 Eosinophils % 2.3 2.5 Basophils % 0.4 0.8 Nucleated Red Blood Cells % 0.0 0.0 Neutrophils # (Manual) 7.6 H 7.8 H Lymphocytes # 1.3 1.4 Monocytes # 0.7 0.8 Eosinophils # 0.2 0.3 Basophils # 0.0 0.1 Nucleated Red Blood Cells # 0.0 0.0 Prothrombin Time 13.3 Prothrombin Time Ratio 1.0 INR International Normalized Ratio 1.01 Activated Partial Thromboplast Time 32.0 Sodium Level 125 L 126 L 129 L Potassium Level 5.2 H 5.3 H 5.0 Chloride Level 91 L 96 L 95 L Carbon Dioxide Level 21 18 L 22 Anion Gap 18 H 17 H 17 H Blood Urea Nitrogen 48 H 62 H 62 H Creatinine 5.95 H 6.86 H 7.11 H Glucose Level 173 247 H 163 Calcium Level 9.1 8.4 8.9 Magnesium Level 2.4 2.4 Total Bilirubin 0.0 L 0.0 L Direct Bilirubin 0.00 0.00 Indirect Bilirubin 0.0 0.0 Aspartate Amino Transf (AST/SGOT) 20 14 L Alanine Aminotransferase (ALT/SGPT) 27 22 Alkaline Phosphatase 167 H 155 H Troponin I < 0.012 Total Protein 8.8 H 7.6 # Albumin 3.8 3.4 Globulin 5.00 H 4.20 H Albumin/Globulin Ratio 0.76 0.80 Bedside Glucose 219 Hemoglobin A1c 9.4 H Triglycerides Level 125 Cholesterol Level 80 L LDL Cholesterol, Calculated 22 HDL Cholesterol 33 Cholesterol/HDL Ratio 2.4 Thyroid Stimulating Hormone (TSH) 0.457 L Test 07/12/17 11:47 07/12/17 12:22 Bedside Glucose 150 Sodium Level 127 L Potassium Level 5.4 H Chloride Level 97 Carbon Dioxide Level 19 L Anion Gap 16 Blood Urea Nitrogen 63 H Creatinine 7.09 H Glucose Level 152 Calcium Level 8.9 Medications Medications Current Medications Ondansetron HCl (Zofran Inj) 4 mg Q6H PRN IV NAUSEA AND/OR VOMITING; Start 07/12 at 02:00 Acetaminophen (Tylenol Tab) 650 mg Q6H PRN PO PAIN LEVEL 1-3 OR FEVER; Start at 02:00 Docusate Sodium (Colace) 100 mg Q12H PRN PO CONSTIPATION; Start 07/12/17 at 02: 00 Bisacodyl (Dulcolax) 5 mg DAILY PRN PO CONSTIPATION; Start 07/12/17 at 02:00 Calcium Acetate (Phoslo) 1,334 mg TID PO Last administered on 07/12/17 12:08; Admin Dose 1,334 MG; Start 07/12/17 at 09:00 Diphenoxylate HCl/ Atropine (Lomotil) 1 tab TID PRN PO DIARRHEA; Start 07/12/17 at 02:00 Insulin Glargine (Lantus) 20 unit HS SC ; Start 07/12/17 at 21:00 Metoclopramide HCl (Reglan) 5 mg TID PRN PO NAUSEA AND/OR VOMITING; Start at 02:00 Midodrine (Proamatine) 10 mg TID PO Last administered on 07/12/17 08:49; Admin Dose 10 MG; Start 07/12/17 at 09:00 Tramadol HCl (Ultram) 50 mg Q6H PRN PO PAIN Last administered on 07/12/17 12:07 ; Admin Dose 50 MG; Start 07/12/17 at 02:00 Cholecalciferol (Vitamin D) 800 units DAILY PO Last administered on 07/12/17 08 :50; Admin Dose 800 UNITS; Start 07/12/17 at 09:00 Miscellaneous Information 100 mg DAILY PO ; Start 07/12/17 at 09:00; Status UNV Diagnostic Test (Pha) (Accu-Chek) 1 ea 02 XX ; Start 07/12/17 at 02:00 Miscellaneous Information (Pending Santyl Order For Wound Care) This patient [place]... PRN PRN XX WOUND CARE; Start 07/12/17 at 03:30 ZACH JUARES MD 07/12/17 1710: Assessment/Plan Assessment/Plan Additional Assessment/Plan Hyponatremia likely reduced renal excretion with no HD and increased water intake Hyperkalemia due to reduced renal excretion with no HD/ diet HD today Exam/Review of Systems Results Result Diagram: 07/12/17 0813 07/12/17 1222 XAVIER RAMOS Jul 12, 2017 14:34 ZACH JUARES MD Jul 12, 2017 17:10
[2017-07-12 15:07] LABS: CALCIUM 9.1 mg/dl (8.4-10.2); CREATININE 7.3 mg/dl (0.61-1.24); POTASSIUM 5.5 mmol/L (3.5-5.1)
--- NOTE | 2017-07-12 15:11 | PN ---
Date/Time of Note Date/Time of Note DATE: 07/12/17 TIME: 15:10 Assessment/Plan VTE Prophylaxis VTE Prophylaxis Intervention: SCD's Lines/Catheters IV C[facility]ter Type (from [facility]): Saline Lock Assessment/Plan Assessment/Plan 57 yo M sent from dialysis clinic for abnormal labs, found to be hyponatremia. Etio unclear. #hyponatremia: etio unclear. Pt appears euvolemic on exam, therefore d/dx includes SIADH, glucocorticoid deficiency, primary polydipsia, reset osmostat NO FREE WATER, 800 mL fluid restriction check cortisol, urine and serum osms, urine Na, Urine Cr, Urine Urea for FeNa, FeUrea calculations pt without marked hyperglycemia #?hyperthyroid? TSH low -check t4 #ESRD: nephrology following #DM2: SSI DVT prophx Discharge pending improvement in serum sodium Subjective 24 Hr Interval Summary Free Text/Dictation Pt feels ok. Denies any further vomitting Exam/Review of Systems Vital Signs Vitals Vital Signs Date Time Temp Pulse Resp B/P Pulse Ox O2 Delivery O2 Flow Rate FiO2 07/12/17 14:15 82 07/12/17 13:45 20 07/12/17 12:07 97.0 136/84 97 07/11/17 23:37 Room Air 07/11/17 19:17 0 Intake and Output 07/11/17 07/11/17 07/12/17 14:59 22:59 06:59 Intake Total 240 ml Balance 240 ml Exam nad no mrg lungs clear abd soft no rashes labs reviewed, Na imrpoved this afternoon to 127. TSH high, cortisol and urine studies and osms in process Results Result Diagram: 07/12/17 0813 07/12/17 1222 Results 24 hrs Laboratory Tests Test 07/11/17 19:38 07/12/17 07:58 07/12/17 08:13 07/12/17 10:03 White Blood Count 9.9 # 10.4 Red Blood Count 4.22 #L 3.86 L Hemoglobin 12.9 #L 11.9 L Hematocrit 37.6 #L 34.9 L Mean Corpuscular Volume 89.1 90.4 Mean Corpuscular Hemoglobin 30.6 30.8 Mean Corpuscular Hemoglobin Concent 34.3 34.1 Red Cell Distribution Width 12.1 12.1 Platelet Count 288 # 311 Mean Platelet Volume 8.9 9.2 Neutrophils % 76.8 75.3 Lymphocytes % 13.4 L 13.9 L Monocytes % 6.8 7.2 Eosinophils % 2.3 2.5 Basophils % 0.4 0.8 Nucleated Red Blood Cells % 0.0 0.0 Neutrophils # (Manual) 7.6 H 7.8 H Lymphocytes # 1.3 1.4 Monocytes # 0.7 0.8 Eosinophils # 0.2 0.3 Basophils # 0.0 0.1 Nucleated Red Blood Cells # 0.0 0.0 Prothrombin Time 13.3 Prothrombin Time Ratio 1.0 INR International Normalized Ratio 1.01 Activated Partial Thromboplast Time 32.0 Sodium Level 125 L 126 L 129 L Potassium Level 5.2 H 5.3 H 5.0 Chloride Level 91 L 96 L 95 L Carbon Dioxide Level 21 18 L 22 Anion Gap 18 H 17 H 17 H Blood Urea Nitrogen 48 H 62 H 62 H Creatinine 5.95 H 6.86 H 7.11 H Glucose Level 173 247 H 163 Calcium Level 9.1 8.4 8.9 Magnesium Level 2.4 2.4 Total Bilirubin 0.0 L 0.0 L Direct Bilirubin 0.00 0.00 Indirect Bilirubin 0.0 0.0 Aspartate Amino Transf (AST/SGOT) 20 14 L Alanine Aminotransferase (ALT/SGPT) 27 22 Alkaline Phosphatase 167 H 155 H Troponin I < 0.012 Total Protein 8.8 H 7.6 # Albumin 3.8 3.4 Globulin 5.00 H 4.20 H Albumin/Globulin Ratio 0.76 0.80 Bedside Glucose 219 Hemoglobin A1c 9.4 H Triglycerides Level 125 Cholesterol Level 80 L LDL Cholesterol, Calculated 22 HDL Cholesterol 33 Cholesterol/HDL Ratio 2.4 Thyroid Stimulating Hormone (TSH) 0.457 L Test 07/12/17 11:47 07/12/17 12:22 Bedside Glucose 150 Sodium Level 127 L Potassium Level 5.4 H Chloride Level 97 Carbon Dioxide Level 19 L Anion Gap 16 Blood Urea Nitrogen 63 H Creatinine 7.09 H Glucose Level 152 Calcium Level 8.9 Medications Medications Current Medications Ondansetron HCl (Zofran Inj) 4 mg Q6H PRN IV NAUSEA AND/OR VOMITING; Start 07/12 at 02:00 Acetaminophen (Tylenol Tab) 650 mg Q6H PRN PO PAIN LEVEL 1-3 OR FEVER; Start at 02:00 Docusate Sodium (Colace) 100 mg Q12H PRN PO CONSTIPATION; Start 07/12/17 at 02: 00 Bisacodyl (Dulcolax) 5 mg DAILY PRN PO CONSTIPATION; Start 07/12/17 at 02:00 Calcium Acetate (Phoslo) 1,334 mg TID PO Last administered on 07/12/17 12:08; Admin Dose 1,334 MG; Start 07/12/17 at 09:00 Diphenoxylate HCl/ Atropine (Lomotil) 1 tab TID PRN PO DIARRHEA; Start 07/12/17 at 02:00 Insulin Glargine (Lantus) 20 unit HS SC ; Start 07/12/17 at 21:00 Metoclopramide HCl (Reglan) 5 mg TID PRN PO NAUSEA AND/OR VOMITING; Start at 02:00 Midodrine (Proamatine) 10 mg TID PO Last administered on 07/12/17 08:49; Admin Dose 10 MG; Start 07/12/17 at 09:00 Tramadol HCl (Ultram) 50 mg Q6H PRN PO PAIN Last administered on 07/12/17 12:07 ; Admin Dose 50 MG; Start 07/12/17 at 02:00 Cholecalciferol (Vitamin D) 800 units DAILY PO Last administered on 07/12/17 08 :50; Admin Dose 800 UNITS; Start 07/12/17 at 09:00 Miscellaneous Information 100 mg DAILY PO ; Start 07/12/17 at 09:00; Status UNV Diagnostic Test (Pha) (Accu-Chek) 1 ea 02 XX ; Start 07/12/17 at 02:00 Miscellaneous Information (Pending Santyl Order For Wound Care) This patient [place]... PRN PRN XX WOUND CARE; Start 07/12/17 at 03:30 FELIPE HUFFMAN MD Jul 12, 2017 15:11 FELIPE HUFFMAN MD Jul 12, 2017 15:11
[2017-07-12] MEDS ORDERED: INSULIN GLARGINE [LANtus] 3 ML PEN SC SCH (21:00)
[2017-07-13] VITALS (11 sets, daily range): BP systolic 91–149; BP diastolic 53–89; PULSE 80–86; RESP 16–20
[2017-07-13] MEDS: traMADol 50 MG TAB PO PRN ×2 (01:24→18:31)
[2017-07-13] MEDS: ACCU-CHEK XX SCH (02:00)
[2017-07-13] MEDS: ONDANSETRON 4 MG INJ IV PRN ×2 (07:54→17:42)
[2017-07-13] MEDS: INSULIN ASPART [NOVOLOG] 3 ML PEN SC SCH ×7 (07:57→20:34)
[2017-07-13 08:13] LABS: CALCIUM 9.2 mg/dl (8.4-10.2); CREATININE 4.85 mg/dl (0.61-1.24); MAGNESIUM 2.4 mg/dl (1.7-2.5); POTASSIUM 4.2 mmol/L (3.5-5.1)
[2017-07-13] MEDS: CREON (12k-38k-60k) 1 CAP PO SCH ×3 (08:24→18:30)
[2017-07-13] MEDS: CHOLECALCIFEROL 400 UNITS TAB PO SCH (08:25)
[2017-07-13] MEDS: CALCIUM ACETATE 667 MG CAP PO SCH ×3 (08:25→20:24)
[2017-07-13] MEDS: MIDODRINE 5 MG TAB PO SCH ×3 (09:00→20:22)
[2017-07-13] MEDS: [UNRECOGNIZED DRUG - OTHER] XX SCH ×2 (10:30→18:01)
--- NOTE | 2017-07-13 16:25 | PN ---
Date/Time of Note Date/Time of Note DATE: 07/13/17 TIME: 16:18 Assessment/Plan VTE Prophylaxis VTE Prophylaxis Intervention: SCD's Lines/Catheters IV Catheter Type (from Nrs): Saline Lock Assessment/Plan Assessment/Plan 57 yo M sent from dialysis clinic for abnormal labs, found to be hyponatremic. Etio unclear. Serum osms not markedly deranged. #isotonic hyponatremia: etio unclear. Pt appears euvolemic on exam, therefore d/ dx includes SIADH, glucocorticoid deficiency, primary polydipsia, reset osmostat NO FREE WATER, cont 800 mL fluid restriction cortisol and serum osms ok; urine tests ordered yesterday do not appear to have been done though suspect pt in anuric given longstanding ESRD pt without marked hyperglycemia #subclinical hyperthyroid (TSH low, ft4 nl) PCP F/u #ESRD: nephrology following #DM2: cut home lantus in half given AM hypoglycemia DVT prophx likely dc in AM if BGs ok Subjective 24 Hr Interval Summary Free Text/Dictation Had some low BGs this AM Exam/Review of Systems Vital Signs Vitals Vital Signs Date Time Temp Pulse Resp B/P Pulse Ox O2 Delivery O2 Flow Rate FiO2 07/13/17 16:11 80 07/13/17 08:00 97.6 16 148/89 100 07/11/17 23:37 Room Air 07/11/17 19:17 0 Intake and Output 07/12/17 07/12/17 07/13/17 15:00 23:00 07:00 Intake Total 740 ml 240 ml Output Total 1000 ml Balance -260 ml 240 ml Exam nad no mrg lungs clear abd soft no rashes hyponatremia resolved serum osms nl Results Result Diagram: 07/12/17 0813 07/13/17 0719 Results 24 hrs Laboratory Tests Test 07/12/17 17:19 07/12/17 20:19 07/13/17 01:16 07/13/17 07:19 Bedside Glucose 179 135 116 Sodium Level 138 Potassium Level 4.2 Chloride Level 103 Carbon Dioxide Level 26 Anion Gap 13 Blood Urea Nitrogen 36 #H Creatinine 4.85 #H Glucose Level 73 # Calcium Level 9.2 Magnesium Level 2.4 Test 07/13/17 07:48 07/13/17 08:14 07/13/17 08:34 07/13/17 08:57 Bedside Glucose 62 L 64 L 79 149 Test 07/13/17 12:01 Bedside Glucose 172 Medications Medications Current Medications Ondansetron HCl (Zofran Inj) 4 mg Q6H PRN IV NAUSEA AND/OR VOMITING Last administered on 07/13/17 07:54; Admin Dose 4 MG; Start 07/12/17 at 02:00 Acetaminophen (Tylenol Tab) 650 mg Q6H PRN PO PAIN LEVEL 1-3 OR FEVER; Start at 02:00 Docusate Sodium (Colace) 100 mg Q12H PRN PO CONSTIPATION; Start 07/12/17 at 02: 00 Bisacodyl (Dulcolax) 5 mg DAILY PRN PO CONSTIPATION; Start 07/12/17 at 02:00 Calcium Acetate (Phoslo) 1,334 mg TID PO Last administered on 07/13/17 12:22; Admin Dose 1,334 MG; Start 07/12/17 at 09:00 Diphenoxylate HCl/ Atropine (Lomotil) 1 tab TID PRN PO DIARRHEA; Start 07/12/17 at 02:00 Metoclopramide HCl (Reglan) 5 mg TID PRN PO NAUSEA AND/OR VOMITING Last administered on 07/13/17 01:23; Admin Dose 5 MG; Start 07/12/17 at 02:00 Midodrine (Proamatine) 10 mg TID PO Last administered on 07/12/17 20:21; Admin Dose 10 MG; Start 07/12/17 at 09:00 Tramadol HCl (Ultram) 50 mg Q6H PRN PO PAIN Last administered on 07/13/17 01: 24; Admin Dose 50 MG; Start 07/12/17 at 02:00 Cholecalciferol (Vitamin D) 800 units DAILY PO Last administered on 07/13/17 08:25; Admin Dose 800 UNITS; Start 07/12/17 at 09:00 Miscellaneous Information 100 mg DAILY PO ; Start 07/12/17 at 09:00; Status UNV Diagnostic Test (Pha) (Accu-Chek) XX ; Start 07/12/17 at 02:00 Miscellaneous Information (Pending Santyl Order For Wound Care) This patient [place]... PRN PRN XX WOUND CARE; Start 07/12/17 at 03:30 Miscellaneous Information (*Order Clarification Bulletin) Eluxadoline (Viberzi) 100 MG* PLE... Q8H XX ; Start 07/13/17 at 10:30 Insulin Glargine (Lantus) 10 unit HS SC ; Start 07/13/17 at 21:00 FELIPE HUFFMAN MD Jul 13, 2017 16:25
--- NOTE | 2017-07-13 19:03 | CONS ---
Date/Time of Note Date/Time of Note DATE: 07/13/17 TIME: 18:59 Assessment/Plan Assessment/Plan Chief Complaint/Hosp Course 1. Hyponatremia. likely secondary to increased free water intake with no HD session and reduced clearnce of water due to minimal urine output, Na corrected after HD 2. ESRD, on HD 3. Diabetes mellitus type II, uncontrolled. 4. S/p right hip surgery. 5. Anemia of chronic disease 6. Cachexia. Problems: Additional Assessment/Plan 1. Na improved 2. Pain control 3. Continue HD Problems: Consultation Date/Type/Reason Admit Date/Time Jul 12, 2017 at 00:07 Initial Consult Date Type of Consultation: Nephrology 24 HR Interval Summary Free Text/Dictation Hypoglycemic this am Na 125> corrected after HD Exam/Review of Systems Vital Signs Vitals Vital Signs Date Time Temp Pulse Resp B/P Pulse Ox O2 Delivery O2 Flow Rate FiO2 07/13/17 16:11 80 07/13/17 08:00 97.6 16 148/89 100 07/11/17 23:37 Room Air 07/11/17 19:17 0 Intake and Output 07/12/17 07/12/17 07/13/17 15:00 23:00 07:00 Intake Total 740 ml 240 ml Output Total 1000 ml Balance -260 ml 240 ml Exam constitutional: alert, oriented Head: atraumatic Eyes: nl conjunctiva Neck: supple Respiratory: clear to auscultation Cardiovascular: regular rate and rhythm Gastrointestinal: soft Genitourinary - Male: nl scrotum Musculoskeletal: muscle weakness (right hip) Skin: other (surgical wounds) Results Result Diagram: 07/12/17 0813 07/13/17 0719 Results 24 hrs Laboratory Tests Test 07/12/17 20:19 07/13/17 01:16 07/13/17 07:19 07/13/17 07:48 Bedside Glucose 135 116 62 L Sodium Level 138 Potassium Level 4.2 Chloride Level 103 Carbon Dioxide Level 26 Anion Gap 13 Blood Urea Nitrogen 36 #H Creatinine 4.85 #H Glucose Level 73 # Calcium Level 9.2 Magnesium Level 2.4 Test 07/13/17 08:14 07/13/17 08:34 07/13/17 08:57 07/13/17 12:01 Bedside Glucose 64 L 79 149 172 Test 07/13/17 17:29 Bedside Glucose 202 Medications Medications Current Medications Ondansetron HCl (Zofran Inj) 4 mg Q6H PRN IV NAUSEA AND/OR VOMITING Last administered on 07/13/17 17:42; Admin Dose 4 MG; Start 07/12/17 at 02:00 Acetaminophen (Tylenol Tab) 650 mg Q6H PRN PO PAIN LEVEL 1-3 OR FEVER; Start at 02:00 Docusate Sodium (Colace) 100 mg Q12H PRN PO CONSTIPATION; Start 07/12/17 at 02: 00 Bisacodyl (Dulcolax) 5 mg DAILY PRN PO CONSTIPATION; Start 07/12/17 at 02:00 Calcium Acetate (Phoslo) 1,334 mg TID PO Last administered on 07/13/17 12:22; Admin Dose 1,334 MG; Start 07/12/17 at 09:00 Diphenoxylate HCl/ Atropine (Lomotil) 1 tab TID PRN PO DIARRHEA; Start 07/12/17 at 02:00 Metoclopramide HCl (Reglan) 5 mg TID PRN PO NAUSEA AND/OR VOMITING Last administered on 07/13/17 01:23; Admin Dose 5 MG; Start 07/12/17 at 02:00 Midodrine (Proamatine) 10 mg TID PO Last administered on 07/12/17 20:21; Admin Dose 10 MG; Start 07/12/17 at 09:00 Tramadol HCl (Ultram) 50 mg Q6H PRN PO PAIN Last administered on 07/13/17 18: 31; Admin Dose 50 MG; Start 07/12/17 at 02:00 Cholecalciferol (Vitamin D) 800 units DAILY PO Last administered on 07/13/17 08:25; Admin Dose 800 UNITS; Start 07/12/17 at 09:00 Miscellaneous Information 100 mg DAILY PO ; Start 07/12/17 at 09:00; Status UNV Diagnostic Test (Pha) (Accu-Chek) XX ; Start 07/12/17 at 02:00 Miscellaneous Information (Pending Santyl Order For Wound Care) This patient [place]... PRN PRN XX WOUND CARE; Start 07/12/17 at 03:30 Miscellaneous Information (*Order Clarification Bulletin) Eluxadoline (Viberzi) 100 MG* PLE... Q8H XX ; Start 07/13/17 at 10:30 Insulin Glargine (Lantus) 10 unit HS SC ; Start 07/13/17 at 21:00 ZACH JUARES MD Jul 13, 2017 19:03
[2017-07-13] MEDS ORDERED: INSULIN GLARGINE [LANtus] 3 ML PEN SC SCH (21:00)
[2017-07-14] VITALS (15 sets, daily range): BP systolic 97–157; BP diastolic 50–90; PULSE 62–87; RESP 17–20
[2017-07-14] MEDS: ACCU-CHEK XX SCH (02:24)
[2017-07-14] MEDS: [UNRECOGNIZED DRUG - OTHER] XX SCH ×2 (02:30→10:00)
[2017-07-14] MEDS: INSULIN ASPART [NOVOLOG] 3 ML PEN SC SCH ×4 (08:00→11:38)
[2017-07-14] MEDS: MIDODRINE 5 MG TAB PO SCH ×2 (08:04→12:58)
[2017-07-14] MEDS: CHOLECALCIFEROL 400 UNITS TAB PO SCH (08:06)
[2017-07-14] MEDS: CALCIUM ACETATE 667 MG CAP PO SCH ×2 (08:06→12:56)
[2017-07-14] MEDS: CREON (12k-38k-60k) 1 CAP PO SCH ×2 (08:07→11:55)
--- NOTE | 2017-07-14 11:26 | DS ---
Date/Time of Note Date/Time of Note DATE: 07/14/17 TIME: 11:20 Discharge Summary Admission/Discharge Info Admit Date/Time Jul 12, 2017 at 00:07 Discharge Date/Time Discharge Diagnosis 1. Hyponatremia, resolved 2. ESRD, DD, HD on per nephrology 3. DM, stable 5. Mild normocytic anemia, stable Patient Condition: Stable Hx of Present Illness This 57-year-old male sent from dialysis for abnormal labs which he says are sodium and potassium abnormalities as well as very high blood sugar. He has mild nausea without vomiting. Had mild lightheadedness earlier as is otherwise feeling well. States that for the past 4 days he has felt weak and has had some nausea but denies any fevers cough. He last had his dialysis on Friday his dialysis doctor is Dr. Crowley. Hospital Course Hyponatremia is considered combination of increased free water intake and nausea induced SIADH. Sodium is significantly improved to 138 on 07/14/2017 with free water restriction. Patient is asymptomatic without nausea or vomiting. He will follow up with PCP outpatient. K is 4.2 Home Meds Active Scripts Diphenoxylate HCl/Atropine (Lomotil 2.5-0.025 mg Tablet) 1 Each Tablet, 1 TAB PO TID Y for DIARRHEA, #90 TAB Prov:CHARY WHARTON 05/05/17 Reported Medications Eluxadoline (Viberzi) 100 Mg Tablet, 100 MG PO DAILY, TAB 07/11/17 Metoclopramide Hcl* (Metoclopramide Hcl*) 5 Mg Tablet, 5 MG PO TID Y for NAUSEA AND/OR VOMITING, TAB 07/11/17 Tramadol Hcl* (Ultram*) 50 Mg Tablet, 50 MG PO Q6H Y for PAIN, TAB 04/22/17 Cholecalciferol (Vitamin D3) 400 Unit Tab.chew, 800 UNIT PO DAILY, TAB.CHEW 04/22/17 Lhraqv-Ugfxhpjy-Izbzskw* (Derian AVINA* 12,000) 12,000 L-38,000-60,000 Unit Capsule.dr, 2 CAP PO WITH MEALS, CAP 04/22/17 Midodrine* (Midodrine*) 5 Mg Tablet, 10 MG PO TID, TAB 04/22/17 Insulin Regular, Human* (Novolin R*) 100 U/Ml Vial, 2 UNIT SC AC MEALS, VIAL 1/23/16 Sitagliptin* (Januvia*) 50 Mg Tablet, 50 MG PO DAILY, #30 TAB 11/25/15 Calcium Acetate* (Calcium Acetate*) 667 Mg Capsule, 1334 MG PO TID, CAP 12/17/14 Insulin Glargine,Hum.rec.anlog (Lantus) 100 U/Ml Cartridge, 20 U SQ HS 03/07/14 Discontinued Reported Medications Vit B Cmplx 3/Fa/Vit C/Biotin (VOL-CARE RX TABLET) 1 Each Tablet, 1 EACH PO DAILY, TAB 04/22/17 Meclizine Hcl* (Meclizine Hcl*) 25 Mg Tablet, 25 MG PO NEEDED Y for DIZZINESS , TAB 04/22/17 Discontinued Scripts Saccharomyces Boulardii* (Florastor*) 250 Mg Cap, 500 MG PO BID, #60 CAP Prov:AKIKOCHARY Bain 05/05/17 Follow-up Plan PCP and nephrology in one week Primary Care Provider Zechariah Wong Pending Labs Laboratory Tests Test 07/13/17 12:01 07/13/17 17:29 07/13/17 20:27 07/14/17 01:57 Bedside Glucose 172mg/dL (70-220) 202mg/dL (70-220) 317mg/dL (70-220) 65mg/dL (70-220) Test 07/14/17 02:15 07/14/17 02:32 07/14/17 02:46 07/14/17 03:00 Bedside Glucose 59mg/dL (70-220) 62mg/dL (70-220) 64mg/dL (70-220) 72mg/dL (70-220) Test 07/14/17 03:16 07/14/17 03:31 07/14/17 07:54 Bedside Glucose 125mg/dL (70-220) 138mg/dL (70-220) 118mg/dL (70-220) LEON WELCH MD Jul 14, 2017 11:26
[2017-07-14] MEDS: traMADol 50 MG TAB PO PRN (11:59)
--- NOTE | 2017-07-14 18:20 | CONS ---
Date/Time of Note Date/Time of Note DATE: 07/14/17 TIME: 18:19 Assessment/Plan Assessment/Plan Chief Complaint/Hosp Course 1. Hyponatremia. likely secondary to increased free water intake with no HD session 2. ESRD, on HD 3. Diabetes mellitus type II, uncontrolled. 4. S/p right hip surgery. 5. Anemia of chronic disease 6. Cachexia. PLAN HD Problems: Consultation Date/Type/Reason Admit Date/Time Jul 12, 2017 at 00:07 Initial Consult Date Type of Consultation: Nephrology 24 HR Interval Summary Constitutional: no complaints Exam/Review of Systems Vital Signs Vitals Vital Signs Date Time Temp Pulse Resp B/P Pulse Ox O2 Delivery O2 Flow Rate FiO2 07/14/17 16:14 87 07/14/17 16:10 98.0 20 102/64 98 07/11/17 23:37 Room Air 07/11/17 19:17 0 Exam Neck: supple Respiratory: clear to auscultation Cardiovascular: regular rate and rhythm Gastrointestinal: soft Musculoskeletal: nl extremities to inspection Results Result Diagram: 07/12/17 0813 07/13/17 0719 Results 24 hrs Laboratory Tests Test 07/13/17 20:27 07/14/17 01:57 07/14/17 02:15 07/14/17 02:32 Bedside Glucose 317 H 65 L 59 L 62 L Test 07/14/17 02:46 07/14/17 03:00 07/14/17 03:16 07/14/17 03:31 Bedside Glucose 64 L 72 125 138 Test 07/14/17 07:54 07/14/17 11:29 Bedside Glucose 118 158 YASMIN QUIROS MD Jul 14, 2017 18:20
[2017-07-15] MEDS ORDERED: INSULIN GLARGINE [LANtus] 3 ML PEN SC SCH (21:00)
== END 2017-07-14 17:26 | disposition home or self-care (01) | DRG 643 ==
LOC: E/R 16:10 → MS4 07-12 00:02
PROVIDERS: ADMIT Family Medicine; ATTEND Family Medicine
DX: E22.2 Syndrome of inappropriate secretion of antidiuretic hormone (principal); N18.6 End stage renal disease; E43 Unspecified severe protein-calorie malnutrition; R64 Cachexia; L89.153 Pressure ulcer of sacral region, stage 3; I12.0 Hypertensive chronic kidney disease with stage 5 chronic kidney disease or end stage renal disease; Z68.1 Body mass index [BMI] 19.9 or less, adult; E05.90 Thyrotoxicosis, unspecified without thyrotoxic crisis or storm; D63.1 Anemia in chronic kidney disease; E87.5 Hyperkalemia; E11.65 Type 2 diabetes mellitus with hyperglycemia; E11.22 Type 2 diabetes mellitus with diabetic chronic kidney disease; Z99.2 Dependence on renal dialysis; Z79.4 Long term (current) use of insulin
CPT/HCPCS: 36415; 71010; 80048; 80053; 80061; 82533; 82962; 83036; 83735; 83930; 84436; 84439; 84443; 84484; 85025; 85610; 85730; 90935; 93005; 96374; J1815; J2405; J7030

== ENCOUNTER 2017-11-08 10:18 | Inpatient (IN) | END 2017-11-13 19:15 | disposition home health service (06) | DRG 637 ==

== ENCOUNTER → 2017-11-19 | Outpatient (CLI) | END | disposition home or self-care (01) ==

== ENCOUNTER 2018-09-11 16:29 | Emergency (ER) | END 2018-09-11 21:15 | disposition home or self-care (01) ==